=== PATIENT | male | born 1945 | race African-American/Black ===

== ENCOUNTER → 2017-10-07 | Outpatient (CLI) | payer OTHER, MEDICARE | END | disposition home or self-care (01) | LOC: US 09:14 | DX: I63.8 Other cerebral infarction (principal); I10 Essential (primary) hypertension; E78.5 Hyperlipidemia, unspecified; E78.00 Pure hypercholesterolemia, unspecified; R53.1 Weakness | CPT/HCPCS: 93880 ==

== ENCOUNTER 2017-11-15 20:05 | Inpatient (IN) | payer OTHER ==
[~2017-11-15] VITALS: Ht 180.3 cm; Wt 82.1 kg
[~2017-11-15 20:05] MED LIST: ATOR40TA PO; INSU100V8 SQ; INSU100V9 SQ; LISI10TA2 PO; METF500T16 PO
[2017-11-15] MEDS ORDERED: CLOP75TA PO (21:45)
--- NOTE | 2017-11-15 22:33 | RAD ---
PROCEDURE: CHEST PA LATERAL CLINICAL INDICATION: LOWER EXTREMITY EDEMA. HX OF SMOKING COMPARISON: 05/06/2016 FINDINGS: No pneumothorax identified. Cardiac and mediastinal contours unremarkable. No pulmonary consolidation or acute airspace disease. No acute osseous abnormalities identified. IMPRESSION: No pulmonary consolidation or acute airspace disease. Electronically signed by: Jan Solis DO (11/15/2017 10:29 PM) [facility]
--- NOTE | 2017-11-15 22:50 | PHYS DOC ---
Past Medical History Past Medical History: Diabetes-Type II, High Cholesterol, Hypertension, Other Past Surgical History: Cholecystectomy Alcohol Use: None Drug Use: None Adult General Chief Complaint Chief Complaint: LOWER EXTREMITY EDEMA HPI HPI Patient is a 72 year old male who presents with bilateral lower extremity edema with weeping and open wound to the right singh. Patient denies any shortness of breath or chest pain. He reports this is been going on for several months and steadily worsening. He reports the wound has become painful. Review of Systems Review of Systems Constitutional: Denies fever or chills [] Respiratory: Denies cough or shortness of breath [] Cardiovascular: No chest pain or palpitations GI: Denies abdominal pain, nausea, vomiting Musculoskeletal: Denies back pain or joint pain [] Integument: Reports lower extremity edema with weeping and wound to the right singh Neurologic: Denies focal weakness or sensory changes [] All other systems were reviewed and found to be within normal limits, except as documented in this note. Allergies Allergies Allergies Coded Allergies Type Severity Reaction Last Updated Verified No Known Drug Allergies 04/17/13 No Physical Exam Physical Exam Constitutional: Well developed, well nourished, no acute distress, non-toxic appearance. [] HENT: Normocephalic, atraumatic Eyes: PERRLA, EOMI, conjunctiva normal, no discharge. [] Neck: Normal range of motion, no tenderness, supple, no stridor. [] Cardiovascular:Heart rate regular rhythm, no murmur [] Lungs & Thorax: Bilateral breath sounds clear to auscultation [] Skin: Warm, dry, no erythema, no rash. [] Extremities: Bilateral lower extremity 4+ edema with weeping, ulcerative wound to the right singh, tender to palpation Neurologic: Alert and oriented X 3, normal motor function, normal sensory function, no focal deficits noted. [] Psychologic: Affect normal, judgement normal, mood normal. [] Current Patient Data Vital Signs Vital Signs Date Time Temp Pulse Resp B/P (MAP) Pulse Ox O2 Delivery O2 Flow Rate FiO2 11/15/17 20:40 98.1 78 20 149/71 (97) 100 Room Air 98.1 EKG EKG [] Radiology/Procedures Radiology/Procedures [] Course & Med Decision Making Course & Med Decision Making Pertinent Labs and Imaging studies reviewed. (See chart for details) Assumed care at 23:00 from RENT COLLECTOR Hout- patient is in the ED for bilateral lower extremity edema with weeping and open wound to the right singh for several months. Patient waiting for labs. Consulted with Dr. Castelan who accepted patient for admission. Dragon Disclaimer Dragon Disclaimer This electronic medical record was generated, in whole or in part, using a voice recognition dictation system. Departure Departure Impression: Primary Impression: Leg wound, right Disposition: ADMITTED INPATIENT Condition: STABLE Referrals: RAAM CASTELAN MD (PCP) Problem Qualifiers Primary Impression: Leg wound, right Encounter type: initial encounter Qualified Codes: S81.801A - Unspecified open wound, right lower leg, initial encounter AMBER LINDER STENCIL PRINTER Nov 15, 2017 22:50 CHIARA TOVAR STENCIL PRINTER Nov 16, 2017 01:19
--- NOTE | 2017-11-15 23:42 | EKG ---
[facility] [address] [place] [address] Test Date: 2017-11-15 Test Time: 21:53:07 Pat Name: BEATRIS BROCK Department: Room: Gender: M Parent Educator: : 1945 Requested By: AMBER LINDER Order Number: [id number] Reading MD: Bill Orellana MD Measurements Intervals Douglas Rate: 55 P: NE: QRS: -38 QRSD: 92 T: 78 QT: 418 QTc: 402 Interpretive Statements SR PAC'S LOW LIMB LEAD VOLTAGE Electronically Signed On 11-16-2017 12:09:07 CDT by Bill Orellana MD
[2017-11-16] MEDS ORDERED: MORPHINE SULFATE 4 MG/ML VIAL. IV PRN (01:30)
[2017-11-16] MEDS ORDERED: ONDANSETRON PF 4 MG/2 ML VIAL. IV PRN (01:30)
[2017-11-16 01:36] LABS: BASO # 0.1 x10^3/uL (0.0-0.2); BASO % 1 % (0-3); EOS # 0.2 x10^3/uL (0.0-0.7); EOS % 3 % (0-3); HEMATOCRIT 40.1 % (39.0-53.0); HEMOGLOBIN 13.8 g/dL (13.0-17.5); LYMPH # 1.8 x10^3/uL (1.0-4.8); LYMPH % 33 % (24-48); MEAN CORPUSCULAR HEMOGLOBIN 31 pg (25-35); MEAN CORPUSCULAR HGB CONC 34 g/dL (31-37); MEAN CORPUSCULAR VOLUME 91 fL (79-100); MONO # 0.5 x10^3/uL (0.0-1.1); MONO % 10 % (0-9); NEUT # 2.9 x10^3uL (1.8-7.7); NEUT % 53 % (31-73); PLATELET COUNT 183 x10^3/uL (140-400); RED BLOOD COUNT 4.41 x10^6/uL (4.30-5.70); RED CELL DISTRIBUTION WIDTH 14.3 % (11.5-14.5); WHITE BLOOD COUNT 5.4 x10^3/uL (4.0-11.0)
[2017-11-16 01:43] LABS: CALCIUM 8.8 mg/dL (8.5-10.1); GFR 89.1; POTASSIUM 3.6 mmol/L (3.5-5.1)
[2017-11-16 01:49] LABS: ALBUMIN 3.6 g/dL (3.4-5.0); ALBUMIN/GLOBULIN RATIO 1.1 (1.0-1.7); TOTAL BILIRUBIN 1.1 mg/dL (0.2-1.0); TOTAL PROTEIN 6.9 g/dL (6.4-8.2)
--- NOTE | 2017-11-16 02:43 | RAD ---
INDICATION: BILAT LEG SWELLING [id number] COMPARISON: None. TECHNIQUE: Grayscale, color and doppler ultrasound images were obtained of the bilateral lower extremity venous vasculature. RIGHT: No thrombus identified in the common femoral vein, femoral vein, popliteal vein or visualized calf veins. LEFT: No thrombus identified in the common femoral vein, femoral vein, popliteal vein or visualized calf veins. IMPRESSION: 1. No thrombus identified in deep venous system of bilateral lower extremities. 2. Edema of soft tissues. 3. Prominent lymph nodes in bilateral groin. Could be reactive in nature but would consider obtaining a follow-up exam to ensure no growth to exclude neoplastic causes Electronically signed by: Ganesh Barrera MD (11/16/2017 2:40 AM) [facility]
[2017-11-16 05:40] VITALS: BP 145/81
[2017-11-16 07:00] VITALS: BP 160/75
[2017-11-16] MEDS: CLOPIDOGREL BISULFATE 75 MG TABLET PO SCH (08:57)
[2017-11-16] MEDS: metFORMIN 500 MG TABLET PO SCH ×2 (08:57→17:00)
[2017-11-16] MEDS: amLODIPine BESYLATE 5 MG TABLET PO SCH (08:58)
[2017-11-16] MEDS: ENOXAPARIN 40 MG/0.4 ML SYRINGE. SQ SCH (08:59)
[2017-11-16] MEDS: LISINOPRIL 10 MG TABLET PO SCH (08:59)
[2017-11-16] MEDS: INSULIN LISPRO 300 UNITS/3 ML INSULN.PEN. SQ SCH ×3 (09:09→16:30)
--- NOTE | 2017-11-16 10:59 | HP ---
ADMIT DATE: 11/16/2017 LOCATION: He is in room 432. HISTORY OF PRESENT ILLNESS: The patient is a 72-year-old -[place] male who has a history of diabetes mellitus type 2 with microalbuminuria, hypertension, hyperlipidemia, coronary artery disease, previous myocardial infarction who has a prosthetic left eye and is a cigarette smoker, was admitted to [facility] through the Emergency Room on 11/16/2017 with swelling in both legs and right leg wound. He said he got the right leg wound while wrestling with his granddaughter. He says he has had the swelling in the legs for several months, which is worsened as well as the right leg wound for quite some time the hospital for further evaluation and management. It should be noted that the computers are down, so I do not have access to his vital signs or his labs and tests. However, I did wake up in the middle of the night and wrote admitting orders on him before the computer went down. He is therefore admitted for further evaluation and treatment of his bilateral lower extremity edema and right leg wound. ALLERGIES AND INTOLERANCES: None. MEDICATIONS: Atorvastatin 40 mg every day, Humalog insulin 4 units before meals t.i.d., Lantus insulin 12 units at bedtime, lisinopril 20 mg every day, metformin 500 mg b.i.d., amlodipine 5 mg every day and Plavix 75 mg every day. PAST MEDICAL HISTORY: Significant for diabetes mellitus type 2 with microalbuminuria, hypertension, hyperlipidemia, coronary artery disease followed by Dr. Orellana, myocardial infarction in the past, he had a gastric ulcer in 2003. 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 SOCIAL HISTORY: Does not drink alcohol. Smokes about 1 pack per day of cigarettes. FAMILY HISTORY: Noncontributory. REVIEW OF SYSTEMS: GENERAL: There has been no fever, chills or sweats. CARDIOVASCULAR: No chest pain. PULMONARY: No cough or shortness breath. GASTROINTESTINAL: No diarrhea. SKIN: He has got the right leg wound. NEUROLOGIC: No focal weakness. ENDOCRINE: Has diabetes mellitus. Rest of systems reviewed and negative except as stated in history of present illness. PHYSICAL EXAMINATION: VITAL SIGNS: Stable. HEENT: Eyes: Gaze is conjugate. Mouth is symmetrical. NECK: No cervical lymphadenopathy or thyroid enlargement. HEART: Reveals an S1, S2. There is no S3 or murmur. LUNGS: Clear. ABDOMEN: Soft, nontender with no hepatosplenomegaly, masses or tenderness. EXTREMITIES: He has got 2+ edema in both legs. SKIN: He has got a right anterior pretibial wound with a pink base. NEUROLOGIC: Revealed no facial weakness or focal weakness in the arms or legs. ASSESSMENT: 1. Bilateral lower extremity edema. 2. Right leg wound. 3. Diabetes mellitus type 2 with microalbuminuria. 4. Hypertension. 5. Hyperlipidemia. 6. Coronary artery disease. It should be noted I do not have any access to the labs as the computers are down at this time. PLAN: At this time is to elevate the legs. He will get a venous Doppler of both legs to rule out a deep vein thrombosis, obtain an echocardiogram to check his left ventricular ejection fraction to make sure he does not have right-sided heart failure or pulmonary hypertension, and will be seen by the wound care team. for his lab results, consider furosemide and do a 24-hour urine collection for protein. Continue with his home medications. ARAM TERRELL MD DR: YEYO/heladio JOB#: [id number] / [id number]
[2017-11-16 11:00] VITALS: BP 138/78
[2017-11-16] MEDS: FUROSEMIDE 20 MG/2 ML VIAL. IVP SCH (12:00)
[2017-11-16] MEDS: POTASSIUM CHLORIDE 20 MEQ TABLET.ER. PO SCH (12:34)
[2017-11-16 15:00] VITALS: BP 114/64
[2017-11-16] MEDS: NICOTINE 21MG PATCH. TD SCH (15:28)
--- NOTE | 2017-11-16 16:10 | CARD ---
MR#: [id number] Date of Study: 11/16/2017 Ordering Physician: ARAM TERRELL, Referring Physician: ARAM TERRELL Tech: Muna Johnson RDCS APPROVED REPORT EXAM: Two-dimensional and M-mode echocardiogram with Doppler and color Doppler. Other Information Quality : Fair INDICATION Peripheral Edema Hypertension/HCVD 2D DIMENSIONS RVDd1.7 (2.9-3.5cm)Left Atrium(2D)3.0 (1.6-4.0cm) IVSd0.8 (0.7-1.1cm)Aortic Root(2D)2.6 (2.0-3.7cm) LVDd5.0 (3.9-5.9cm)LVOT Diameter1.9 (1.8-2.4cm) PWd1.1 (0.7-1.1cm)LVDs2.8 (2.5-4.0cm) FS (%) 30.0 %SV86.3 ml LVEF(%)60.0 (>50%) Aortic Valve AoV Peak Tadeo.147.3cm/sAoV VTI29.2cm AO Peak GR.8.7mmHgLVOT Peak Tadeo.120.5cm/s LVOT VTI 25.49cmAO Mean GR.4mmHg ZAYDA (VMAX)2.95fd0XZZ (VTI)2.60cm2 Mitral Valve MV E Nvtcjeby14.7cm/sMV DECEL EPAC690we MV A Dlqrehvw49.0cm/sMV IAB69fl E/A Ratio1.8MVA (PHT)3.96cm2 TDI E/Lateral E'9.2E/Medial E'11.5 Pulmonary Vein S1 Buqaukvk69.2cm/sD2 Kjjwffyr69.8cm/s LEFT VENTRICLE The left ventricle is normal size. There is normal left ventricular wall thickness. The left ventricu lar systolic function is normal. The Ejection Fraction is 55-60%. There is normal LV segmental wall m otion. RIGHT VENTRICLE The right ventricle is normal size. The right ventricular systolic function is normal. ATRIA The left atrium size is normal. The right atrium size is normal. The interatrial septum is intact wit h no evidence for an atrial septal defect or patent foramen ovale as noted on 2-D or Doppler imaging. AORTIC VALVE The aortic valve is calcified but opens well. Doppler and Color Flow revealed no significant aortic r egurgitation. There is no significant aortic valvular stenosis. MITRAL VALVE The mitral valve is calcified but opens well. There is no evidence of mitral valve prolapse. There is no mitral valve stenosis. Doppler and Color-flow revealed trace to mild mitral regurgitation. TRICUSPID VALVE The tricuspid valve is normal in structure and function. Doppler and Color Flow revealed trace tricus pid regurgitation. There is no tricuspid valve stenosis. PULMONIC VALVE The pulmonic valve is not well visualized. Doppler and Color Flow revealed no pulmonic valvular regur gitation. There is no pulmonic valvular stenosis. GREAT VESSELS The aortic root is normal in size. The ascending aorta is normal in size. The IVC is normal in size a nd collapses >50% with inspiration. PERICARDIAL EFFUSION There is no evidence of significant pericardial effusion. Critical Notification Critical Value: No <Conclusion> The left ventricular systolic function is normal. The Ejection Fraction is 55-60%. There is normal LV segmental wall motion. Trace to mild mitral regurgitation. Trace tricuspid regurgitation. There is no evidence of significant pericardial effusion. Signed by : Axel Gallegos, Electronically Approved : 11/16/2017 16:10:02
[2017-11-16 19:00] VITALS: BP 126/70
[2017-11-16] MEDS: ATORVASTATIN CALCIUM 40 MG TABLET. PO SCH (20:45)
[2017-11-16] MEDS: INSULIN GLARGINE 300 UNITS/3 ML INSULN.PEN. SQ SCH (20:47)
[2017-11-16 23:00] VITALS: BP 132/70
[2017-11-17 03:00] VITALS: BP 138/75
[2017-11-17 07:00] VITALS: BP 123/58
[2017-11-17 07:25] LABS: BASO % 1 % (0-3); EOS # 0.1 x10^3/uL (0.0-0.7); EOS % 3 % (0-3); HEMATOCRIT 37.8 % (39.0-53.0); HEMOGLOBIN 13.2 g/dL (13.0-17.5); LYMPH # 1.4 x10^3/uL (1.0-4.8); LYMPH % 29 % (24-48); MEAN CORPUSCULAR HEMOGLOBIN 31 pg (25-35); MEAN CORPUSCULAR HGB CONC 35 g/dL (31-37); MEAN CORPUSCULAR VOLUME 90 fL (79-100); MONO # 0.7 x10^3/uL (0.0-1.1); MONO % 14 % (0-9); NEUT # 2.6 x10^3uL (1.8-7.7); NEUT % 54 % (31-73); PLATELET COUNT 183 x10^3/uL (140-400); RED BLOOD COUNT 4.21 x10^6/uL (4.30-5.70); RED CELL DISTRIBUTION WIDTH 13.9 % (11.5-14.5); WHITE BLOOD COUNT 4.9 x10^3/uL (4.0-11.0)
[2017-11-17] MEDS: INSULIN LISPRO 300 UNITS/3 ML INSULN.PEN. SQ SCH ×3 (07:30→17:23)
[2017-11-17 07:39] LABS: CALCIUM 8.7 mg/dL (8.5-10.1); CHOLESTEROL/HDL RATIO 1.7; GFR 89.1
[2017-11-17] MEDS: CLOPIDOGREL BISULFATE 75 MG TABLET PO SCH (09:19)
[2017-11-17] MEDS: POTASSIUM CHLORIDE 20 MEQ TABLET.ER. PO SCH ×3 (09:19→17:20)
[2017-11-17] MEDS: FUROSEMIDE 20 MG/2 ML VIAL. IVP SCH (09:19)
[2017-11-17] MEDS: metFORMIN 500 MG TABLET PO SCH ×2 (09:19→17:20)
[2017-11-17] MEDS: ENOXAPARIN 40 MG/0.4 ML SYRINGE. SQ SCH (09:21)
[2017-11-17] MEDS: amLODIPine BESYLATE 5 MG TABLET PO SCH (09:21)
[2017-11-17] MEDS: LISINOPRIL 10 MG TABLET PO SCH (09:21)
[2017-11-17] MEDS: NICOTINE 21MG PATCH. TD SCH (09:22)
--- NOTE | 2017-11-17 10:19 | PDOC ---
PROGRESS NOTES Subjective Subjective less leg swelling but still present and will increase iv lasix. potassium 3.0 and will replete. echo okay. bilateral LE venous doppler neg for dvt. cultures from right leg wound gram stain negative. Objective Objective Vital Signs Date Time Temp Pulse Resp B/P (MAP) Pulse Ox O2 Delivery O2 Flow Rate FiO2 11/17/17 09:21 70 129/58 11/17/17 08:00 Room Air 11/17/17 07:00 98.1 18 99 98.1 Intake and Output 11/17/17 07:00 Output Total 1700 ml Balance -1700 ml Output Urine Total 1700 ml # Voids 4 Physical Exam Abdomen: Soft Heart: Regular rate, Normal S1, Normal S2 Extremities: Other (1 to 2 plus edema legs) General: Alert HEENT: Atraumatic Lungs: Clear to auscultation Neuro: Normal speech Psych/Mental Status: Mental status NL Skin: Other (right leg wound) Assessment Assessment 1. Bilateral lower extremity edema. 2. Right leg wound. 3. Diabetes mellitus type 2 with microalbuminuria. 4. Hypertension. 5. Hyperlipidemia. 6. Coronary artery disease. hypokalemia Plan Plan of Care increase iv lasix increase kcl labs tomorrow wound care consider dismissal tomorrow Comment Review of Relevant I have reviewed the following items linda (where applicable) has been applied. Labs Laboratory Tests Test 11/16/17 01:25 11/16/17 07:17 11/16/17 11:37 11/16/17 16:44 White Blood Count 5.4 x10^3/uL (4.0-11.0) Red Blood Count 4.41 x10^6/uL (4.30-5.70) Hemoglobin 13.8 g/dL (13.0-17.5) Hematocrit 40.1 % (39.0-53.0) Mean Corpuscular Volume 91 fL (79-100) Mean Corpuscular Hemoglobin 31 pg (25-35) Mean Corpuscular Hemoglobin Concent 34 g/dL (31-37) Red Cell Distribution Width 14.3 % (11.5-14.5) Platelet Count 183 x10^3/uL (140-400) Neutrophils (%) (Auto) 53 % (31-73) Lymphocytes (%) (Auto) 33 % (24-48) Monocytes (%) (Auto) 10 % (0-9) Eosinophils (%) (Auto) 3 % (0-3) Basophils (%) (Auto) 1 % (0-3) Neutrophils # (Auto) 2.9 x10^3uL (1.8-7.7) Lymphocytes # (Auto) 1.8 x10^3/uL (1.0-4.8) Monocytes # (Auto) 0.5 x10^3/uL (0.0-1.1) Eosinophils # (Auto) 0.2 x10^3/uL (0.0-0.7) Basophils # (Auto) 0.1 x10^3/uL (0.0-0.2) Sodium Level 142 mmol/L (136-145) Potassium Level 3.6 mmol/L (3.5-5.1) Chloride Level 105 mmol/L (98-107) Carbon Dioxide Level 29 mmol/L (21-32) Anion Gap 8 (6-14) Blood Urea Nitrogen 10 mg/dL (8-26) Creatinine 1.0 mg/dL (0.7-1.3) Estimated GFR (Cockcroft-Gault) 89.1 BUN/Creatinine Ratio 10 (6-20) Glucose Level 164 mg/dL (70-99) Calcium Level 8.8 mg/dL (8.5-10.1) Total Bilirubin 1.1 mg/dL (0.2-1.0) Aspartate Amino Transf (AST/SGOT) 18 U/L (15-37) Alanine Aminotransferase (ALT/SGPT) 30 U/L (16-63) Alkaline Phosphatase 75 U/L (46-116) RY-Nfl-L-Type Natriuretic Peptide 180 pg/mL (0-124) Total Protein 6.9 g/dL (6.4-8.2) Albumin 3.6 g/dL (3.4-5.0) Albumin/Globulin Ratio 1.1 (1.0-1.7) Glucose (Fingerstick) 150 mg/dL (70-99) 146 mg/dL (70-99) 90 mg/dL (70-99) Test 11/16/17 20:13 11/17/17 06:32 11/17/17 07:43 Glucose (Fingerstick) 199 mg/dL (70-99) 82 mg/dL (70-99) White Blood Count 4.9 x10^3/uL (4.0-11.0) Red Blood Count 4.21 x10^6/uL (4.30-5.70) Hemoglobin 13.2 g/dL (13.0-17.5) Hematocrit 37.8 % (39.0-53.0) Mean Corpuscular Volume 90 fL (79-100) Mean Corpuscular Hemoglobin 31 pg (25-35) Mean Corpuscular Hemoglobin Concent 35 g/dL (31-37) Red Cell Distribution Width 13.9 % (11.5-14.5) Platelet Count 183 x10^3/uL (140-400) Neutrophils (%) (Auto) 54 % (31-73) Lymphocytes (%) (Auto) 29 % (24-48) Monocytes (%) (Auto) 14 % (0-9) Eosinophils (%) (Auto) 3 % (0-3) Basophils (%) (Auto) 1 % (0-3) Neutrophils # (Auto) 2.6 x10^3uL (1.8-7.7) Lymphocytes # (Auto) 1.4 x10^3/uL (1.0-4.8) Monocytes # (Auto) 0.7 x10^3/uL (0.0-1.1) Eosinophils # (Auto) 0.1 x10^3/uL (0.0-0.7) Basophils # (Auto) 0.0 x10^3/uL (0.0-0.2) Sodium Level 143 mmol/L (136-145) Potassium Level 3.0 mmol/L (3.5-5.1) Chloride Level 106 mmol/L (98-107) Carbon Dioxide Level 29 mmol/L (21-32) Anion Gap 8 (6-14) Blood Urea Nitrogen 12 mg/dL (8-26) Creatinine 1.0 mg/dL (0.7-1.3) Estimated GFR (Cockcroft-Gault) 89.1 Glucose Level 76 mg/dL (70-99) Calcium Level 8.7 mg/dL (8.5-10.1) Triglycerides Level 40 mg/dL (0-150) Cholesterol Level 84 mg/dL (0-200) LDL Cholesterol, Calculated 26 mg/dL (0-100) VLDL Cholesterol, Calculated 8 mg/dL (0-40) Non-HDL Cholesterol Calculated 34 mg/dL (0-129) HDL Cholesterol 50 mg/dL (40-60) Cholesterol/HDL Ratio 1.7 Laboratory Tests Test 11/16/17 11:37 11/16/17 16:44 11/16/17 20:13 11/17/17 06:32 Glucose (Fingerstick) 146 mg/dL (70-99) 90 mg/dL (70-99) 199 mg/dL (70-99) White Blood Count 4.9 x10^3/uL (4.0-11.0) Red Blood Count 4.21 x10^6/uL (4.30-5.70) Hemoglobin 13.2 g/dL (13.0-17.5) Hematocrit 37.8 % (39.0-53.0) Mean Corpuscular Volume 90 fL (79-100) Mean Corpuscular Hemoglobin 31 pg (25-35) Mean Corpuscular Hemoglobin Concent 35 g/dL (31-37) Red Cell Distribution Width 13.9 % (11.5-14.5) Platelet Count 183 x10^3/uL (140-400) Neutrophils (%) (Auto) 54 % (31-73) Lymphocytes (%) (Auto) 29 % (24-48) Monocytes (%) (Auto) 14 % (0-9) Eosinophils (%) (Auto) 3 % (0-3) Basophils (%) (Auto) 1 % (0-3) Neutrophils # (Auto) 2.6 x10^3uL (1.8-7.7) Lymphocytes # (Auto) 1.4 x10^3/uL (1.0-4.8) Monocytes # (Auto) 0.7 x10^3/uL (0.0-1.1) Eosinophils # (Auto) 0.1 x10^3/uL (0.0-0.7) Basophils # (Auto) 0.0 x10^3/uL (0.0-0.2) Sodium Level 143 mmol/L (136-145) Potassium Level 3.0 mmol/L (3.5-5.1) Chloride Level 106 mmol/L (98-107) Carbon Dioxide Level 29 mmol/L (21-32) Anion Gap 8 (6-14) Blood Urea Nitrogen 12 mg/dL (8-26) Creatinine 1.0 mg/dL (0.7-1.3) Estimated GFR (Cockcroft-Gault) 89.1 Glucose Level 76 mg/dL (70-99) Calcium Level 8.7 mg/dL (8.5-10.1) Triglycerides Level 40 mg/dL (0-150) Cholesterol Level 84 mg/dL (0-200) LDL Cholesterol, Calculated 26 mg/dL (0-100) VLDL Cholesterol, Calculated 8 mg/dL (0-40) Non-HDL Cholesterol Calculated 34 mg/dL (0-129) HDL Cholesterol 50 mg/dL (40-60) Cholesterol/HDL Ratio 1.7 Test 11/17/17 07:43 Glucose (Fingerstick) 82 mg/dL (70-99) Microbiology 11/16/17 Anaerobic/Aerobic Culture, Resulted Pending 11/16/17 Anaerobic Culture Result 1 (BRITNEY), Resulted Pending 11/16/17 Aerobic Culture, Resulted Pending 11/16/17 Aerobic Culture Result 1 (BRITNEY), Resulted Pending 11/16/17 Gram Stain - Final, Resulted 11/16/17 Gram Stain Result 1 (BRITNEY) - Final, Resulted 11/16/17 Gram Stain Result 2 (BRITNEY) - Final, Resulted Medications Current Medications Ondansetron HCl (Zofran) 4 mg PRN Q8HRS PRN IV NAUSEA/VOMITING 1ST CHOICE; Start 11/16/17 at 01:30; Stop 11/17/17 at 01:29; Status DC Morphine Sulfate (Morphine Sulfate) 4 mg PRN Q2HR PRN IV SEVERE PAIN; Start at 01:30; Stop 11/17/17 at 01:29; Status DC Acetaminophen (Tylenol) 650 mg PRN Q4HRS PRN PO MILD PAIN / TEMP; Start at 01:30 Enoxaparin Sodium (Lovenox 40mg Syringe) 40 mg DAILY SQ Last administered on at 09:21; Start 11/16/17 at 09:00 Atorvastatin Calcium (Lipitor) 40 mg QHS PO Last administered on 11/16/17at 20: 45; Start 11/16/17 at 21:00 Insulin Human Lispro (HumaLOG) 4 units TIDAC SQ Last administered on 11/16/17at 12:45; Start 11/16/17 at 07:30 Insulin Glargine (Lantus) 12 units QHS SQ Last administered on 11/16/17at 20:47 ; Start 11/16/17 at 21:00 Lisinopril (Prinivil) 20 mg DAILY PO Last administered on 11/17/17 09:21; Start 11/16/17 at 09:00 Metformin HCl (Glucophage) 500 mg BIDWMEALS PO Last administered on 11/17/17 09:19; Start 11/16/17 at 08:00 Amlodipine Besylate (Norvasc) 5 mg DAILY PO Last administered on 11/17/17 09: 21; Start 11/16/17 at 09:00 Clopidogrel Bisulfate (Plavix) 75 mg DAILY PO Last administered on 11/17/17 09 :19; Start 11/16/17 at 09:00 Furosemide (Lasix) 20 mg DAILY IVP Last administered on 11/17/17 09:19; Start 11/16/17 at 12:00 Potassium Chloride (Klor-Con) 20 meq DAILYWBKFT PO Last administered on 09:19; Start 11/16/17 at 11:00 Nicotine (Nicoderm Cq 21mg) 1 patch DAILY TD Last administered on 11/17/17 09: 22; Start 11/16/17 at 16:00 Active Scripts Active Reported Clopidogrel (Clopidogrel Bisulfate) 75 Mg Tablet 1 Tab PO DAILY Lantus (Insulin Glargine,Hum.rec.anlog) 100 Unit/1 Ml Vial 32 Unit SQ HS Apidra (Insulin Glulisine) 100 Unit/1 Ml Vial 6 Unit SQ TIDAC Lipitor (Atorvastatin Calcium) 40 Mg Tablet 40 Mg PO HS Lisinopril 10 Mg Tablet 10 Mg PO DAILY08 Metformin Hcl 500 Mg Tablet 500 Mg PO BID76 Vitals/I & O Vital Sign - Last 24 Hours 11/16/17 11/16/17 11/16/17 11/16/17 11:00 15:00 19:00 19:50 Temp 98.9 98.3 98.3 98.9 98.3 98.3 Pulse 70 60 63 Resp 16 16 18 B/P (MAP) 138/78 (98) 114/64 (81) 126/70 (88) Pulse Ox 99 100 97 O2 Delivery Room Air Room Air Room Air Room Air 11/16/17 11/17/17 11/17/17 11/17/17 23:00 03:00 07:00 08:00 Temp 98.6 98.3 98.1 98.6 98.3 98.1 Pulse 56 50 70 Resp 18 18 18 B/P (MAP) 132/70 (90) 138/75 (96) 123/58 (79) Pulse Ox 100 96 99 O2 Delivery Room Air Room Air Room Air Room Air 11/17/17 11/17/17 09:21 09:21 Pulse 70 70 B/P (MAP) 129/58 129/58 Intake and Output 11/16/17 11/16/17 11/17/17 15:00 23:00 07:00 Output Total 450 ml 600 ml 650 ml Balance -450 ml -600 ml -650 ml ARAM TERRELL MD Nov 17, 2017 10:18
[2017-11-17 11:00] VITALS: BP 123/64
[2017-11-17] MEDS: FUROSEMIDE 40 MG/4 ML VIAL. IVP SCH (12:29)
[2017-11-17 13:24] LABS: UR PROTEIN 6.1 mg/dL (Not Estab.)
[2017-11-17 15:00] VITALS: BP 140/83
[2017-11-17 19:00] VITALS: BP 129/78
[2017-11-17] MEDS: ATORVASTATIN CALCIUM 40 MG TABLET. PO SCH (20:49)
[2017-11-17] MEDS: INSULIN GLARGINE 300 UNITS/3 ML INSULN.PEN. SQ SCH (20:51)
[2017-11-17 23:00] VITALS: BP 113/63
[2017-11-18 01:14] LABS: HEMOGLOBIN A1C 6.7 % (4.8-5.6)
[2017-11-18 03:00] VITALS: BP 139/80
[2017-11-18 07:00] VITALS: BP 147/88
[2017-11-18 07:05] LABS: CALCIUM 8.8 mg/dL (8.5-10.1); GFR 89.1; MAGNESIUM 1.7 mg/dL (1.8-2.4)
[2017-11-18] MEDS: NICOTINE 21MG PATCH. TD SCH (09:10)
[2017-11-18] MEDS: POTASSIUM CHLORIDE 20 MEQ TABLET.ER. PO SCH ×2 (09:10→17:38)
[2017-11-18] MEDS: metFORMIN 500 MG TABLET PO SCH ×2 (09:11→17:37)
[2017-11-18] MEDS: amLODIPine BESYLATE 5 MG TABLET PO SCH (09:11)
[2017-11-18] MEDS: CLOPIDOGREL BISULFATE 75 MG TABLET PO SCH (09:11)
[2017-11-18] MEDS: FUROSEMIDE 40 MG/4 ML VIAL. IVP SCH (09:11)
[2017-11-18] MEDS: LISINOPRIL 10 MG TABLET PO SCH (09:11)
[2017-11-18] MEDS: INSULIN LISPRO 300 UNITS/3 ML INSULN.PEN. SQ SCH ×3 (09:20→17:47)
[2017-11-18 11:00] VITALS: BP 132/74
--- NOTE | 2017-11-18 13:02 | PDOC ---
PROGRESS NOTES Subjective Subjective dizzy with some difficulty walking and complains of difficulty voiding and dysuria. lab reviewed. bmp okay. magnesium low. blood sugars and bp okay. will check orthostatic bp and order bladder scan every 6 hours and start tamsulosin at hs and order urinalysis and urine culture and change to oral lasix and d/c amlodipine and decrease lisinopril. leg swelling resolved. Objective Objective Vital Signs Date Time Temp Pulse Resp B/P (MAP) Pulse Ox O2 Delivery O2 Flow Rate FiO2 11/18/17 09:11 69 147/88 11/18/17 08:00 Room Air 11/18/17 07:00 98.4 18 98 98.4 Intake and Output 11/18/17 07:00 Intake Total 480 ml Output Total 200 ml Balance 280 ml Intake Oral 480 ml Output Urine Total 200 ml # Voids 8 # Bowel Movements 2 Physical Exam Abdomen: Soft Heart: Regular rate, Normal S1, Normal S2 Extremities: No edema General: Alert HEENT: Atraumatic Lungs: Clear to auscultation Neuro: Normal speech Psych/Mental Status: Mental status NL Skin: No rashes, Other (right pretibial wound with pink base) Assessment Assessment 1. Bilateral lower extremity edema. resolved 2. Right leg wound. 3. Diabetes mellitus type 2 with microalbuminuria. 4. Hypertension. 5. Hyperlipidemia. 6. Coronary artery disease. dizziness difficulty voiding and dysuria hypomagnesemia Plan Plan of Care d/c iv lasix start oral lasix tomorrow lab tomorrow orthostatic bp start tamsulosin d/c amlodipine decrease lisinopril urinalysis and urine culture bladder scan every 6 hours. sc if more than 250 cc iv magnesium today Comment Review of Relevant I have reviewed the following items linda (where applicable) has been applied. Labs Laboratory Tests Test 11/16/17 16:44 11/16/17 20:13 11/17/17 06:32 11/17/17 06:35 Glucose (Fingerstick) 90 mg/dL (70-99) 199 mg/dL (70-99) White Blood Count 4.9 x10^3/uL (4.0-11.0) Red Blood Count 4.21 x10^6/uL (4.30-5.70) Hemoglobin 13.2 g/dL (13.0-17.5) Hematocrit 37.8 % (39.0-53.0) Mean Corpuscular Volume 90 fL (79-100) Mean Corpuscular Hemoglobin 31 pg (25-35) Mean Corpuscular Hemoglobin Concent 35 g/dL (31-37) Red Cell Distribution Width 13.9 % (11.5-14.5) Platelet Count 183 x10^3/uL (140-400) Neutrophils (%) (Auto) 54 % (31-73) Lymphocytes (%) (Auto) 29 % (24-48) Monocytes (%) (Auto) 14 % (0-9) Eosinophils (%) (Auto) 3 % (0-3) Basophils (%) (Auto) 1 % (0-3) Neutrophils # (Auto) 2.6 x10^3uL (1.8-7.7) Lymphocytes # (Auto) 1.4 x10^3/uL (1.0-4.8) Monocytes # (Auto) 0.7 x10^3/uL (0.0-1.1) Eosinophils # (Auto) 0.1 x10^3/uL (0.0-0.7) Basophils # (Auto) 0.0 x10^3/uL (0.0-0.2) Sodium Level 143 mmol/L (136-145) Potassium Level 3.0 mmol/L (3.5-5.1) Chloride Level 106 mmol/L (98-107) Carbon Dioxide Level 29 mmol/L (21-32) Anion Gap 8 (6-14) Blood Urea Nitrogen 12 mg/dL (8-26) Creatinine 1.0 mg/dL (0.7-1.3) Estimated GFR (Cockcroft-Gault) 89.1 Glucose Level 76 mg/dL (70-99) Hemoglobin A1c 6.7 % (4.8-5.6) Calcium Level 8.7 mg/dL (8.5-10.1) Triglycerides Level 40 mg/dL (0-150) Cholesterol Level 84 mg/dL (0-200) LDL Cholesterol, Calculated 26 mg/dL (0-100) VLDL Cholesterol, Calculated 8 mg/dL (0-40) Non-HDL Cholesterol Calculated 34 mg/dL (0-129) HDL Cholesterol 50 mg/dL (40-60) Cholesterol/HDL Ratio 1.7 Urine Protein 6.1 mg/dL (Not Estab.) Urine Protein 24 Hr Calculated 98 mg/24 hr (30-150) Test 11/17/17 07:43 11/17/17 10:58 11/17/17 15:55 11/17/17 20:45 Glucose (Fingerstick) 82 mg/dL (70-99) 238 mg/dL (70-99) 145 mg/dL (70-99) 161 mg/dL (70-99) Test 11/17/17 22:23 11/17/17 22:30 11/17/17 23:04 11/18/17 05:20 Glucose (Fingerstick) 164 mg/dL (70-99) 155 mg/dL (70-99) 180 mg/dL (70-99) Sodium Level 141 mmol/L (136-145) Potassium Level 4.0 mmol/L (3.5-5.1) Chloride Level 107 mmol/L (98-107) Carbon Dioxide Level 27 mmol/L (21-32) Anion Gap 7 (6-14) Blood Urea Nitrogen 19 mg/dL (8-26) Creatinine 1.0 mg/dL (0.7-1.3) Estimated GFR (Cockcroft-Gault) 89.1 Glucose Level 200 mg/dL (70-99) Calcium Level 8.8 mg/dL (8.5-10.1) Magnesium Level 1.7 mg/dL (1.8-2.4) Test 11/18/17 07:54 11/18/17 12:02 Glucose (Fingerstick) 150 mg/dL (70-99) 109 mg/dL (70-99) Laboratory Tests Test 11/17/17 15:55 11/17/17 20:45 11/17/17 22:23 11/17/17 22:30 Glucose (Fingerstick) 145 mg/dL (70-99) 161 mg/dL (70-99) 164 mg/dL (70-99) 155 mg/dL (70-99) Test 11/17/17 23:04 11/18/17 05:20 11/18/17 07:54 11/18/17 12:02 Glucose (Fingerstick) 180 mg/dL (70-99) 150 mg/dL (70-99) 109 mg/dL (70-99) Sodium Level 141 mmol/L (136-145) Potassium Level 4.0 mmol/L (3.5-5.1) Chloride Level 107 mmol/L (98-107) Carbon Dioxide Level 27 mmol/L (21-32) Anion Gap 7 (6-14) Blood Urea Nitrogen 19 mg/dL (8-26) Creatinine 1.0 mg/dL (0.7-1.3) Estimated GFR (Cockcroft-Gault) 89.1 Glucose Level 200 mg/dL (70-99) Calcium Level 8.8 mg/dL (8.5-10.1) Magnesium Level 1.7 mg/dL (1.8-2.4) Microbiology 11/16/17 Anaerobic/Aerobic Culture, Resulted Pending 11/16/17 Anaerobic Culture Result 1 (BRITNEY), Resulted Pending 11/16/17 Aerobic Culture, Resulted Pending 11/16/17 Aerobic Culture Result 1 (BRITNEY), Resulted Pending 11/16/17 Gram Stain - Final, Resulted 11/16/17 Gram Stain Result 1 (BRITNEY) - Final, Resulted 11/16/17 Gram Stain Result 2 (BRITNEY) - Final, Resulted Medications Current Medications Ondansetron HCl (Zofran) 4 mg PRN Q8HRS PRN IV NAUSEA/VOMITING 1ST CHOICE; Start 11/16/17 at 01:30; Stop 11/17/17 at 01:29; Status DC Morphine Sulfate (Morphine Sulfate) 4 mg PRN Q2HR PRN IV SEVERE PAIN; Start at 01:30; Stop 11/17/17 at 01:29; Status DC Acetaminophen (Tylenol) 650 mg PRN Q4HRS PRN PO MILD PAIN / TEMP; Start at 01:30 Enoxaparin Sodium (Lovenox 40mg Syringe) 40 mg DAILY SQ Last administered on at 09:21; Start 11/16/17 at 09:00; Stop 11/17/17 at 10:16; Status DC Atorvastatin Calcium (Lipitor) 40 mg QHS PO Last administered on 11/17/17at 20: 49; Start 11/16/17 at 21:00 Insulin Human Lispro (HumaLOG) 4 units TIDAC SQ Last administered on 11/18/17at 09:20; Start 11/16/17 at 07:30 Insulin Glargine (Lantus) 12 units QHS SQ Last administered on 11/17/17 20:51 ; Start 11/16/17 at 21:00 Lisinopril (Prinivil) 20 mg DAILY PO Last administered on 11/18/17 09:11; Start 11/16/17 at 09:00 Metformin HCl (Glucophage) 500 mg BIDWMEALS PO Last administered on 11/18/17 09:11; Start 11/16/17 at 08:00 Amlodipine Besylate (Norvasc) 5 mg DAILY PO Last administered on 11/18/17 09: 11; Start 11/16/17 at 09:00 Clopidogrel Bisulfate (Plavix) 75 mg DAILY PO Last administered on 11/18/17 09 :11; Start 11/16/17 at 09:00 Furosemide (Lasix) 20 mg DAILY IVP Last administered on 11/17/17 09:19; Start 11/16/17 at 12:00; Stop 11/17/17 at 10:16; Status DC Potassium Chloride (Klor-Con) 20 meq DAILYWBKFT PO Last administered on at 09:19; Start 11/16/17 at 11:00; Stop 11/17/17 at 10:16; Status DC Nicotine (Nicoderm Cq 21mg) 1 patch DAILY TD Last administered on 11/18/17 09: 10; Start 11/16/17 at 16:00 Furosemide (Lasix) 40 mg DAILY IVP Last administered on 11/18/17 09:11; Start 11/17/17 at 11:00 Potassium Chloride (Klor-Con) 40 meq BIDWMEALS PO Last administered on at 09:10; Start 11/17/17 at 11:00 Active Scripts Active Reported Clopidogrel (Clopidogrel Bisulfate) 75 Mg Tablet 1 Tab PO DAILY Lantus (Insulin Glargine,Hum.rec.anlog) 100 Unit/1 Ml Vial 32 Unit SQ HS Apidra (Insulin Glulisine) 100 Unit/1 Ml Vial 6 Unit SQ TIDAC Lipitor (Atorvastatin Calcium) 40 Mg Tablet 40 Mg PO HS Lisinopril 10 Mg Tablet 10 Mg PO DAILY08 Metformin Hcl 500 Mg Tablet 500 Mg PO [id number] Vitals/I & O Vital Sign - Last 24 Hours 11/17/17 11/17/17 11/17/1722/18 15:00 19:00 20:10 23:00 Temp 98.2 98.2 98.3 98.2 98.2 98.3 Pulse 86 88 88 Resp 18 18 18 B/P (MAP) 140/83 (102) 129/78 (95) 113/63 (80) Pulse Ox 99 100 94 O2 Delivery Room Air Room Air Room Air Room Air 11/18/17 11/18/17 11/18/17 11/18/17 03:00 07:00 08:00 09:11 Temp 98.3 98.4 98.3 98.4 Pulse 80 69 69 Resp 18 B/P (MAP) 139/80 (99) 147/88 (107) 147/88 Pulse Ox 96 98 O2 Delivery Room Air Room Air Room Air 11/18/17 09:11 Pulse 69 B/P (MAP) 147/88 Intake and Output 11/17/17 11/17/17 11/18/17 15:00 23:00 07:00 Intake Total 480 ml Output Total 200 ml Balance 480 ml -200 ml ARAM TERRELL MD Nov 18, 2017 13:02
[2017-11-18] MEDS ORDERED: MAGNESIUM SULFATE 2GM 50 ML IV ONE (14:00)
[2017-11-18 15:00] VITALS: BP 142/85
[2017-11-18 17:19] LABS: BILIRUBIN,URINE NEGATIVE (NEG); CLARITY,URINE CLEAR; COLOR,URINE YELLOW; NITRITE,URINE NEGATIVE (NEG); PROTEIN,URINE NEGATIVE (NEG-TRACE); UROBILINOGEN,URINE 0.2 mg/dL (0.2 mg/dL)
[2017-11-18 17:24] LABS: BACTERIA,URINE 0 /HPF (0-FEW); RBC,URINE 0 /HPF (0-2); SQUAMOUS EPITHELIAL CELL,UR OCC /LPF; WBC,URINE 0 /HPF (0-4)
[2017-11-18] MEDS: ACETAMINOPHEN 325 MG TABLET. PO PRN (17:38)
[2017-11-18 19:00] VITALS: BP 136/77
[2017-11-18] MEDS: ATORVASTATIN CALCIUM 40 MG TABLET. PO SCH (20:26)
[2017-11-18] MEDS: TAMSULOSIN 0.4 MG CAP.ER.24H. PO SCH (20:26)
[2017-11-18] MEDS: INSULIN GLARGINE 300 UNITS/3 ML INSULN.PEN. SQ SCH (21:05)
[2017-11-18 23:00] VITALS: BP 122/72
[2017-11-19 03:00] VITALS: BP 128/74
[2017-11-19 04:21] LABS: BASO # 0.1 x10^3/uL (0.0-0.2); BASO % 1 % (0-3); EOS # 0.1 x10^3/uL (0.0-0.7); EOS % 2 % (0-3); HEMATOCRIT 42.7 % (39.0-53.0); HEMOGLOBIN 14.6 g/dL (13.0-17.5); LYMPH # 1.4 x10^3/uL (1.0-4.8); LYMPH % 21 % (24-48); MEAN CORPUSCULAR HEMOGLOBIN 31 pg (25-35); MEAN CORPUSCULAR HGB CONC 34 g/dL (31-37); MEAN CORPUSCULAR VOLUME 92 fL (79-100); MONO # 0.8 x10^3/uL (0.0-1.1); MONO % 13 % (0-9); NEUT # 4.3 x10^3uL (1.8-7.7); NEUT % 64 % (31-73); PLATELET COUNT 184 x10^3/uL (140-400); RED BLOOD COUNT 4.65 x10^6/uL (4.30-5.70); WHITE BLOOD COUNT 6.7 x10^3/uL (4.0-11.0)
[2017-11-19 04:50] LABS: CALCIUM 8.7 mg/dL (8.5-10.1); CREATININE 1.1 mg/dL (0.7-1.3); GFR 79.8; MAGNESIUM 1.9 mg/dL (1.8-2.4); POTASSIUM 4.2 mmol/L (3.5-5.1)
[2017-11-19 07:00] VITALS: BP 115/72
[2017-11-19] MEDS: INSULIN LISPRO 300 UNITS/3 ML INSULN.PEN. SQ SCH ×3 (07:30→17:12)
[2017-11-19] MEDS: NICOTINE 21MG PATCH. TD SCH (08:24)
[2017-11-19] MEDS: POTASSIUM CHLORIDE 20 MEQ TABLET.ER. PO SCH ×2 (08:25→17:10)
[2017-11-19] MEDS: FUROSEMIDE 20 MG TABLET PO SCH (08:26)
[2017-11-19] MEDS: CLOPIDOGREL BISULFATE 75 MG TABLET PO SCH (08:26)
[2017-11-19] MEDS: metFORMIN 500 MG TABLET PO SCH ×2 (08:27→17:10)
[2017-11-19] MEDS: LISINOPRIL 10 MG TABLET PO SCH (08:31)
--- NOTE | 2017-11-19 08:41 | PDOC ---
PROGRESS NOTES Subjective Subjective he is confused. labs reviewed. will order MRI brain and neurology consult. has urine retention and coude catheter had to be used to placed for robles. will consult dr. Giron. vitals are stable. afebrile . urinalysis without pyuria or hematuria. nurse notes left eye prosthesis with mucus and will have it removed and cleaned and socket cleaned. Objective Objective Vital Signs Date Time Temp Pulse Resp B/P (MAP) Pulse Ox O2 Delivery O2 Flow Rate FiO2 11/19/17 08:31 85 115/72 11/19/17 07:00 98.7 16 97 Room Air 98.7 Intake and Output 11/19/17 07:00 Intake Total 650 ml Output Total 825 ml Balance -175 ml Intake Oral 600 ml IV Total 50 ml Output Urine Total 825 ml # Voids 1 # Bowel Movements 1 Physical Exam Abdomen: Soft Heart: Regular rate, Normal S1, Normal S2 Extremities: No edema General: Alert HEENT: Atraumatic Lungs: Clear to auscultation Neuro: Normal speech, Other (confused. does not know year. ) Psych/Mental Status: Other (confused) Skin: Other (right pretibial leg wound with pink base) Assessment Assessment 1. Bilateral lower extremity edema. resolved 2. Right leg wound. 3. Diabetes mellitus type 2 with microalbuminuria. 4. Hypertension. 5. Hyperlipidemia. 6. Coronary artery disease. encephalopathy urine retention and coude robles catheter placed Plan Plan of Care consult dr. ramirez consult dr. giron MRI brain labs tomorrow remove left eye prosthesis and clean it and clean eye socket Comment Review of Relevant I have reviewed the following items linda (where applicable) has been applied. Labs Laboratory Tests Test 11/17/17 10:58 11/17/17 15:55 11/17/17 20:45 11/17/17 22:23 Glucose (Fingerstick) 238 mg/dL (70-99) 145 mg/dL (70-99) 161 mg/dL (70-99) 164 mg/dL (70-99) Test 11/17/17 22:30 11/17/17 23:04 11/18/17 05:20 11/18/17 07:54 Glucose (Fingerstick) 155 mg/dL (70-99) 180 mg/dL (70-99) 150 mg/dL (70-99) Sodium Level 141 mmol/L (136-145) Potassium Level 4.0 mmol/L (3.5-5.1) Chloride Level 107 mmol/L (98-107) Carbon Dioxide Level 27 mmol/L (21-32) Anion Gap 7 (6-14) Blood Urea Nitrogen 19 mg/dL (8-26) Creatinine 1.0 mg/dL (0.7-1.3) Estimated GFR (Cockcroft-Gault) 89.1 Glucose Level 200 mg/dL (70-99) Calcium Level 8.8 mg/dL (8.5-10.1) Magnesium Level 1.7 mg/dL (1.8-2.4) Test 11/18/17 12:02 11/18/17 15:30 11/18/17 16:03 11/18/17 20:44 Glucose (Fingerstick) 109 mg/dL (70-99) 213 mg/dL (70-99) 193 mg/dL (70-99) Urine Collection Type Unknown Urine Color Yellow Urine Clarity Clear Urine pH 6.0 Urine Specific Adrian 1.010 Urine Protein Negative mg/dL (NEG-TRACE) Urine Glucose (UA) Negative mg/dL (NEG) Urine Ketones (Stick) Negative mg/dL (NEG) Urine Blood Negative (NEG) Urine Nitrite Negative (NEG) Urine Bilirubin Negative (NEG) Urine Urobilinogen Dipstick 0.2 mg/dL (0.2 mg/dL) Urine Leukocyte Esterase Negative (NEG) Urine RBC 0 /HPF (0-2) Urine WBC 0 /HPF (0-4) Urine Squamous Epithelial Cells Occ /LPF Urine Bacteria 0 /HPF (0-FEW) Urine Mucus Slight /LPF Test 11/19/17 03:50 11/19/17 07:26 White Blood Count 6.7 x10^3/uL (4.0-11.0) Red Blood Count 4.65 x10^6/uL (4.30-5.70) Hemoglobin 14.6 g/dL (13.0-17.5) Hematocrit 42.7 % (39.0-53.0) Mean Corpuscular Volume 92 fL (79-100) Mean Corpuscular Hemoglobin 31 pg (25-35) Mean Corpuscular Hemoglobin Concent 34 g/dL (31-37) Red Cell Distribution Width 14.0 % (11.5-14.5) Platelet Count 184 x10^3/uL (140-400) Neutrophils (%) (Auto) 64 % (31-73) Lymphocytes (%) (Auto) 21 % (24-48) Monocytes (%) (Auto) 13 % (0-9) Eosinophils (%) (Auto) 2 % (0-3) Basophils (%) (Auto) 1 % (0-3) Neutrophils # (Auto) 4.3 x10^3uL (1.8-7.7) Lymphocytes # (Auto) 1.4 x10^3/uL (1.0-4.8) Monocytes # (Auto) 0.8 x10^3/uL (0.0-1.1) Eosinophils # (Auto) 0.1 x10^3/uL (0.0-0.7) Basophils # (Auto) 0.1 x10^3/uL (0.0-0.2) Sodium Level 141 mmol/L (136-145) Potassium Level 4.2 mmol/L (3.5-5.1) Chloride Level 106 mmol/L (98-107) Carbon Dioxide Level 29 mmol/L (21-32) Anion Gap 6 (6-14) Blood Urea Nitrogen 17 mg/dL (8-26) Creatinine 1.1 mg/dL (0.7-1.3) Estimated GFR (Cockcroft-Gault) 79.8 Glucose Level 215 mg/dL (70-99) Calcium Level 8.7 mg/dL (8.5-10.1) Magnesium Level 1.9 mg/dL (1.8-2.4) Glucose (Fingerstick) 175 mg/dL (70-99) Laboratory Tests Test 11/18/17 12:02 11/18/17 15:30 11/18/17 16:03 11/18/17 20:44 Glucose (Fingerstick) 109 mg/dL (70-99) 213 mg/dL (70-99) 193 mg/dL (70-99) Urine Collection Type Unknown Urine Color Yellow Urine Clarity Clear Urine pH 6.0 Urine Specific Adrian 1.010 Urine Protein Negative mg/dL (NEG-TRACE) Urine Glucose (UA) Negative mg/dL (NEG) Urine Ketones (Stick) Negative mg/dL (NEG) Urine Blood Negative (NEG) Urine Nitrite Negative (NEG) Urine Bilirubin Negative (NEG) Urine Urobilinogen Dipstick 0.2 mg/dL (0.2 mg/dL) Urine Leukocyte Esterase Negative (NEG) Urine RBC 0 /HPF (0-2) Urine WBC 0 /HPF (0-4) Urine Squamous Epithelial Cells Occ /LPF Urine Bacteria 0 /HPF (0-FEW) Urine Mucus Slight /LPF Test 11/19/17 03:50 11/19/17 07:26 White Blood Count 6.7 x10^3/uL (4.0-11.0) Red Blood Count 4.65 x10^6/uL (4.30-5.70) Hemoglobin 14.6 g/dL (13.0-17.5) Hematocrit 42.7 % (39.0-53.0) Mean Corpuscular Volume 92 fL (79-100) Mean Corpuscular Hemoglobin 31 pg (25-35) Mean Corpuscular Hemoglobin Concent 34 g/dL (31-37) Red Cell Distribution Width 14.0 % (11.5-14.5) Platelet Count 184 x10^3/uL (140-400) Neutrophils (%) (Auto) 64 % (31-73) Lymphocytes (%) (Auto) 21 % (24-48) Monocytes (%) (Auto) 13 % (0-9) Eosinophils (%) (Auto) 2 % (0-3) Basophils (%) (Auto) 1 % (0-3) Neutrophils # (Auto) 4.3 x10^3uL (1.8-7.7) Lymphocytes # (Auto) 1.4 x10^3/uL (1.0-4.8) Monocytes # (Auto) 0.8 x10^3/uL (0.0-1.1) Eosinophils # (Auto) 0.1 x10^3/uL (0.0-0.7) Basophils # (Auto) 0.1 x10^3/uL (0.0-0.2) Sodium Level 141 mmol/L (136-145) Potassium Level 4.2 mmol/L (3.5-5.1) Chloride Level 106 mmol/L (98-107) Carbon Dioxide Level 29 mmol/L (21-32) Anion Gap 6 (6-14) Blood Urea Nitrogen 17 mg/dL (8-26) Creatinine 1.1 mg/dL (0.7-1.3) Estimated GFR (Cockcroft-Gault) 79.8 Glucose Level 215 mg/dL (70-99) Calcium Level 8.7 mg/dL (8.5-10.1) Magnesium Level 1.9 mg/dL (1.8-2.4) Glucose (Fingerstick) 175 mg/dL (70-99) Microbiology 11/16/17 Anaerobic/Aerobic Culture, Resulted Pending 11/16/17 Anaerobic Culture Result 1 (BRITNEY), Resulted Pending 11/16/17 Aerobic Culture - Preliminary, Resulted 11/16/17 Aerobic Culture Result 1 (BRITNEY) - Preliminary, Resulted 11/16/17 Aerobic Culture Result 2 (BRITNEY) - Preliminary, Resulted 11/16/17 Gram Stain - Final, Resulted 11/16/17 Gram Stain Result 1 (BRITNEY) - Final, Resulted 11/16/17 Gram Stain Result 2 (BRITNEY) - Final, Resulted Medications Current Medications Ondansetron HCl (Zofran) 4 mg PRN Q8HRS PRN IV NAUSEA/VOMITING 1ST CHOICE; Start 11/16/17 at 01:30; Stop 11/17/17 at 01:29; Status DC Morphine Sulfate (Morphine Sulfate) 4 mg PRN Q2HR PRN IV SEVERE PAIN; Start at 01:30; Stop 11/17/17 at 01:29; Status DC Acetaminophen (Tylenol) 650 mg PRN Q4HRS PRN PO MILD PAIN / TEMP Last administered on 11/18/17at 17:38; Start 11/16/17 at 01:30 Enoxaparin Sodium (Lovenox 40mg Syringe) 40 mg DAILY SQ Last administered on at 09:21; Start 11/16/17 at 09:00; Stop 11/17/17 at 10:16; Status DC Atorvastatin Calcium (Lipitor) 40 mg QHS PO Last administered on 11/18/17at 20: 26; Start 11/16/17 at 21:00 Insulin Human Lispro (HumaLOG) 4 units TIDAC SQ Last administered on 11/18/17at 17:47; Start 11/16/17 at 07:30 Insulin Glargine (Lantus) 12 units QHS SQ Last administered on 11/18/17at 21:05 ; Start 11/16/17 at 21:00 Lisinopril (Prinivil) 20 mg DAILY PO Last administered on 11/18/17 09:11; Start 11/16/17 at 09:00; Stop 11/18/17 at 12:57; Status DC Metformin HCl (Glucophage) 500 mg BIDWMEALS PO Last administered on 11/19/17 08:27; Start 11/16/17 at 08:00 Amlodipine Besylate (Norvasc) 5 mg DAILY PO Last administered on 11/18/17 09: 11; Start 11/16/17 at 09:00; Stop 11/18/17 at 12:57; Status DC Clopidogrel Bisulfate (Plavix) 75 mg DAILY PO Last administered on 11/19/17 08 :26; Start 11/16/17 at 09:00 Furosemide (Lasix) 20 mg DAILY IVP Last administered on 11/17/17 09:19; Start 11/16/17 at 12:00; Stop 11/17/17 at 10:16; Status DC Potassium Chloride (Klor-Con) 20 meq DAILYWBKFT PO Last administered on 09:19; Start 11/16/17 at 11:00; Stop 11/17/17 at 10:16; Status DC Nicotine (Nicoderm Cq 21mg) 1 patch DAILY TD Last administered on 11/19/17 08: 24; Start 11/16/17 at 16:00 Furosemide (Lasix) 40 mg DAILY IVP Last administered on 11/18/17 09:11; Start 11/17/17 at 11:00; Stop 11/18/17 at 12:57; Status DC Potassium Chloride (Klor-Con) 40 meq BIDWMEALS PO Last administered on 09:10; Start 11/17/17 at 11:00; Stop 11/18/17 at 12:57; Status DC Lisinopril (Prinivil) 10 mg DAILY PO Last administered on 11/19/17 08:31; Start 11/19/17 at 09:00 Potassium Chloride (Klor-Con) 20 meq BIDWMEALS PO Last administered on 08:25; Start 11/18/17 at 17:00 Furosemide (Lasix) 20 mg DAILY PO Last administered on 8/24/18at 08:26; Start 11/19/17 at 09:00 Magnesium Sulfate 50 ml @ 25 mls/hr 1X ONCE IV Last administered on 11/18/17at 14:21; Start 11/18/17 at 14:00; Stop 11/18/17 at 15:59; Status DC Tamsulosin HCl (Flomax) 0.4 mg QHS PO Last administered on 11/18/17at 20:26; Start 11/18/17 at 21:00 Active Scripts Active Reported Clopidogrel (Clopidogrel Bisulfate) 75 Mg Tablet 1 Tab PO DAILY Lantus (Insulin Glargine,Hum.rec.anlog) 100 Unit/1 Ml Vial 32 Unit SQ HS Apidra (Insulin Glulisine) 100 Unit/1 Ml Vial 6 Unit SQ TIDAC Lipitor (Atorvastatin Calcium) 40 Mg Tablet 40 Mg PO HS Lisinopril 10 Mg Tablet 10 Mg PO DAILY08 Metformin Hcl 500 Mg Tablet 500 Mg PO [id number] Vitals/I & O Vital Sign - Last 24 Hours 11/18/17 11/18/17 11/18/17 11/18/17 09:11 09:11 11:00 15:00 Temp 98.4 98.1 98.4 98.1 Pulse 69 69 68 66 Resp 18 18 B/P (MAP) 147/88 147/88 132/74 (93) 142/85 (104) Pulse Ox 97 97 O2 Delivery Room Air Room Air 11/18/17 11/18/17 11/18/17 11/19/17 19:00 20:00 23:00 03:00 Temp 99.0 98.7 98.3 99.0 98.7 98.3 Pulse 93 86 85 Resp 18 18 18 B/P (MAP) 136/77 (96) 122/72 (89) 128/74 (92) Pulse Ox 98 98 100 O2 Delivery Room Air Room Air Room Air Room Air 11/19/17 11/19/17 07:00 08:31 Temp 98.7 98.7 Pulse 85 85 Resp 16 B/P (MAP) 115/72 (86) 115/72 Pulse Ox 97 O2 Delivery Room Air Intake and Output 11/18/17 11/18/17 11/19/17 15:00 23:00 07:00 Intake Total 600 ml 50 ml 0 ml Output Total 300 ml 525 ml Balance 300 ml -475 ml 0 ml ARAM TERRELL MD Nov 19, 2017 08:41
--- NOTE | 2017-11-19 09:26 | RAD ---
MRI Brain without contrast History: Right-sided weakness, unsteady gait Technique: Multiplanar, multisequential noncontrast MR imaging was performed of the brain. Contrast: None Comparison: June 30, 2013 Findings: There is no evidence of recent infarct or cytotoxic edema. 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 There are old lacunar infarct of the right basal ganglia although some new foci of the lentiform nucleus compared with the previous 2013 exam. There is other scattered multifocal [id number] T2 and FLAIR hyperintense abnormality of the supratentorial parenchyma bilaterally, somewhat increased such as of the periatrial white matter and the bilateral fish radiata. There is also [id number] T2 and FLAIR hyperintense signal abnormality of the dru although similar. There is preservation of the major arterial intracranial flow voids at the skull base other than nonvisualization of the left vertebral artery flow-void. There is patchy minimal ethmoid air cell and left maxillary sinus mucosal thickening. There is mild to moderate thickening of the lateral mastoid air cells. Cerebellar tonsils are normal in location. There is preserved marrow signal of the clivus. Ventricular size is within normal limits. There is no new intra-axial axial mass effect or midline shift. Impression: 1. There is no evidence of recent infarct or intracranial mass effect. There are old infarcts as stated including of the right cerebellum, right basal ganglia, left fish radiata, and left dru. There is other scattered T2 and FLAIR hyperintense abnormality which is nonspecific although probably due to chronic microvascular ischemic disease. Electronically signed by: Satinder Jacobs MD (11/19/2017 9:23 AM) [facility] [id number]
[2017-11-19 11:00] VITALS: BP 126/70
--- NOTE | 2017-11-19 11:00 | PDOC2 ---
ALICIA IVY MICHAEL 11/19/17 1059: UROLOGY CONSULT Date of Consult Date of Consult DATE: 11/19/17 TIME: 10:53 Identification/Chief Complaint Chief Complaint Urinary retention Source Source: Caregiver, Chart review, Patient History of Present Illness Reason for Visit: 72 year old male admitted for pain to right lower extremity wound that he has had for several months. During the course of his hospitalization he was found to have urinary retention and so a robles catheter was inserted with an initial return of 400 ml. out. . Patient denies history of prostate problems or cancers , no LUTS, bladder problems, kidney problems or stones to his knowledge. This is the first time he has ever had any problems with urinary retention. He also denies dysuria, hematuria, flank or belly pain. Today he is actually feeling well. Nursing staff reported that he had some confusion yesterday and earlier, but is becoming more and more lucid with time. Flomax has already been started; the patient does not take this at home. Past Medical History Renal/: No pertinent hx Current Problem List Problems: (1) Robles catheter in place Current Medications Current Medications Current Medications Furosemide (Lasix) 20 mg DAILY PO Last administered on 11/19/17at 08:26; Start 11/19/17 at 09:00 Lisinopril (Prinivil) 10 mg DAILY PO Last administered on 11/19/17at 08:31; Start 11/19/17 at 09:00 Magnesium Sulfate 50 ml @ 25 mls/hr 1X ONCE IV Last administered on 11/18/17at 14:21; Start 11/18/17 at 14:00; Stop 11/18/17 at 15:59; Status DC Potassium Chloride (Klor-Con) 20 meq BIDWMEALS PO Last administered on at 08:25; Start 11/18/17 at 17:00 Tamsulosin HCl (Flomax) 0.4 mg QHS PO Last administered on 11/18/17at 20:26; Start 11/18/17 at 21:00 Allergies Allergies: Coded Allergies: No Known Drug Allergies (Unverified , 04/17/13) ROS Review Of Systems: CONSTITUTIONAL: No fever or chills EYES: No recent changes SKIN: No rash or itching CARDIOVASCULAR: No chest pain, syncope, palpitations, or edema RESPIRATORY: No SOB or cough GASTROINTESTINAL: No nausea, vomiting or abdominal pain NEUROLOGICAL: No headaches or weakness ENDOCRINE: No cold or heat intolerance GENITOURINARY: + Urinary Retention MUSCULOSKELETAL: No back pain or joint pain LYMPHATICS: No enlarged lymph nodes PSYCHIATRIC: No anxiety or depression Physical Exam Physical Exam: General: Pleasant, no acute distress, well groomed Eyes: conjunctiva anicteric, eyes full range of motion ENT: moist oral mucosa, normal dentition Neck: Trachea midline, no masses Respiratory: unlabored breathing, not using accessory muscles Pelvic: Phallus circumcised, robles catheter in place draining clear yellow urine Abdomen: nontender, nondistended, no hepatosplenomegaly, no masses CAYLA: Prostate about 40 grams Skin: no rashes or skin lesions on visualized skin Psych: normal mood, affect. Alert and oriented x 3. Vitals VITALS Vital Signs Date Time Temp Pulse Resp B/P (MAP) Pulse Ox O2 Delivery O2 Flow Rate FiO2 11/19/17 08:31 85 115/72 11/19/17 07:00 98.7 16 97 Room Air 98.7 Labs Labs Laboratory Tests Test 11/17/17 10:58 11/17/17 15:55 11/17/17 20:45 11/17/17 22:23 Glucose (Fingerstick) 238 mg/dL (70-99) 145 mg/dL (70-99) 161 mg/dL (70-99) 164 mg/dL (70-99) Test 11/17/17 22:30 11/17/17 23:04 11/18/17 05:20 11/18/17 07:54 Glucose (Fingerstick) 155 mg/dL (70-99) 180 mg/dL (70-99) 150 mg/dL (70-99) Sodium Level 141 mmol/L (136-145) Potassium Level 4.0 mmol/L (3.5-5.1) Chloride Level 107 mmol/L (98-107) Carbon Dioxide Level 27 mmol/L (21-32) Anion Gap 7 (6-14) Blood Urea Nitrogen 19 mg/dL (8-26) Creatinine 1.0 mg/dL (0.7-1.3) Estimated GFR (Cockcroft-Gault) 89.1 Glucose Level 200 mg/dL (70-99) Calcium Level 8.8 mg/dL (8.5-10.1) Magnesium Level 1.7 mg/dL (1.8-2.4) Test 11/18/17 12:02 11/18/17 15:30 11/18/17 16:03 11/18/17 20:44 Glucose (Fingerstick) 109 mg/dL (70-99) 213 mg/dL (70-99) 193 mg/dL (70-99) Urine Collection Type Unknown Urine Color Yellow Urine Clarity Clear Urine pH 6.0 Urine Specific [place] 1.010 Urine Protein Negative mg/dL (NEG-TRACE) Urine Glucose (UA) Negative mg/dL (NEG) Urine Ketones (Stick) Negative mg/dL (NEG) Urine Blood Negative (NEG) Urine Nitrite Negative (NEG) Urine Bilirubin Negative (NEG) Urine Urobilinogen Dipstick 0.2 mg/dL (0.2 mg/dL) Urine Leukocyte Esterase Negative (NEG) Urine RBC 0 /HPF (0-2) Urine WBC 0 /HPF (0-4) Urine Squamous Epithelial Cells Occ /LPF Urine Bacteria 0 /HPF (0-FEW) Urine Mucus Slight /LPF Test 11/19/17 03:50 11/19/17 07:26 White Blood Count 6.7 x10^3/uL (4.0-11.0) Red Blood Count 4.65 x10^6/uL (4.30-5.70) Hemoglobin 14.6 g/dL (13.0-17.5) Hematocrit 42.7 % (39.0-53.0) Mean Corpuscular Volume 92 fL (79-100) Mean Corpuscular Hemoglobin 31 pg (25-35) Mean Corpuscular Hemoglobin Concent 34 g/dL (31-37) Red Cell Distribution Width 14.0 % (11.5-14.5) Platelet Count 184 x10^3/uL (140-400) Neutrophils (%) (Auto) 64 % (31-73) Lymphocytes (%) (Auto) 21 % (24-48) Monocytes (%) (Auto) 13 % (0-9) Eosinophils (%) (Auto) 2 % (0-3) Basophils (%) (Auto) 1 % (0-3) Neutrophils # (Auto) 4.3 x10^3uL (1.8-7.7) Lymphocytes # (Auto) 1.4 x10^3/uL (1.0-4.8) Monocytes # (Auto) 0.8 x10^3/uL (0.0-1.1) Eosinophils # (Auto) 0.1 x10^3/uL (0.0-0.7) Basophils # (Auto) 0.1 x10^3/uL (0.0-0.2) Sodium Level 141 mmol/L (136-145) Potassium Level 4.2 mmol/L (3.5-5.1) Chloride Level 106 mmol/L (98-107) Carbon Dioxide Level 29 mmol/L (21-32) Anion Gap 6 (6-14) Blood Urea Nitrogen 17 mg/dL (8-26) Creatinine 1.1 mg/dL (0.7-1.3) Estimated GFR (Cockcroft-Gault) 79.8 Glucose Level 215 mg/dL (70-99) Calcium Level 8.7 mg/dL (8.5-10.1) Magnesium Level 1.9 mg/dL (1.8-2.4) Glucose (Fingerstick) 175 mg/dL (70-99) Laboratory Tests Test 11/18/17 12:02 11/18/17 15:30 11/18/17 16:03 11/18/17 20:44 Glucose (Fingerstick) 109 mg/dL (70-99) 213 mg/dL (70-99) 193 mg/dL (70-99) Urine Collection Type Unknown Urine Color Yellow Urine Clarity Clear Urine pH 6.0 Urine Specific [place] 1.010 Urine Protein Negative mg/dL (NEG-TRACE) Urine Glucose (UA) Negative mg/dL (NEG) Urine Ketones (Stick) Negative mg/dL (NEG) Urine Blood Negative (NEG) Urine Nitrite Negative (NEG) Urine Bilirubin Negative (NEG) Urine Urobilinogen Dipstick 0.2 mg/dL (0.2 mg/dL) Urine Leukocyte Esterase Negative (NEG) Urine RBC 0 /HPF (0-2) Urine WBC 0 /HPF (0-4) Urine Squamous Epithelial Cells Occ /LPF Urine Bacteria 0 /HPF (0-FEW) Urine Mucus Slight /LPF Test 11/19/17 03:50 11/19/17 07:26 White Blood Count 6.7 x10^3/uL (4.0-11.0) Red Blood Count 4.65 x10^6/uL (4.30-5.70) Hemoglobin 14.6 g/dL (13.0-17.5) Hematocrit 42.7 % (39.0-53.0) Mean Corpuscular Volume 92 fL (79-100) Mean Corpuscular Hemoglobin 31 pg (25-35) Mean Corpuscular Hemoglobin Concent 34 g/dL (31-37) Red Cell Distribution Width 14.0 % (11.5-14.5) Platelet Count 184 x10^3/uL (140-400) Neutrophils (%) (Auto) 64 % (31-73) Lymphocytes (%) (Auto) 21 % (24-48) Monocytes (%) (Auto) 13 % (0-9) Eosinophils (%) (Auto) 2 % (0-3) Basophils (%) (Auto) 1 % (0-3) Neutrophils # (Auto) 4.3 x10^3uL (1.8-7.7) Lymphocytes # (Auto) 1.4 x10^3/uL (1.0-4.8) Monocytes # (Auto) 0.8 x10^3/uL (0.0-1.1) Eosinophils # (Auto) 0.1 x10^3/uL (0.0-0.7) Basophils # (Auto) 0.1 x10^3/uL (0.0-0.2) Sodium Level 141 mmol/L (136-145) Potassium Level 4.2 mmol/L (3.5-5.1) Chloride Level 106 mmol/L (98-107) Carbon Dioxide Level 29 mmol/L (21-32) Anion Gap 6 (6-14) Blood Urea Nitrogen 17 mg/dL (8-26) Creatinine 1.1 mg/dL (0.7-1.3) Estimated GFR (Cockcroft-Gault) 79.8 Glucose Level 215 mg/dL (70-99) Calcium Level 8.7 mg/dL (8.5-10.1) Magnesium Level 1.9 mg/dL (1.8-2.4) Glucose (Fingerstick) 175 mg/dL (70-99) Assessment/Plan Assessment/Plan 72 year old male with acute urinary retention and no previous history of prostate problems or cancers. Urine as of 11/18/17 was clean, did not show signs of UTI. Robles catheter in place-Keep in place over the weekend. Will attempt a voiding trial on Wednesday. Continue flomax Prostate about [address] Godfrey, supervising will check on patient tomorrow. COY GODFREY MD 11/20/17 1244: UROLOGY CONSULT Assessment/Plan Assessment/Plan 72 yo male with a h/o urinary retention 6 yrs ago requirig catheter and baseline voiding SX including nocturia x2, FreqQ1-2H, weak stream, and hesitancy found to have urinary retention while admitted. Doing well with catheter in place. Urine is clear yellow. Cr and UA WNL. Voiding trial Wednesday ALICIA IVY APRN Nov 19, 2017 10:59 COY GODFREY MD Nov 20, 2017 12:44
--- NOTE | 2017-11-19 13:42 | PDOC2 ---
NEUROLOGY CONSULT Date of Admission Date of Admission DATE: 11/19/17 TIME: 13:26 Reason for Consult Reason for Consult: IMPRESSION: Metabolic encephalopathy. Hyperglycemia. DM. HTN. HLD. CAD, SD. Bilateral LE edema. Right singh open wound. 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 Femoral lymphadenopathy. Left prosthetic eye. Smoking. No evidence of acute CVA this time. RECOMMENDATIONS/PLAN: EEG. Lab: see orders. Continue Plavix 75 mg daily. Continue Lipitor HS. Wound care. Treat medical diseases. OT/PT. HISTORY OF THE PRESENT ILLNESS: 72-y-old AA male patent with above medical diseases was admitted into the hospital due to LE wounds. His nurse stated that he has been having mental status changes since yesterday and confusional episodes, so neurology was requested for consultation. PAST MEDICAL HISTORY: Diabetes mellitus type 2 with microalbuminuria. Hypertension. Hyperlipidemia Coronary artery disease. Myocardial infarction in the past Gastric ulcer in 2003. Irritable bowel syndrome. Prosthetic left eye. PAST SURGERY HISTORY: No major surgery recently. FAMILY HISTORY: Noncontributory. SOCIAL HISTORY: Does not drink alcohol. Smokes about 1 pack per day of cigarettes. ALLERGY: NKDA MEDICATIONS: Refer to MAR REVIEW OF SYSTEMS: Constitutional: No malnutrition, weight loss, cachexia. Head: No recent traumatic brain or head injury. Skin: No edema, or rash. Ear: No infection, tinnitus. Eyes: Left prosthetic eye. Nose: No bleeding or purulent discharges. Hearing: Hearing decrease. Neck: No injury. Cardiac: SD, CAD, HTN, HLD. Pulmonary: No COPD. GI: Gastric ulcer in 2003. Irritable bowel syndrome.. Urinary/genital: UTI. Endocrinologic: Diabetes Mellitus. Skeletomuscular: No muscular atrophy, deformity. Neurological: see HP. Psychiatric: Denies drug use/abuse. Otherwise, not [id number] review of systems. PHYSICAL EXAMINATION: General appearance is in subacute distress. HEENT: Normocephalic and nontraumatic. Nose, ears, and throat are unremarkable , left prosthetic eye. Neck is supple. No lymphadenopathy. No crepitus. Cardiovascular: S1, S2, regular rate and rhythm. Pulmonary: Clear to auscultation bilaterally. Abdomen: Bowel sounds are positive. Abdomen is soft, nontender, and nondistended. Extremities: LE wound. No restriction of range of motion NEUROLOGICAL EXAMINATION: Awake. Not oriented to time, but knew place and person. Right pupil reactive to light. EOMI. CN: no focal findings. Muscle tone: within normal. Muscle strength: 4 DTR: 1-2 Plantar reflex: Neutral response bilaterally Gait: not examined in bed. Sensory exam: no abnormal findings. No acute cerebellar signs elicited. F-T-N test fine. Current Medications Current Medications Current Medications Ondansetron HCl (Zofran) 4 mg PRN Q8HRS PRN IV NAUSEA/VOMITING 1ST CHOICE; Start 11/16/17 at 01:30; Stop 11/17/17 at 01:29; Status DC Morphine Sulfate (Morphine Sulfate) 4 mg PRN Q2HR PRN IV SEVERE PAIN; Start at 01:30; Stop 11/17/17 at 01:29; Status DC Acetaminophen (Tylenol) 650 mg PRN Q4HRS PRN PO MILD PAIN / TEMP Last administered on 11/18/17at 17:38; Start 11/16/17 at 01:30 Enoxaparin Sodium (Lovenox 40mg Syringe) 40 mg DAILY SQ Last administered on 09:21; Start 11/16/17 at 09:00; Stop 11/17/17 at 10:16; Status DC Atorvastatin Calcium (Lipitor) 40 mg QHS PO Last administered on 11/18/17 20: 26; Start 11/16/17 at 21:00 Insulin Human Lispro (HumaLOG) 4 units TIDAC SQ Last administered on 11/19/17at 11:59; Start 11/16/17 at 07:30 Insulin Glargine (Lantus) 12 units QHS SQ Last administered on 11/18/17at 21:05 ; Start 11/16/17 at 21:00 Lisinopril (Prinivil) 20 mg DAILY PO Last administered on 11/18/17 09:11; Start 11/16/17 at 09:00; Stop 11/18/17 at 12:57; Status DC Metformin HCl (Glucophage) 500 mg BIDWMEALS PO Last administered on 11/19/17 08:27; Start 11/16/17 at 08:00 Amlodipine Besylate (Norvasc) 5 mg DAILY PO Last administered on 11/18/17 09: 11; Start 11/16/17 at 09:00; Stop 11/18/17 at 12:57; Status DC Clopidogrel Bisulfate (Plavix) 75 mg DAILY PO Last administered on 11/19/17 08 :26; Start 11/16/17 at 09:00 Furosemide (Lasix) 20 mg DAILY IVP Last administered on 11/17/17 09:19; Start 11/16/17 at 12:00; Stop 11/17/17 at 10:16; Status DC Potassium Chloride (Klor-Con) 20 meq DAILYWBKFT PO Last administered on 09:19; Start 11/16/17 at 11:00; Stop 11/17/17 at 10:16; Status DC Nicotine (Nicoderm Cq 21mg) 1 patch DAILY TD Last administered on 11/19/17 08: 24; Start 11/16/17 at 16:00 Furosemide (Lasix) 40 mg DAILY IVP Last administered on 11/18/17 09:11; Start 11/17/17 at 11:00; Stop 11/18/17 at 12:57; Status DC Potassium Chloride (Klor-Con) 40 meq BIDWMEALS PO Last administered on 09:10; Start 11/17/17 at 11:00; Stop 11/18/17 at 12:57; Status DC Lisinopril (Prinivil) 10 mg DAILY PO Last administered on 11/19/17 08:31; Start 11/19/17 at 09:00 Potassium Chloride (Klor-Con) 20 meq BIDWMEALS PO Last administered on 08:25; Start 11/18/17 at 17:00 Furosemide (Lasix) 20 mg DAILY PO Last administered on 11/19/17 08:26; Start 11/19/17 at 09:00 Magnesium Sulfate 50 ml @ 25 mls/hr 1X ONCE IV Last administered on 11/18/17 14:21; Start 11/18/17 at 14:00; Stop 11/18/17 at 15:59; Status DC Tamsulosin HCl (Flomax) 0.4 mg QHS PO Last administered on 11/18/17 20:26; Start 11/18/17 at 21:00 Active Scripts Active Reported Clopidogrel (Clopidogrel Bisulfate) 75 Mg Tablet 1 Tab PO DAILY Lantus (Insulin Glargine,Hum.rec.anlog) 100 Unit/1 Ml Vial 32 Unit SQ HS Apidra (Insulin Glulisine) 100 Unit/1 Ml Vial 6 Unit SQ TIDAC Lipitor (Atorvastatin Calcium) 40 Mg Tablet 40 Mg PO HS Lisinopril 10 Mg Tablet 10 Mg PO [id number] Metformin Hcl 500 Mg Tablet 500 Mg PO [id number] Allergies Allergies: Allergies Coded Allergies Type Severity Reaction Last Updated Verified No Known Drug Allergies 04/17/13 No ROS Review of System The patient denies any associated fevers, chills, headache, ear pain, rhinorrhea , sore throat, stiff neck, productive cough, chest pain, shortness of breath, back or flank pain, abdominal pain, nausea, vomiting, diarrhea, constipation, dysuria, rash, numbness, weakness, tingling, incontinence, difficulty ambulating, or diaphoresis. Physical Exam Physical Exam General: Well developed, well nourished, no acute distress, well appearing HEENT: Pupils equally round and reactive to light, EOMI, no discharge, normal conjunctiva Neck: Supple, no nuchal rigidity, no JVD, trachea midline, no tenderness Cardiac: RRR, no murmurs, no gallops, no rubs Chest/Lungs: CTAB, no wheeze, no rhonchi, no crackles Abdomen: soft, non-distended, no guarding, no peritoneal signs, non-tender Back: No tenderness Extremities: no edema, pulses intact, non-tender,capillary refill <3 sec bilateral upper and lower extremities, Neuro: Alert and oriented x 4, no focal deficits, normal speech Vitals Vitals: Vital Signs Date Time Temp Pulse Resp B/P (MAP) Pulse Ox O2 Delivery O2 Flow Rate FiO2 11/19/17 11:00 98.6 71 16 126/70 (88) 97 Room Air 98.6 Labs Labs Laboratory Tests Test 11/17/17 15:55 11/17/17 20:45 11/17/17 22:23 11/17/17 22:30 Glucose (Fingerstick) 145 mg/dL (70-99) 161 mg/dL (70-99) 164 mg/dL (70-99) 155 mg/dL (70-99) Test 11/17/17 23:04 11/18/17 05:20 11/18/17 07:54 11/18/17 12:02 Glucose (Fingerstick) 180 mg/dL (70-99) 150 mg/dL (70-99) 109 mg/dL (70-99) Sodium Level 141 mmol/L (136-145) Potassium Level 4.0 mmol/L (3.5-5.1) Chloride Level 107 mmol/L (98-107) Carbon Dioxide Level 27 mmol/L (21-32) Anion Gap 7 (6-14) Blood Urea Nitrogen 19 mg/dL (8-26) Creatinine 1.0 mg/dL (0.7-1.3) Estimated GFR (Cockcroft-Gault) 89.1 Glucose Level 200 mg/dL (70-99) Calcium Level 8.8 mg/dL (8.5-10.1) Magnesium Level 1.7 mg/dL (1.8-2.4) Test 11/18/17 15:30 11/18/17 16:03 11/18/17 20:44 11/19/17 03:50 Urine Collection Type Unknown Urine Color Yellow Urine Clarity Clear Urine pH 6.0 Urine Specific [place] 1.010 Urine Protein Negative mg/dL (NEG-TRACE) Urine Glucose (UA) Negative mg/dL (NEG) Urine Ketones (Stick) Negative mg/dL (NEG) Urine Blood Negative (NEG) Urine Nitrite Negative (NEG) Urine Bilirubin Negative (NEG) Urine Urobilinogen Dipstick 0.2 mg/dL (0.2 mg/dL) Urine Leukocyte Esterase Negative (NEG) Urine RBC 0 /HPF (0-2) Urine WBC 0 /HPF (0-4) Urine Squamous Epithelial Cells Occ /LPF Urine Bacteria 0 /HPF (0-FEW) Urine Mucus Slight /LPF Glucose (Fingerstick) 213 mg/dL (70-99) 193 mg/dL (70-99) White Blood Count 6.7 x10^3/uL (4.0-11.0) Red Blood Count 4.65 x10^6/uL (4.30-5.70) Hemoglobin 14.6 g/dL (13.0-17.5) Hematocrit 42.7 % (39.0-53.0) Mean Corpuscular Volume 92 fL (79-100) Mean Corpuscular Hemoglobin 31 pg (25-35) Mean Corpuscular Hemoglobin Concent 34 g/dL (31-37) Red Cell Distribution Width 14.0 % (11.5-14.5) Platelet Count 184 x10^3/uL (140-400) Neutrophils (%) (Auto) 64 % (31-73) Lymphocytes (%) (Auto) 21 % (24-48) Monocytes (%) (Auto) 13 % (0-9) Eosinophils (%) (Auto) 2 % (0-3) Basophils (%) (Auto) 1 % (0-3) Neutrophils # (Auto) 4.3 x10^3uL (1.8-7.7) Lymphocytes # (Auto) 1.4 x10^3/uL (1.0-4.8) Monocytes # (Auto) 0.8 x10^3/uL (0.0-1.1) Eosinophils # (Auto) 0.1 x10^3/uL (0.0-0.7) Basophils # (Auto) 0.1 x10^3/uL (0.0-0.2) Sodium Level 141 mmol/L (136-145) Potassium Level 4.2 mmol/L (3.5-5.1) Chloride Level 106 mmol/L (98-107) Carbon Dioxide Level 29 mmol/L (21-32) Anion Gap 6 (6-14) Blood Urea Nitrogen 17 mg/dL (8-26) Creatinine 1.1 mg/dL (0.7-1.3) Estimated GFR (Cockcroft-Gault) 79.8 Glucose Level 215 mg/dL (70-99) Calcium Level 8.7 mg/dL (8.5-10.1) Magnesium Level 1.9 mg/dL (1.8-2.4) Vitamin B12 Level 340 pg/mL (247-911) Test 11/19/17 07:26 11/19/17 10:49 Glucose (Fingerstick) 175 mg/dL (70-99) 214 mg/dL (70-99) Laboratory Tests Test 11/18/17 15:30 11/18/17 16:03 11/18/17 20:44 11/19/17 03:50 Urine Collection Type Unknown Urine Color Yellow Urine Clarity Clear Urine pH 6.0 Urine Specific [place] 1.010 Urine Protein Negative mg/dL (NEG-TRACE) Urine Glucose (UA) Negative mg/dL (NEG) Urine Ketones (Stick) Negative mg/dL (NEG) Urine Blood Negative (NEG) Urine Nitrite Negative (NEG) Urine Bilirubin Negative (NEG) Urine Urobilinogen Dipstick 0.2 mg/dL (0.2 mg/dL) Urine Leukocyte Esterase Negative (NEG) Urine RBC 0 /HPF (0-2) Urine WBC 0 /HPF (0-4) Urine Squamous Epithelial Cells Occ /LPF Urine Bacteria 0 /HPF (0-FEW) Urine Mucus Slight /LPF Glucose (Fingerstick) 213 mg/dL (70-99) 193 mg/dL (70-99) White Blood Count 6.7 x10^3/uL (4.0-11.0) Red Blood Count 4.65 x10^6/uL (4.30-5.70) Hemoglobin 14.6 g/dL (13.0-17.5) Hematocrit 42.7 % (39.0-53.0) Mean Corpuscular Volume 92 fL (79-100) Mean Corpuscular Hemoglobin 31 pg (25-35) Mean Corpuscular Hemoglobin Concent 34 g/dL (31-37) Red Cell Distribution Width 14.0 % (11.5-14.5) Platelet Count 184 x10^3/uL (140-400) Neutrophils (%) (Auto) 64 % (31-73) Lymphocytes (%) (Auto) 21 % (24-48) Monocytes (%) (Auto) 13 % (0-9) Eosinophils (%) (Auto) 2 % (0-3) Basophils (%) (Auto) 1 % (0-3) Neutrophils # (Auto) 4.3 x10^3uL (1.8-7.7) Lymphocytes # (Auto) 1.4 x10^3/uL (1.0-4.8) Monocytes # (Auto) 0.8 x10^3/uL (0.0-1.1) Eosinophils # (Auto) 0.1 x10^3/uL (0.0-0.7) Basophils # (Auto) 0.1 x10^3/uL (0.0-0.2) Sodium Level 141 mmol/L (136-145) Potassium Level 4.2 mmol/L (3.5-5.1) Chloride Level 106 mmol/L (98-107) Carbon Dioxide Level 29 mmol/L (21-32) Anion Gap 6 (6-14) Blood Urea Nitrogen 17 mg/dL (8-26) Creatinine 1.1 mg/dL (0.7-1.3) Estimated GFR (Cockcroft-Gault) 79.8 Glucose Level 215 mg/dL (70-99) Calcium Level 8.7 mg/dL (8.5-10.1) Magnesium Level 1.9 mg/dL (1.8-2.4) Vitamin B12 Level 340 pg/mL (247-911) Test 11/19/17 07:26 11/19/17 10:49 Glucose (Fingerstick) 175 mg/dL (70-99) 214 mg/dL (70-99) LUKASZ FINCH MD Nov 19, 2017 13:41
[2017-11-19 15:11] VITALS: BP 130/73
[2017-11-19] MEDS: ACETAMINOPHEN 325 MG TABLET. PO PRN ×2 (17:11→21:24)
[2017-11-19 19:00] VITALS: BP 134/72
--- NOTE | 2017-11-19 19:09 | EEG ---
DATE OF SERVICE: 11/19/2017 EEG NUMBER: [id number]. OBJECTIVE: This is a 72-year-old male patient with history of mental status changes. EEG was requested to evaluate cerebral activity. METHODS: Twenty electrodes were applied according to the international 10-20 electrode placement system. EKG monitoring, hyperventilation, intermittent photic stimulation, monopolar and bipolar montages are routinely utilized. The record was obtained on a digital system with video monitoring. FINDINGS: 1. Background: The patient was recorded in the awake and drowsy states. No sleep state was recorded. The overall background amplitude is 5-15 microvolts. A posterior dominant rhythm of 8-10 Hz is observed. 2. Abnormalities: No specific epileptiform discharge or electrographic seizure is seen. No focal or diffuse slowing. 3. Activation: Hyperventilation was performed with poor efforts. Intermittent photic stimulation was performed with photic driving. IMPRESSION: This EEG is within the normal limits of the study for the awake and drowsy states. No sleep state was recorded. No focal, lateralizing, specific epileptiform discharge or electrographic seizure is seen. LUKASZ FINCH MD DR: [email or web address] JOB#: [id number] / [id number] [facility]
[2017-11-19] MEDS: TAMSULOSIN 0.4 MG CAP.ER.24H. PO SCH (21:24)
[2017-11-19] MEDS: ATORVASTATIN CALCIUM 40 MG TABLET. PO SCH (21:24)
[2017-11-19] MEDS: INSULIN GLARGINE 300 UNITS/3 ML INSULN.PEN. SQ SCH (21:29)
[2017-11-19 23:00] VITALS: BP 124/73
[2017-11-20 03:00] VITALS: BP 157/80
[2017-11-20 05:21] LABS: BASO % 1 % (0-3); EOS # 0.1 x10^3/uL (0.0-0.7); EOS % 2 % (0-3); HEMATOCRIT 40.7 % (39.0-53.0); HEMOGLOBIN 13.7 g/dL (13.0-17.5); LYMPH % 34 % (24-48); MEAN CORPUSCULAR HEMOGLOBIN 31 pg (25-35); MEAN CORPUSCULAR HGB CONC 34 g/dL (31-37); MEAN CORPUSCULAR VOLUME 92 fL (79-100); MONO # 0.7 x10^3/uL (0.0-1.1); MONO % 12 % (0-9); NEUT % 51 % (31-73); PLATELET COUNT 172 x10^3/uL (140-400); RED BLOOD COUNT 4.44 x10^6/uL (4.30-5.70); RED CELL DISTRIBUTION WIDTH 14.4 % (11.5-14.5); WHITE BLOOD COUNT 5.9 x10^3/uL (4.0-11.0)
[2017-11-20 05:58] LABS: ALBUMIN 3.1 g/dL (3.4-5.0); ALBUMIN/GLOBULIN RATIO 0.8 (1.0-1.7); CALCIUM 8.6 mg/dL (8.5-10.1); GFR 89.1; MAGNESIUM 1.8 mg/dL (1.8-2.4); TOTAL BILIRUBIN 1.4 mg/dL (0.2-1.0); TOTAL PROTEIN 6.9 g/dL (6.4-8.2)
[2017-11-20 07:00] VITALS: BP 119/80
[2017-11-20] MEDS: metFORMIN 500 MG TABLET PO SCH ×2 (08:30→17:29)
[2017-11-20] MEDS: CLOPIDOGREL BISULFATE 75 MG TABLET PO SCH (08:31)
[2017-11-20] MEDS: LISINOPRIL 10 MG TABLET PO SCH (08:31)
[2017-11-20] MEDS: POTASSIUM CHLORIDE 20 MEQ TABLET.ER. PO SCH ×2 (08:31→17:29)
[2017-11-20] MEDS: FUROSEMIDE 20 MG TABLET PO SCH (08:31)
[2017-11-20] MEDS: NICOTINE 21MG PATCH. TD SCH (08:35)
[2017-11-20] MEDS: INSULIN LISPRO 300 UNITS/3 ML INSULN.PEN. SQ SCH ×4 (08:45→18:36)
[2017-11-20 11:00] VITALS: BP 128/90
--- NOTE | 2017-11-20 11:35 | PDOC ---
PROGRESS NOTES Subjective Subjective feels okay. says he drinks 7 beers daily and smokes 1PPD. 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 blood sugars are high and will increase insulin. bp is okay. has cognitive deficits. does not know correct year but does know correct month. cant recite months of year backwards. has mobility deficits. Objective Objective Vital Signs Date Time Temp Pulse Resp B/P (MAP) Pulse Ox O2 Delivery O2 Flow Rate FiO2 11/20/17 08:31 80 119/80 11/20/17 08:30 Room Air 11/20/17 07:00 98.3 18 92 98.3 Intake and Output 11/20/17 07:00 Intake Total 1100 ml Output Total 1325 ml Balance -225 ml Intake Oral 1100 ml Output Urine Total 1325 ml Physical Exam Abdomen: Soft Heart: Regular rate, Normal S1, Normal S2 Extremities: No edema General: Alert, Cooperative Lungs: Clear to auscultation Neuro: Normal speech, Other (cognitve deficits) Psych/Mental Status: Mood NL Skin: No rashes COMMENT robles catheter with clear urine Assessment Assessment Assessment 1. Bilateral lower extremity edema. resolved 2. Right leg wound. 3. Diabetes mellitus type 2 with microalbuminuria. 4. Hypertension. 5. Hyperlipidemia. 6. Coronary artery disease. 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 Labs Laboratory Tests Test 11/18/17 12:02 11/18/17 15:30 11/18/17 16:03 11/18/17 20:44 Glucose (Fingerstick) 109 mg/dL (70-99) 213 mg/dL (70-99) 193 mg/dL (70-99) Urine Collection Type Unknown Urine Color Yellow Urine Clarity Clear Urine pH 6.0 Urine Specific [place] 1.010 Urine Protein Negative mg/dL (NEG-TRACE) Urine Glucose (UA) Negative mg/dL (NEG) Urine Ketones (Stick) Negative mg/dL (NEG) Urine Blood Negative (NEG) Urine Nitrite Negative (NEG) Urine Bilirubin Negative (NEG) Urine Urobilinogen Dipstick 0.2 mg/dL (0.2 mg/dL) Urine Leukocyte Esterase Negative (NEG) Urine RBC 0 /HPF (0-2) Urine WBC 0 /HPF (0-4) Urine Squamous Epithelial Cells Occ /LPF Urine Bacteria 0 /HPF (0-FEW) Urine Mucus Slight /LPF Test 11/19/17 03:50 11/19/17 07:26 11/19/17 10:49 11/19/17 16:13 White Blood Count 6.7 x10^3/uL (4.0-11.0) Red Blood Count 4.65 x10^6/uL (4.30-5.70) Hemoglobin 14.6 g/dL (13.0-17.5) Hematocrit 42.7 % (39.0-53.0) Mean Corpuscular Volume 92 fL (79-100) Mean Corpuscular Hemoglobin 31 pg (25-35) Mean Corpuscular Hemoglobin Concent 34 g/dL (31-37) Red Cell Distribution Width 14.0 % (11.5-14.5) Platelet Count 184 x10^3/uL (140-400) Neutrophils (%) (Auto) 64 % (31-73) Lymphocytes (%) (Auto) 21 % (24-48) Monocytes (%) (Auto) 13 % (0-9) Eosinophils (%) (Auto) 2 % (0-3) Basophils (%) (Auto) 1 % (0-3) Neutrophils # (Auto) 4.3 x10^3uL (1.8-7.7) Lymphocytes # (Auto) 1.4 x10^3/uL (1.0-4.8) Monocytes # (Auto) 0.8 x10^3/uL (0.0-1.1) Eosinophils # (Auto) 0.1 x10^3/uL (0.0-0.7) Basophils # (Auto) 0.1 x10^3/uL (0.0-0.2) Sodium Level 141 mmol/L (136-145) Potassium Level 4.2 mmol/L (3.5-5.1) Chloride Level 106 mmol/L (98-107) Carbon Dioxide Level 29 mmol/L (21-32) Anion Gap 6 (6-14) Blood Urea Nitrogen 17 mg/dL (8-26) Creatinine 1.1 mg/dL (0.7-1.3) Estimated GFR (Cockcroft-Gault) 79.8 Glucose Level 215 mg/dL (70-99) Calcium Level 8.7 mg/dL (8.5-10.1) Magnesium Level 1.9 mg/dL (1.8-2.4) Vitamin B12 Level 340 pg/mL (247-911) Thyroid Stimulating Hormone (TSH) 1.478 uIU/mL (0.358-3.74) Glucose (Fingerstick) 175 mg/dL (70-99) 214 mg/dL (70-99) 179 mg/dL (70-99) Test 11/19/17 20:33 11/20/17 05:00 11/20/17 08:36 Glucose (Fingerstick) 156 mg/dL (70-99) 184 mg/dL (70-99) White Blood Count 5.9 x10^3/uL (4.0-11.0) Red Blood Count 4.44 x10^6/uL (4.30-5.70) Hemoglobin 13.7 g/dL (13.0-17.5) Hematocrit 40.7 % (39.0-53.0) Mean Corpuscular Volume 92 fL (79-100) Mean Corpuscular Hemoglobin 31 pg (25-35) Mean Corpuscular Hemoglobin Concent 34 g/dL (31-37) Red Cell Distribution Width 14.4 % (11.5-14.5) Platelet Count 172 x10^3/uL (140-400) Neutrophils (%) (Auto) 51 % (31-73) Lymphocytes (%) (Auto) 34 % (24-48) Monocytes (%) (Auto) 12 % (0-9) Eosinophils (%) (Auto) 2 % (0-3) Basophils (%) (Auto) 1 % (0-3) Neutrophils # (Auto) 3.0 x10^3uL (1.8-7.7) Lymphocytes # (Auto) 2.0 x10^3/uL (1.0-4.8) Monocytes # (Auto) 0.7 x10^3/uL (0.0-1.1) Eosinophils # (Auto) 0.1 x10^3/uL (0.0-0.7) Basophils # (Auto) 0.0 x10^3/uL (0.0-0.2) Sodium Level 139 mmol/L (136-145) Potassium Level 4.0 mmol/L (3.5-5.1) Chloride Level 105 mmol/L (98-107) Carbon Dioxide Level 25 mmol/L (21-32) Anion Gap 9 (6-14) Blood Urea Nitrogen 14 mg/dL (8-26) Creatinine 1.0 mg/dL (0.7-1.3) Estimated GFR (Cockcroft-Gault) 89.1 BUN/Creatinine Ratio 14 (6-20) Glucose Level 153 mg/dL (70-99) Calcium Level 8.6 mg/dL (8.5-10.1) Magnesium Level 1.8 mg/dL (1.8-2.4) Total Bilirubin 1.4 mg/dL (0.2-1.0) Aspartate Amino Transf (AST/SGOT) 27 U/L (15-37) Alanine Aminotransferase (ALT/SGPT) 29 U/L (16-63) Alkaline Phosphatase 74 U/L (46-116) Total Protein 6.9 g/dL (6.4-8.2) Albumin 3.1 g/dL (3.4-5.0) Albumin/Globulin Ratio 0.8 (1.0-1.7) Thyroid Stimulating Hormone (TSH) 1.828 uIU/mL (0.358-3.74) Laboratory Tests Test 11/19/17 16:13 11/19/17 20:33 11/20/17 05:00 11/20/17 08:36 Glucose (Fingerstick) 179 mg/dL (70-99) 156 mg/dL (70-99) 184 mg/dL (70-99) White Blood Count 5.9 x10^3/uL (4.0-11.0) Red Blood Count 4.44 x10^6/uL (4.30-5.70) Hemoglobin 13.7 g/dL (13.0-17.5) Hematocrit 40.7 % (39.0-53.0) Mean Corpuscular Volume 92 fL (79-100) Mean Corpuscular Hemoglobin 31 pg (25-35) Mean Corpuscular Hemoglobin Concent 34 g/dL (31-37) Red Cell Distribution Width 14.4 % (11.5-14.5) Platelet Count 172 x10^3/uL (140-400) Neutrophils (%) (Auto) 51 % (31-73) Lymphocytes (%) (Auto) 34 % (24-48) Monocytes (%) (Auto) 12 % (0-9) Eosinophils (%) (Auto) 2 % (0-3) Basophils (%) (Auto) 1 % (0-3) Neutrophils # (Auto) 3.0 x10^3uL (1.8-7.7) Lymphocytes # (Auto) 2.0 x10^3/uL (1.0-4.8) Monocytes # (Auto) 0.7 x10^3/uL (0.0-1.1) Eosinophils # (Auto) 0.1 x10^3/uL (0.0-0.7) Basophils # (Auto) 0.0 x10^3/uL (0.0-0.2) Sodium Level 139 mmol/L (136-145) Potassium Level 4.0 mmol/L (3.5-5.1) Chloride Level 105 mmol/L (98-107) Carbon Dioxide Level 25 mmol/L (21-32) Anion Gap 9 (6-14) Blood Urea Nitrogen 14 mg/dL (8-26) Creatinine 1.0 mg/dL (0.7-1.3) Estimated GFR (Cockcroft-Gault) 89.1 BUN/Creatinine Ratio 14 (6-20) Glucose Level 153 mg/dL (70-99) Calcium Level 8.6 mg/dL (8.5-10.1) Magnesium Level 1.8 mg/dL (1.8-2.4) Total Bilirubin 1.4 mg/dL (0.2-1.0) Aspartate Amino Transf (AST/SGOT) 27 U/L (15-37) Alanine Aminotransferase (ALT/SGPT) 29 U/L (16-63) Alkaline Phosphatase 74 U/L (46-116) Total Protein 6.9 g/dL (6.4-8.2) Albumin 3.1 g/dL (3.4-5.0) Albumin/Globulin Ratio 0.8 (1.0-1.7) Thyroid Stimulating Hormone (TSH) 1.828 uIU/mL (0.358-3.74) Microbiology 11/18/17 Urine Culture - Final, Complete 11/18/17 Urine Culture Result 1 (BRITNEY) - Final, Complete 11/16/17 Anaerobic/Aerobic Culture - Final, Resulted 11/16/17 Anaerobic Culture Result 1 (BRITNEY) - Final, Resulted 11/16/17 Aerobic Culture - Preliminary, Resulted 11/16/17 Aerobic Culture Result 1 (BRITNEY) - Preliminary, Resulted 11/16/17 Aerobic Culture Result 2 (BRITNEY) - Preliminary, Resulted 11/16/17 Gram Stain - Final, Resulted 11/16/17 Gram Stain Result 1 (BRITNEY) - Final, Resulted 11/16/17 Gram Stain Result 2 (BRITNEY) - Final, Resulted Medications Current Medications Ondansetron HCl (Zofran) 4 mg PRN Q8HRS PRN IV NAUSEA/VOMITING 1ST CHOICE; Start 11/16/17 at 01:30; Stop 11/17/17 at 01:29; Status DC Morphine Sulfate (Morphine Sulfate) 4 mg PRN Q2HR PRN IV SEVERE PAIN; Start at 01:30; Stop 11/17/17 at 01:29; Status DC Acetaminophen (Tylenol) 650 mg PRN Q4HRS PRN PO MILD PAIN / TEMP Last administered on 11/19/17at 21:24; Start 11/16/17 at 01:30 Enoxaparin Sodium (Lovenox 40mg Syringe) 40 mg DAILY SQ Last administered on at 09:21; Start 11/16/17 at 09:00; Stop 11/17/17 at 10:16; Status DC Atorvastatin Calcium (Lipitor) 40 mg QHS PO Last administered on 11/19/17at 21: 24; Start 11/16/17 at 21:00 Insulin Human Lispro (HumaLOG) 4 units TIDAC SQ Last administered on 11/20/17at 08:45; Start 11/16/17 at 07:30 Insulin Glargine (Lantus) 12 units QHS SQ Last administered on 11/19/17at 21:29 ; Start 11/16/17 at 21:00 Lisinopril (Prinivil) 20 mg DAILY PO Last administered on 11/18/17at 09:11; Start 11/16/17 at 09:00; Stop 11/18/17 at 12:57; Status DC Metformin HCl (Glucophage) 500 mg BIDWMEALS PO Last administered on 11/20/17 08:30; Start 11/16/17 at 08:00 Amlodipine Besylate (Norvasc) 5 mg DAILY PO Last administered on 11/18/17 09: 11; Start 11/16/17 at 09:00; Stop 11/18/17 at 12:57; Status DC Clopidogrel Bisulfate (Plavix) 75 mg DAILY PO Last administered on 11/20/17 08 :31; Start 11/16/17 at 09:00 Furosemide (Lasix) 20 mg DAILY IVP Last administered on 11/17/17 09:19; Start 11/16/17 at 12:00; Stop 11/17/17 at 10:16; Status DC Potassium Chloride (Klor-Con) 20 meq DAILYWBKFT PO Last administered on 09:19; Start 11/16/17 at 11:00; Stop 11/17/17 at 10:16; Status DC Nicotine (Nicoderm Cq 21mg) 1 patch DAILY TD Last administered on 11/20/17 08: 35; Start 11/16/17 at 16:00 Furosemide (Lasix) 40 mg DAILY IVP Last administered on 11/18/17 09:11; Start 11/17/17 at 11:00; Stop 11/18/17 at 12:57; Status DC Potassium Chloride (Klor-Con) 40 meq BIDWMEALS PO Last administered on 09:10; Start 11/17/17 at 11:00; Stop 11/18/17 at 12:57; Status DC Lisinopril (Prinivil) 10 mg DAILY PO Last administered on 11/20/17 08:31; Start 11/19/17 at 09:00 Potassium Chloride (Klor-Con) 20 meq BIDWMEALS PO Last administered on 08:31; Start 11/18/17 at 17:00 Furosemide (Lasix) 20 mg DAILY PO Last administered on 11/20/17 08:31; Start 11/19/17 at 09:00 Magnesium Sulfate 50 ml @ 25 mls/hr 1X ONCE IV Last administered on 8/23/18at 14:21; Start 11/18/17 at 14:00; Stop 11/18/17 at 15:59; Status DC Tamsulosin HCl (Flomax) 0.4 mg QHS PO Last administered on 11/19/17at 21:24; Start 11/18/17 at 21:00 Active Scripts Active Reported Clopidogrel (Clopidogrel Bisulfate) 75 Mg Tablet 1 Tab PO DAILY Lantus (Insulin Glargine,Hum.rec.anlog) 100 Unit/1 Ml Vial 32 Unit SQ HS Apidra (Insulin Glulisine) 100 Unit/1 Ml Vial 6 Unit SQ TIDAC Lipitor (Atorvastatin Calcium) 40 Mg Tablet 40 Mg PO HS Lisinopril 10 Mg Tablet 10 Mg PO DAILY08 Metformin Hcl 500 Mg Tablet 500 Mg PO [id number] Vitals/I & O Vital Sign - Last 24 Hours 11/19/17 11/19/17 11/19/17 11/19/17 15:11 19:00 20:00 23:00 Temp 98.2 98.5 98.4 98.2 98.5 98.4 Pulse 88 78 61 Resp 18 18 18 B/P (MAP) 130/73 (92) 134/72 (92) 124/73 (90) Pulse Ox 97 99 98 O2 Delivery Room Air Room Air Room Air Room Air 11/20/17 11/20/17 11/20/17 11/20/17 03:00 07:00 08:30 08:31 Temp 97.9 98.3 97.9 98.3 Pulse 70 80 80 Resp 18 18 B/P (MAP) 157/80 (105) 119/80 (93) 119/80 Pulse Ox 100 92 O2 Delivery Room Air Room Air Room Air Intake and Output 11/19/17 11/19/17 11/20/17 15:00 23:00 07:00 Intake Total 600 ml 500 ml Output Total 900 ml 425 ml Balance -300 ml 75 ml ARAM TERRELL MD Nov 20, 2017 11:34
[2017-11-20] MEDS: MULTIVITAMIN with MINERAL TABLET. PO SCH (11:38)
[2017-11-20] MEDS: THIAMINE 100 MG TABLET. PO SCH (11:38)
[2017-11-20 15:00] VITALS: BP 130/69
[2017-11-20] MEDS ORDERED: DEXTROSE 50% 25 GM / 50ML DISP.SYRIN. IV PRN (18:00)
[2017-11-20 19:00] VITALS: BP 146/59
[2017-11-20] MEDS ORDERED: INSULIN GLARGINE 300 UNITS/3 ML INSULN.PEN. SQ SCH (21:00)
[2017-11-20] MEDS: TAMSULOSIN 0.4 MG CAP.ER.24H. PO SCH (21:23)
[2017-11-20] MEDS: ATORVASTATIN CALCIUM 40 MG TABLET. PO SCH (21:23)
[2017-11-20 22:42] VITALS: BP 138/90
[2017-11-21 02:54] VITALS: BP 142/86
[2017-11-21 07:00] VITALS: BP 143/82
[2017-11-21] MEDS: metFORMIN 500 MG TABLET PO SCH ×2 (08:38→17:07)
[2017-11-21] MEDS: MULTIVITAMIN with MINERAL TABLET. PO SCH (08:38)
[2017-11-21] MEDS: THIAMINE 100 MG TABLET. PO SCH (08:38)
[2017-11-21] MEDS: NICOTINE 21MG PATCH. TD SCH (08:38)
[2017-11-21] MEDS: FUROSEMIDE 20 MG TABLET PO SCH (08:38)
[2017-11-21] MEDS: LISINOPRIL 10 MG TABLET PO SCH (08:39)
[2017-11-21] MEDS: CLOPIDOGREL BISULFATE 75 MG TABLET PO SCH (08:39)
[2017-11-21] MEDS: POTASSIUM CHLORIDE 20 MEQ TABLET.ER. PO SCH ×2 (08:39→17:07)
[2017-11-21] MEDS: INSULIN LISPRO 300 UNITS/3 ML INSULN.PEN. SQ SCH ×6 (08:46→17:12)
[2017-11-21 08:52] LABS: CALCIUM 8.6 mg/dL (8.5-10.1); CREATININE 0.9 mg/dL (0.7-1.3); GFR 100.7; POTASSIUM 3.8 mmol/L (3.5-5.1)
--- NOTE | 2017-11-21 10:57 | PDOC ---
PROGRESS NOTES Subjective Subjective has cognitive and mobility and self care deficits and will screen for MARH. robles catheter in place . blood pressure high and will increase lisinopril. blood sugars are high and will increase insulin. Objective Objective Vital Signs Date Time Temp Pulse Resp B/P (MAP) Pulse Ox O2 Delivery O2 Flow Rate FiO2 11/21/17 08:39 91 143/82 11/21/17 07:00 98.8 16 96 Room Air 98.8 Intake and Output 11/21/17 07:00 Output Total 1975 ml Balance -1975 ml Output Urine Total 1975 ml Physical Exam Abdomen: Soft Heart: Regular rate, Normal S1, Normal S2 Extremities: No edema General: Alert HEENT: Atraumatic Lungs: Clear to auscultation Neuro: Normal speech, Other (cognitive deficits) Psych/Mental Status: Mood NL Skin: No rashes COMMENT robles catheter in place with yellow urine Assessment Assessment 1. Bilateral lower extremity edema. resolved 2. Right leg wound. 3. Diabetes mellitus type 2 with microalbuminuria. 4. Hypertension. 5. Hyperlipidemia. 6. Coronary artery disease. 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 Labs Laboratory Tests Test 11/19/17 16:13 11/19/17 20:33 11/20/17 05:00 11/20/17 08:36 Glucose (Fingerstick) 179 mg/dL (70-99) 156 mg/dL (70-99) 184 mg/dL (70-99) White Blood Count 5.9 x10^3/uL (4.0-11.0) Red Blood Count 4.44 x10^6/uL (4.30-5.70) Hemoglobin 13.7 g/dL (13.0-17.5) Hematocrit 40.7 % (39.0-53.0) Mean Corpuscular Volume 92 fL (79-100) Mean Corpuscular Hemoglobin 31 pg (25-35) Mean Corpuscular Hemoglobin Concent 34 g/dL (31-37) Red Cell Distribution Width 14.4 % (11.5-14.5) Platelet Count 172 x10^3/uL (140-400) Neutrophils (%) (Auto) 51 % (31-73) Lymphocytes (%) (Auto) 34 % (24-48) Monocytes (%) (Auto) 12 % (0-9) Eosinophils (%) (Auto) 2 % (0-3) Basophils (%) (Auto) 1 % (0-3) Neutrophils # (Auto) 3.0 x10^3uL (1.8-7.7) Lymphocytes # (Auto) 2.0 x10^3/uL (1.0-4.8) Monocytes # (Auto) 0.7 x10^3/uL (0.0-1.1) Eosinophils # (Auto) 0.1 x10^3/uL (0.0-0.7) Basophils # (Auto) 0.0 x10^3/uL (0.0-0.2) Sodium Level 139 mmol/L (136-145) Potassium Level 4.0 mmol/L (3.5-5.1) Chloride Level 105 mmol/L (98-107) Carbon Dioxide Level 25 mmol/L (21-32) Anion Gap 9 (6-14) Blood Urea Nitrogen 14 mg/dL (8-26) Creatinine 1.0 mg/dL (0.7-1.3) Estimated GFR (Cockcroft-Gault) 89.1 BUN/Creatinine Ratio 14 (6-20) Glucose Level 153 mg/dL (70-99) Calcium Level 8.6 mg/dL (8.5-10.1) Magnesium Level 1.8 mg/dL (1.8-2.4) Total Bilirubin 1.4 mg/dL (0.2-1.0) Aspartate Amino Transf (AST/SGOT) 27 U/L (15-37) Alanine Aminotransferase (ALT/SGPT) 29 U/L (16-63) Alkaline Phosphatase 74 U/L (46-116) Total Protein 6.9 g/dL (6.4-8.2) Albumin 3.1 g/dL (3.4-5.0) Albumin/Globulin Ratio 0.8 (1.0-1.7) Thyroid Stimulating Hormone (TSH) 1.828 uIU/mL (0.358-3.74) Test 11/20/17 11:24 11/20/17 17:34 11/20/17 20:19 11/21/17 07:28 Glucose (Fingerstick) 152 mg/dL (70-99) 248 mg/dL (70-99) 198 mg/dL (70-99) 219 mg/dL (70-99) Test 11/21/17 08:15 Sodium Level 136 mmol/L (136-145) Potassium Level 3.8 mmol/L (3.5-5.1) Chloride Level 103 mmol/L (98-107) Carbon Dioxide Level 29 mmol/L (21-32) Anion Gap 4 (6-14) Blood Urea Nitrogen 13 mg/dL (8-26) Creatinine 0.9 mg/dL (0.7-1.3) Estimated GFR (Cockcroft-Gault) 100.7 Glucose Level 215 mg/dL (70-99) Calcium Level 8.6 mg/dL (8.5-10.1) Laboratory Tests Test 11/20/17 11:24 11/20/17 17:34 11/20/17 20:19 11/21/17 07:28 Glucose (Fingerstick) 152 mg/dL (70-99) 248 mg/dL (70-99) 198 mg/dL (70-99) 219 mg/dL (70-99) Test 11/21/17 08:15 Sodium Level 136 mmol/L (136-145) Potassium Level 3.8 mmol/L (3.5-5.1) Chloride Level 103 mmol/L (98-107) Carbon Dioxide Level 29 mmol/L (21-32) Anion Gap 4 (6-14) Blood Urea Nitrogen 13 mg/dL (8-26) Creatinine 0.9 mg/dL (0.7-1.3) Estimated GFR (Cockcroft-Gault) 100.7 Glucose Level 215 mg/dL (70-99) Calcium Level 8.6 mg/dL (8.5-10.1) Microbiology 11/18/17 Urine Culture - Final, Complete 11/18/17 Urine Culture Result 1 (BRITNEY) - Final, Complete 11/16/17 Anaerobic/Aerobic Culture - Final, Resulted 11/16/17 Anaerobic Culture Result 1 (BRITNEY) - Final, Resulted 11/16/17 Aerobic Culture - Preliminary, Resulted 11/16/17 Aerobic Culture Result 1 (BRITNEY) - Preliminary, Resulted 11/16/17 Aerobic Culture Result 2 (BRITNEY) - Preliminary, Resulted 11/16/17 Gram Stain - Final, Resulted 11/16/17 Gram Stain Result 1 (BRITNEY) - Final, Resulted 11/16/17 Gram Stain Result 2 (BRITNEY) - Final, Resulted Medications Current Medications Ondansetron HCl (Zofran) 4 mg PRN Q8HRS PRN IV NAUSEA/VOMITING 1ST CHOICE; Start 11/16/17 at 01:30; Stop 11/17/17 at 01:29; Status DC Morphine Sulfate (Morphine Sulfate) 4 mg PRN Q2HR PRN IV SEVERE PAIN; Start at 01:30; Stop 11/17/17 at 01:29; Status DC Acetaminophen (Tylenol) 650 mg PRN Q4HRS PRN PO MILD PAIN / TEMP Last administered on 11/19/17at 21:24; Start 11/16/17 at 01:30 Enoxaparin Sodium (Lovenox 40mg Syringe) 40 mg DAILY SQ Last administered on at 09:21; Start 11/16/17 at 09:00; Stop 11/17/17 at 10:16; Status DC Atorvastatin Calcium (Lipitor) 40 mg QHS PO Last administered on 11/20/17at 21: 23; Start 11/16/17 at 21:00 Insulin Human Lispro (HumaLOG) 4 units TIDAC SQ Last administered on 11/20/17at 08:45; Start 11/16/17 at 07:30; Stop 11/20/17 at 11:27; Status DC Insulin Glargine (Lantus) 12 units QHS SQ Last administered on 11/19/17at 21:29 ; Start 11/16/17 at 21:00; Stop 11/20/17 at 11:27; Status DC Lisinopril (Prinivil) 20 mg DAILY PO Last administered on 11/18/17at 09:11; Start 11/16/17 at 09:00; Stop 11/18/17 at 12:57; Status DC Metformin HCl (Glucophage) 500 mg BIDWMEALS PO Last administered on 11/21/17at 08:38; Start 11/16/17 at 08:00 Amlodipine Besylate (Norvasc) 5 mg DAILY PO Last administered on 11/18/17 09: 11; Start 11/16/17 at 09:00; Stop 11/18/17 at 12:57; Status DC Clopidogrel Bisulfate (Plavix) 75 mg DAILY PO Last administered on 11/21/17at 08 :39; Start 11/16/17 at 09:00 Furosemide (Lasix) 20 mg DAILY IVP Last administered on 11/17/17at 09:19; Start 11/16/17 at 12:00; Stop 11/17/17 at 10:16; Status DC Potassium Chloride (Klor-Con) 20 meq DAILYWBKFT PO Last administered on 09:19; Start 11/16/17 at 11:00; Stop 11/17/17 at 10:16; Status DC Nicotine (Nicoderm Cq 21mg) 1 patch DAILY TD Last administered on 11/21/17at 08: 38; Start 11/16/17 at 16:00 Furosemide (Lasix) 40 mg DAILY IVP Last administered on 11/18/17at 09:11; Start 11/17/17 at 11:00; Stop 11/18/17 at 12:57; Status DC Potassium Chloride (Klor-Con) 40 meq BIDWMEALS PO Last administered on at 09:10; Start 11/17/17 at 11:00; Stop 11/18/17 at 12:57; Status DC Lisinopril (Prinivil) 10 mg DAILY PO Last administered on 11/21/17at 08:39; Start 11/19/17 at 09:00 Potassium Chloride (Klor-Con) 20 meq BIDWMEALS PO Last administered on at 08:39; Start 11/18/17 at 17:00 Furosemide (Lasix) 20 mg DAILY PO Last administered on 11/21/17at 08:38; Start 11/19/17 at 09:00 Magnesium Sulfate 50 ml @ 25 mls/hr 1X ONCE IV Last administered on 11/18/17at 14:21; Start 11/18/17 at 14:00; Stop 11/18/17 at 15:59; Status DC Tamsulosin HCl (Flomax) 0.4 mg QHS PO Last administered on 11/20/17at 21:23; Start 11/18/17 at 21:00 Insulin Glargine (Lantus) 16 units QHS SQ Last administered on 11/20/17at 21:25 ; Start 11/20/17 at 21:00 Insulin Human Lispro (HumaLOG) 6 units TIDAC SQ Last administered on 11/21/17at 08:47; Start 11/20/17 at 11:30 Thiamine Mononitrate (Vitamin B-1) 100 mg DAILY PO Last administered on 08:38; Start 11/20/17 at 12:00 Multivitamins (Thera M Plus) 1 tab DAILY PO Last administered on 11/21/17 08: 38; Start 11/20/17 at 12:00 Insulin Human Lispro (HumaLOG) 0-5 UNITS TIDWMEALS SQ Last administered on 11/21at 08:46; Start 11/20/17 at 18:00 Dextrose (Dextrose 50%-Water Syringe) 12.5 gm PRN Q15MIN PRN IV SEE COMMENTS; Start 11/20/17 at 18:00 Active Scripts Active Reported Clopidogrel (Clopidogrel Bisulfate) 75 Mg Tablet 1 Tab PO DAILY Lantus (Insulin Glargine,Hum.rec.anlog) 100 Unit/1 Ml Vial 32 Unit SQ HS Apidra (Insulin Glulisine) 100 Unit/1 Ml Vial 6 Unit SQ TIDAC Lipitor (Atorvastatin Calcium) 40 Mg Tablet 40 Mg PO HS Lisinopril 10 Mg Tablet 10 Mg PO DAILY08 Metformin Hcl 500 Mg Tablet 500 Mg PO [id number] Vitals/I & O Vital Sign - Last 24 Hours 11/20/17 11/20/17 11/20/17 11/20/17 11:00 15:00 19:00 20:00 Temp 98.2 97.7 98.6 98.2 97.7 98.6 Pulse 91 79 61 Resp 18 B/P (MAP) 128/90 (103) 130/69 (89) 146/59 (88) Pulse Ox 96 97 98 O2 Delivery Room Air Room Air Room Air Room Air 11/20/17 11/21/17 11/21/17 11/21/17 22:42 02:54 07:00 08:39 Temp 98.6 98.0 98.8 98.6 98.0 98.8 Pulse 88 76 91 91 Resp 18 18 16 B/P (MAP) 138/90 (106) 142/86 (104) 143/82 (102) 143/82 Pulse Ox 99 95 96 O2 Delivery Room Air Room Air Room Air Intake and Output 11/20/17 11/20/17 11/21/17 15:00 23:00 07:00 Output Total 850 ml 1125 ml Balance -850 ml -1125 ml ARAM TERRELL MD Nov 21, 2017 10:57
[2017-11-21 11:00] VITALS: BP 113/63
[2017-11-21 15:00] VITALS: BP 129/81
[2017-11-21 19:00] VITALS: BP 119/64
[2017-11-21] MEDS: ATORVASTATIN CALCIUM 40 MG TABLET. PO SCH (20:57)
[2017-11-21] MEDS: TAMSULOSIN 0.4 MG CAP.ER.24H. PO SCH (20:57)
[2017-11-21] MEDS: ACETAMINOPHEN 325 MG TABLET. PO PRN (20:57)
[2017-11-21] MEDS ORDERED: INSULIN GLARGINE 300 UNITS/3 ML INSULN.PEN. SQ SCH (21:00)
[2017-11-21 22:55] VITALS: BP 107/74
[2017-11-22 03:00] VITALS: BP 138/86
[2017-11-22 06:31] LABS: BASO % 1 % (0-3); EOS # 0.1 x10^3/uL (0.0-0.7); EOS % 2 % (0-3); HEMATOCRIT 43.6 % (39.0-53.0); HEMOGLOBIN 14.5 g/dL (13.0-17.5); LYMPH # 1.9 x10^3/uL (1.0-4.8); LYMPH % 30 % (24-48); MEAN CORPUSCULAR HEMOGLOBIN 31 pg (25-35); MEAN CORPUSCULAR HGB CONC 33 g/dL (31-37); MEAN CORPUSCULAR VOLUME 92 fL (79-100); MONO # 0.8 x10^3/uL (0.0-1.1); MONO % 13 % (0-9); NEUT # 3.5 x10^3uL (1.8-7.7); NEUT % 54 % (31-73); PLATELET COUNT 200 x10^3/uL (140-400); RED BLOOD COUNT 4.73 x10^6/uL (4.30-5.70); WHITE BLOOD COUNT 6.4 x10^3/uL (4.0-11.0)
[2017-11-22 06:43] LABS: CALCIUM 9.1 mg/dL (8.5-10.1); CREATININE 0.9 mg/dL (0.7-1.3); GFR 100.7; POTASSIUM 3.7 mmol/L (3.5-5.1)
[2017-11-22 07:00] VITALS: BP 112/63
[2017-11-22] MEDS: INSULIN LISPRO 300 UNITS/3 ML INSULN.PEN. SQ SCH ×5 (08:00→17:00)
--- NOTE | 2017-11-22 08:34 | PDOC ---
SUBJECTIVE Subjective Pt had robles catheter removed around 0600 this morning. He hasn't voided yet, but he hasn't tried yet either. He is eating breakfast. OBJECTIVE Objective Physical Exam: General appearance: Alert and Oriented Head: Normocephalic, without obvious abnormality Eyes: conjunctivae/corneas clear. PERRL, EOM's intact. Fundi benign. False left eye Lungs: regular respirations, non labored breathing Vital Signs Vital Signs Date Time Temp Pulse Resp B/P (MAP) Pulse Ox O2 Delivery O2 Flow Rate FiO2 11/22/17 03:00 99.0 62 17 138/86 (103) 100 Room Air 99.0 11/21/17 22:55 98.9 79 19 107/74 (85) 98 Room Air 98.9 11/21/17 20:00 Room Air 11/21/17 19:00 99.6 98 17 119/64 (82) 98 Room Air 99.6 11/21/17 15:00 98.2 84 16 129/81 (97) 99 Room Air 98.2 11/21/17 11:00 99.3 107 16 113/63 (80) 96 Room Air 99.3 11/21/17 08:39 91 143/82 I & O Intake and Output 11/22/17 07:00 Output Total 1350 ml Balance -1350 ml Output Urine Total 1350 ml # Voids 1 # Bowel Movements 1 PHYSICAL EXAM Physical Exam Physical Exam: General appearance: Alert and Oriented Head: Normocephalic, without obvious abnormality Eyes: conjunctivae/corneas clear. PERRL, EOM's intact. Fundi benign. False left eye Lungs: regular respirations, non labored breathing ASSESSMENT/PLAN Assessment/Plan Voiding trial today: Nursing staff to bladder scan patient between noon and 1300 today. If PVR greater than 350, please replace robles catheter. If less than 350, please leave robles catheter out. Orders entered for nursing staff. Continue flomax Will check on voiding trial results later today UPDATE: Per attending RN patient has voided since catheter was removed. They intend to bladder scan him in a little bit. COMMENT Lab Laboratory Tests Test 11/21/17 11:25 11/21/17 16:17 11/21/17 20:40 11/22/17 05:20 Glucose (Fingerstick) 205 mg/dL (70-99) 122 mg/dL (70-99) 112 mg/dL (70-99) White Blood Count 6.4 x10^3/uL (4.0-11.0) Red Blood Count 4.73 x10^6/uL (4.30-5.70) Hemoglobin 14.5 g/dL (13.0-17.5) Hematocrit 43.6 % (39.0-53.0) Mean Corpuscular Volume 92 fL (79-100) Mean Corpuscular Hemoglobin 31 pg (25-35) Mean Corpuscular Hemoglobin Concent 33 g/dL (31-37) Red Cell Distribution Width 14.0 % (11.5-14.5) Platelet Count 200 x10^3/uL (140-400) Neutrophils (%) (Auto) 54 % (31-73) Lymphocytes (%) (Auto) 30 % (24-48) Monocytes (%) (Auto) 13 % (0-9) Eosinophils (%) (Auto) 2 % (0-3) Basophils (%) (Auto) 1 % (0-3) Neutrophils # (Auto) 3.5 x10^3uL (1.8-7.7) Lymphocytes # (Auto) 1.9 x10^3/uL (1.0-4.8) Monocytes # (Auto) 0.8 x10^3/uL (0.0-1.1) Eosinophils # (Auto) 0.1 x10^3/uL (0.0-0.7) Basophils # (Auto) 0.0 x10^3/uL (0.0-0.2) Sodium Level 135 mmol/L (136-145) Potassium Level 3.7 mmol/L (3.5-5.1) Chloride Level 103 mmol/L (98-107) Carbon Dioxide Level 26 mmol/L (21-32) Anion Gap 6 (6-14) Blood Urea Nitrogen 13 mg/dL (8-26) Creatinine 0.9 mg/dL (0.7-1.3) Estimated GFR (Cockcroft-Gault) 100.7 Glucose Level 83 mg/dL (70-99) Calcium Level 9.1 mg/dL (8.5-10.1) Test 11/22/17 07:23 11/22/17 07:58 Glucose (Fingerstick) 76 mg/dL (70-99) 75 mg/dL (70-99) ALICIA IVY APRN Nov 22, 2017 08:34
[2017-11-22] MEDS ORDERED: LISINOPRIL 20 MG TABLET PO SCH (09:00)
--- NOTE | 2017-11-22 09:08 | PDOC ---
PROGRESS NOTES Subjective Subjective feels better. eating breakfast. fbs 75 and will decrease insulin. blood pressure is 112 systolic and will decrease lisinopril. no leg edema and will change furosemide and kcl to every other day. lab reviewed. Objective Objective Vital Signs Date Time Temp Pulse Resp B/P (MAP) Pulse Ox O2 Delivery O2 Flow Rate FiO2 11/22/17 07:00 97.9 82 18 112/63 (79) 91 Room Air 97.9 Intake and Output 11/22/17 07:00 Output Total 1350 ml Balance -1350 ml Output Urine Total 1350 ml # Voids 1 # Bowel Movements 1 Physical Exam Abdomen: Soft Heart: Regular rate, Normal S1, Normal S2 Extremities: No edema General: Alert HEENT: Atraumatic Lungs: Clear to auscultation Neuro: Normal speech Psych/Mental Status: Mood NL Skin: No rashes, Other (right pretibial wound with pink base) Assessment Assessment 1. Bilateral lower extremity edema. resolved 2. Right leg wound. 3. Diabetes mellitus type 2 with microalbuminuria. 4. Hypertension. 5. Hyperlipidemia. 6. Coronary artery disease. 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 will replace robles if PVR more than 350 cc excessive alcohol intake cigarette smoker cognitive and mobility and self care deficits Plan Plan of Care decrease insulin decrease lisinopril change furosemide and kcl to every other day PT and OT CARLOS screen bladder trial today. replace robles if PVR 350cc or more Comment Review of Relevant I have reviewed the following items linda (where applicable) has been applied. Labs Laboratory Tests Test 11/20/17 11:24 11/20/17 17:34 11/20/17 20:19 11/21/17 07:28 Glucose (Fingerstick) 152 mg/dL (70-99) 248 mg/dL (70-99) 198 mg/dL (70-99) 219 mg/dL (70-99) Test 11/21/17 08:15 11/21/17 11:25 11/21/17 16:17 11/21/17 20:40 Sodium Level 136 mmol/L (136-145) Potassium Level 3.8 mmol/L (3.5-5.1) Chloride Level 103 mmol/L (98-107) Carbon Dioxide Level 29 mmol/L (21-32) Anion Gap 4 (6-14) Blood Urea Nitrogen 13 mg/dL (8-26) Creatinine 0.9 mg/dL (0.7-1.3) Estimated GFR (Cockcroft-Gault) 100.7 Glucose Level 215 mg/dL (70-99) Calcium Level 8.6 mg/dL (8.5-10.1) Glucose (Fingerstick) 205 mg/dL (70-99) 122 mg/dL (70-99) 112 mg/dL (70-99) Test 11/22/17 05:20 11/22/17 07:23 11/22/17 07:58 11/22/17 08:33 White Blood Count 6.4 x10^3/uL (4.0-11.0) Red Blood Count 4.73 x10^6/uL (4.30-5.70) Hemoglobin 14.5 g/dL (13.0-17.5) Hematocrit 43.6 % (39.0-53.0) Mean Corpuscular Volume 92 fL (79-100) Mean Corpuscular Hemoglobin 31 pg (25-35) Mean Corpuscular Hemoglobin Concent 33 g/dL (31-37) Red Cell Distribution Width 14.0 % (11.5-14.5) Platelet Count 200 x10^3/uL (140-400) Neutrophils (%) (Auto) 54 % (31-73) Lymphocytes (%) (Auto) 30 % (24-48) Monocytes (%) (Auto) 13 % (0-9) Eosinophils (%) (Auto) 2 % (0-3) Basophils (%) (Auto) 1 % (0-3) Neutrophils # (Auto) 3.5 x10^3uL (1.8-7.7) Lymphocytes # (Auto) 1.9 x10^3/uL (1.0-4.8) Monocytes # (Auto) 0.8 x10^3/uL (0.0-1.1) Eosinophils # (Auto) 0.1 x10^3/uL (0.0-0.7) Basophils # (Auto) 0.0 x10^3/uL (0.0-0.2) Sodium Level 135 mmol/L (136-145) Potassium Level 3.7 mmol/L (3.5-5.1) Chloride Level 103 mmol/L (98-107) Carbon Dioxide Level 26 mmol/L (21-32) Anion Gap 6 (6-14) Blood Urea Nitrogen 13 mg/dL (8-26) Creatinine 0.9 mg/dL (0.7-1.3) Estimated GFR (Cockcroft-Gault) 100.7 Glucose Level 83 mg/dL (70-99) Calcium Level 9.1 mg/dL (8.5-10.1) Glucose (Fingerstick) 76 mg/dL (70-99) 75 mg/dL (70-99) 138 mg/dL (70-99) Laboratory Tests Test 11/21/17 11:25 11/21/17 16:17 11/21/17 20:40 11/22/17 05:20 Glucose (Fingerstick) 205 mg/dL (70-99) 122 mg/dL (70-99) 112 mg/dL (70-99) White Blood Count 6.4 x10^3/uL (4.0-11.0) Red Blood Count 4.73 x10^6/uL (4.30-5.70) Hemoglobin 14.5 g/dL (13.0-17.5) Hematocrit 43.6 % (39.0-53.0) Mean Corpuscular Volume 92 fL (79-100) Mean Corpuscular Hemoglobin 31 pg (25-35) Mean Corpuscular Hemoglobin Concent 33 g/dL (31-37) Red Cell Distribution Width 14.0 % (11.5-14.5) Platelet Count 200 x10^3/uL (140-400) Neutrophils (%) (Auto) 54 % (31-73) Lymphocytes (%) (Auto) 30 % (24-48) Monocytes (%) (Auto) 13 % (0-9) Eosinophils (%) (Auto) 2 % (0-3) Basophils (%) (Auto) 1 % (0-3) Neutrophils # (Auto) 3.5 x10^3uL (1.8-7.7) Lymphocytes # (Auto) 1.9 x10^3/uL (1.0-4.8) Monocytes # (Auto) 0.8 x10^3/uL (0.0-1.1) Eosinophils # (Auto) 0.1 x10^3/uL (0.0-0.7) Basophils # (Auto) 0.0 x10^3/uL (0.0-0.2) Sodium Level 135 mmol/L (136-145) Potassium Level 3.7 mmol/L (3.5-5.1) Chloride Level 103 mmol/L (98-107) Carbon Dioxide Level 26 mmol/L (21-32) Anion Gap 6 (6-14) Blood Urea Nitrogen 13 mg/dL (8-26) Creatinine 0.9 mg/dL (0.7-1.3) Estimated GFR (Cockcroft-Gault) 100.7 Glucose Level 83 mg/dL (70-99) Calcium Level 9.1 mg/dL (8.5-10.1) Test 11/22/17 07:23 11/22/17 07:58 11/22/17 08:33 Glucose (Fingerstick) 76 mg/dL (70-99) 75 mg/dL (70-99) 138 mg/dL (70-99) Microbiology 11/18/17 Urine Culture - Final, Complete 11/18/17 Urine Culture Result 1 (BRITNEY) - Final, Complete 11/16/17 Anaerobic/Aerobic Culture - Final, Complete 11/16/17 Anaerobic Culture Result 1 (BRITNEY) - Final, Complete 11/16/17 Aerobic Culture - Final, Complete 11/16/17 Aerobic Culture Result 1 (BRITNEY) - Final, Complete 11/16/17 Aerobic Culture Result 2 (BRITNEY) - Final, Complete 11/16/17 Antimicrobic Susceptibility - Final, Complete 11/16/17 Gram Stain - Final, Complete 11/16/17 Gram Stain Result 1 (BRITNEY) - Final, Complete 11/16/17 Gram Stain Result 2 (BRITNEY) - Final, Complete Medications Current Medications Ondansetron HCl (Zofran) 4 mg PRN Q8HRS PRN IV NAUSEA/VOMITING 1ST CHOICE; Start 11/16/17 at 01:30; Stop 11/17/17 at 01:29; Status DC Morphine Sulfate (Morphine Sulfate) 4 mg PRN Q2HR PRN IV SEVERE PAIN; Start at 01:30; Stop 11/17/17 at 01:29; Status DC Acetaminophen (Tylenol) 650 mg PRN Q4HRS PRN PO MILD PAIN / TEMP Last administered on 11/21/17at 20:57; Start 11/16/17 at 01:30 Enoxaparin Sodium (Lovenox 40mg Syringe) 40 mg DAILY SQ Last administered on at 09:21; Start 11/16/17 at 09:00; Stop 11/17/17 at 10:16; Status DC Atorvastatin Calcium (Lipitor) 40 mg QHS PO Last administered on 11/21/17at 20: 57; Start 11/16/17 at 21:00 Insulin Human Lispro (HumaLOG) 4 units TIDAC SQ Last administered on 11/20/17at 08:45; Start 11/16/17 at 07:30; Stop 11/20/17 at 11:27; Status DC Insulin Glargine (Lantus) 12 units QHS SQ Last administered on 11/19/17at 21:29 ; Start 11/16/17 at 21:00; Stop 11/20/17 at 11:27; Status DC Lisinopril (Prinivil) 20 mg DAILY PO Last administered on 11/18/17at 09:11; Start 11/16/17 at 09:00; Stop 11/18/17 at 12:57; Status DC Metformin HCl (Glucophage) 500 mg BIDWMEALS PO Last administered on 11/21/17at 17:07; Start 11/16/17 at 08:00 Amlodipine Besylate (Norvasc) 5 mg DAILY PO Last administered on 11/18/17at 09: 11; Start 11/16/17 at 09:00; Stop 11/18/17 at 12:57; Status DC Clopidogrel Bisulfate (Plavix) 75 mg DAILY PO Last administered on 11/21/17at 08 :39; Start 11/16/17 at 09:00 Furosemide (Lasix) 20 mg DAILY IVP Last administered on 11/17/17at 09:19; Start 11/16/17 at 12:00; Stop 11/17/17 at 10:16; Status DC Potassium Chloride (Klor-Con) 20 meq DAILYWBKFT PO Last administered on at 09:19; Start 11/16/17 at 11:00; Stop 11/17/17 at 10:16; Status DC Nicotine (Nicoderm Cq 21mg) 1 patch DAILY TD Last administered on 11/21/17 08: 38; Start 11/16/17 at 16:00 Furosemide (Lasix) 40 mg DAILY IVP Last administered on 11/18/17at 09:11; Start 11/17/17 at 11:00; Stop 11/18/17 at 12:57; Status DC Potassium Chloride (Klor-Con) 40 meq BIDWMEALS PO Last administered on at 09:10; Start 11/17/17 at 11:00; Stop 11/18/17 at 12:57; Status DC Lisinopril (Prinivil) 10 mg DAILY PO Last administered on 11/21/17at 08:39; Start 11/19/17 at 09:00; Stop 11/21/17 at 10:54; Status DC Potassium Chloride (Klor-Con) 20 meq BIDWMEALS PO Last administered on at 17:07; Start 11/18/17 at 17:00 Furosemide (Lasix) 20 mg DAILY PO Last administered on 11/21/17at 08:38; Start 11/19/17 at 09:00 Magnesium Sulfate 50 ml @ 25 mls/hr 1X ONCE IV Last administered on 11/18/17at 14:21; Start 11/18/17 at 14:00; Stop 11/18/17 at 15:59; Status DC Tamsulosin HCl (Flomax) 0.4 mg QHS PO Last administered on 11/21/17at 20:57; Start 11/18/17 at 21:00 Insulin Glargine (Lantus) 16 units QHS SQ Last administered on 11/20/17at 21:25 ; Start 11/20/17 at 21:00; Stop 11/21/17 at 10:54; Status DC Insulin Human Lispro (HumaLOG) 6 units TIDAC SQ Last administered on 11/21/17at 08:47; Start 11/20/17 at 11:30; Stop 11/21/17 at 10:54; Status DC Thiamine Mononitrate (Vitamin B-1) 100 mg DAILY PO Last administered on at 08:38; Start 11/20/17 at 12:00 Multivitamins (Thera M Plus) 1 tab DAILY PO Last administered on 11/21/17at 08: 38; Start 11/20/17 at 12:00 Insulin Human Lispro (HumaLOG) 0-5 UNITS TIDWMEALS SQ Last administered on 11/21at 08:46; Start 11/20/17 at 18:00; Stop 11/21/17 at 10:54; Status DC Dextrose (Dextrose 50%-Water Syringe) 12.5 gm PRN Q15MIN PRN IV SEE COMMENTS; Start 11/20/17 at 18:00 Insulin Glargine (Lantus) 20 units QHS SQ Last administered on 11/21/17at 20:59 ; Start 11/21/17 at 21:00 Insulin Human Lispro (HumaLOG) 8 units TIDAC SQ Last administered on 11/21/17at 17:12; Start 11/21/17 at 11:30 Lisinopril (Prinivil) 20 mg DAILY PO ; Start 11/22/17 at 09:00 Insulin Human Lispro (HumaLOG) BG 400-49,9=6 units TIDWMEALS SQ Last administered on 11/21/17at 11:47; Start 11/21/17 at 12:00 Active Scripts Active Reported Clopidogrel (Clopidogrel Bisulfate) 75 Mg Tablet 1 Tab PO DAILY Lantus (Insulin Glargine,Hum.rec.anlog) 100 Unit/1 Ml Vial 32 Unit SQ HS Apidra (Insulin Glulisine) 100 Unit/1 Ml Vial 6 Unit SQ TIDAC Lipitor (Atorvastatin Calcium) 40 Mg Tablet 40 Mg PO HS Lisinopril 10 Mg Tablet 10 Mg PO DAILY08 Metformin Hcl 500 Mg Tablet 500 Mg PO [id number] Vitals/I & O Vital Sign - Last 24 Hours 11/21/17 11/21/17 11/21/17 11/21/17 11:00 15:00 19:00 20:00 Temp 99.3 98.2 99.6 99.3 98.2 99.6 Pulse 107 84 98 Resp 16 16 17 B/P (MAP) 113/63 (80) 129/81 (97) 119/64 (82) Pulse Ox 96 99 98 O2 Delivery Room Air Room Air Room Air Room Air 11/21/17 11/22/17 11/22/17 22:55 03:00 07:00 Temp 98.9 99.0 97.9 98.9 99.0 97.9 Pulse 79 62 82 Resp 19 17 18 B/P (MAP) 107/74 (85) 138/86 (103) 112/63 (79) Pulse Ox 98 100 91 O2 Delivery Room Air Room Air Room Air Intake and Output 11/21/17 11/21/17 11/22/17 15:00 23:00 07:00 Output Total 1000 ml 350 ml Balance -1000 ml -350 ml ARAM TERRELL MD Nov 22, 2017 09:08
[2017-11-22] MEDS: MULTIVITAMIN with MINERAL TABLET. PO SCH (09:31)
[2017-11-22] MEDS: metFORMIN 500 MG TABLET PO SCH ×2 (09:31→18:14)
[2017-11-22] MEDS: THIAMINE 100 MG TABLET. PO SCH (09:31)
[2017-11-22] MEDS: CLOPIDOGREL BISULFATE 75 MG TABLET PO SCH (09:32)
[2017-11-22] MEDS: NICOTINE 21MG PATCH. TD SCH (09:33)
[2017-11-22 11:00] VITALS: BP 129/74
--- NOTE | 2017-11-22 14:19 | PDOC ---
PROGRESS NOTES Assessment Assessment Metabolic encephalopathy. Hyperglycemia. DM. HTN. HLD. CAD, PR. Bilateral LE edema. Right singh open wound. 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 Femoral lymphadenopathy. Left prosthetic eye. Smoking. No evidence of acute CVA this time. RECOMMENDATIONS/PLAN: Continue Plavix 75 mg daily. Continue Lipitor HS. Wound care. Treat medical diseases. OT/PT. HISTORY OF THE PRESENT ILLNESS: 72-y-old AA male patent with above medical diseases was admitted into the hospital due to LE wounds. His nurse stated that he has been having mental status changes since yesterday and confusional episodes, so neurology was requested for consultation. PAST MEDICAL HISTORY: Diabetes mellitus type 2 with microalbuminuria. Hypertension. Hyperlipidemia Coronary artery disease. Myocardial infarction in the past Gastric ulcer in 2003. Irritable bowel syndrome. Prosthetic left eye. PAST SURGERY HISTORY: No major surgery recently. FAMILY HISTORY: Noncontributory. SOCIAL HISTORY: Does not drink alcohol. Smokes about 1 pack per day of cigarettes. ALLERGY: NKDA MEDICATIONS: Refer to MAR REVIEW OF SYSTEMS: Constitutional: No malnutrition, weight loss, cachexia. Head: No recent traumatic brain or head injury. Skin: No edema, or rash. Ear: No infection, tinnitus. Eyes: Left prosthetic eye. Nose: No bleeding or purulent discharges. Hearing: Hearing decrease. Neck: No injury. Cardiac: PR, CAD, HTN, HLD. Pulmonary: No COPD. GI: Gastric ulcer in 2003. Irritable bowel syndrome.. Urinary/genital: UTI. Endocrinologic: Diabetes Mellitus. Skeletomuscular: No muscular atrophy, deformity. Neurological: see HP. Psychiatric: Denies drug use/abuse. Otherwise, not [id number] review of systems. PHYSICAL EXAMINATION: General appearance is in subacute distress. HEENT: Normocephalic and nontraumatic. Nose, ears, and throat are unremarkable , left prosthetic eye. Neck is supple. No lymphadenopathy. No crepitus. Cardiovascular: S1, S2, regular rate and rhythm. Pulmonary: Clear to auscultation bilaterally. Abdomen: Bowel sounds are positive. Abdomen is soft, nontender, and nondistended. Extremities: LE wound. No restriction of range of motion NEUROLOGICAL EXAMINATION: Awake. Not fully oriented to time, but knew place and person. Right pupil reactive to light. EOMI. CN: no focal findings. Muscle tone: within normal. Muscle strength: 4 right side, 5- left side. DTR: 1-2 Plantar reflex: Neutral response bilaterally Gait: Able to walk with a walker. Sensory exam: no abnormal findings. No acute cerebellar signs elicited. F-T-N test fine. Objective Objective Vital Signs Date Time Temp Pulse Resp B/P (MAP) Pulse Ox O2 Delivery O2 Flow Rate FiO2 11/22/17 11:00 98.3 73 16 129/74 (92) 99 Room Air 98.3 Intake and Output 11/22/17 07:00 Output Total 1350 ml Balance -1350 ml Output Urine Total 1350 ml # Voids 1 # Bowel Movements 1 Vitals Signs Vitals VS - Last 72 Hours, by Label Date Time Temp Pulse Resp B/P (MAP) Pulse Ox O2 Delivery O2 Flow Rate FiO2 11/22/17 11:00 98.3 73 16 129/74 (92) 99 Room Air 98.3 11/22/17 08:00 Room Air 11/22/17 07:00 97.9 82 18 112/63 (79) 91 Room Air 97.9 11/22/17 03:00 99.0 62 17 138/86 (103) 100 Room Air 99.0 11/21/17 22:55 98.9 79 19 107/74 (85) 98 Room Air 98.9 11/21/17 20:00 Room Air 11/21/17 19:00 99.6 98 17 119/64 (82) 98 Room Air 99.6 11/21/17 15:00 98.2 84 16 129/81 (97) 99 Room Air 98.2 11/21/17 11:00 99.3 107 16 113/63 (80) 96 Room Air 99.3 11/21/17 08:39 91 143/82 11/21/17 08:00 Room Air 11/21/17 07:00 98.8 91 16 143/82 (102) 96 Room Air 98.8 Laboratory Laboratory Laboratory Tests Test 11/21/17 16:17 11/21/17 20:40 11/22/17 05:20 11/22/17 07:23 Glucose (Fingerstick) 122 mg/dL (70-99) 112 mg/dL (70-99) 76 mg/dL (70-99) White Blood Count 6.4 x10^3/uL (4.0-11.0) Red Blood Count 4.73 x10^6/uL (4.30-5.70) Hemoglobin 14.5 g/dL (13.0-17.5) Hematocrit 43.6 % (39.0-53.0) Mean Corpuscular Volume 92 fL (79-100) Mean Corpuscular Hemoglobin 31 pg (25-35) Mean Corpuscular Hemoglobin Concent 33 g/dL (31-37) Red Cell Distribution Width 14.0 % (11.5-14.5) Platelet Count 200 x10^3/uL (140-400) Neutrophils (%) (Auto) 54 % (31-73) Lymphocytes (%) (Auto) 30 % (24-48) Monocytes (%) (Auto) 13 % (0-9) Eosinophils (%) (Auto) 2 % (0-3) Basophils (%) (Auto) 1 % (0-3) Neutrophils # (Auto) 3.5 x10^3uL (1.8-7.7) Lymphocytes # (Auto) 1.9 x10^3/uL (1.0-4.8) Monocytes # (Auto) 0.8 x10^3/uL (0.0-1.1) Eosinophils # (Auto) 0.1 x10^3/uL (0.0-0.7) Basophils # (Auto) 0.0 x10^3/uL (0.0-0.2) Sodium Level 135 mmol/L (136-145) Potassium Level 3.7 mmol/L (3.5-5.1) Chloride Level 103 mmol/L (98-107) Carbon Dioxide Level 26 mmol/L (21-32) Anion Gap 6 (6-14) Blood Urea Nitrogen 13 mg/dL (8-26) Creatinine 0.9 mg/dL (0.7-1.3) Estimated GFR (Cockcroft-Gault) 100.7 Glucose Level 83 mg/dL (70-99) Calcium Level 9.1 mg/dL (8.5-10.1) Test 11/22/17 07:58 11/22/17 08:33 11/22/17 11:01 Glucose (Fingerstick) 75 mg/dL (70-99) 138 mg/dL (70-99) 187 mg/dL (70-99) Microbiology 11/18/17 Urine Culture - Final, Complete 11/18/17 Urine Culture Result 1 (BRITNEY) - Final, Complete 11/16/17 Anaerobic/Aerobic Culture - Final, Complete 11/16/17 Anaerobic Culture Result 1 (BRITNEY) - Final, Complete 11/16/17 Aerobic Culture - Final, Complete 11/16/17 Aerobic Culture Result 1 (BRITNEY) - Final, Complete 11/16/17 Aerobic Culture Result 2 (BRITNEY) - Final, Complete 11/16/17 Antimicrobic Susceptibility - Final, Complete 11/16/17 Gram Stain - Final, Complete 11/16/17 Gram Stain Result 1 (BRITNEY) - Final, Complete 11/16/17 Gram Stain Result 2 (BRITNEY) - Final, Complete Medication Medications Current Medications Furosemide (Lasix) 20 mg QODAY PO ; Start 11/23/17 at 09:00 Insulin Glargine (Lantus) 12 units QHS SQ ; Start 11/22/17 at 21:00 Insulin Glargine (Lantus) 20 units QHS SQ Last administered on 11/21/17at 20:59 ; Start 11/21/17 at 21:00; Stop 11/22/17 at 09:03; Status DC Insulin Human Lispro (HumaLOG) 4 units TIDAC SQ Last administered on 11/22/17at 12:42; Start 11/22/17 at 11:30 Lisinopril (Prinivil) 10 mg DAILY PO ; Start 11/23/17 at 09:00 Lisinopril (Prinivil) 20 mg DAILY PO ; Start 11/22/17 at 09:00; Stop 11/22/17 at 09:03; Status DC Potassium Chloride (Klor-Con) 40 meq QODAY PO ; Start 11/23/17 at 09:00 Comment Review of Relevant I have reviewed the following items linda (where applicable) has been applied. LUKASZ FINCH MD Nov 22, 2017 14:19
[2017-11-22 15:00] VITALS: BP 154/92
[2017-11-22 19:30] VITALS: BP 138/84
[2017-11-22] MEDS: TAMSULOSIN 0.4 MG CAP.ER.24H. PO SCH (20:27)
[2017-11-22] MEDS: ATORVASTATIN CALCIUM 40 MG TABLET. PO SCH (20:28)
[2017-11-22] MEDS: INSULIN GLARGINE 300 UNITS/3 ML INSULN.PEN. SQ SCH (20:35)
[2017-11-22 23:00] VITALS: BP 174/92
[2017-11-23 03:00] VITALS: BP 134/74
[2017-11-23 06:59] LABS: CALCIUM 8.7 mg/dL (8.5-10.1); CREATININE 0.9 mg/dL (0.7-1.3); GFR 100.7; POTASSIUM 3.6 mmol/L (3.5-5.1)
[2017-11-23 07:00] VITALS: BP 134/84
[2017-11-23] MEDS: INSULIN LISPRO 300 UNITS/3 ML INSULN.PEN. SQ SCH ×6 (07:30→17:00)
[2017-11-23] MEDS: THIAMINE 100 MG TABLET. PO SCH (08:33)
[2017-11-23] MEDS: metFORMIN 500 MG TABLET PO SCH ×2 (08:33→17:38)
[2017-11-23] MEDS: MULTIVITAMIN with MINERAL TABLET. PO SCH (08:33)
[2017-11-23] MEDS: CLOPIDOGREL BISULFATE 75 MG TABLET PO SCH (08:33)
[2017-11-23] MEDS: NICOTINE 21MG PATCH. TD SCH (08:33)
[2017-11-23] MEDS: ACETAMINOPHEN 325 MG TABLET. PO PRN ×3 (08:33→21:22)
[2017-11-23] MEDS: LISINOPRIL 10 MG TABLET PO SCH (08:34)
[2017-11-23] MEDS: FUROSEMIDE 20 MG TABLET PO SCH (08:34)
--- NOTE | 2017-11-23 08:52 | PDOC ---
PROGRESS NOTES Subjective Subjective voiding better with some residual but not enough for straight cath. fever [id number] last night. he says he has a cough with green sputum but nurse not aware of this. will panculture and order a cxr and ID consult and order iv vancomycin and cefepime. Objective Objective Vital Signs Date Time Temp Pulse Resp B/P (MAP) Pulse Ox O2 Delivery O2 Flow Rate FiO2 11/23/17 08:34 68 134/84 11/23/17 07:00 99.1 20 98 Room Air 99.1 Intake and Output 11/23/17 07:00 Intake Total 200 ml Output Total 550 ml Balance -350 ml Intake Oral 200 ml Output Urine Total 550 ml # Voids 5 Physical Exam Abdomen: Soft Heart: Regular rate, Normal S1, Normal S2 Extremities: No edema General: Alert HEENT: Atraumatic Lungs: Clear to auscultation Neuro: Normal speech Psych/Mental Status: Mood NL Skin: No rashes, Other (wound right pretibial area with pink base) Assessment Assessment 1. Bilateral lower extremity edema. resolved 2. Right leg wound. 3. Diabetes mellitus type 2 with microalbuminuria. 4. Hypertension. 5. Hyperlipidemia. 6. Coronary artery disease. 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 will replace robles if PVR more than 350 cc excessive alcohol intake cigarette smoker cognitive and mobility and self care deficits fever Plan Plan of Care blood and urine and sputum culture cxr ID consult lab tomorrow start iv vancomycin and cefepime bladder scan every 6 hours. sc if over 300 cc Comment Review of Relevant I have reviewed the following items linda (where applicable) has been applied. Labs Laboratory Tests Test 11/21/17 11:25 11/21/17 16:17 11/21/17 20:40 11/22/17 05:20 Glucose (Fingerstick) 205 mg/dL (70-99) 122 mg/dL (70-99) 112 mg/dL (70-99) White Blood Count 6.4 x10^3/uL (4.0-11.0) Red Blood Count 4.73 x10^6/uL (4.30-5.70) Hemoglobin 14.5 g/dL (13.0-17.5) Hematocrit 43.6 % (39.0-53.0) Mean Corpuscular Volume 92 fL (79-100) Mean Corpuscular Hemoglobin 31 pg (25-35) Mean Corpuscular Hemoglobin Concent 33 g/dL (31-37) Red Cell Distribution Width 14.0 % (11.5-14.5) Platelet Count 200 x10^3/uL (140-400) Neutrophils (%) (Auto) 54 % (31-73) Lymphocytes (%) (Auto) 30 % (24-48) Monocytes (%) (Auto) 13 % (0-9) Eosinophils (%) (Auto) 2 % (0-3) Basophils (%) (Auto) 1 % (0-3) Neutrophils # (Auto) 3.5 x10^3uL (1.8-7.7) Lymphocytes # (Auto) 1.9 x10^3/uL (1.0-4.8) Monocytes # (Auto) 0.8 x10^3/uL (0.0-1.1) Eosinophils # (Auto) 0.1 x10^3/uL (0.0-0.7) Basophils # (Auto) 0.0 x10^3/uL (0.0-0.2) Sodium Level 135 mmol/L (136-145) Potassium Level 3.7 mmol/L (3.5-5.1) Chloride Level 103 mmol/L (98-107) Carbon Dioxide Level 26 mmol/L (21-32) Anion Gap 6 (6-14) Blood Urea Nitrogen 13 mg/dL (8-26) Creatinine 0.9 mg/dL (0.7-1.3) Estimated GFR (Cockcroft-Gault) 100.7 Glucose Level 83 mg/dL (70-99) Calcium Level 9.1 mg/dL (8.5-10.1) Test 11/22/17 07:23 11/22/17 07:58 11/22/17 08:33 11/22/17 11:01 Glucose (Fingerstick) 76 mg/dL (70-99) 75 mg/dL (70-99) 138 mg/dL (70-99) 187 mg/dL (70-99) Test 11/22/17 16:35 11/22/17 20:31 11/23/17 05:33 11/23/17 08:32 Glucose (Fingerstick) 156 mg/dL (70-99) 184 mg/dL (70-99) 120 mg/dL (70-99) Sodium Level 138 mmol/L (136-145) Potassium Level 3.6 mmol/L (3.5-5.1) Chloride Level 104 mmol/L (98-107) Carbon Dioxide Level 29 mmol/L (21-32) Anion Gap 5 (6-14) Blood Urea Nitrogen 10 mg/dL (8-26) Creatinine 0.9 mg/dL (0.7-1.3) Estimated GFR (Cockcroft-Gault) 100.7 Glucose Level 104 mg/dL (70-99) Calcium Level 8.7 mg/dL (8.5-10.1) Laboratory Tests Test 11/22/17 11:01 11/22/17 16:35 11/22/17 20:31 11/23/17 05:33 Glucose (Fingerstick) 187 mg/dL (70-99) 156 mg/dL (70-99) 184 mg/dL (70-99) Sodium Level 138 mmol/L (136-145) Potassium Level 3.6 mmol/L (3.5-5.1) Chloride Level 104 mmol/L (98-107) Carbon Dioxide Level 29 mmol/L (21-32) Anion Gap 5 (6-14) Blood Urea Nitrogen 10 mg/dL (8-26) Creatinine 0.9 mg/dL (0.7-1.3) Estimated GFR (Cockcroft-Gault) 100.7 Glucose Level 104 mg/dL (70-99) Calcium Level 8.7 mg/dL (8.5-10.1) Test 11/23/17 08:32 Glucose (Fingerstick) 120 mg/dL (70-99) Microbiology 11/18/17 Urine Culture - Final, Complete 11/18/17 Urine Culture Result 1 (BRITNEY) - Final, Complete 11/16/17 Anaerobic/Aerobic Culture - Final, Complete 11/16/17 Anaerobic Culture Result 1 (BRITNEY) - Final, Complete 11/16/17 Aerobic Culture - Final, Complete 11/16/17 Aerobic Culture Result 1 (BRITNEY) - Final, Complete 11/16/17 Aerobic Culture Result 2 (BRITNEY) - Final, Complete 11/16/17 Antimicrobic Susceptibility - Final, Complete 11/16/17 Gram Stain - Final, Complete 11/16/17 Gram Stain Result 1 (BRITNEY) - Final, Complete 11/16/17 Gram Stain Result 2 (BRITNEY) - Final, Complete Medications Current Medications Ondansetron HCl (Zofran) 4 mg PRN Q8HRS PRN IV NAUSEA/VOMITING 1ST CHOICE; Start 11/16/17 at 01:30; Stop 11/17/17 at 01:29; Status DC Morphine Sulfate (Morphine Sulfate) 4 mg PRN Q2HR PRN IV SEVERE PAIN; Start at 01:30; Stop 11/17/17 at 01:29; Status DC Acetaminophen (Tylenol) 650 mg PRN Q4HRS PRN PO MILD PAIN / TEMP Last administered on 11/23/17at 08:33; Start 11/16/17 at 01:30 Enoxaparin Sodium (Lovenox 40mg Syringe) 40 mg DAILY SQ Last administered on at 09:21; Start 11/16/17 at 09:00; Stop 11/17/17 at 10:16; Status DC Atorvastatin Calcium (Lipitor) 40 mg QHS PO Last administered on 11/22/17 20: 28; Start 11/16/17 at 21:00 Insulin Human Lispro (HumaLOG) 4 units TIDAC SQ Last administered on 11/20/17at 08:45; Start 11/16/17 at 07:30; Stop 11/20/17 at 11:27; Status DC Insulin Glargine (Lantus) 12 units QHS SQ Last administered on 11/19/17at 21:29 ; Start 11/16/17 at 21:00; Stop 11/20/17 at 11:27; Status DC Lisinopril (Prinivil) 20 mg DAILY PO Last administered on 11/18/17at 09:11; Start 11/16/17 at 09:00; Stop 11/18/17 at 12:57; Status DC Metformin HCl (Glucophage) 500 mg BIDWMEALS PO Last administered on 11/23/17at 08:33; Start 11/16/17 at 08:00 Amlodipine Besylate (Norvasc) 5 mg DAILY PO Last administered on 11/18/17at 09: 11; Start 11/16/17 at 09:00; Stop 11/18/17 at 12:57; Status DC Clopidogrel Bisulfate (Plavix) 75 mg DAILY PO Last administered on 11/23/17 08 :33; Start 11/16/17 at 09:00 Furosemide (Lasix) 20 mg DAILY IVP Last administered on 11/17/17at 09:19; Start 11/16/17 at 12:00; Stop 11/17/17 at 10:16; Status DC Potassium Chloride (Klor-Con) 20 meq [id number] PO Last administered on 09:19; Start 11/16/17 at 11:00; Stop 11/17/17 at 10:16; Status DC Nicotine (Nicoderm Cq 21mg) 1 patch DAILY TD Last administered on 11/23/17 08: 33; Start 11/16/17 at 16:00 Furosemide (Lasix) 40 mg DAILY IVP Last administered on 11/18/17at 09:11; Start 11/17/17 at 11:00; Stop 11/18/17 at 12:57; Status DC Potassium Chloride (Klor-Con) 40 meq BIDWMEALS PO Last administered on at 09:10; Start 11/17/17 at 11:00; Stop 11/18/17 at 12:57; Status DC Lisinopril (Prinivil) 10 mg DAILY PO Last administered on 11/21/17at 08:39; Start 11/19/17 at 09:00; Stop 11/21/17 at 10:54; Status DC Potassium Chloride (Klor-Con) 20 meq BIDWMEALS PO Last administered on at 17:07; Start 11/18/17 at 17:00; Stop 11/22/17 at 09:03; Status DC Furosemide (Lasix) 20 mg DAILY PO Last administered on 11/21/17at 08:38; Start 11/19/17 at 09:00; Stop 11/22/17 at 09:03; Status DC Magnesium Sulfate 50 ml @ 25 mls/hr 1X ONCE IV Last administered on 11/18/17at 14:21; Start 11/18/17 at 14:00; Stop 11/18/17 at 15:59; Status DC Tamsulosin HCl (Flomax) 0.4 mg QHS PO Last administered on 11/22/17at 20:27; Start 11/18/17 at 21:00 Insulin Glargine (Lantus) 16 units QHS SQ Last administered on 11/20/17at 21:25 ; Start 11/20/17 at 21:00; Stop 11/21/17 at 10:54; Status DC Insulin Human Lispro (HumaLOG) 6 units TIDAC SQ Last administered on 11/21/17at 08:47; Start 11/20/17 at 11:30; Stop 11/21/17 at 10:54; Status DC Thiamine Mononitrate (Vitamin B-1) 100 mg DAILY PO Last administered on 08:33; Start 11/20/17 at 12:00 Multivitamins (Thera M Plus) 1 tab DAILY PO Last administered on 11/23/17 08: 33; Start 11/20/17 at 12:00 Insulin Human Lispro (HumaLOG) 0-5 UNITS TIDWMEALS SQ Last administered on 11/21at 08:46; Start 11/20/17 at 18:00; Stop 11/21/17 at 10:54; Status DC Dextrose (Dextrose 50%-Water Syringe) 12.5 gm PRN Q15MIN PRN IV SEE COMMENTS; Start 11/20/17 at 18:00 Insulin Glargine (Lantus) 20 units QHS SQ Last administered on 11/21/17at 20:59 ; Start 11/21/17 at 21:00; Stop 11/22/17 at 09:03; Status DC Insulin Human Lispro (HumaLOG) 8 units TIDAC SQ Last administered on 11/21/17at 17:12; Start 11/21/17 at 11:30; Stop 11/22/17 at 09:03; Status DC Lisinopril (Prinivil) 20 mg DAILY PO ; Start 11/22/17 at 09:00; Stop 11/22/17 at 09:03; Status DC Insulin Human Lispro (HumaLOG) BG 400-49,9=6 units TIDWMEALS SQ Last administered on 11/21/17at 11:47; Start 11/21/17 at 12:00 Furosemide (Lasix) 20 mg QODAY PO Last administered on 11/23/17at 08:34; Start 11/23/17 at 09:00 Insulin Glargine (Lantus) 12 units QHS SQ Last administered on 11/22/17at 20:35 ; Start 11/22/17 at 21:00 Insulin Human Lispro (HumaLOG) 4 units TIDAC SQ Last administered on 11/22/17at 12:42; Start 11/22/17 at 11:30 Lisinopril (Prinivil) 10 mg DAILY PO Last administered on 11/23/17at 08:34; Start 11/23/17 at 09:00 Potassium Chloride (Klor-Con) 40 meq QODAY PO Last administered on 11/23/17at 08 :33; Start 11/23/17 at 09:00 Active Scripts Active Reported Clopidogrel (Clopidogrel Bisulfate) 75 Mg Tablet 1 Tab PO DAILY Lantus (Insulin Glargine,Hum.rec.anlog) 100 Unit/1 Ml Vial 32 Unit SQ HS Apidra (Insulin Glulisine) 100 Unit/1 Ml Vial 6 Unit SQ TIDAC Lipitor (Atorvastatin Calcium) 40 Mg Tablet 40 Mg PO HS Lisinopril 10 Mg Tablet 10 Mg PO DAILY08 Metformin Hcl 500 Mg Tablet 500 Mg PO [id number] Vitals/I & O Vital Sign - Last 24 Hours 11/22/17 11/22/17 11/22/17 11/22/17 11:00 15:00 19:30 19:30 Temp 98.3 98.4 98.1 98.3 98.4 98.1 Pulse 73 93 83 Resp 16 16 18 B/P (MAP) 129/74 (92) 154/92 (112) 138/84 (102) Pulse Ox 99 98 98 O2 Delivery Room Air Room Air Room Air Room Air 11/22/17 11/23/17 11/23/17 11/23/17 23:00 03:00 07:00 08:34 Temp 98.6 100.6 99.1 98.6 100.6 99.1 Pulse 75 68 68 68 Resp 20 20 20 B/P (MAP) 174/92 (119) 134/74 (94) 134/84 (101) 134/84 Pulse Ox 100 97 98 O2 Delivery Room Air Room Air Room Air Intake and Output 11/22/17 11/22/17 11/23/17 15:00 23:00 07:00 Intake Total 200 ml Output Total 550 ml Balance -550 ml 200 ml ARAM TERRELL MD Nov 23, 2017 08:52
[2017-11-23] MEDS ORDERED: VANCOMYCIN 2 GM in IV NORMAL SALINE 500ML BAG 500 ML IV ONE (09:00)
[2017-11-23] MEDS ORDERED: VANCOMYCIN 1 GM in IV NORMAL SALINE 250ML 250 ML IV SCH (09:00)
[2017-11-23] MEDS ORDERED: POTASSIUM CHLORIDE 20 MEQ TABLET.ER. PO SCH (09:00)
[2017-11-23] MEDS: CEFEPIME HCL IV Push 1 GM VIAL. IVP SCH ×4 (09:00→21:21)
--- NOTE | 2017-11-23 09:20 | PDOC ---
SUBJECTIVE Subjective Patient comfortable. Yesterday, bladder scan was 200, but then patient voided about 100 ml right after that. He has been having some dribbling and some frequency. The patient says he is having some dysuria. He did spike a fever last night. OBJECTIVE Objective Physical Exam: General appearance: Alert and Oriented Head: Normocephalic, without obvious abnormality Eyes: conjunctivae/corneas clear. PERRL, EOM's intact. Fundi benign. False left eye Lungs: regular respirations, non labored breathing Vital Signs Vital Signs Date Time Temp Pulse Resp B/P (MAP) Pulse Ox O2 Delivery O2 Flow Rate FiO2 11/23/17 08:34 68 134/84 11/23/17 07:00 99.1 68 20 134/84 (101) 98 Room Air 99.1 11/23/17 03:00 100.6 68 20 134/74 (94) 97 Room Air 100.6 11/22/17 23:00 98.6 75 20 174/92 (119) 100 Room Air 98.6 11/22/17 19:30 Room Air 11/22/17 19:30 98.1 83 18 138/84 (102) 98 Room Air 98.1 11/22/17 15:00 98.4 93 16 154/92 (112) 98 Room Air 98.4 11/22/17 11:00 98.3 73 16 129/74 (92) 99 Room Air 98.3 I & O Intake and Output 11/23/17 07:00 Intake Total 200 ml Output Total 550 ml Balance -350 ml Intake Oral 200 ml Output Urine Total 550 ml # Voids 5 PHYSICAL EXAM Physical Exam Physical Exam: General appearance: Alert and Oriented Head: Normocephalic, without obvious abnormality Eyes: conjunctivae/corneas clear. PERRL, EOM's intact. Fundi benign. False left eye Lungs: regular respirations, non labored breathing ASSESSMENT/PLAN Assessment/Plan UA has been ordered by Dr. Castelan, jennifer. After UA collected, start Pyridium for dysuria/burning Discussed timed (q 2 hour) and double voiding while awake with patient. He verbalizes understanding and states he will try this. Leave robles out since PVR between 100 and 200 only. Continue flomax. Nursing staff may bladder scan prn concerns for retention. Will follow while in house. COMMENT Lab Laboratory Tests Test 11/22/17 11:01 11/22/17 16:35 11/22/17 20:31 11/23/17 05:33 Glucose (Fingerstick) 187 mg/dL (70-99) 156 mg/dL (70-99) 184 mg/dL (70-99) Sodium Level 138 mmol/L (136-145) Potassium Level 3.6 mmol/L (3.5-5.1) Chloride Level 104 mmol/L (98-107) Carbon Dioxide Level 29 mmol/L (21-32) Anion Gap 5 (6-14) Blood Urea Nitrogen 10 mg/dL (8-26) Creatinine 0.9 mg/dL (0.7-1.3) Estimated GFR (Cockcroft-Gault) 100.7 Glucose Level 104 mg/dL (70-99) Calcium Level 8.7 mg/dL (8.5-10.1) Test 11/23/17 08:32 Glucose (Fingerstick) 120 mg/dL (70-99) ALICIA IVY APRN Nov 23, 2017 09:20
[2017-11-23 10:28] LABS: BILIRUBIN,URINE NEGATIVE (NEG); CLARITY,URINE CLEAR; COLOR,URINE YELLOW; NITRITE,URINE NEGATIVE (NEG); PH,URINE 6.5; PROTEIN,URINE NEGATIVE (NEG-TRACE)
[2017-11-23 10:37] LABS: BACTERIA,URINE FEW /HPF (0-FEW); SQUAMOUS EPITHELIAL CELL,UR FEW /LPF
[2017-11-23 10:38] LABS: RBC,URINE OCC /HPF (0-2)
[2017-11-23 11:00] VITALS: BP 114/66
--- NOTE | 2017-11-23 11:31 | PDOC ---
Provider Note Provider Note Pt seen dictated [id number] JANE JIMENEZ MD Nov 23, 2017 11:31
--- NOTE | 2017-11-23 12:36 | RAD ---
EXAM: Chest, single view. HISTORY: Cough and fever. COMPARISON: 11/15/2017 FINDINGS: A frontal view of the chest is obtained. There is no infiltrate, pleural effusion or pneumothorax. The heart is normal in size. IMPRESSION: No acute pulmonary finding. Electronically signed by: Nell Beltre MD (11/23/2017 12:33 PM) [place] [id number]
--- NOTE | 2017-11-23 13:11 | PDOC ---
PROGRESS NOTES Assessment Assessment Metabolic encephalopathy. Hyperglycemia. DM. HTN. HLD. CAD, HI. Bilateral LE edema. Right singh open wound. 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 Femoral lymphadenopathy. Left prosthetic eye. Smoking. No evidence of acute CVA this time. RECOMMENDATIONS/PLAN: Continue Plavix 75 mg daily. Continue Lipitor HS. Wound care, left LE. Treat medical diseases. OT/PT. HISTORY OF THE PRESENT ILLNESS: 72-y-old AA male patent with above medical diseases was admitted into the hospital due to LE wounds. His nurse stated that he has been having mental status changes since yesterday and confusional episodes, so neurology was requested for consultation. PAST MEDICAL HISTORY: Diabetes mellitus type 2 with microalbuminuria. Hypertension. Hyperlipidemia Coronary artery disease. Myocardial infarction in the past Gastric ulcer in 2003. Irritable bowel syndrome. Prosthetic left eye. PAST SURGERY HISTORY: No major surgery recently. FAMILY HISTORY: Noncontributory. SOCIAL HISTORY: Does not drink alcohol. Smokes about 1 pack per day of cigarettes. ALLERGY: NKDA MEDICATIONS: Refer to MAR REVIEW OF SYSTEMS: Constitutional: No malnutrition, weight loss, cachexia. Head: No recent traumatic brain or head injury. Skin: No edema, or rash. Ear: No infection, tinnitus. Eyes: Left prosthetic eye. Nose: No bleeding or purulent discharges. Hearing: Hearing decrease. Neck: No injury. Cardiac: HI, CAD, HTN, HLD. Pulmonary: No COPD. GI: Gastric ulcer in 2003. Irritable bowel syndrome.. Urinary/genital: UTI. Endocrinologic: Diabetes Mellitus. Skeletomuscular: No muscular atrophy, deformity. Neurological: see HP. Psychiatric: Denies drug use/abuse. Otherwise, not [id number] review of systems. PHYSICAL EXAMINATION: General appearance is in subacute distress. HEENT: Normocephalic and nontraumatic. Nose, ears, and throat are unremarkable , left prosthetic eye. Neck is supple. No lymphadenopathy. No crepitus. Cardiovascular: S1, S2, regular rate and rhythm. Pulmonary: Clear to auscultation bilaterally. Abdomen: Bowel sounds are positive. Abdomen is soft, nontender, and nondistended. Extremities: LE wound. No restriction of range of motion NEUROLOGICAL EXAMINATION: Awake. Not fully oriented to time, but knew place and person. Right pupil reactive to light. Left eye prosthetic. EOMI. CN: no focal findings. Muscle tone: within normal. Muscle strength: 4 right side, 5- left side. DTR: 1-2 Plantar reflex: Neutral response bilaterally Gait: Able to walk with a walker. Sensory exam: no abnormal findings. No acute cerebellar signs elicited. F-T-N test fine. Objective Objective Vital Signs Date Time Temp Pulse Resp B/P (MAP) Pulse Ox O2 Delivery O2 Flow Rate FiO2 11/23/17 11:00 99.3 105 18 114/66 (82) 98 Room Air 99.3 Intake and Output 11/23/17 07:00 Intake Total 200 ml Output Total 550 ml Balance -350 ml Intake Oral 200 ml Output Urine Total 550 ml # Voids 5 Vitals Signs Vitals VS - Last 72 Hours, by Label Date Time Temp Pulse Resp B/P (MAP) Pulse Ox O2 Delivery O2 Flow Rate FiO2 11/23/17 11:00 99.3 105 18 114/66 (82) 98 Room Air 99.3 11/23/17 08:34 68 134/84 11/23/17 07:00 99.1 68 20 134/84 (101) 98 Room Air 99.1 11/23/17 03:00 100.6 68 20 134/74 (94) 97 Room Air 100.6 11/22/17 23:00 98.6 75 20 174/92 (119) 100 Room Air 98.6 11/22/17 19:30 Room Air 11/22/17 19:30 98.1 83 18 138/84 (102) 98 Room Air 98.1 11/22/17 15:00 98.4 93 16 154/92 (112) 98 Room Air 98.4 11/22/17 11:00 98.3 73 16 129/74 (92) 99 Room Air 98.3 11/22/17 08:00 Room Air 11/22/17 07:00 97.9 82 18 112/63 (79) 91 Room Air 97.9 Laboratory Laboratory Laboratory Tests Test 11/22/17 16:35 11/22/17 20:31 11/23/17 05:33 11/23/17 08:32 Glucose (Fingerstick) 156 mg/dL (70-99) 184 mg/dL (70-99) 120 mg/dL (70-99) Sodium Level 138 mmol/L (136-145) Potassium Level 3.6 mmol/L (3.5-5.1) Chloride Level 104 mmol/L (98-107) Carbon Dioxide Level 29 mmol/L (21-32) Anion Gap 5 (6-14) Blood Urea Nitrogen 10 mg/dL (8-26) Creatinine 0.9 mg/dL (0.7-1.3) Estimated GFR (Cockcroft-Gault) 100.7 Glucose Level 104 mg/dL (70-99) Calcium Level 8.7 mg/dL (8.5-10.1) Test 11/23/17 10:00 11/23/17 11:24 Urine Collection Type Unknown Urine Color Yellow Urine Clarity Clear Urine pH 6.5 Urine Specific [place] 1.015 Urine Protein Negative mg/dL (NEG-TRACE) Urine Glucose (UA) Negative mg/dL (NEG) Urine Ketones (Stick) Negative mg/dL (NEG) Urine Blood Negative (NEG) Urine Nitrite Negative (NEG) Urine Bilirubin Negative (NEG) Urine Urobilinogen Dipstick 1.0 mg/dL (0.2 mg/dL) Urine Leukocyte Esterase Trace (NEG) Urine RBC Occ /HPF (0-2) Urine WBC 5-10 /HPF (0-4) Urine Squamous Epithelial Cells Few /LPF Urine Bacteria Few /HPF (0-FEW) Glucose (Fingerstick) 262 mg/dL (70-99) Microbiology 11/18/17 Urine Culture - Final, Complete 11/18/17 Urine Culture Result 1 (BRITNEY) - Final, Complete 11/16/17 Anaerobic/Aerobic Culture - Final, Complete 11/16/17 Anaerobic Culture Result 1 (BRITNEY) - Final, Complete 11/16/17 Aerobic Culture - Final, Complete 11/16/17 Aerobic Culture Result 1 (BRITNEY) - Final, Complete 11/16/17 Aerobic Culture Result 2 (BRITNEY) - Final, Complete 11/16/17 Antimicrobic Susceptibility - Final, Complete 11/16/17 Gram Stain - Final, Complete 11/16/17 Gram Stain Result 1 (BRITNEY) - Final, Complete 11/16/17 Gram Stain Result 2 (BRITNEY) - Final, Complete Medication Medications Current Medications Cefepime HCl (Maxipime) 1 gm Q8HRS IVP ; Start 11/23/17 at 09:00 Cefepime HCl 1 gm/ Dextrose 50 ml @ 100 mls/hr Q8HRS IV ; Start 11/23/17 at 14: 00; Status UNV Furosemide (Lasix) 20 mg QODAY PO Last administered on 11/23/17at 08:34; Start 11/23/17 at 09:00 Insulin Glargine (Lantus) 12 units QHS SQ Last administered on 11/22/17at 20:35 ; Start 11/22/17 at 21:00 Lisinopril (Prinivil) 10 mg DAILY PO Last administered on 11/23/17at 08:34; Start 11/23/17 at 09:00 Potassium Chloride (Klor-Con) 40 meq QODAY PO Last administered on 11/23/17at 08 :33; Start 11/23/17 at 09:00 Vancomycin HCl (Vanco Per Pharmacy) 1 each PRN DAILY PRN MC SEE COMMENTS; Start 11/23/17 at 08:45 Vancomycin HCl 1 gm/Sodium Chloride 250 ml @ 250 mls/hr Q12HR IV ; Start at 09:00; Status UNV Vancomycin HCl 2 gm/Sodium Chloride 500 ml @ 250 mls/hr ONCE ONCE IV ; Start 11/23/17 at 09:00; Stop 11/23/17 at 10:59; Status DC Comment Review of Relevant I have reviewed the following items linda (where applicable) has been applied. LUKASZ FINCH MD Nov 23, 2017 13:11
--- NOTE | 2017-11-23 13:55 | CONS ---
DATE OF CONSULTATION: 11/23/2017 REFERRING PHYSICIAN: Dr. Castelan. REASON FOR CONSULTATION: Fever. HISTORY OF PRESENT ILLNESS: A 72-year-old -[place] male with history of diabetes mellitus 2, hypertension, hyperlipidemia, coronary artery disease, left prosthetic eye, cigarette smoker, was brought to the ER on 11/16/2017 with right leg wound, which is sustained with superficial abrasion while wrestling with his granddaughter. He also had bilateral lower extremity swelling. He was found to have urinary retention. Family noticed that he was also having altered mental status. He had a Doppler ultrasound done, which was negative. Urology was consulted for urinary retention. Carson catheter was placed, which was removed yesterday. Today, he has PVR of 200 mL. He had a temperature of 100.6 today. He was started on empiric IV vancomycin and cefepime. UA has been done. A chest x-ray has been done, which is pending at this time. The patient also has some cough, but does not require any oxygenation. The patient has been started on Flomax by Urology. The patient had wound cultures on 11/16/2017 from right lower extremity, which shows Citrobacter koseri 4+ with mixed skin torrie, which is sensitive to Augmentin, cefepime, ceftriaxone, ciprofloxacin, ertapenem, gentamicin, imipenem, levofloxacin, meropenem, tazo, tetracycline, tobramycin and trimethoprim/sulfamethoxazole. No wbcs were seen. The patient has a buttock wound, which showed no wbcs, no organism and no growth. He had a chest x-ray done on admission on 11/15 through ER, which showed no pulmonary consolidation or acute airspace disease. He had lower extremity ultrasound, which showed no thrombus in the deep venous system, bilateral lower extremity edema of soft tissue, prominent lymph nodes in the bilateral groin could be reactive in nature. Needs followup exam. He had a brain MRI done on 11/19/2017 which showed no evidence of recent infarct or intracranial mass effect. There are old infarcts as stated including the right cerebellum, right basal ganglia, left fish radiata and left dru. Other scattered T2 hyperintense abnormality, which is nonspecific, although probably due to chronic microvascular ischemic disease. Today, the patient has trouble with urination. Had bladder scan, he voided 100 mL right after that. He also has some complaints of dribbling, frequency, some dysuria. Had cough. No chest pain. Denies any sore throat, headache, diarrhea, skin rash, skin lesion on the right lower extremity is improving, though slowly, swelling over both lower extremities improving though slowly, back wound is under control. PAST MEDICAL HISTORY: Metabolic encephalopathy, diabetes, hypertension, hyperlipidemia, urinary retention, right singh open wound, old right cerebellum basal ganglia and left fish radiata dru infarcts per MRI, femoral lymphadenopathy, left prosthetic eye, smoking, coronary artery disease, and [place]. ALLERGIES: No known drug allergies. SOCIAL HISTORY: Smokes 1 pack per day. ETOH: None. FAMILY HISTORY: As per HPI. REVIEW OF SYSTEMS: Limited, but as above in HPI. PHYSICAL EXAMINATION: VITAL SIGNS: Temperature 100.6, current is 99.1; pulse 68; respiration rate 20; blood pressure 134/84; oxygen saturation 98% on room air. GENERAL: Alert, oriented x 2, male, sitting in the chair, in no acute distress. HEENT: Pupils equal, reactive. Anicteric. No thrush. NECK: Supple. No JVD. LUNGS: Clear. HEART: S1, S2. ABDOMEN: Soft, nontender, bowel sounds present. EXTREMITIES: Trace pedal edema, right pretibial wound clean. DERM: No generalized rash. BACK WOUND: Superficial wound noted. PSYCHIATRIC: Appropriate mood. NEUROLOGIC: Normal speech. Moves all 4 extremities. LABORATORY DATA: WBC 6.4, hemoglobin 14.5, hematocrit 43.6, platelets 200, mono 13, lymphocyte 30, neutrophils 54. Sodium 138, potassium 3.6, chloride 104, bicarbonate 29, BUN 10, creatinine 0.9, glucose 104, calcium 8.6. PSA 0.67, B12 369, TSH 1.8. LFTs: Total bilirubin 1.4, otherwise within normal limits. UA: Wbc 5-10, leukocyte esterase trace. Urine culture pending at this time. Wound culture right lower extremity 11/16/2017, Citrobacter koseri, buttock wound negative. Urine culture 11/18/2017 negative. IMAGING: Chest x-ray from today is pending. Brain MRI as above. Lower extremity ultrasound as above. Chest x-ray as above. IMPRESSION: 1. Fever, etiology unclear, has some cough. Urine culture is pending at this time. 2. Bilateral lower extremity edema, resolving. 3. Right leg wound with Citrobacter koseri on cultures, improving. 4. Diabetes mellitus type 2 with microalbuminuria. 5. Urinary retention, seen by Urology. Carson discontinued yesterday. 6. Hypertension/hyperlipidemia. 7. Coronary artery disease. 8. Cognitive impairment. 9. Excessive alcohol intake. 10. Cigarette smoker. 11. 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 12. Metabolic encephalopathy, improving slowly. RECOMMENDATIONS: 1. Continue empiric IV vancomycin and cefepime. 2. Monitor renal functions closely. 3. Follow up cultures and labs in a.m. 4. Continue supportive care. 5. Maintain aspiration precautions. 6. Continue local wound care. Thank you, Dr. Castelan, for consulting Infectious Disease to participate in this patient's care. If you have any questions, do not hesitate to contact me. JANE JIMENEZ MD DR: REFUGIO/heladio JOB#: [id number] / [id number]
[2017-11-23] MEDS ORDERED: CEFEPIME HCL 1 GM in IV DEXTROSE 5% 50 ML IV SCH (14:00)
[2017-11-23] MEDS: VANCOMYCIN PER PHARMACY MC PRN (14:27)
[2017-11-23 14:56] VITALS: BP 148/78
[2017-11-23 19:00] VITALS: BP 146/75
[2017-11-23] MEDS: ATORVASTATIN CALCIUM 40 MG TABLET. PO SCH (21:21)
[2017-11-23] MEDS: TAMSULOSIN 0.4 MG CAP.ER.24H. PO SCH (21:22)
[2017-11-23] MEDS: INSULIN GLARGINE 300 UNITS/3 ML INSULN.PEN. SQ SCH (21:26)
[2017-11-23 23:00] VITALS: BP 149/92
[2017-11-24] MEDS: VANCOMYCIN 1.25 GM in IV NORMAL SALINE 250ML 250 ML IV SCH ×2 (01:10→14:06)
[2017-11-24 03:00] VITALS: BP 134/73
[2017-11-24 05:51] LABS: BASO % 1 % (0-3); EOS # 0.1 x10^3/uL (0.0-0.7); EOS % 3 % (0-3); HEMATOCRIT 41.5 % (39.0-53.0); HEMOGLOBIN 14.1 g/dL (13.0-17.5); LYMPH # 1.7 x10^3/uL (1.0-4.8); LYMPH % 31 % (24-48); MEAN CORPUSCULAR HEMOGLOBIN 31 pg (25-35); MEAN CORPUSCULAR HGB CONC 34 g/dL (31-37); MEAN CORPUSCULAR VOLUME 90 fL (79-100); MONO # 0.6 x10^3/uL (0.0-1.1); MONO % 12 % (0-9); NEUT % 54 % (31-73); PLATELET COUNT 200 x10^3/uL (140-400); RED BLOOD COUNT 4.59 x10^6/uL (4.30-5.70); RED CELL DISTRIBUTION WIDTH 13.5 % (11.5-14.5); WHITE BLOOD COUNT 5.5 x10^3/uL (4.0-11.0)
[2017-11-24 06:05] LABS: CALCIUM 8.8 mg/dL (8.5-10.1); GFR 89.1; POTASSIUM 3.4 mmol/L (3.5-5.1)
[2017-11-24] MEDS: CEFEPIME HCL IV Push 1 GM VIAL. IVP SCH ×3 (06:09→21:14)
[2017-11-24 07:00] VITALS: BP 172/87
[2017-11-24] MEDS: INSULIN LISPRO 300 UNITS/3 ML INSULN.PEN. SQ SCH ×6 (07:30→17:24)
[2017-11-24] MEDS: THIAMINE 100 MG TABLET. PO SCH (08:14)
[2017-11-24] MEDS: metFORMIN 500 MG TABLET PO SCH ×2 (08:14→17:19)
[2017-11-24] MEDS: CLOPIDOGREL BISULFATE 75 MG TABLET PO SCH (08:14)
[2017-11-24] MEDS: LISINOPRIL 10 MG TABLET PO SCH (08:15)
[2017-11-24] MEDS: MULTIVITAMIN with MINERAL TABLET. PO SCH (08:15)
[2017-11-24] MEDS: NICOTINE 21MG PATCH. TD SCH (08:15)
--- NOTE | 2017-11-24 09:32 | PDOC ---
SUBJECTIVE Subjective Pt resting comfortably. He has an external/condom catheter in place. Still having some burning with urination, his bladder does not feel full. OBJECTIVE Objective Physical Exam: General appearance: Alert and Oriented Head: Normocephalic, without obvious abnormality Eyes: conjunctivae/corneas clear. PERRL, EOM's intact. Fundi benign False left eye Lungs: regular respirations, non labored breathing Abdomen: soft, non-tender. No masses, no organomegaly Pelvic: condom catheter in place, draining clear yellow urine. Normal Phallus Vital Signs Vital Signs Date Time Temp Pulse Resp B/P (MAP) Pulse Ox O2 Delivery O2 Flow Rate FiO2 11/24/17 08:15 75 172/87 11/24/17 07:00 97.8 75 18 172/87 (115) 100 Room Air 97.8 11/24/17 03:00 98.3 79 18 134/73 (93) 99 Room Air 98.3 11/23/17 23:00 98.6 78 18 149/92 (111) 100 Room Air 98.6 11/23/17 20:00 Room Air 11/23/17 19:00 98.1 73 18 146/75 (98) 99 Room Air 98.1 11/23/17 14:56 98.9 91 20 148/78 (101) 96 Room Air 98.9 11/23/17 11:00 99.3 105 18 114/66 (82) 98 Room Air 99.3 I & O Intake and Output 11/24/17 07:00 Intake Total 240 ml Output Total 1025 ml Balance -785 ml Intake Oral 240 ml Output Urine Total 1025 ml PHYSICAL EXAM Physical Exam Physical Exam: General appearance: Alert and Oriented Head: Normocephalic, without obvious abnormality Eyes: conjunctivae/corneas clear. PERRL, EOM's intact. Fundi benign False left eye Lungs: regular respirations, non labored breathing Abdomen: soft, non-tender. No masses, no organomegaly Pelvic: condom catheter in place, draining clear yellow urine. Normal Phallus ASSESSMENT/PLAN Assessment/Plan PVR 234, leave indwelling robles out. Condom catheter ok. Will increase flomax from once daily to BID. Urine collected yesterday, culture in process, not resulted yet Pt does C/O burning, Pyridium TID prn burning ordered. Will follow Problems: (1) Dysuria COMMENT Lab Laboratory Tests Test 11/23/17 10:00 11/23/17 11:24 11/23/17 16:35 11/23/17 20:38 Urine Collection Type Unknown Urine Color Yellow Urine Clarity Clear Urine pH 6.5 Urine Specific [place] 1.015 Urine Protein Negative mg/dL (NEG-TRACE) Urine Glucose (UA) Negative mg/dL (NEG) Urine Ketones (Stick) Negative mg/dL (NEG) Urine Blood Negative (NEG) Urine Nitrite Negative (NEG) Urine Bilirubin Negative (NEG) Urine Urobilinogen Dipstick 1.0 mg/dL (0.2 mg/dL) Urine Leukocyte Esterase Trace (NEG) Urine RBC Occ /HPF (0-2) Urine WBC 5-10 /HPF (0-4) Urine Squamous Epithelial Cells Few /LPF Urine Bacteria Few /HPF (0-FEW) Glucose (Fingerstick) 262 mg/dL (70-99) 107 mg/dL (70-99) 184 mg/dL (70-99) Test 11/24/17 05:00 11/24/17 07:56 White Blood Count 5.5 x10^3/uL (4.0-11.0) Red Blood Count 4.59 x10^6/uL (4.30-5.70) Hemoglobin 14.1 g/dL (13.0-17.5) Hematocrit 41.5 % (39.0-53.0) Mean Corpuscular Volume 90 fL (79-100) Mean Corpuscular Hemoglobin 31 pg (25-35) Mean Corpuscular Hemoglobin Concent 34 g/dL (31-37) Red Cell Distribution Width 13.5 % (11.5-14.5) Platelet Count 200 x10^3/uL (140-400) Neutrophils (%) (Auto) 54 % (31-73) Lymphocytes (%) (Auto) 31 % (24-48) Monocytes (%) (Auto) 12 % (0-9) Eosinophils (%) (Auto) 3 % (0-3) Basophils (%) (Auto) 1 % (0-3) Neutrophils # (Auto) 3.0 x10^3uL (1.8-7.7) Lymphocytes # (Auto) 1.7 x10^3/uL (1.0-4.8) Monocytes # (Auto) 0.6 x10^3/uL (0.0-1.1) Eosinophils # (Auto) 0.1 x10^3/uL (0.0-0.7) Basophils # (Auto) 0.0 x10^3/uL (0.0-0.2) Sodium Level 140 mmol/L (136-145) Potassium Level 3.4 mmol/L (3.5-5.1) Chloride Level 107 mmol/L (98-107) Carbon Dioxide Level 26 mmol/L (21-32) Anion Gap 7 (6-14) Blood Urea Nitrogen 16 mg/dL (8-26) Creatinine 1.0 mg/dL (0.7-1.3) Estimated GFR (Cockcroft-Gault) 89.1 Glucose Level 81 mg/dL (70-99) Calcium Level 8.8 mg/dL (8.5-10.1) Glucose (Fingerstick) 84 mg/dL (70-99) ALICIA IVY APRN Nov 24, 2017 09:32
[2017-11-24] MEDS ORDERED: PHENAZOPYRIDINE 200 MG TABLET. PO PRN (09:45)
[2017-11-24] MEDS: TAMSULOSIN 0.4 MG CAP.ER.24H. PO SCH ×2 (10:39→21:13)
[2017-11-24 10:51] VITALS: BP 130/110
--- NOTE | 2017-11-24 11:04 | PDOC ---
Infectious Disease Note Subjective: Subjective Pt without compliants has some cough no f/cn/v/d rt leg wound improving ROS: ROS Negative except for above. Vital Signs: Vital Signs Vital Signs Date Time Temp Pulse Resp B/P (MAP) Pulse Ox O2 Delivery O2 Flow Rate FiO2 11/24/17 10:51 98.4 75 18 130/110 (117) 95 Room Air 98.4 Physical Exam: PHYSICAL EXAM GENERAL: Alert, oriented x 2, male, sitting in the chair, in no acute distress. HEENT: Pupils equal, reactive. Anicteric. No thrush. NECK: Supple. No JVD. LUNGS: Clear. HEART: S1, S2. ABDOMEN: Soft, nontender, bowel sounds present. EXTREMITIES: Trace pedal edema, right pretibial wound clean. DERM: No generalized rash. BACK WOUND: Superficial wound noted.not infected PSYCHIATRIC: Appropriate mood. NEUROLOGIC: Normal speech. Moves all 4 extremities. Medications: Inpatient Meds: Current Medications Medications (Trade) Dose Ordered Sig/Sheri Start Time Stop Time Status Last Admin Dose Admin Acetaminophen (Tylenol) 650 mg PRN Q4HRS PRN 11/16/17 01:30 11/23/17 21:22 650 MG Amlodipine Besylate (Norvasc) 5 mg DAILY 11/16/17 09:00 11/18/17 12:57 DC 11/18/17 09:11 5 MG Atorvastatin Calcium (Lipitor) 40 mg QHS 11/16/17 21:00 11/23/17 21:21 40 MG Cefepime HCl (Maxipime) 1 gm Q8HRS 11/23/17 09:00 11/24/17 06:09 1 GM Cefepime HCl 1 gm/ Dextrose 50 ml @ 100 mls/hr Q8HRS 11/23/17 14:00 UNV Clopidogrel Bisulfate (Plavix) 75 mg DAILY 11/16/17 09:00 11/24/17 08:14 75 MG Dextrose (Dextrose 50%-Water Syringe) 12.5 gm PRN Q15MIN PRN 11/20/17 18:00 Enoxaparin Sodium (Lovenox 40mg Syringe) 40 mg DAILY 11/16/17 09:00 11/17/17 10:16 DC 11/17/17 09:21 40 MG Furosemide (Lasix) 20 mg QODAY 11/23/17 09:00 11/23/17 08:34 20 MG Insulin Glargine (Lantus) 12 units QHS 11/22/17 21:00 11/23/17 21:26 12 UNITS Insulin Human Lispro (HumaLOG) 4 units TIDAC 11/22/17 11:30 11/23/17 13:35 4 UNITS Lisinopril (Prinivil) 10 mg DAILY 11/23/17 09:00 11/24/17 08:15 10 MG Magnesium Sulfate 50 ml @ 25 mls/hr 1X ONCE 11/18/17 14:00 11/18/17 15:59 DC 11/18/17 14:21 25 MLS/HR Metformin HCl (Glucophage) 500 mg BIDWMEALS 11/16/17 08:00 11/24/17 08:14 500 MG Morphine Sulfate (Morphine Sulfate) 4 mg PRN Q2HR PRN 11/16/17 01:30 11/17/17 01:29 DC Multivitamins (Thera M Plus) 1 tab DAILY 11/20/17 12:00 11/24/17 08:15 1 TAB Nicotine (Nicoderm Cq 21mg) 1 patch DAILY 11/16/17 16:00 11/24/17 08:15 1 PATCH Ondansetron HCl (Zofran) 4 mg PRN Q8HRS PRN 11/16/17 01:30 11/17/17 01:29 DC Phenazopyridine HCl (Pyridium) 200 mg PRN TID PRN 11/24/17 09:45 11/24/17 10:39 200 MG Potassium Chloride (Klor-Con) 40 meq QODAY 11/23/17 09:00 11/23/17 08:33 40 MEQ Tamsulosin HCl (Flomax) 0.4 mg BID 11/24/17 10:00 11/24/17 10:39 0.4 MG Thiamine Mononitrate (Vitamin B-1) 100 mg DAILY 11/20/17 12:00 11/24/17 08:14 100 MG Vancomycin HCl (Vanco Per Pharmacy) 1 each PRN DAILY PRN 11/23/17 08:45 11/23/17 14:27 1 EACH Vancomycin HCl (Vancomycin Trough Level) 1 each 1X ONCE 11/25/17 00:30 11/25/17 00:31 Vancomycin HCl 1.25 gm/Sodium Chloride 250 ml @ 167 mls/hr Q12H 11/24/17 01:00 11/24/17 01:10 167 MLS/HR Vancomycin HCl 1 gm/Sodium Chloride 250 ml @ 250 mls/hr Q12HR 11/23/17 09:00 UNV Vancomycin HCl 2 gm/Sodium Chloride 500 ml @ 250 mls/hr ONCE ONCE 11/23/17 09:00 11/23/17 10:59 DC 11/23/17 13:32 250 MLS/HR Labs: Lab Laboratory Tests Test 11/23/17 11:24 11/23/17 16:35 11/23/17 20:38 11/24/17 05:00 Glucose (Fingerstick) 262 mg/dL (70-99) 107 mg/dL (70-99) 184 mg/dL (70-99) White Blood Count 5.5 x10^3/uL (4.0-11.0) Red Blood Count 4.59 x10^6/uL (4.30-5.70) Hemoglobin 14.1 g/dL (13.0-17.5) Hematocrit 41.5 % (39.0-53.0) Mean Corpuscular Volume 90 fL (79-100) Mean Corpuscular Hemoglobin 31 pg (25-35) Mean Corpuscular Hemoglobin Concent 34 g/dL (31-37) Red Cell Distribution Width 13.5 % (11.5-14.5) Platelet Count 200 x10^3/uL (140-400) Neutrophils (%) (Auto) 54 % (31-73) Lymphocytes (%) (Auto) 31 % (24-48) Monocytes (%) (Auto) 12 % (0-9) Eosinophils (%) (Auto) 3 % (0-3) Basophils (%) (Auto) 1 % (0-3) Neutrophils # (Auto) 3.0 x10^3uL (1.8-7.7) Lymphocytes # (Auto) 1.7 x10^3/uL (1.0-4.8) Monocytes # (Auto) 0.6 x10^3/uL (0.0-1.1) Eosinophils # (Auto) 0.1 x10^3/uL (0.0-0.7) Basophils # (Auto) 0.0 x10^3/uL (0.0-0.2) Sodium Level 140 mmol/L (136-145) Potassium Level 3.4 mmol/L (3.5-5.1) Chloride Level 107 mmol/L (98-107) Carbon Dioxide Level 26 mmol/L (21-32) Anion Gap 7 (6-14) Blood Urea Nitrogen 16 mg/dL (8-26) Creatinine 1.0 mg/dL (0.7-1.3) Estimated GFR (Cockcroft-Gault) 89.1 Glucose Level 81 mg/dL (70-99) Calcium Level 8.8 mg/dL (8.5-10.1) Test 11/24/17 07:56 Glucose (Fingerstick) 84 mg/dL (70-99) Objective: Assessment: 1. Fever, etiology unclear, has some cough. Urine culture is pending at this time. 2. Bilateral lower extremity edema, resolving. 3. Right leg wound with Citrobacter koseri on cultures, improving. 4. Diabetes mellitus type 2 with microalbuminuria. 5. Urinary retention, seen by Urology. Carson discontinued yesterday. 6. Hypertension/hyperlipidemia. 7. Coronary artery disease. 8. Cognitive impairment. 9. Excessive alcohol intake. 10. Cigarette smoker. 11. 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 12. Metabolic encephalopathy, improving slowly. Plan: Plan of Care 1. Continue empiric IV vancomycin and cefepime. will taper down soon 2. Monitor renal functions closely. 3. Follow up cultures and labs in a.m. 4. Continue supportive care. 5. Maintain aspiration precautions. 6. Continue local wound care. JANE JIMENEZ MD Nov 24, 2017 11:04
[2017-11-24 14:55] VITALS: BP 170/98
--- NOTE | 2017-11-24 15:10 | PDOC ---
PROGRESS NOTES Subjective Subjective feels better. seen earlier today. afebrile. bp is high.will start amlodipine. potassium low 3.4. will increase kcl blood culture neg so far. cxr neg. Objective Objective Vital Signs Date Time Temp Pulse Resp B/P (MAP) Pulse Ox O2 Delivery O2 Flow Rate FiO2 11/24/17 14:55 98.5 93 18 170/98 (122) 99 Room Air 98.5 Intake and Output 11/24/17 07:00 Intake Total 240 ml Output Total 1025 ml Balance -785 ml Intake Oral 240 ml Output Urine Total 1025 ml Physical Exam Abdomen: Soft Heart: Regular rate, Normal S1, Normal S2 Extremities: No edema General: Alert HEENT: Atraumatic Lungs: Clear to auscultation Neuro: Normal speech Psych/Mental Status: Mental status NL Skin: No rashes Assessment Assessment 1. Bilateral lower extremity edema. resolved 2. Right leg wound. 3. Diabetes mellitus type 2 with microalbuminuria. 4. Hypertension. 5. Hyperlipidemia. 6. Coronary artery disease. 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 will replace robles if PVR more than 350 cc excessive alcohol intake cigarette smoker cognitive and mobility and self care deficits fever resolved Plan Plan of Care start amlodipine increase kcl continue iv vancomycin and cefepime continue insulin continue lisinopril lab tomorrow continue furosemide Comment Review of Relevant I have reviewed the following items linda (where applicable) has been applied. Labs Laboratory Tests Test 11/22/17 16:35 11/22/17 20:31 11/23/17 05:33 11/23/17 08:32 Glucose (Fingerstick) 156 mg/dL (70-99) 184 mg/dL (70-99) 120 mg/dL (70-99) Sodium Level 138 mmol/L (136-145) Potassium Level 3.6 mmol/L (3.5-5.1) Chloride Level 104 mmol/L (98-107) Carbon Dioxide Level 29 mmol/L (21-32) Anion Gap 5 (6-14) Blood Urea Nitrogen 10 mg/dL (8-26) Creatinine 0.9 mg/dL (0.7-1.3) Estimated GFR (Cockcroft-Gault) 100.7 Glucose Level 104 mg/dL (70-99) Calcium Level 8.7 mg/dL (8.5-10.1) Test 11/23/17 10:00 11/23/17 11:24 11/23/17 16:35 11/23/17 20:38 Urine Collection Type Unknown Urine Color Yellow Urine Clarity Clear Urine pH 6.5 Urine Specific [place] 1.015 Urine Protein Negative mg/dL (NEG-TRACE) Urine Glucose (UA) Negative mg/dL (NEG) Urine Ketones (Stick) Negative mg/dL (NEG) Urine Blood Negative (NEG) Urine Nitrite Negative (NEG) Urine Bilirubin Negative (NEG) Urine Urobilinogen Dipstick 1.0 mg/dL (0.2 mg/dL) Urine Leukocyte Esterase Trace (NEG) Urine RBC Occ /HPF (0-2) Urine WBC 5-10 /HPF (0-4) Urine Squamous Epithelial Cells Few /LPF Urine Bacteria Few /HPF (0-FEW) Glucose (Fingerstick) 262 mg/dL (70-99) 107 mg/dL (70-99) 184 mg/dL (70-99) Test 11/24/17 05:00 11/24/17 07:56 White Blood Count 5.5 x10^3/uL (4.0-11.0) Red Blood Count 4.59 x10^6/uL (4.30-5.70) Hemoglobin 14.1 g/dL (13.0-17.5) Hematocrit 41.5 % (39.0-53.0) Mean Corpuscular Volume 90 fL (79-100) Mean Corpuscular Hemoglobin 31 pg (25-35) Mean Corpuscular Hemoglobin Concent 34 g/dL (31-37) Red Cell Distribution Width 13.5 % (11.5-14.5) Platelet Count 200 x10^3/uL (140-400) Neutrophils (%) (Auto) 54 % (31-73) Lymphocytes (%) (Auto) 31 % (24-48) Monocytes (%) (Auto) 12 % (0-9) Eosinophils (%) (Auto) 3 % (0-3) Basophils (%) (Auto) 1 % (0-3) Neutrophils # (Auto) 3.0 x10^3uL (1.8-7.7) Lymphocytes # (Auto) 1.7 x10^3/uL (1.0-4.8) Monocytes # (Auto) 0.6 x10^3/uL (0.0-1.1) Eosinophils # (Auto) 0.1 x10^3/uL (0.0-0.7) Basophils # (Auto) 0.0 x10^3/uL (0.0-0.2) Sodium Level 140 mmol/L (136-145) Potassium Level 3.4 mmol/L (3.5-5.1) Chloride Level 107 mmol/L (98-107) Carbon Dioxide Level 26 mmol/L (21-32) Anion Gap 7 (6-14) Blood Urea Nitrogen 16 mg/dL (8-26) Creatinine 1.0 mg/dL (0.7-1.3) Estimated GFR (Cockcroft-Gault) 89.1 Glucose Level 81 mg/dL (70-99) Calcium Level 8.8 mg/dL (8.5-10.1) Glucose (Fingerstick) 84 mg/dL (70-99) Laboratory Tests Test 11/23/17 16:35 11/23/17 20:38 11/24/17 05:00 11/24/17 07:56 Glucose (Fingerstick) 107 mg/dL (70-99) 184 mg/dL (70-99) 84 mg/dL (70-99) White Blood Count 5.5 x10^3/uL (4.0-11.0) Red Blood Count 4.59 x10^6/uL (4.30-5.70) Hemoglobin 14.1 g/dL (13.0-17.5) Hematocrit 41.5 % (39.0-53.0) Mean Corpuscular Volume 90 fL (79-100) Mean Corpuscular Hemoglobin 31 pg (25-35) Mean Corpuscular Hemoglobin Concent 34 g/dL (31-37) Red Cell Distribution Width 13.5 % (11.5-14.5) Platelet Count 200 x10^3/uL (140-400) Neutrophils (%) (Auto) 54 % (31-73) Lymphocytes (%) (Auto) 31 % (24-48) Monocytes (%) (Auto) 12 % (0-9) Eosinophils (%) (Auto) 3 % (0-3) Basophils (%) (Auto) 1 % (0-3) Neutrophils # (Auto) 3.0 x10^3uL (1.8-7.7) Lymphocytes # (Auto) 1.7 x10^3/uL (1.0-4.8) Monocytes # (Auto) 0.6 x10^3/uL (0.0-1.1) Eosinophils # (Auto) 0.1 x10^3/uL (0.0-0.7) Basophils # (Auto) 0.0 x10^3/uL (0.0-0.2) Sodium Level 140 mmol/L (136-145) Potassium Level 3.4 mmol/L (3.5-5.1) Chloride Level 107 mmol/L (98-107) Carbon Dioxide Level 26 mmol/L (21-32) Anion Gap 7 (6-14) Blood Urea Nitrogen 16 mg/dL (8-26) Creatinine 1.0 mg/dL (0.7-1.3) Estimated GFR (Cockcroft-Gault) 89.1 Glucose Level 81 mg/dL (70-99) Calcium Level 8.8 mg/dL (8.5-10.1) Microbiology 11/23/17 Blood Culture - Preliminary, Resulted NO GROWTH AFTER 1 DAY 11/18/17 Urine Culture - Final, Complete 11/18/17 Urine Culture Result 1 (BRITNEY) - Final, Complete 11/16/17 Anaerobic/Aerobic Culture - Final, Complete 11/16/17 Anaerobic Culture Result 1 (BRITNEY) - Final, Complete 11/16/17 Aerobic Culture - Final, Complete 11/16/17 Aerobic Culture Result 1 (BRITNEY) - Final, Complete 11/16/17 Aerobic Culture Result 2 (BRITNEY) - Final, Complete 11/16/17 Antimicrobic Susceptibility - Final, Complete 11/16/17 Gram Stain - Final, Complete 11/16/17 Gram Stain Result 1 (BRITNEY) - Final, Complete 11/16/17 Gram Stain Result 2 (BRITNEY) - Final, Complete Medications Current Medications Ondansetron HCl (Zofran) 4 mg PRN Q8HRS PRN IV NAUSEA/VOMITING 1ST CHOICE; Start 11/16/17 at 01:30; Stop 11/17/17 at 01:29; Status DC Morphine Sulfate (Morphine Sulfate) 4 mg PRN Q2HR PRN IV SEVERE PAIN; Start at 01:30; Stop 11/17/17 at 01:29; Status DC Acetaminophen (Tylenol) 650 mg PRN Q4HRS PRN PO MILD PAIN / TEMP Last administered on 11/23/17 21:22; Start 11/16/17 at 01:30 Enoxaparin Sodium (Lovenox 40mg Syringe) 40 mg DAILY SQ Last administered on 09:21; Start 11/16/17 at 09:00; Stop 11/17/17 at 10:16; Status DC Atorvastatin Calcium (Lipitor) 40 mg QHS PO Last administered on 11/23/17 21: 21; Start 11/16/17 at 21:00 Insulin Human Lispro (HumaLOG) 4 units TIDAC SQ Last administered on 11/20/17at 08:45; Start 11/16/17 at 07:30; Stop 11/20/17 at 11:27; Status DC Insulin Glargine (Lantus) 12 units QHS SQ Last administered on 11/19/17 21:29 ; Start 11/16/17 at 21:00; Stop 11/20/17 at 11:27; Status DC Lisinopril (Prinivil) 20 mg DAILY PO Last administered on 11/18/17 09:11; Start 11/16/17 at 09:00; Stop 11/18/17 at 12:57; Status DC Metformin HCl (Glucophage) 500 mg BIDWMEALS PO Last administered on 11/24/17 08:14; Start 11/16/17 at 08:00 Amlodipine Besylate (Norvasc) 5 mg DAILY PO Last administered on 11/18/17at 09: 11; Start 11/16/17 at 09:00; Stop 11/18/17 at 12:57; Status DC Clopidogrel Bisulfate (Plavix) 75 mg DAILY PO Last administered on 11/24/17 08 :14; Start 11/16/17 at 09:00 Furosemide (Lasix) 20 mg DAILY IVP Last administered on 11/17/17 09:19; Start 11/16/17 at 12:00; Stop 11/17/17 at 10:16; Status DC Potassium Chloride (Klor-Con) 20 meq DAILYWBKFT PO Last administered on at 09:19; Start 11/16/17 at 11:00; Stop 11/17/17 at 10:16; Status DC Nicotine (Nicoderm Cq 21mg) 1 patch DAILY TD Last administered on 11/24/17at 08: 15; Start 11/16/17 at 16:00 Furosemide (Lasix) 40 mg DAILY IVP Last administered on 11/18/17at 09:11; Start 11/17/17 at 11:00; Stop 11/18/17 at 12:57; Status DC Potassium Chloride (Klor-Con) 40 meq BIDWMEALS PO Last administered on at 09:10; Start 11/17/17 at 11:00; Stop 11/18/17 at 12:57; Status DC Lisinopril (Prinivil) 10 mg DAILY PO Last administered on 11/21/17at 08:39; Start 11/19/17 at 09:00; Stop 11/21/17 at 10:54; Status DC Potassium Chloride (Klor-Con) 20 meq BIDWMEALS PO Last administered on at 17:07; Start 11/18/17 at 17:00; Stop 11/22/17 at 09:03; Status DC Furosemide (Lasix) 20 mg DAILY PO Last administered on 11/21/17at 08:38; Start 11/19/17 at 09:00; Stop 11/22/17 at 09:03; Status DC Magnesium Sulfate 50 ml @ 25 mls/hr 1X ONCE IV Last administered on 11/18/17at 14:21; Start 11/18/17 at 14:00; Stop 11/18/17 at 15:59; Status DC Tamsulosin HCl (Flomax) 0.4 mg QHS PO Last administered on 11/23/17at 21:22; Start 11/18/17 at 21:00; Stop 11/24/17 at 09:37; Status DC Insulin Glargine (Lantus) 16 units QHS SQ Last administered on 11/20/17at 21:25 ; Start 11/20/17 at 21:00; Stop 11/21/17 at 10:54; Status DC Insulin Human Lispro (HumaLOG) 6 units TIDAC SQ Last administered on 11/21/17at 08:47; Start 11/20/17 at 11:30; Stop 11/21/17 at 10:54; Status DC Thiamine Mononitrate (Vitamin B-1) 100 mg DAILY PO Last administered on 08:14; Start 11/20/17 at 12:00 Multivitamins (Thera M Plus) 1 tab DAILY PO Last administered on 11/24/17 08: 15; Start 11/20/17 at 12:00 Insulin Human Lispro (HumaLOG) 0-5 UNITS TIDWMEALS SQ Last administered on 11/21at 08:46; Start 11/20/17 at 18:00; Stop 11/21/17 at 10:54; Status DC Dextrose (Dextrose 50%-Water Syringe) 12.5 gm PRN Q15MIN PRN IV SEE COMMENTS; Start 11/20/17 at 18:00 Insulin Glargine (Lantus) 20 units QHS SQ Last administered on 11/21/17at 20:59 ; Start 11/21/17 at 21:00; Stop 11/22/17 at 09:03; Status DC Insulin Human Lispro (HumaLOG) 8 units TIDAC SQ Last administered on 11/21/17at 17:12; Start 11/21/17 at 11:30; Stop 11/22/17 at 09:03; Status DC Lisinopril (Prinivil) 20 mg DAILY PO ; Start 11/22/17 at 09:00; Stop 11/22/17 at 09:03; Status DC Insulin Human Lispro (HumaLOG) BG 400-49,9=6 units TIDWMEALS SQ Last administered on 11/23/17at 13:35; Start 11/21/17 at 12:00 Furosemide (Lasix) 20 mg QODAY PO Last administered on 11/23/17at 08:34; Start 11/23/17 at 09:00 Insulin Glargine (Lantus) 12 units QHS SQ Last administered on 11/23/17at 21:26 ; Start 11/22/17 at 21:00 Insulin Human Lispro (HumaLOG) 4 units TIDAC SQ Last administered on 11/24/17at 12:08; Start 11/22/17 at 11:30 Lisinopril (Prinivil) 10 mg DAILY PO Last administered on 11/24/17at 08:15; Start 11/23/17 at 09:00 Potassium Chloride (Klor-Con) 40 meq QODAY PO Last administered on 11/23/17at 08 :33; Start 11/23/17 at 09:00 Vancomycin HCl 1 gm/Sodium Chloride 250 ml @ 250 mls/hr Q12HR IV ; Start at 09:00; Status UNV Vancomycin HCl (Vanco Per Pharmacy) 1 each PRN DAILY PRN MC SEE COMMENTS Last administered on 11/23/17at 14:27; Start 11/23/17 at 08:45 Cefepime HCl 1 gm/ Dextrose 50 ml @ 100 mls/hr Q8HRS IV ; Start 11/23/17 at 14: 00; Status UNV Cefepime HCl (Maxipime) 1 gm Q8HRS IVP Last administered on 11/24/17at 06:09; Start 11/23/17 at 09:00 Vancomycin HCl 2 gm/Sodium Chloride 500 ml @ 250 mls/hr ONCE ONCE IV Last administered on 11/23/17at 13:32; Start 11/23/17 at 09:00; Stop 11/23/17 at 10:59 ; Status DC Vancomycin HCl 1.25 gm/Sodium Chloride 250 ml @ 167 mls/hr Q12H IV Last administered on 11/24/17at 14:06; Start 11/24/17 at 01:00 Vancomycin HCl (Vancomycin Trough Level) 1 each 1X ONCE MC ; Start 11/25/17 at 00:30; Stop 11/25/17 at 00:31 Phenazopyridine HCl (Pyridium) 200 mg PRN TID PRN PO URINARY PAIN Last administered on 11/24/17at 10:39; Start 11/24/17 at 09:45 Tamsulosin HCl (Flomax) 0.4 mg BID PO Last administered on 11/24/17at 10:39; Start 11/24/17 at 10:00 Lactobacillus Rhamnosus (Culturelle) 1 cap BID PO ; Start 11/24/17 at 21:00 Active Scripts Active Reported Clopidogrel (Clopidogrel Bisulfate) 75 Mg Tablet 1 Tab PO DAILY Lantus (Insulin Glargine,Hum.rec.anlog) 100 Unit/1 Ml Vial 32 Unit SQ HS Apidra (Insulin Glulisine) 100 Unit/1 Ml Vial 6 Unit SQ TIDAC Lipitor (Atorvastatin Calcium) 40 Mg Tablet 40 Mg PO HS Lisinopril 10 Mg Tablet 10 Mg PO DAILY08 Metformin Hcl 500 Mg Tablet 500 Mg PO [id number] Vitals/I & O Vital Sign - Last 24 Hours 11/23/17 11/23/17 11/23/17 11/24/17 19:00 20:00 23:00 03:00 Temp 98.1 98.6 98.3 98.1 98.6 98.3 Pulse 73 78 79 Resp 18 18 18 B/P (MAP) 146/75 (98) 149/92 (111) 134/73 (93) Pulse Ox 99 100 99 O2 Delivery Room Air Room Air Room Air Room Air 11/24/17 11/24/17 11/24/17 11/24/17 07:00 07:30 08:15 10:51 Temp 97.8 98.4 97.8 98.4 Pulse 75 75 75 Resp 18 18 B/P (MAP) 172/87 (115) 172/87 130/110 (117) Pulse Ox 100 95 O2 Delivery Room Air Room Air Room Air 11/24/17 14:55 Temp 98.5 98.5 Pulse 93 Resp 18 B/P (MAP) 170/98 (122) Pulse Ox 99 O2 Delivery Room Air Intake and Output 11/23/17 11/23/17 11/24/17 15:00 23:00 07:00 Intake Total 240 ml Output Total 1025 ml 0 ml Balance -785 ml 0 ml ARAM TERRELL MD Nov 24, 2017 15:10
[2017-11-24] MEDS ORDERED: POTASSIUM CHLORIDE 20 MEQ TABLET.ER. PO ONE (15:15)
[2017-11-24] MEDS ORDERED: amLODIPine BESYLATE 5 MG TABLET PO ONE (15:15)
--- NOTE | 2017-11-24 17:40 | PDOC ---
PROGRESS NOTES Assessment Assessment Metabolic encephalopathy. Hyperglycemia. DM. HTN. HLD. CAD, [place]. Bilateral LE edema. Right singh open wound. 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 Femoral lymphadenopathy. Left prosthetic eye. Smoking. No evidence of acute CVA this time. RECOMMENDATIONS/PLAN: Continue Plavix 75 mg daily. Continue Lipitor HS. Wound care, left LE. Treat medical diseases. OT/PT. FU with PCP. HISTORY OF THE PRESENT ILLNESS: 72-y-old AA male patent with above medical diseases was admitted into the hospital due to LE wounds. His nurse stated that he has been having mental status changes since yesterday and confusional episodes, so neurology was requested for consultation. PAST MEDICAL HISTORY: Diabetes mellitus type 2 with microalbuminuria. Hypertension. Hyperlipidemia Coronary artery disease. Myocardial infarction in the past Gastric ulcer in 2003. Irritable bowel syndrome. Prosthetic left eye. PAST SURGERY HISTORY: No major surgery recently. FAMILY HISTORY: Noncontributory. SOCIAL HISTORY: Does not drink alcohol. Smokes about 1 pack per day of cigarettes. ALLERGY: NKDA MEDICATIONS: Refer to MAR REVIEW OF SYSTEMS: Constitutional: No malnutrition, weight loss, cachexia. Head: No recent traumatic brain or head injury. Skin: No edema, or rash. Ear: No infection, tinnitus. Eyes: Left prosthetic eye. Nose: No bleeding or purulent discharges. Hearing: Hearing decrease. Neck: No injury. Cardiac: [place], CAD, HTN, HLD. Pulmonary: No COPD. GI: Gastric ulcer in 2003. Irritable bowel syndrome.. Urinary/genital: UTI. Endocrinologic: Diabetes Mellitus. Skeletomuscular: No muscular atrophy, deformity. Neurological: see HP. Psychiatric: Denies drug use/abuse. Otherwise, not [id number] review of systems. PHYSICAL EXAMINATION: General appearance is in no acute distress. HEENT: Normocephalic and nontraumatic. Nose, ears, and throat are unremarkable , left prosthetic eye. Neck is supple. No lymphadenopathy. No crepitus. Cardiovascular: S1, S2, regular rate and rhythm. Pulmonary: Clear to auscultation bilaterally. Abdomen: Bowel sounds are positive. Abdomen is soft, nontender, and nondistended. Extremities: LE wound. No restriction of range of motion NEUROLOGICAL EXAMINATION: Awake. Not fully oriented to time, but knew place and person. Right pupil reactive to light. Left eye prosthetic. EOMI. CN: no focal findings. Muscle tone: within normal. Muscle strength: 4 right side, 5- left side. DTR: 1-2 Plantar reflex: Neutral response bilaterally Gait: Able to walk with a walker. Sensory exam: no abnormal findings. No acute cerebellar signs elicited. F-T-N test fine. Objective Objective Vital Signs Date Time Temp Pulse Resp B/P (MAP) Pulse Ox O2 Delivery O2 Flow Rate FiO2 11/24/17 17:19 93 170/98 11/24/17 14:55 98.5 18 99 Room Air 98.5 Intake and Output 11/24/17 07:00 Intake Total 240 ml Output Total 1025 ml Balance -785 ml Intake Oral 240 ml Output Urine Total 1025 ml Vitals Signs Vitals VS - Last 72 Hours, by Label Date Time Temp Pulse Resp B/P (MAP) Pulse Ox O2 Delivery O2 Flow Rate FiO2 11/24/17 17:19 93 170/98 11/24/17 14:55 98.5 93 18 170/98 (122) 99 Room Air 98.5 11/24/17 10:51 98.4 75 18 130/110 (117) 95 Room Air 98.4 11/24/17 08:15 75 172/87 11/24/17 07:30 Room Air 11/24/17 07:00 97.8 75 18 172/87 (115) 100 Room Air 97.8 11/24/17 03:00 98.3 79 18 134/73 (93) 99 Room Air 98.3 11/23/17 23:00 98.6 78 18 149/92 (111) 100 Room Air 98.6 11/23/17 20:00 Room Air 11/23/17 19:00 98.1 73 18 146/75 (98) 99 Room Air 98.1 11/23/17 14:56 98.9 91 20 148/78 (101) 96 Room Air 98.9 11/23/17 11:00 99.3 105 18 114/66 (82) 98 Room Air 99.3 11/23/17 08:34 68 134/84 11/23/17 08:00 Room Air 11/23/17 07:00 99.1 68 20 134/84 (101) 98 Room Air 99.1 Laboratory Laboratory Laboratory Tests Test 11/23/17 20:38 11/24/17 05:00 11/24/17 07:56 Glucose (Fingerstick) 184 mg/dL (70-99) 84 mg/dL (70-99) White Blood Count 5.5 x10^3/uL (4.0-11.0) Red Blood Count 4.59 x10^6/uL (4.30-5.70) Hemoglobin 14.1 g/dL (13.0-17.5) Hematocrit 41.5 % (39.0-53.0) Mean Corpuscular Volume 90 fL (79-100) Mean Corpuscular Hemoglobin 31 pg (25-35) Mean Corpuscular Hemoglobin Concent 34 g/dL (31-37) Red Cell Distribution Width 13.5 % (11.5-14.5) Platelet Count 200 x10^3/uL (140-400) Neutrophils (%) (Auto) 54 % (31-73) Lymphocytes (%) (Auto) 31 % (24-48) Monocytes (%) (Auto) 12 % (0-9) Eosinophils (%) (Auto) 3 % (0-3) Basophils (%) (Auto) 1 % (0-3) Neutrophils # (Auto) 3.0 x10^3uL (1.8-7.7) Lymphocytes # (Auto) 1.7 x10^3/uL (1.0-4.8) Monocytes # (Auto) 0.6 x10^3/uL (0.0-1.1) Eosinophils # (Auto) 0.1 x10^3/uL (0.0-0.7) Basophils # (Auto) 0.0 x10^3/uL (0.0-0.2) Sodium Level 140 mmol/L (136-145) Potassium Level 3.4 mmol/L (3.5-5.1) Chloride Level 107 mmol/L (98-107) Carbon Dioxide Level 26 mmol/L (21-32) Anion Gap 7 (6-14) Blood Urea Nitrogen 16 mg/dL (8-26) Creatinine 1.0 mg/dL (0.7-1.3) Estimated GFR (Cockcroft-Gault) 89.1 Glucose Level 81 mg/dL (70-99) Calcium Level 8.8 mg/dL (8.5-10.1) Microbiology 11/23/17 Blood Culture - Preliminary, Resulted NO GROWTH AFTER 1 DAY 11/18/17 Urine Culture - Final, Complete 11/18/17 Urine Culture Result 1 (BRITNEY) - Final, Complete 11/16/17 Anaerobic/Aerobic Culture - Final, Complete 11/16/17 Anaerobic Culture Result 1 (BRITNEY) - Final, Complete 11/16/17 Aerobic Culture - Final, Complete 11/16/17 Aerobic Culture Result 1 (BRITNEY) - Final, Complete 11/16/17 Aerobic Culture Result 2 (BRITNEY) - Final, Complete 11/16/17 Antimicrobic Susceptibility - Final, Complete 11/16/17 Gram Stain - Final, Complete 11/16/17 Gram Stain Result 1 (BRITNEY) - Final, Complete 11/16/17 Gram Stain Result 2 (BRITNEY) - Final, Complete Medication Medications Current Medications Amlodipine Besylate (Norvasc) 5 mg 1X ONCE PO Last administered on 11/24/17at 17:19; Start 11/24/17 at 15:15; Stop 11/24/17 at 15:16; Status DC Amlodipine Besylate (Norvasc) 5 mg DAILY PO ; Start 11/25/17 at 09:00 Lactobacillus Rhamnosus (Culturelle) 1 cap BID PO ; Start 11/24/17 at 21:00 Phenazopyridine HCl (Pyridium) 200 mg PRN TID PRN PO URINARY PAIN Last administered on 11/24/17at 10:39; Start 11/24/17 at 09:45 Potassium Chloride (Klor-Con) 20 meq 1X ONCE PO Last administered on at 17:18; Start 11/24/17 at 15:15; Stop 11/24/17 at 15:16; Status DC Potassium Chloride (Klor-Con) 40 meq DAILY08 PO ; Start 11/25/17 at 08:00 Tamsulosin HCl (Flomax) 0.4 mg BID PO Last administered on 11/24/17at 10:39; Start 11/24/17 at 10:00 Vancomycin HCl (Vancomycin Trough Level) 1 each 1X ONCE MC ; Start 11/25/17 at 00:30; Stop 11/25/17 at 00:31 Vancomycin HCl 1.25 gm/Sodium Chloride 250 ml @ 167 mls/hr Q12H IV Last administered on 11/24/17at 14:06; Start 11/24/17 at 01:00 Comment Review of Relevant I have reviewed the following items linda (where applicable) has been applied. LUKASZ FINCH MD Nov 24, 2017 17:40
[2017-11-24 19:00] VITALS: BP 144/79
[2017-11-24] MEDS: LACTOBACILLUS RHAMNOSUS GG 1 CAPSULE. PO SCH (21:13)
[2017-11-24] MEDS: ATORVASTATIN CALCIUM 40 MG TABLET. PO SCH (21:13)
[2017-11-24] MEDS: ACETAMINOPHEN 325 MG TABLET. PO PRN (21:13)
[2017-11-24] MEDS: INSULIN GLARGINE 300 UNITS/3 ML INSULN.PEN. SQ SCH (21:19)
[2017-11-24 23:00] VITALS: BP 120/59
[2017-11-25] VITALS (13 sets, daily range): BP systolic 62–169; BP diastolic 41–93
[2017-11-25 01:05] LABS: BASO # 0.1 x10^3/uL (0.0-0.2); BASO % 1 % (0-3); EOS # 0.1 x10^3/uL (0.0-0.7); EOS % 3 % (0-3); HEMATOCRIT 40.6 % (39.0-53.0); HEMOGLOBIN 13.8 g/dL (13.0-17.5); LYMPH # 1.7 x10^3/uL (1.0-4.8); LYMPH % 30 % (24-48); MEAN CORPUSCULAR HEMOGLOBIN 31 pg (25-35); MEAN CORPUSCULAR HGB CONC 34 g/dL (31-37); MEAN CORPUSCULAR VOLUME 90 fL (79-100); MONO # 0.7 x10^3/uL (0.0-1.1); MONO % 12 % (0-9); NEUT # 3.2 x10^3uL (1.8-7.7); NEUT % 55 % (31-73); PLATELET COUNT 228 x10^3/uL (140-400); RED BLOOD COUNT 4.52 x10^6/uL (4.30-5.70); RED CELL DISTRIBUTION WIDTH 13.6 % (11.5-14.5); WHITE BLOOD COUNT 5.8 x10^3/uL (4.0-11.0)
[2017-11-25 01:22] LABS: CALCIUM 8.6 mg/dL (8.5-10.1); GFR 89.1; MAGNESIUM 1.5 mg/dL (1.8-2.4); POTASSIUM 3.6 mmol/L (3.5-5.1)
[2017-11-25 01:26] LABS: VANC TR 15.3 mcg/mL (10.0-20.0)
[2017-11-25] MEDS: VANCOMYCIN PER PHARMACY MC PRN (01:44)
[2017-11-25] MEDS: VANCOMYCIN 1.25 GM in IV NORMAL SALINE 250ML 250 ML IV SCH (01:46)
[2017-11-25] MEDS: CEFEPIME HCL IV Push 1 GM VIAL. IVP SCH ×3 (05:33→22:10)
[2017-11-25] MEDS ORDERED: POTASSIUM CHLORIDE 20 MEQ TABLET.ER. PO SCH (08:00)
[2017-11-25] MEDS: INSULIN LISPRO 300 UNITS/3 ML INSULN.PEN. SQ SCH ×6 (08:00→17:49)
[2017-11-25] MEDS: metFORMIN 500 MG TABLET PO SCH ×2 (08:35→17:29)
[2017-11-25] MEDS: NICOTINE 21MG PATCH. TD SCH (08:35)
[2017-11-25] MEDS: LACTOBACILLUS RHAMNOSUS GG 1 CAPSULE. PO SCH ×2 (08:35→20:48)
[2017-11-25] MEDS: MULTIVITAMIN with MINERAL TABLET. PO SCH (08:36)
[2017-11-25] MEDS: CLOPIDOGREL BISULFATE 75 MG TABLET PO SCH (08:36)
[2017-11-25] MEDS: FUROSEMIDE 20 MG TABLET PO SCH (08:36)
[2017-11-25] MEDS: THIAMINE 100 MG TABLET. PO SCH (08:36)
[2017-11-25] MEDS: TAMSULOSIN 0.4 MG CAP.ER.24H. PO SCH (08:36)
[2017-11-25] MEDS: LISINOPRIL 10 MG TABLET PO SCH (08:36)
[2017-11-25] MEDS ORDERED: amLODIPine BESYLATE 5 MG TABLET PO SCH (09:00)
--- NOTE | 2017-11-25 09:37 | PDOC ---
Infectious Disease Note Subjective: Subjective Pt without compliants no f/cn/v/d/worsening cough rt leg wound improving ROS: ROS Negative except for above. Vital Signs: Vital Signs Vital Signs Date Time Temp Pulse Resp B/P (MAP) Pulse Ox O2 Delivery O2 Flow Rate FiO2 11/25/17 08:37 71 165/92 11/25/17 07:00 98.2 18 99 Room Air 98.2 Physical Exam: PHYSICAL EXAM GENERAL: Alert, oriented x 2, male, sitting in the chair, in no acute distress. HEENT: Pupils equal, reactive. Anicteric. No thrush. NECK: Supple. No JVD. LUNGS: Clear. HEART: S1, S2. ABDOMEN: Soft, nontender, bowel sounds present. EXTREMITIES: Trace pedal edema, right pretibial wound clean. DERM: No generalized rash. BACK WOUND: Superficial wound noted.not infected PSYCHIATRIC: Appropriate mood. NEUROLOGIC: Normal speech. Moves all 4 extremities. Medications: Inpatient Meds: Current Medications Medications (Trade) Dose Ordered Sig/Sheri Start Time Stop Time Status Last Admin Dose Admin Acetaminophen (Tylenol) 650 mg PRN Q4HRS PRN 11/16/17 01:30 11/24/17 21:13 650 MG Amlodipine Besylate (Norvasc) 5 mg 1X ONCE 11/24/17 15:15 11/24/17 15:16 DC 11/24/17 17:19 5 MG Atorvastatin Calcium (Lipitor) 40 mg QHS 11/16/17 21:00 11/24/17 21:13 40 MG Cefepime HCl (Maxipime) 1 gm Q8HRS 11/23/17 09:00 11/25/17 05:33 1 GM Cefepime HCl 1 gm/ Dextrose 50 ml @ 100 mls/hr Q8HRS 11/23/17 14:00 UNV Clopidogrel Bisulfate (Plavix) 75 mg DAILY 11/16/17 09:00 11/25/17 08:36 75 MG Dextrose (Dextrose 50%-Water Syringe) 12.5 gm PRN Q15MIN PRN 11/20/17 18:00 Enoxaparin Sodium (Lovenox 40mg Syringe) 40 mg DAILY 11/16/17 09:00 11/17/17 10:16 DC 11/17/17 09:21 40 MG Furosemide (Lasix) 20 mg QODAY 11/23/17 09:00 11/25/17 08:36 20 MG Insulin Glargine (Lantus) 12 units QHS 11/22/17 21:00 11/24/17 21:19 12 UNITS Insulin Human Lispro (HumaLOG) 4 units TIDAC 11/22/17 11:30 11/25/17 08:47 4 UNITS Lactobacillus Rhamnosus (Culturelle) 1 cap BID 11/24/17 21:00 11/25/17 08:35 1 CAP Lisinopril (Prinivil) 10 mg DAILY 11/23/17 09:00 11/25/17 08:36 10 MG Magnesium Sulfate 50 ml @ 25 mls/hr 1X ONCE 11/18/17 14:00 11/18/17 15:59 DC 11/18/17 14:21 25 MLS/HR Metformin HCl (Glucophage) 500 mg BIDWMEALS 11/16/17 08:00 11/25/17 08:35 500 MG Morphine Sulfate (Morphine Sulfate) 4 mg PRN Q2HR PRN 11/16/17 01:30 11/17/17 01:29 DC Multivitamins (Thera M Plus) 1 tab DAILY 11/20/17 12:00 11/25/17 08:36 1 TAB Nicotine (Nicoderm Cq 21mg) 1 patch DAILY 11/16/17 16:00 11/25/17 08:35 1 PATCH Ondansetron HCl (Zofran) 4 mg PRN Q8HRS PRN 11/16/17 01:30 11/17/17 01:29 DC Phenazopyridine HCl (Pyridium) 200 mg PRN TID PRN 11/24/17 09:45 11/24/17 10:39 200 MG Potassium Chloride (Klor-Con) 20 meq 1X ONCE 11/24/17 15:15 11/24/17 15:16 DC 11/24/17 17:18 20 MEQ Tamsulosin HCl (Flomax) 0.4 mg BID 11/24/17 10:00 11/25/17 08:36 0.4 MG Thiamine Mononitrate (Vitamin B-1) 100 mg DAILY 11/20/17 12:00 11/25/17 08:36 100 MG Vancomycin HCl (Vanco Per Pharmacy) 1 each PRN DAILY PRN 8/28/18 08:45 11/25/17 01:44 1 EACH Vancomycin HCl (Vancomycin Trough Level) 1 each 1X ONCE 11/25/17 00:30 11/25/17 00:31 DC 11/25/17 00:30 1 EACH Vancomycin HCl 1.25 gm/Sodium Chloride 250 ml @ 167 mls/hr Q12H 11/24/17 01:00 11/25/17 01:46 167 MLS/HR Vancomycin HCl 1 gm/Sodium Chloride 250 ml @ 250 mls/hr Q12HR 11/23/17 09:00 UNV Vancomycin HCl 2 gm/Sodium Chloride 500 ml @ 250 mls/hr ONCE ONCE 11/23/17 09:00 11/23/17 10:59 DC 11/23/17 13:32 250 MLS/HR Labs: Lab Laboratory Tests Test 11/24/17 12:05 11/24/17 17:09 11/24/17 20:10 11/25/17 00:45 Glucose (Fingerstick) 152 mg/dL (70-99) 258 mg/dL (70-99) 237 mg/dL (70-99) White Blood Count 5.8 x10^3/uL (4.0-11.0) Red Blood Count 4.52 x10^6/uL (4.30-5.70) Hemoglobin 13.8 g/dL (13.0-17.5) Hematocrit 40.6 % (39.0-53.0) Mean Corpuscular Volume 90 fL (79-100) Mean Corpuscular Hemoglobin 31 pg (25-35) Mean Corpuscular Hemoglobin Concent 34 g/dL (31-37) Red Cell Distribution Width 13.6 % (11.5-14.5) Platelet Count 228 x10^3/uL (140-400) Neutrophils (%) (Auto) 55 % (31-73) Lymphocytes (%) (Auto) 30 % (24-48) Monocytes (%) (Auto) 12 % (0-9) Eosinophils (%) (Auto) 3 % (0-3) Basophils (%) (Auto) 1 % (0-3) Neutrophils # (Auto) 3.2 x10^3uL (1.8-7.7) Lymphocytes # (Auto) 1.7 x10^3/uL (1.0-4.8) Monocytes # (Auto) 0.7 x10^3/uL (0.0-1.1) Eosinophils # (Auto) 0.1 x10^3/uL (0.0-0.7) Basophils # (Auto) 0.1 x10^3/uL (0.0-0.2) Sodium Level 140 mmol/L (136-145) Potassium Level 3.6 mmol/L (3.5-5.1) Chloride Level 108 mmol/L (98-107) Carbon Dioxide Level 28 mmol/L (21-32) Anion Gap 4 (6-14) Blood Urea Nitrogen 14 mg/dL (8-26) Creatinine 1.0 mg/dL (0.7-1.3) Estimated GFR (Cockcroft-Gault) 89.1 Glucose Level 108 mg/dL (70-99) Calcium Level 8.6 mg/dL (8.5-10.1) Magnesium Level 1.5 mg/dL (1.8-2.4) Vancomycin Level Trough 15.3 mcg/mL (10.0-20.0) Vancomycin Last Dose Date 11/24/17 Vancomycin Last Dose Time 1300 Test 11/25/17 07:47 Glucose (Fingerstick) 104 mg/dL (70-99) Objective: Assessment: 1. Fever, etiology unclear, has some cough. Urine culture is pending at this time. 2. Bilateral lower extremity edema, resolving. 3. Right leg wound with Citrobacter koseri on cultures, improving. 4. Diabetes mellitus type 2 with microalbuminuria. 5. Urinary retention, seen by Urology. Carson discontinued yesterday. 6. Hypertension/hyperlipidemia. 7. Coronary artery disease. 8. Cognitive impairment. 9. Excessive alcohol intake. 10. Cigarette smoker. 11. 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 12. Metabolic encephalopathy, improving slowly. Plan: Plan of Care 1. Continue empiric cefepime. DC IV Vanc 2. Follow up cultures and labs in a.m. 3. Continue supportive care. 4 Continue local wound care. JANE JIMENEZ MD Nov 25, 2017 09:37
--- NOTE | 2017-11-25 10:21 | PDOC ---
SUBJECTIVE Subjective Pt resting comfortably, doing OK on BID flomax. No burning today, dysuria or hematuria OBJECTIVE Objective Physical Exam: General appearance: Alert and Oriented Head: Normocephalic, without obvious abnormality Eyes: conjunctivae/corneas clear. PERRL, EOM's intact. Fundi benign False left eye Lungs: regular respirations, non labored breathing Abdomen: soft, non-tender. No masses, no organomegaly Pelvic: Normal Phallus Vital Signs Vital Signs Date Time Temp Pulse Resp B/P (MAP) Pulse Ox O2 Delivery O2 Flow Rate FiO2 11/25/17 08:37 71 165/92 11/25/17 08:36 71 165/92 11/25/17 07:00 98.2 75 18 139/93 (108) 99 Room Air 98.2 11/25/17 03:00 98.0 71 18 165/92 (116) 100 Room Air 98.0 11/24/17 23:00 98.5 68 18 120/59 (79) 98 Room Air 98.5 11/24/17 20:00 Room Air 11/24/17 19:00 99.0 77 18 144/79 (100) 97 Room Air 99.0 11/24/17 17:19 93 170/98 11/24/17 14:55 98.5 93 18 170/98 (122) 99 Room Air 98.5 11/24/17 10:51 98.4 75 18 130/110 (117) 95 Room Air 98.4 I & O Intake and Output 11/25/17 07:00 Intake Total 470 ml Output Total 2000 ml Balance -1530 ml Intake Oral 470 ml Output Urine Total 2000 ml # Voids 8 # Bowel Movements 1 PHYSICAL EXAM Physical Exam Physical Exam: General appearance: Alert and Oriented Head: Normocephalic, without obvious abnormality Eyes: conjunctivae/corneas clear. PERRL, EOM's intact. Fundi benign False left eye Lungs: regular respirations, non labored breathing Abdomen: soft, non-tender. No masses, no organomegaly Pelvic: Normal Phallus ASSESSMENT/PLAN Assessment/Plan Incomplete bladder emptying with PVRs consistently around 200-Continue BID flomax Continue PRN Pyridium Nursing staff may bladder scan patient PRN suspected retention. Insert robles catheter for PVR greater than 350. Today PVR is just 200 via bladder scan Ok for patient to go to custodial whenever medical team/other specialities are ready. Will follow peripherally while in house COMMENT Lab Laboratory Tests Test 11/24/17 12:05 11/24/17 17:09 11/24/17 20:10 11/25/17 00:45 Glucose (Fingerstick) 152 mg/dL (70-99) 258 mg/dL (70-99) 237 mg/dL (70-99) White Blood Count 5.8 x10^3/uL (4.0-11.0) Red Blood Count 4.52 x10^6/uL (4.30-5.70) Hemoglobin 13.8 g/dL (13.0-17.5) Hematocrit 40.6 % (39.0-53.0) Mean Corpuscular Volume 90 fL (79-100) Mean Corpuscular Hemoglobin 31 pg (25-35) Mean Corpuscular Hemoglobin Concent 34 g/dL (31-37) Red Cell Distribution Width 13.6 % (11.5-14.5) Platelet Count 228 x10^3/uL (140-400) Neutrophils (%) (Auto) 55 % (31-73) Lymphocytes (%) (Auto) 30 % (24-48) Monocytes (%) (Auto) 12 % (0-9) Eosinophils (%) (Auto) 3 % (0-3) Basophils (%) (Auto) 1 % (0-3) Neutrophils # (Auto) 3.2 x10^3uL (1.8-7.7) Lymphocytes # (Auto) 1.7 x10^3/uL (1.0-4.8) Monocytes # (Auto) 0.7 x10^3/uL (0.0-1.1) Eosinophils # (Auto) 0.1 x10^3/uL (0.0-0.7) Basophils # (Auto) 0.1 x10^3/uL (0.0-0.2) Sodium Level 140 mmol/L (136-145) Potassium Level 3.6 mmol/L (3.5-5.1) Chloride Level 108 mmol/L (98-107) Carbon Dioxide Level 28 mmol/L (21-32) Anion Gap 4 (6-14) Blood Urea Nitrogen 14 mg/dL (8-26) Creatinine 1.0 mg/dL (0.7-1.3) Estimated GFR (Cockcroft-Gault) 89.1 Glucose Level 108 mg/dL (70-99) Calcium Level 8.6 mg/dL (8.5-10.1) Magnesium Level 1.5 mg/dL (1.8-2.4) Vancomycin Level Trough 15.3 mcg/mL (10.0-20.0) Vancomycin Last Dose Date 11/24/17 Vancomycin Last Dose Time 1300 Test 11/25/17 07:47 Glucose (Fingerstick) 104 mg/dL (70-99) ALICIA IVY APRN Nov 25, 2017 10:21
--- NOTE | 2017-11-25 13:12 | PDOC ---
PROGRESS NOTES Subjective Subjective feels dizzy and lab reviewed. magnesium low 1.5. blood pressure high . feels better,. Objective Objective Vital Signs Date Time Temp Pulse Resp B/P (MAP) Pulse Ox O2 Delivery O2 Flow Rate FiO2 11/25/17 11:13 98.5 94 18 169/87 (114) 100 Nasal Cannula 98.5 Intake and Output 11/25/17 07:00 Intake Total 470 ml Output Total 2000 ml Balance -1530 ml Intake Oral 470 ml Output Urine Total 2000 ml # Voids 8 # Bowel Movements 1 Physical Exam Abdomen: Soft Heart: Regular rate, Normal S1, Normal S2 Extremities: No edema General: Alert HEENT: Atraumatic Lungs: Clear to auscultation Neuro: Normal speech Psych/Mental Status: Mental status NL Skin: No rashes, Other (skin wound clean right pretibial area) Assessment Assessment 1. Bilateral lower extremity edema. resolved 2. Right leg wound. 3. Diabetes mellitus type 2 with microalbuminuria. 4. Hypertension. 5. Hyperlipidemia. 6. Coronary artery disease. 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 will replace robles if PVR more than 350 cc excessive alcohol intake cigarette smoker cognitive and mobility and self care deficits fever resolved hypomagnesemia Plan Plan of Care iv magnesium increase amlodipine decrease tamsulosin iv cefepime d/c iv vancomycin discussed with dr. Wendy Gannon dismconstantine tomorrow Comment Review of Relevant I have reviewed the following items linda (where applicable) has been applied. Labs Laboratory Tests Test 11/23/17 16:35 11/23/17 20:38 11/24/17 05:00 11/24/17 07:56 Glucose (Fingerstick) 107 mg/dL (70-99) 184 mg/dL (70-99) 84 mg/dL (70-99) White Blood Count 5.5 x10^3/uL (4.0-11.0) Red Blood Count 4.59 x10^6/uL (4.30-5.70) Hemoglobin 14.1 g/dL (13.0-17.5) Hematocrit 41.5 % (39.0-53.0) Mean Corpuscular Volume 90 fL (79-100) Mean Corpuscular Hemoglobin 31 pg (25-35) Mean Corpuscular Hemoglobin Concent 34 g/dL (31-37) Red Cell Distribution Width 13.5 % (11.5-14.5) Platelet Count 200 x10^3/uL (140-400) Neutrophils (%) (Auto) 54 % (31-73) Lymphocytes (%) (Auto) 31 % (24-48) Monocytes (%) (Auto) 12 % (0-9) Eosinophils (%) (Auto) 3 % (0-3) Basophils (%) (Auto) 1 % (0-3) Neutrophils # (Auto) 3.0 x10^3uL (1.8-7.7) Lymphocytes # (Auto) 1.7 x10^3/uL (1.0-4.8) Monocytes # (Auto) 0.6 x10^3/uL (0.0-1.1) Eosinophils # (Auto) 0.1 x10^3/uL (0.0-0.7) Basophils # (Auto) 0.0 x10^3/uL (0.0-0.2) Sodium Level 140 mmol/L (136-145) Potassium Level 3.4 mmol/L (3.5-5.1) Chloride Level 107 mmol/L (98-107) Carbon Dioxide Level 26 mmol/L (21-32) Anion Gap 7 (6-14) Blood Urea Nitrogen 16 mg/dL (8-26) Creatinine 1.0 mg/dL (0.7-1.3) Estimated GFR (Cockcroft-Gault) 89.1 Glucose Level 81 mg/dL (70-99) Calcium Level 8.8 mg/dL (8.5-10.1) Test 11/24/17 12:05 11/24/17 17:09 11/24/17 20:10 11/25/17 00:45 Glucose (Fingerstick) 152 mg/dL (70-99) 258 mg/dL (70-99) 237 mg/dL (70-99) White Blood Count 5.8 x10^3/uL (4.0-11.0) Red Blood Count 4.52 x10^6/uL (4.30-5.70) Hemoglobin 13.8 g/dL (13.0-17.5) Hematocrit 40.6 % (39.0-53.0) Mean Corpuscular Volume 90 fL (79-100) Mean Corpuscular Hemoglobin 31 pg (25-35) Mean Corpuscular Hemoglobin Concent 34 g/dL (31-37) Red Cell Distribution Width 13.6 % (11.5-14.5) Platelet Count 228 x10^3/uL (140-400) Neutrophils (%) (Auto) 55 % (31-73) Lymphocytes (%) (Auto) 30 % (24-48) Monocytes (%) (Auto) 12 % (0-9) Eosinophils (%) (Auto) 3 % (0-3) Basophils (%) (Auto) 1 % (0-3) Neutrophils # (Auto) 3.2 x10^3uL (1.8-7.7) Lymphocytes # (Auto) 1.7 x10^3/uL (1.0-4.8) Monocytes # (Auto) 0.7 x10^3/uL (0.0-1.1) Eosinophils # (Auto) 0.1 x10^3/uL (0.0-0.7) Basophils # (Auto) 0.1 x10^3/uL (0.0-0.2) Sodium Level 140 mmol/L (136-145) Potassium Level 3.6 mmol/L (3.5-5.1) Chloride Level 108 mmol/L (98-107) Carbon Dioxide Level 28 mmol/L (21-32) Anion Gap 4 (6-14) Blood Urea Nitrogen 14 mg/dL (8-26) Creatinine 1.0 mg/dL (0.7-1.3) Estimated GFR (Cockcroft-Gault) 89.1 Glucose Level 108 mg/dL (70-99) Calcium Level 8.6 mg/dL (8.5-10.1) Magnesium Level 1.5 mg/dL (1.8-2.4) Vancomycin Level Trough 15.3 mcg/mL (10.0-20.0) Vancomycin Last Dose Date 11/24/17 Vancomycin Last Dose Time 1300 Test 11/25/17 07:47 11/25/17 11:43 Glucose (Fingerstick) 104 mg/dL (70-99) 159 mg/dL (70-99) Laboratory Tests Test 11/24/17 17:09 11/24/17 20:10 11/25/17 00:45 11/25/17 07:47 Glucose (Fingerstick) 258 mg/dL (70-99) 237 mg/dL (70-99) 104 mg/dL (70-99) White Blood Count 5.8 x10^3/uL (4.0-11.0) Red Blood Count 4.52 x10^6/uL (4.30-5.70) Hemoglobin 13.8 g/dL (13.0-17.5) Hematocrit 40.6 % (39.0-53.0) Mean Corpuscular Volume 90 fL (79-100) Mean Corpuscular Hemoglobin 31 pg (25-35) Mean Corpuscular Hemoglobin Concent 34 g/dL (31-37) Red Cell Distribution Width 13.6 % (11.5-14.5) Platelet Count 228 x10^3/uL (140-400) Neutrophils (%) (Auto) 55 % (31-73) Lymphocytes (%) (Auto) 30 % (24-48) Monocytes (%) (Auto) 12 % (0-9) Eosinophils (%) (Auto) 3 % (0-3) Basophils (%) (Auto) 1 % (0-3) Neutrophils # (Auto) 3.2 x10^3uL (1.8-7.7) Lymphocytes # (Auto) 1.7 x10^3/uL (1.0-4.8) Monocytes # (Auto) 0.7 x10^3/uL (0.0-1.1) Eosinophils # (Auto) 0.1 x10^3/uL (0.0-0.7) Basophils # (Auto) 0.1 x10^3/uL (0.0-0.2) Sodium Level 140 mmol/L (136-145) Potassium Level 3.6 mmol/L (3.5-5.1) Chloride Level 108 mmol/L (98-107) Carbon Dioxide Level 28 mmol/L (21-32) Anion Gap 4 (6-14) Blood Urea Nitrogen 14 mg/dL (8-26) Creatinine 1.0 mg/dL (0.7-1.3) Estimated GFR (Cockcroft-Gault) 89.1 Glucose Level 108 mg/dL (70-99) Calcium Level 8.6 mg/dL (8.5-10.1) Magnesium Level 1.5 mg/dL (1.8-2.4) Vancomycin Level Trough 15.3 mcg/mL (10.0-20.0) Vancomycin Last Dose Date 11/24/17 Vancomycin Last Dose Time 1300 Test 11/25/17 11:43 Glucose (Fingerstick) 159 mg/dL (70-99) Microbiology 11/23/17 Blood Culture - Preliminary, Resulted NO GROWTH AFTER 2 DAYS 11/18/17 Urine Culture - Final, Complete 11/18/17 Urine Culture Result 1 (BRITNEY) - Final, Complete 11/16/17 Anaerobic/Aerobic Culture - Final, Complete 11/16/17 Anaerobic Culture Result 1 (BRITNEY) - Final, Complete 11/16/17 Aerobic Culture - Final, Complete 11/16/17 Aerobic Culture Result 1 (BRITNEY) - Final, Complete 11/16/17 Aerobic Culture Result 2 (BRITNEY) - Final, Complete 11/16/17 Antimicrobic Susceptibility - Final, Complete 11/16/17 Gram Stain - Final, Complete 11/16/17 Gram Stain Result 1 (BRITNEY) - Final, Complete 11/16/17 Gram Stain Result 2 (BRITNEY) - Final, Complete Medications Current Medications Ondansetron HCl (Zofran) 4 mg PRN Q8HRS PRN IV NAUSEA/VOMITING 1ST CHOICE; Start 11/16/17 at 01:30; Stop 11/17/17 at 01:29; Status DC Morphine Sulfate (Morphine Sulfate) 4 mg PRN Q2HR PRN IV SEVERE PAIN; Start at 01:30; Stop 11/17/17 at 01:29; Status DC Acetaminophen (Tylenol) 650 mg PRN Q4HRS PRN PO MILD PAIN / TEMP Last administered on 11/24/17at 21:13; Start 11/16/17 at 01:30 Enoxaparin Sodium (Lovenox 40mg Syringe) 40 mg DAILY SQ Last administered on at 09:21; Start 11/16/17 at 09:00; Stop 11/17/17 at 10:16; Status DC Atorvastatin Calcium (Lipitor) 40 mg QHS PO Last administered on 11/24/17at 21: 13; Start 11/16/17 at 21:00 Insulin Human Lispro (HumaLOG) 4 units TIDAC SQ Last administered on 11/20/17at 08:45; Start 11/16/17 at 07:30; Stop 11/20/17 at 11:27; Status DC Insulin Glargine (Lantus) 12 units QHS SQ Last administered on 11/19/17at 21:29 ; Start 11/16/17 at 21:00; Stop 11/20/17 at 11:27; Status DC Lisinopril (Prinivil) 20 mg DAILY PO Last administered on 11/18/17at 09:11; Start 11/16/17 at 09:00; Stop 11/18/17 at 12:57; Status DC Metformin HCl (Glucophage) 500 mg BIDWMEALS PO Last administered on 11/25/17 08:35; Start 11/16/17 at 08:00 Amlodipine Besylate (Norvasc) 5 mg DAILY PO Last administered on 11/18/17 09: 11; Start 11/16/17 at 09:00; Stop 11/18/17 at 12:57; Status DC Clopidogrel Bisulfate (Plavix) 75 mg DAILY PO Last administered on 11/25/17at 08 :36; Start 11/16/17 at 09:00 Furosemide (Lasix) 20 mg DAILY IVP Last administered on 11/17/17 09:19; Start 11/16/17 at 12:00; Stop 11/17/17 at 10:16; Status DC Potassium Chloride (Klor-Con) 20 meq DAILYWBKFT PO Last administered on 09:19; Start 11/16/17 at 11:00; Stop 11/17/17 at 10:16; Status DC Nicotine (Nicoderm Cq 21mg) 1 patch DAILY TD Last administered on 11/25/17 08: 35; Start 11/16/17 at 16:00 Furosemide (Lasix) 40 mg DAILY IVP Last administered on 11/18/17 09:11; Start 11/17/17 at 11:00; Stop 11/18/17 at 12:57; Status DC Potassium Chloride (Klor-Con) 40 meq BIDWMEALS PO Last administered on at 09:10; Start 11/17/17 at 11:00; Stop 11/18/17 at 12:57; Status DC Lisinopril (Prinivil) 10 mg DAILY PO Last administered on 11/21/17at 08:39; Start 11/19/17 at 09:00; Stop 11/21/17 at 10:54; Status DC Potassium Chloride (Klor-Con) 20 meq BIDWMEALS PO Last administered on at 17:07; Start 11/18/17 at 17:00; Stop 11/22/17 at 09:03; Status DC Furosemide (Lasix) 20 mg DAILY PO Last administered on 11/21/17at 08:38; Start 11/19/17 at 09:00; Stop 11/22/17 at 09:03; Status DC Magnesium Sulfate 50 ml @ 25 mls/hr 1X ONCE IV Last administered on 11/18/17at 14:21; Start 11/18/17 at 14:00; Stop 11/18/17 at 15:59; Status DC Tamsulosin HCl (Flomax) 0.4 mg QHS PO Last administered on 11/23/17at 21:22; Start 11/18/17 at 21:00; Stop 11/24/17 at 09:37; Status DC Insulin Glargine (Lantus) 16 units QHS SQ Last administered on 11/20/17at 21:25 ; Start 11/20/17 at 21:00; Stop 11/21/17 at 10:54; Status DC Insulin Human Lispro (HumaLOG) 6 units TIDAC SQ Last administered on 11/21/17at 08:47; Start 11/20/17 at 11:30; Stop 11/21/17 at 10:54; Status DC Thiamine Mononitrate (Vitamin B-1) 100 mg DAILY PO Last administered on at 08:36; Start 11/20/17 at 12:00 Multivitamins (Thera M Plus) 1 tab DAILY PO Last administered on 11/25/17at 08: 36; Start 11/20/17 at 12:00 Insulin Human Lispro (HumaLOG) 0-5 UNITS TIDWMEALS SQ Last administered on 11/21at 08:46; Start 11/20/17 at 18:00; Stop 11/21/17 at 10:54; Status DC Dextrose (Dextrose 50%-Water Syringe) 12.5 gm PRN Q15MIN PRN IV SEE COMMENTS; Start 11/20/17 at 18:00 Insulin Glargine (Lantus) 20 units QHS SQ Last administered on 11/21/17at 20:59 ; Start 11/21/17 at 21:00; Stop 11/22/17 at 09:03; Status DC Insulin Human Lispro (HumaLOG) 8 units TIDAC SQ Last administered on 11/21/17at 17:12; Start 11/21/17 at 11:30; Stop 11/22/17 at 09:03; Status DC Lisinopril (Prinivil) 20 mg DAILY PO ; Start 11/22/17 at 09:00; Stop 11/22/17 at 09:03; Status DC Insulin Human Lispro (HumaLOG) BG 400-49,9=6 units TIDWMEALS SQ Last administered on 11/24/17at 17:23; Start 11/21/17 at 12:00 Furosemide (Lasix) 20 mg QODAY PO Last administered on 11/25/17at 08:36; Start 11/23/17 at 09:00 Insulin Glargine (Lantus) 12 units QHS SQ Last administered on 11/24/17at 21:19 ; Start 11/22/17 at 21:00 Insulin Human Lispro (HumaLOG) 4 units TIDAC SQ Last administered on 11/25/17at 08:47; Start 11/22/17 at 11:30 Lisinopril (Prinivil) 10 mg DAILY PO Last administered on 11/25/17at 08:36; Start 11/23/17 at 09:00 Potassium Chloride (Klor-Con) 40 meq QODAY PO Last administered on 11/23/17at 08 :33; Start 11/23/17 at 09:00; Stop 11/24/17 at 15:06; Status DC Vancomycin HCl 1 gm/Sodium Chloride 250 ml @ 250 mls/hr Q12HR IV ; Start at 09:00; Status UNV Vancomycin HCl (Vanco Per Pharmacy) 1 each PRN DAILY PRN MC SEE COMMENTS Last administered on 11/25/17at 01:44; Start 11/23/17 at 08:45; Stop 11/25/17 at 09:43 ; Status DC Cefepime HCl 1 gm/ Dextrose 50 ml @ 100 mls/hr Q8HRS IV ; Start 11/23/17 at 14: 00; Status UNV Cefepime HCl (Maxipime) 1 gm Q8HRS IVP Last administered on 11/25/17at 05:33; Start 11/23/17 at 09:00 Vancomycin HCl 2 gm/Sodium Chloride 500 ml @ 250 mls/hr ONCE ONCE IV Last administered on 11/23/17at 13:32; Start 11/23/17 at 09:00; Stop 11/23/17 at 10:59 ; Status DC Vancomycin HCl 1.25 gm/Sodium Chloride 250 ml @ 167 mls/hr Q12H IV Last administered on 11/25/17at 01:46; Start 11/24/17 at 01:00; Stop 11/25/17 at 09:38 ; Status DC Vancomycin HCl (Vancomycin Trough Level) 1 each 1X ONCE MC Last administered on 11/25/17at 00:30; Start 11/25/17 at 00:30; Stop 11/25/17 at 00:31; Status DC Phenazopyridine HCl (Pyridium) 200 mg PRN TID PRN PO URINARY PAIN Last administered on 11/24/17at 10:39; Start 11/24/17 at 09:45 Tamsulosin HCl (Flomax) 0.4 mg BID PO Last administered on 11/25/17 08:36; Start 11/24/17 at 10:00 Lactobacillus Rhamnosus (Culturelle) 1 cap BID PO Last administered on at 08:35; Start 11/24/17 at 21:00 Potassium Chloride (Klor-Con) 40 meq DAILY08 PO Last administered on 11/25/17at 08:37; Start 11/25/17 at 08:00 Amlodipine Besylate (Norvasc) 5 mg DAILY PO Last administered on 11/25/17at 08: 37; Start 11/25/17 at 09:00 Amlodipine Besylate (Norvasc) 5 mg 1X ONCE PO Last administered on 11/24/17at 17:19; Start 11/24/17 at 15:15; Stop 11/24/17 at 15:16; Status DC Potassium Chloride (Klor-Con) 20 meq 1X ONCE PO Last administered on at 17:18; Start 11/24/17 at 15:15; Stop 11/24/17 at 15:16; Status DC Active Scripts Active Reported Clopidogrel (Clopidogrel Bisulfate) 75 Mg Tablet 1 Tab PO DAILY Lantus (Insulin Glargine,Hum.rec.anlog) 100 Unit/1 Ml Vial 32 Unit SQ HS Apidra (Insulin Glulisine) 100 Unit/1 Ml Vial 6 Unit SQ TIDAC Lipitor (Atorvastatin Calcium) 40 Mg Tablet 40 Mg PO HS Lisinopril 10 Mg Tablet 10 Mg PO DAILY08 Metformin Hcl 500 Mg Tablet 500 Mg PO [id number] Vitals/I & O Vital Sign - Last 24 Hours 11/24/17 11/24/17 11/24/17 11/24/17 14:55 17:19 19:00 20:00 Temp 98.5 99.0 98.5 99.0 Pulse 93 93 77 Resp 18 B/P (MAP) 170/98 (122) 170/98 144/79 (100) Pulse Ox 99 97 O2 Delivery Room Air Room Air Room Air 11/24/17 11/25/17 11/25/17 11/25/17 23:00 03:00 07:00 07:30 Temp 98.5 98.0 98.2 98.5 98.0 98.2 Pulse 68 71 75 Resp 18 18 B/P (MAP) 120/59 (79) 165/92 (116) 139/93 (108) Pulse Ox 98 100 99 O2 Delivery Room Air Room Air Room Air Room Air 11/25/17 11/25/17 11/25/17 08:36 08:37 11:13 Temp 98.5 98.5 Pulse 71 71 94 Resp 18 B/P (MAP) 165/92 165/92 169/87 (114) Pulse Ox 100 O2 Delivery Nasal Cannula Intake and Output 11/24/17 11/24/17 11/25/17 15:00 23:00 07:00 Intake Total 470 ml Output Total 1000 ml 1000 ml Balance -530 ml -1000 ml ARAM TERRELL MD Nov 25, 2017 13:12
[2017-11-25] MEDS ORDERED: MAGNESIUM SULFATE 2GM 50 ML IV ONE (14:00)
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
--- NOTE | 2017-11-25 16:14 | EKG ---
[facility] [address] [place] [address] Test Date: 2017-11-25 Test Time: 13:34:41 Pat Name: BEATRIS BROCK Department: Room: 432 1 Gender: M Flask Pusher: : 1945 Requested By: ARAM TERRELL Order Number: [id number] Reading MD: Bill Orellana MD Measurements Intervals [place] Rate: 84 P: 72 CA: 148 QRS: -19 QRSD: 84 T: 64 QT: 364 QTc: 433 Interpretive Statements SINUS RHYTHM VENTRICULAR PREMATURE COMPLEX(ES) LOW VOLTAGE Electronically Signed On 11-30-2017 11:45:15 CDT by Bill Orellana MD
--- NOTE | 2017-11-25 18:16 | PDOC ---
PROGRESS NOTES Assessment Assessment Metabolic encephalopathy. Hyperglycemia. DM. HTN. HLD. CAD, MN. Bilateral LE edema. Right singh open wound. 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 Femoral lymphadenopathy. Left prosthetic eye. Smoking. No evidence of acute CVA this time. RECOMMENDATIONS/PLAN: Continue Plavix 75 mg daily. Continue Lipitor HS. Wound care, left LE. Treat medical diseases. OT/PT. FU with PCP. HISTORY OF THE PRESENT ILLNESS: 72-y-old AA male patent with above medical diseases was admitted into the hospital due to LE wounds. His nurse stated that he has been having mental status changes since yesterday and confusional episodes, so neurology was requested for consultation. PAST MEDICAL HISTORY: Diabetes mellitus type 2 with microalbuminuria. Hypertension. Hyperlipidemia Coronary artery disease. Myocardial infarction in the past Gastric ulcer in 2003. Irritable bowel syndrome. Prosthetic left eye. PAST SURGERY HISTORY: No major surgery recently. FAMILY HISTORY: Noncontributory. SOCIAL HISTORY: Does not drink alcohol. Smokes about 1 pack per day of cigarettes. ALLERGY: NKDA MEDICATIONS: Refer to MAR REVIEW OF SYSTEMS: Constitutional: No malnutrition, weight loss, cachexia. Head: No recent traumatic brain or head injury. Skin: No edema, or rash. Ear: No infection, tinnitus. Eyes: Left prosthetic eye. Nose: No bleeding or purulent discharges. Hearing: Hearing decrease. Neck: No injury. Cardiac: MN, CAD, HTN, HLD. Pulmonary: No COPD. GI: Gastric ulcer in 2003. Irritable bowel syndrome.. Urinary/genital: UTI. Endocrinologic: Diabetes Mellitus. Skeletomuscular: No muscular atrophy, deformity. Neurological: see HP. Psychiatric: Denies drug use/abuse. Otherwise, not [id number] review of systems. PHYSICAL EXAMINATION: General appearance is in no acute distress. HEENT: Normocephalic and nontraumatic. Nose, ears, and throat are unremarkable , left prosthetic eye. Neck is supple. No lymphadenopathy. No crepitus. Cardiovascular: S1, S2, regular rate and rhythm. Pulmonary: Clear to auscultation bilaterally. Abdomen: Bowel sounds are positive. Abdomen is soft, nontender, and nondistended. Extremities: LE wound. No restriction of range of motion NEUROLOGICAL EXAMINATION: Awake. Not fully oriented to time, but knew place and person. Right pupil reactive to light. Left eye prosthetic. EOMI. CN: no focal findings. Muscle tone: within normal. Muscle strength: 4 right side, 5- left side. DTR: 1-2 Plantar reflex: Neutral response bilaterally Gait: Able to walk with a walker. Sensory exam: no abnormal findings. No acute cerebellar signs elicited. F-T-N test fine. Objective Objective Vital Signs Date Time Temp Pulse Resp B/P (MAP) Pulse Ox O2 Delivery O2 Flow Rate FiO2 11/25/17 16:19 107 18 115/68 (84) 97 Room Air 11/25/17 11:13 98.5 98.5 Intake and Output 11/25/17 07:00 Intake Total 470 ml Output Total 2000 ml Balance -1530 ml Intake Oral 470 ml Output Urine Total 2000 ml # Voids 8 # Bowel Movements 1 Vitals Signs Vitals VS - Last 72 Hours, by Label Date Time Temp Pulse Resp B/P (MAP) Pulse Ox O2 Delivery O2 Flow Rate FiO2 11/25/17 16:19 107 18 115/68 (84) 97 Room Air 11/25/17 16:14 92 18 113/75 (88) 96 Room Air 11/25/17 16:08 82 18 120/73 (89) 98 Room Air 11/25/17 14:57 95 18 129/70 (89) 100 Room Air 11/25/17 12:55 84 136/84 (101) 100 Room Air 11/25/17 12:30 82 14 62/41 (48) 99 Room Air 11/25/17 11:13 98.5 94 18 169/87 (114) 100 Nasal Cannula 98.5 11/25/17 08:37 71 165/92 11/25/17 08:36 71 165/92 11/25/17 07:30 Room Air 11/25/17 07:00 98.2 75 18 139/93 (108) 99 Room Air 98.2 11/25/17 03:00 98.0 71 18 165/92 (116) 100 Room Air 98.0 11/24/17 23:00 98.5 68 18 120/59 (79) 98 Room Air 98.5 11/24/17 20:00 Room Air 11/24/17 19:00 99.0 77 18 144/79 (100) 97 Room Air 99.0 11/24/17 17:19 93 170/98 11/24/17 14:55 98.5 93 18 170/98 (122) 99 Room Air 98.5 11/24/17 10:51 98.4 75 18 130/110 (117) 95 Room Air 98.4 11/24/17 08:15 75 172/87 11/24/17 07:30 Room Air 11/24/17 07:00 97.8 75 18 172/87 (115) 100 Room Air 97.8 Laboratory Laboratory Laboratory Tests Test 11/24/17 20:10 11/25/17 00:45 11/25/17 07:47 11/25/17 11:43 Glucose (Fingerstick) 237 mg/dL (70-99) 104 mg/dL (70-99) 159 mg/dL (70-99) White Blood Count 5.8 x10^3/uL (4.0-11.0) Red Blood Count 4.52 x10^6/uL (4.30-5.70) Hemoglobin 13.8 g/dL (13.0-17.5) Hematocrit 40.6 % (39.0-53.0) Mean Corpuscular Volume 90 fL (79-100) Mean Corpuscular Hemoglobin 31 pg (25-35) Mean Corpuscular Hemoglobin Concent 34 g/dL (31-37) Red Cell Distribution Width 13.6 % (11.5-14.5) Platelet Count 228 x10^3/uL (140-400) Neutrophils (%) (Auto) 55 % (31-73) Lymphocytes (%) (Auto) 30 % (24-48) Monocytes (%) (Auto) 12 % (0-9) Eosinophils (%) (Auto) 3 % (0-3) Basophils (%) (Auto) 1 % (0-3) Neutrophils # (Auto) 3.2 x10^3uL (1.8-7.7) Lymphocytes # (Auto) 1.7 x10^3/uL (1.0-4.8) Monocytes # (Auto) 0.7 x10^3/uL (0.0-1.1) Eosinophils # (Auto) 0.1 x10^3/uL (0.0-0.7) Basophils # (Auto) 0.1 x10^3/uL (0.0-0.2) Sodium Level 140 mmol/L (136-145) Potassium Level 3.6 mmol/L (3.5-5.1) Chloride Level 108 mmol/L (98-107) Carbon Dioxide Level 28 mmol/L (21-32) Anion Gap 4 (6-14) Blood Urea Nitrogen 14 mg/dL (8-26) Creatinine 1.0 mg/dL (0.7-1.3) Estimated GFR (Cockcroft-Gault) 89.1 Glucose Level 108 mg/dL (70-99) Calcium Level 8.6 mg/dL (8.5-10.1) Magnesium Level 1.5 mg/dL (1.8-2.4) Vancomycin Level Trough 15.3 mcg/mL (10.0-20.0) Vancomycin Last Dose Date 11/24/17 Vancomycin Last Dose Time 1300 Test 11/25/17 13:30 11/25/17 17:31 Glucose (Fingerstick) 184 mg/dL (70-99) 117 mg/dL (70-99) Microbiology 11/23/17 Blood Culture - Preliminary, Resulted NO GROWTH AFTER 2 DAYS 11/23/17 - Final, Resulted 11/23/17 - Final, Resulted 11/23/17 - Final, Resulted 11/23/17 - Final, Resulted 11/23/17 Gram Stain Evaluation - Final, Resulted 11/23/17 Sputum Culture, Resulted Pending 11/18/17 Urine Culture - Final, Complete 11/18/17 Urine Culture Result 1 (BRITNEY) - Final, Complete 11/16/17 Anaerobic/Aerobic Culture - Final, Complete 11/16/17 Anaerobic Culture Result 1 (BRITNEY) - Final, Complete 11/16/17 Aerobic Culture - Final, Complete 11/16/17 Aerobic Culture Result 1 (BRITNEY) - Final, Complete 11/16/17 Aerobic Culture Result 2 (BRITNEY) - Final, Complete 11/16/17 Antimicrobic Susceptibility - Final, Complete 11/16/17 Gram Stain - Final, Complete 11/16/17 Gram Stain Result 1 (BRITNEY) - Final, Complete 11/16/17 Gram Stain Result 2 (BRITNEY) - Final, Complete Medication Medications Current Medications Amlodipine Besylate (Norvasc) 5 mg DAILY PO Last administered on 11/25/17at 08: 37; Start 11/25/17 at 09:00; Stop 11/25/17 at 13:10; Status DC Amlodipine Besylate (Norvasc) 10 mg DAILY PO ; Start 11/26/17 at 09:00; Stop at 09:00; Status DC Lactobacillus Rhamnosus (Culturelle) 1 cap BID PO Last administered on at 08:35; Start 11/24/17 at 21:00 Magnesium Sulfate 50 ml @ 25 mls/hr 1X ONCE IV Last administered on 11/25/17at 17:29; Start 11/25/17 at 14:00; Stop 11/25/17 at 15:59; Status DC Potassium Chloride (Klor-Con) 40 meq DAILY08 PO Last administered on 11/25/17at 08:37; Start 11/25/17 at 08:00; Stop 11/25/17 at 14:00; Status DC Tamsulosin HCl (Flomax) 0.4 mg QHS PO ; Start 11/25/17 at 21:00 Vancomycin HCl (Vancomycin Trough Level) 1 each 1X ONCE MC Last administered on 11/25/17at 00:30; Start 11/25/17 at 00:30; Stop 11/25/17 at 00:31; Status DC Comment Review of Relevant I have reviewed the following items linda (where applicable) has been applied. LUKASZ FINCH MD Nov 25, 2017 18:16
[2017-11-25] MEDS: ATORVASTATIN CALCIUM 40 MG TABLET. PO SCH (20:48)
[2017-11-25] MEDS: INSULIN GLARGINE 300 UNITS/3 ML INSULN.PEN. SQ SCH (20:52)
[2017-11-25] MEDS ORDERED: TAMSULOSIN 0.4 MG CAP.ER.24H. PO SCH (21:00)
[2017-11-26 03:00] VITALS: BP 157/85
[2017-11-26 05:33] LABS: BASO # 0.1 x10^3/uL (0.0-0.2); BASO % 1 % (0-3); EOS # 0.1 x10^3/uL (0.0-0.7); EOS % 2 % (0-3); HEMATOCRIT 41.4 % (39.0-53.0); HEMOGLOBIN 14.3 g/dL (13.0-17.5); LYMPH # 1.7 x10^3/uL (1.0-4.8); LYMPH % 30 % (24-48); MEAN CORPUSCULAR HEMOGLOBIN 31 pg (25-35); MEAN CORPUSCULAR HGB CONC 35 g/dL (31-37); MEAN CORPUSCULAR VOLUME 90 fL (79-100); MONO # 0.6 x10^3/uL (0.0-1.1); MONO % 10 % (0-9); NEUT # 3.3 x10^3uL (1.8-7.7); NEUT % 58 % (31-73); PLATELET COUNT 237 x10^3/uL (140-400); RED BLOOD COUNT 4.58 x10^6/uL (4.30-5.70); RED CELL DISTRIBUTION WIDTH 13.6 % (11.5-14.5); WHITE BLOOD COUNT 5.8 x10^3/uL (4.0-11.0)
[2017-11-26 06:01] LABS: GFR 89.1; MAGNESIUM 2.2 mg/dL (1.8-2.4); POTASSIUM 3.9 mmol/L (3.5-5.1)
[2017-11-26] MEDS: CEFEPIME HCL IV Push 1 GM VIAL. IVP SCH ×2 (06:21→13:31)
[2017-11-26 07:00] VITALS: BP 148/74
[2017-11-26] MEDS: INSULIN LISPRO 300 UNITS/3 ML INSULN.PEN. SQ SCH ×4 (07:30→13:34)
[2017-11-26] MEDS: metFORMIN 500 MG TABLET PO SCH (08:41)
[2017-11-26] MEDS: MULTIVITAMIN with MINERAL TABLET. PO SCH (08:41)
[2017-11-26] MEDS: CLOPIDOGREL BISULFATE 75 MG TABLET PO SCH (08:41)
[2017-11-26] MEDS: LACTOBACILLUS RHAMNOSUS GG 1 CAPSULE. PO SCH (08:41)
[2017-11-26] MEDS: NICOTINE 21MG PATCH. TD SCH (08:41)
--- NOTE | 2017-11-26 08:41 | PDOC ---
PROGRESS NOTES Subjective Subjective urine culture growing strep. has dysuria. denies dizziness. blood pressure okay yesterday but high this morning. lab reviewed. blood sugars reviewed. Objective Objective Vital Signs Date Time Temp Pulse Resp B/P (MAP) Pulse Ox O2 Delivery O2 Flow Rate FiO2 11/26/17 03:00 98.4 82 18 157/85 (109) 100 Room Air 98.4 Intake and Output 11/26/17 07:00 Intake Total 470 ml Balance 470 ml Intake Oral 470 ml # Voids 8 Physical Exam Abdomen: Soft Heart: Regular rate, Normal S1, Normal S2 Extremities: No edema General: Alert HEENT: Atraumatic Lungs: Clear to auscultation Neuro: Normal speech Psych/Mental Status: Mental status NL Skin: No rashes, Other (right pretibial wound) Assessment Assessment 1. Bilateral lower extremity edema. resolved 2. Right leg wound. 3. Diabetes mellitus type 2 with microalbuminuria. 4. Hypertension. 5. Hyperlipidemia. 6. Coronary artery disease. 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 currently on iv cefepime monitor blood pressure and dizziness and fever await urine culture report for sensitivities of strep anticipate dismissal tomorrow if stable can be dismissed today and oral antibiotic per ID and if okay with ID home health with home PT Comment Review of Relevant I have reviewed the following items linda (where applicable) has been applied. Labs Laboratory Tests Test 11/24/17 12:05 11/24/17 17:09 11/24/17 20:10 11/25/17 00:45 Glucose (Fingerstick) 152 mg/dL (70-99) 258 mg/dL (70-99) 237 mg/dL (70-99) White Blood Count 5.8 x10^3/uL (4.0-11.0) Red Blood Count 4.52 x10^6/uL (4.30-5.70) Hemoglobin 13.8 g/dL (13.0-17.5) Hematocrit 40.6 % (39.0-53.0) Mean Corpuscular Volume 90 fL (79-100) Mean Corpuscular Hemoglobin 31 pg (25-35) Mean Corpuscular Hemoglobin Concent 34 g/dL (31-37) Red Cell Distribution Width 13.6 % (11.5-14.5) Platelet Count 228 x10^3/uL (140-400) Neutrophils (%) (Auto) 55 % (31-73) Lymphocytes (%) (Auto) 30 % (24-48) Monocytes (%) (Auto) 12 % (0-9) Eosinophils (%) (Auto) 3 % (0-3) Basophils (%) (Auto) 1 % (0-3) Neutrophils # (Auto) 3.2 x10^3uL (1.8-7.7) Lymphocytes # (Auto) 1.7 x10^3/uL (1.0-4.8) Monocytes # (Auto) 0.7 x10^3/uL (0.0-1.1) Eosinophils # (Auto) 0.1 x10^3/uL (0.0-0.7) Basophils # (Auto) 0.1 x10^3/uL (0.0-0.2) Sodium Level 140 mmol/L (136-145) Potassium Level 3.6 mmol/L (3.5-5.1) Chloride Level 108 mmol/L (98-107) Carbon Dioxide Level 28 mmol/L (21-32) Anion Gap 4 (6-14) Blood Urea Nitrogen 14 mg/dL (8-26) Creatinine 1.0 mg/dL (0.7-1.3) Estimated GFR (Cockcroft-Gault) 89.1 Glucose Level 108 mg/dL (70-99) Calcium Level 8.6 mg/dL (8.5-10.1) Magnesium Level 1.5 mg/dL (1.8-2.4) Vancomycin Level Trough 15.3 mcg/mL (10.0-20.0) Vancomycin Last Dose Date 11/24/17 Vancomycin Last Dose Time 1300 Test 11/25/17 07:47 11/25/17 11:43 11/25/17 13:30 11/25/17 17:31 Glucose (Fingerstick) 104 mg/dL (70-99) 159 mg/dL (70-99) 184 mg/dL (70-99) 117 mg/dL (70-99) Test 11/25/17 20:31 11/26/17 04:34 8/31/18 07:29 Glucose (Fingerstick) 149 mg/dL (70-99) 89 mg/dL (70-99) White Blood Count 5.8 x10^3/uL (4.0-11.0) Red Blood Count 4.58 x10^6/uL (4.30-5.70) Hemoglobin 14.3 g/dL (13.0-17.5) Hematocrit 41.4 % (39.0-53.0) Mean Corpuscular Volume 90 fL (79-100) Mean Corpuscular Hemoglobin 31 pg (25-35) Mean Corpuscular Hemoglobin Concent 35 g/dL (31-37) Red Cell Distribution Width 13.6 % (11.5-14.5) Platelet Count 237 x10^3/uL (140-400) Neutrophils (%) (Auto) 58 % (31-73) Lymphocytes (%) (Auto) 30 % (24-48) Monocytes (%) (Auto) 10 % (0-9) Eosinophils (%) (Auto) 2 % (0-3) Basophils (%) (Auto) 1 % (0-3) Neutrophils # (Auto) 3.3 x10^3uL (1.8-7.7) Lymphocytes # (Auto) 1.7 x10^3/uL (1.0-4.8) Monocytes # (Auto) 0.6 x10^3/uL (0.0-1.1) Eosinophils # (Auto) 0.1 x10^3/uL (0.0-0.7) Basophils # (Auto) 0.1 x10^3/uL (0.0-0.2) Sodium Level 142 mmol/L (136-145) Potassium Level 3.9 mmol/L (3.5-5.1) Chloride Level 107 mmol/L (98-107) Carbon Dioxide Level 26 mmol/L (21-32) Anion Gap 9 (6-14) Blood Urea Nitrogen 15 mg/dL (8-26) Creatinine 1.0 mg/dL (0.7-1.3) Estimated GFR (Cockcroft-Gault) 89.1 Glucose Level 88 mg/dL (70-99) Calcium Level 9.0 mg/dL (8.5-10.1) Magnesium Level 2.2 mg/dL (1.8-2.4) Laboratory Tests Test 11/25/17 11:43 11/25/17 13:30 11/25/17 17:31 11/25/17 20:31 Glucose (Fingerstick) 159 mg/dL (70-99) 184 mg/dL (70-99) 117 mg/dL (70-99) 149 mg/dL (70-99) Test 11/26/17 04:34 11/26/17 07:29 White Blood Count 5.8 x10^3/uL (4.0-11.0) Red Blood Count 4.58 x10^6/uL (4.30-5.70) Hemoglobin 14.3 g/dL (13.0-17.5) Hematocrit 41.4 % (39.0-53.0) Mean Corpuscular Volume 90 fL (79-100) Mean Corpuscular Hemoglobin 31 pg (25-35) Mean Corpuscular Hemoglobin Concent 35 g/dL (31-37) Red Cell Distribution Width 13.6 % (11.5-14.5) Platelet Count 237 x10^3/uL (140-400) Neutrophils (%) (Auto) 58 % (31-73) Lymphocytes (%) (Auto) 30 % (24-48) Monocytes (%) (Auto) 10 % (0-9) Eosinophils (%) (Auto) 2 % (0-3) Basophils (%) (Auto) 1 % (0-3) Neutrophils # (Auto) 3.3 x10^3uL (1.8-7.7) Lymphocytes # (Auto) 1.7 x10^3/uL (1.0-4.8) Monocytes # (Auto) 0.6 x10^3/uL (0.0-1.1) Eosinophils # (Auto) 0.1 x10^3/uL (0.0-0.7) Basophils # (Auto) 0.1 x10^3/uL (0.0-0.2) Sodium Level 142 mmol/L (136-145) Potassium Level 3.9 mmol/L (3.5-5.1) Chloride Level 107 mmol/L (98-107) Carbon Dioxide Level 26 mmol/L (21-32) Anion Gap 9 (6-14) Blood Urea Nitrogen 15 mg/dL (8-26) Creatinine 1.0 mg/dL (0.7-1.3) Estimated GFR (Cockcroft-Gault) 89.1 Glucose Level 88 mg/dL (70-99) Calcium Level 9.0 mg/dL (8.5-10.1) Magnesium Level 2.2 mg/dL (1.8-2.4) Glucose (Fingerstick) 89 mg/dL (70-99) Microbiology 11/23/17 Blood Culture - Preliminary, Resulted NO GROWTH AFTER 2 DAYS 11/23/17 - Final, Resulted 11/23/17 - Final, Resulted 11/23/17 - Final, Resulted 11/23/17 - Final, Resulted 11/23/17 Gram Stain Evaluation - Final, Resulted 11/23/17 Sputum Culture, Resulted Pending 11/23/17 Urine Culture - Preliminary, Resulted 11/23/17 Urine Culture Result 1 (BRITNEY) - Preliminary, Resulted 11/16/17 Anaerobic/Aerobic Culture - Final, Complete 11/16/17 Anaerobic Culture Result 1 (BRITNEY) - Final, Complete 11/16/17 Aerobic Culture - Final, Complete 11/16/17 Aerobic Culture Result 1 (BRITNEY) - Final, Complete 11/16/17 Aerobic Culture Result 2 (BRITNEY) - Final, Complete 11/16/17 Antimicrobic Susceptibility - Final, Complete 11/16/17 Gram Stain - Final, Complete 11/16/17 Gram Stain Result 1 (BRITNEY) - Final, Complete 11/16/17 Gram Stain Result 2 (BRITNEY) - Final, Complete Medications Current Medications Ondansetron HCl (Zofran) 4 mg PRN Q8HRS PRN IV NAUSEA/VOMITING 1ST CHOICE; Start 11/16/17 at 01:30; Stop 11/17/17 at 01:29; Status DC Morphine Sulfate (Morphine Sulfate) 4 mg PRN Q2HR PRN IV SEVERE PAIN; Start at 01:30; Stop 11/17/17 at 01:29; Status DC Acetaminophen (Tylenol) 650 mg PRN Q4HRS PRN PO MILD PAIN / TEMP Last administered on 11/24/17at 21:13; Start 11/16/17 at 01:30 Enoxaparin Sodium (Lovenox 40mg Syringe) 40 mg DAILY SQ Last administered on at 09:21; Start 11/16/17 at 09:00; Stop 11/17/17 at 10:16; Status DC Atorvastatin Calcium (Lipitor) 40 mg QHS PO Last administered on 11/25/17 20: 48; Start 11/16/17 at 21:00 Insulin Human Lispro (HumaLOG) 4 units TIDAC SQ Last administered on 11/20/17at 08:45; Start 11/16/17 at 07:30; Stop 11/20/17 at 11:27; Status DC Insulin Glargine (Lantus) 12 units QHS SQ Last administered on 11/19/17at 21:29 ; Start 11/16/17 at 21:00; Stop 11/20/17 at 11:27; Status DC Lisinopril (Prinivil) 20 mg DAILY PO Last administered on 11/18/17 09:11; Start 11/16/17 at 09:00; Stop 11/18/17 at 12:57; Status DC Metformin HCl (Glucophage) 500 mg BIDWMEALS PO Last administered on 11/25/17 17:29; Start 11/16/17 at 08:00 Amlodipine Besylate (Norvasc) 5 mg DAILY PO Last administered on 11/18/17 09: 11; Start 11/16/17 at 09:00; Stop 11/18/17 at 12:57; Status DC Clopidogrel Bisulfate (Plavix) 75 mg DAILY PO Last administered on 11/25/17 08 :36; Start 11/16/17 at 09:00 Furosemide (Lasix) 20 mg DAILY IVP Last administered on 11/17/17at 09:19; Start 11/16/17 at 12:00; Stop 11/17/17 at 10:16; Status DC Potassium Chloride (Klor-Con) 20 meq DAILYWBKFT PO Last administered on 09:19; Start 11/16/17 at 11:00; Stop 11/17/17 at 10:16; Status DC Nicotine (Nicoderm Cq 21mg) 1 patch DAILY TD Last administered on 11/25/17 08: 35; Start 11/16/17 at 16:00 Furosemide (Lasix) 40 mg DAILY IVP Last administered on 11/18/17at 09:11; Start 11/17/17 at 11:00; Stop 11/18/17 at 12:57; Status DC Potassium Chloride (Klor-Con) 40 meq BIDWMEALS PO Last administered on at 09:10; Start 11/17/17 at 11:00; Stop 11/18/17 at 12:57; Status DC Lisinopril (Prinivil) 10 mg DAILY PO Last administered on 11/21/17at 08:39; Start 11/19/17 at 09:00; Stop 11/21/17 at 10:54; Status DC Potassium Chloride (Klor-Con) 20 meq BIDWMEALS PO Last administered on at 17:07; Start 11/18/17 at 17:00; Stop 11/22/17 at 09:03; Status DC Furosemide (Lasix) 20 mg DAILY PO Last administered on 11/21/17at 08:38; Start 11/19/17 at 09:00; Stop 11/22/17 at 09:03; Status DC Magnesium Sulfate 50 ml @ 25 mls/hr 1X ONCE IV Last administered on 11/18/17at 14:21; Start 11/18/17 at 14:00; Stop 11/18/17 at 15:59; Status DC Tamsulosin HCl (Flomax) 0.4 mg QHS PO Last administered on 11/23/17at 21:22; Start 11/18/17 at 21:00; Stop 11/24/17 at 09:37; Status DC Insulin Glargine (Lantus) 16 units QHS SQ Last administered on 11/20/17at 21:25 ; Start 11/20/17 at 21:00; Stop 11/21/17 at 10:54; Status DC Insulin Human Lispro (HumaLOG) 6 units TIDAC SQ Last administered on 11/21/17at 08:47; Start 11/20/17 at 11:30; Stop 11/21/17 at 10:54; Status DC Thiamine Mononitrate (Vitamin B-1) 100 mg DAILY PO Last administered on at 08:36; Start 11/20/17 at 12:00; Stop 11/25/17 at 13:10; Status DC Multivitamins (Thera M Plus) 1 tab DAILY PO Last administered on 11/25/17at 08: 36; Start 11/20/17 at 12:00 Insulin Human Lispro (HumaLOG) 0-5 UNITS TIDWMEALS SQ Last administered on 11/21at 08:46; Start 11/20/17 at 18:00; Stop 11/21/17 at 10:54; Status DC Dextrose (Dextrose 50%-Water Syringe) 12.5 gm PRN Q15MIN PRN IV SEE COMMENTS; Start 11/20/17 at 18:00 Insulin Glargine (Lantus) 20 units QHS SQ Last administered on 11/21/17at 20:59 ; Start 11/21/17 at 21:00; Stop 11/22/17 at 09:03; Status DC Insulin Human Lispro (HumaLOG) 8 units TIDAC SQ Last administered on 11/21/17at 17:12; Start 11/21/17 at 11:30; Stop 11/22/17 at 09:03; Status DC Lisinopril (Prinivil) 20 mg DAILY PO ; Start 11/22/17 at 09:00; Stop 11/22/17 at 09:03; Status DC Insulin Human Lispro (HumaLOG) BG 400-49,9=6 units TIDWMEALS SQ Last administered on 11/24/17at 17:23; Start 11/21/17 at 12:00 Furosemide (Lasix) 20 mg QODAY PO Last administered on 11/25/17at 08:36; Start 11/23/17 at 09:00; Stop 11/25/17 at 14:00; Status DC Insulin Glargine (Lantus) 12 units QHS SQ Last administered on 11/25/17at 20:52 ; Start 11/22/17 at 21:00 Insulin Human Lispro (HumaLOG) 4 units TIDAC SQ Last administered on 11/25/17at 17:49; Start 11/22/17 at 11:30 Lisinopril (Prinivil) 10 mg DAILY PO Last administered on 11/25/17at 08:36; Start 11/23/17 at 09:00 Potassium Chloride (Klor-Con) 40 meq QODAY PO Last administered on 11/23/17at 08 :33; Start 11/23/17 at 09:00; Stop 11/24/17 at 15:06; Status DC Vancomycin HCl 1 gm/Sodium Chloride 250 ml @ 250 mls/hr Q12HR IV ; Start at 09:00; Status UNV Vancomycin HCl (Vanco Per Pharmacy) 1 each PRN DAILY PRN MC SEE COMMENTS Last administered on 11/25/17at 01:44; Start 11/23/17 at 08:45; Stop 11/25/17 at 09:43 ; Status DC Cefepime HCl 1 gm/ Dextrose 50 ml @ 100 mls/hr Q8HRS IV ; Start 11/23/17 at 14: 00; Status UNV Cefepime HCl (Maxipime) 1 gm Q8HRS IVP Last administered on 11/26/17at 06:21; Start 11/23/17 at 09:00 Vancomycin HCl 2 gm/Sodium Chloride 500 ml @ 250 mls/hr ONCE ONCE IV Last administered on 11/23/17at 13:32; Start 11/23/17 at 09:00; Stop 11/23/17 at 10:59 ; Status DC Vancomycin HCl 1.25 gm/Sodium Chloride 250 ml @ 167 mls/hr Q12H IV Last administered on 11/25/17at 01:46; Start 11/24/17 at 01:00; Stop 11/25/17 at 09:38 ; Status DC Vancomycin HCl (Vancomycin Trough Level) 1 each 1X ONCE MC Last administered on 11/25/17at 00:30; Start 11/25/17 at 00:30; Stop 11/25/17 at 00:31; Status DC Phenazopyridine HCl (Pyridium) 200 mg PRN TID PRN PO URINARY PAIN Last administered on 11/24/17at 10:39; Start 11/24/17 at 09:45 Tamsulosin HCl (Flomax) 0.4 mg BID PO Last administered on 11/25/17at 08:36; Start 11/24/17 at 10:00; Stop 11/25/17 at 13:10; Status DC Lactobacillus Rhamnosus (Culturelle) 1 cap BID PO Last administered on at 20:48; Start 11/24/17 at 21:00 Potassium Chloride (Klor-Con) 40 meq DAILY08 PO Last administered on 11/25/17at 08:37; Start 11/25/17 at 08:00; Stop 11/25/17 at 14:00; Status DC Amlodipine Besylate (Norvasc) 5 mg DAILY PO Last administered on 11/25/17at 08: 37; Start 11/25/17 at 09:00; Stop 11/25/17 at 13:10; Status DC Amlodipine Besylate (Norvasc) 5 mg 1X ONCE PO Last administered on 11/24/17at 17:19; Start 11/24/17 at 15:15; Stop 11/24/17 at 15:16; Status DC Potassium Chloride (Klor-Con) 20 meq 1X ONCE PO Last administered on at 17:18; Start 11/24/17 at 15:15; Stop 11/24/17 at 15:16; Status DC Amlodipine Besylate (Norvasc) 10 mg DAILY PO ; Start 11/26/17 at 09:00; Stop at 09:00; Status DC Tamsulosin HCl (Flomax) 0.4 mg QHS PO Last administered on 11/25/17at 20:48; Start 11/25/17 at 21:00 Magnesium Sulfate 50 ml @ 25 mls/hr 1X ONCE IV Last administered on 11/25/17at 17:29; Start 11/25/17 at 14:00; Stop 11/25/17 at 15:59; Status DC Active Scripts Active Reported Clopidogrel (Clopidogrel Bisulfate) 75 Mg Tablet 1 Tab PO DAILY Lantus (Insulin Glargine,Hum.rec.anlog) 100 Unit/1 Ml Vial 32 Unit SQ HS Apidra (Insulin Glulisine) 100 Unit/1 Ml Vial 6 Unit SQ TIDAC Lipitor (Atorvastatin Calcium) 40 Mg Tablet 40 Mg PO HS Lisinopril 10 Mg Tablet 10 Mg PO DAILY08 Metformin Hcl 500 Mg Tablet 500 Mg PO [id number] Vitals/I & O Vital Sign - Last 24 Hours 11/25/17 11/25/17 11/25/17 11/25/17 08:36 08:37 11:13 12:30 Temp 98.5 98.5 Pulse 71 71 94 82 Resp 18 14 B/P (MAP) 165/92 165/92 169/87 (114) 62/41 (48) Pulse Ox 100 99 O2 Delivery Nasal Cannula Room Air 11/25/17 11/25/17 11/25/17 11/25/17 12:55 14:57 16:08 16:14 Pulse 84 95 82 92 Resp 18 18 18 B/P (MAP) 136/84 (101) 129/70 (89) 120/73 (89) 113/75 (88) Pulse Ox 100 100 98 96 O2 Delivery Room Air Room Air Room Air Room Air 11/25/17 11/25/17 11/25/17 11/25/17 16:19 19:00 20:00 23:00 Temp 98.8 98.5 98.8 98.5 Pulse 107 115 77 Resp 18 B/P (MAP) 115/68 (84) 140/77 (98) 120/76 (91) Pulse Ox 97 98 100 O2 Delivery Room Air Room Air Room Air Room Air 11/26/17 03:00 Temp 98.4 98.4 Pulse 82 Resp 18 B/P (MAP) 157/85 (109) Pulse Ox 100 O2 Delivery Room Air Intake and Output 11/25/17 11/25/17 11/26/17 15:00 23:00 07:00 Intake Total 250 ml 220 ml Balance 250 ml 220 ml ARAM TERRELL MD Nov 26, 2017 08:41
[2017-11-26] MEDS: LISINOPRIL 10 MG TABLET PO SCH (08:42)
[2017-11-26] MEDS ORDERED: amLODIPine BESYLATE 10 MG TABLET PO SCH (09:00)
--- NOTE | 2017-11-26 09:21 | PDOC ---
Infectious Disease Note Subjective: Subjective Pt without compliants no f/cn/v/d/worsening cough rt leg wound improving pt is been dc home today ROS: ROS Negative except for above. Vital Signs: Vital Signs Vital Signs Date Time Temp Pulse Resp B/P (MAP) Pulse Ox O2 Delivery O2 Flow Rate FiO2 11/26/17 08:42 74 148/74 11/26/17 07:00 98.1 16 98 Room Air 98.1 Physical Exam: PHYSICAL EXAM GENERAL: Alert, oriented x 2, male, sitting in the chair, in no acute distress. HEENT: Pupils equal, reactive. Anicteric. No thrush. NECK: Supple. No JVD. LUNGS: Clear. HEART: S1, S2. ABDOMEN: Soft, nontender, bowel sounds present. EXTREMITIES: Trace pedal edema, right pretibial wound clean. DERM: No generalized rash. BACK WOUND: Superficial wound noted.not infected PSYCHIATRIC: Appropriate mood. NEUROLOGIC: Normal speech. Moves all 4 extremities. Medications: Inpatient Meds: Current Medications Medications (Trade) Dose Ordered Sig/Sheri Start Time Stop Time Status Last Admin Dose Admin Acetaminophen (Tylenol) 650 mg PRN Q4HRS PRN 11/16/17 01:30 11/24/17 21:13 650 MG Amlodipine Besylate (Norvasc) 10 mg DAILY 11/26/17 09:00 11/26/17 09:00 DC Atorvastatin Calcium (Lipitor) 40 mg QHS 11/16/17 21:00 11/25/17 20:48 40 MG Cefepime HCl (Maxipime) 1 gm Q8HRS 11/23/17 09:00 11/26/17 06:21 1 GM Cefepime HCl 1 gm/ Dextrose 50 ml @ 100 mls/hr Q8HRS 11/23/17 14:00 UNV Clopidogrel Bisulfate (Plavix) 75 mg DAILY 11/16/17 09:00 11/26/17 08:41 75 MG Dextrose (Dextrose 50%-Water Syringe) 12.5 gm PRN Q15MIN PRN 11/20/17 18:00 Enoxaparin Sodium (Lovenox 40mg Syringe) 40 mg DAILY 11/16/17 09:00 11/17/17 10:16 DC 11/17/17 09:21 40 MG Furosemide (Lasix) 20 mg QODAY 11/23/17 09:00 11/25/17 14:00 DC 11/25/17 08:36 20 MG Insulin Glargine (Lantus) 12 units QHS 11/22/17 21:00 11/25/17 20:52 12 UNITS Insulin Human Lispro (HumaLOG) 4 units TIDAC 11/22/17 11:30 11/25/17 17:49 4 UNITS Lactobacillus Rhamnosus (Culturelle) 1 cap BID 11/24/17 21:00 11/26/17 08:41 1 CAP Lisinopril (Prinivil) 10 mg DAILY 11/23/17 09:00 11/26/17 08:42 10 MG Magnesium Sulfate 50 ml @ 25 mls/hr 1X ONCE 11/25/17 14:00 11/25/17 15:59 DC 11/25/17 17:29 25 MLS/HR Metformin HCl (Glucophage) 500 mg BIDWMEALS 11/16/17 08:00 11/26/17 08:41 500 MG Morphine Sulfate (Morphine Sulfate) 4 mg PRN Q2HR PRN 11/16/17 01:30 11/17/17 01:29 DC Multivitamins (Thera M Plus) 1 tab DAILY 11/20/17 12:00 11/26/17 08:41 1 TAB Nicotine (Nicoderm Cq 21mg) 1 patch DAILY 11/16/17 16:00 11/26/17 08:41 1 PATCH Ondansetron HCl (Zofran) 4 mg PRN Q8HRS PRN 11/16/17 01:30 11/17/17 01:29 DC Phenazopyridine HCl (Pyridium) 200 mg PRN TID PRN 11/24/17 09:45 11/24/17 10:39 200 MG Potassium Chloride (Klor-Con) 20 meq 1X ONCE 11/24/17 15:15 11/24/17 15:16 DC 11/24/17 17:18 20 MEQ Tamsulosin HCl (Flomax) 0.4 mg QHS 11/25/17 21:00 11/25/17 20:48 0.4 MG Thiamine Mononitrate (Vitamin B-1) 100 mg DAILY 11/20/17 12:00 11/25/17 13:10 DC 11/25/17 08:36 100 MG Vancomycin HCl (Vanco Per Pharmacy) 1 each PRN DAILY PRN 11/23/17 08:45 11/25/17 09:43 DC 11/25/17 01:44 1 EACH Vancomycin HCl (Vancomycin Trough Level) 1 each 1X ONCE 11/25/17 00:30 11/25/17 00:31 DC 11/25/17 00:30 1 EACH Vancomycin HCl 1.25 gm/Sodium Chloride 250 ml @ 167 mls/hr Q12H 11/24/17 01:00 11/25/17 09:38 DC 11/25/17 01:46 167 MLS/HR Vancomycin HCl 1 gm/Sodium Chloride 250 ml @ 250 mls/hr Q12HR 11/23/17 09:00 UNV Vancomycin HCl 2 gm/Sodium Chloride 500 ml @ 250 mls/hr ONCE ONCE 11/23/17 09:00 11/23/17 10:59 DC 11/23/17 13:32 250 MLS/HR Labs: Lab Laboratory Tests Test 11/25/17 11:43 11/25/17 13:30 11/25/17 17:31 11/25/17 20:31 Glucose (Fingerstick) 159 mg/dL (70-99) 184 mg/dL (70-99) 117 mg/dL (70-99) 149 mg/dL (70-99) Test 11/26/17 04:34 11/26/17 07:29 White Blood Count 5.8 x10^3/uL (4.0-11.0) Red Blood Count 4.58 x10^6/uL (4.30-5.70) Hemoglobin 14.3 g/dL (13.0-17.5) Hematocrit 41.4 % (39.0-53.0) Mean Corpuscular Volume 90 fL (79-100) Mean Corpuscular Hemoglobin 31 pg (25-35) Mean Corpuscular Hemoglobin Concent 35 g/dL (31-37) Red Cell Distribution Width 13.6 % (11.5-14.5) Platelet Count 237 x10^3/uL (140-400) Neutrophils (%) (Auto) 58 % (31-73) Lymphocytes (%) (Auto) 30 % (24-48) Monocytes (%) (Auto) 10 % (0-9) Eosinophils (%) (Auto) 2 % (0-3) Basophils (%) (Auto) 1 % (0-3) Neutrophils # (Auto) 3.3 x10^3uL (1.8-7.7) Lymphocytes # (Auto) 1.7 x10^3/uL (1.0-4.8) Monocytes # (Auto) 0.6 x10^3/uL (0.0-1.1) Eosinophils # (Auto) 0.1 x10^3/uL (0.0-0.7) Basophils # (Auto) 0.1 x10^3/uL (0.0-0.2) Sodium Level 142 mmol/L (136-145) Potassium Level 3.9 mmol/L (3.5-5.1) Chloride Level 107 mmol/L (98-107) Carbon Dioxide Level 26 mmol/L (21-32) Anion Gap 9 (6-14) Blood Urea Nitrogen 15 mg/dL (8-26) Creatinine 1.0 mg/dL (0.7-1.3) Estimated GFR (Cockcroft-Gault) 89.1 Glucose Level 88 mg/dL (70-99) Calcium Level 9.0 mg/dL (8.5-10.1) Magnesium Level 2.2 mg/dL (1.8-2.4) Glucose (Fingerstick) 89 mg/dL (70-99) Micro RUN DATE: 11/25/17 PAGE 1 RUN TIME: 9036 [facility] [address] [place] [address] See Brown M.D., [employer]ing Press Operator PATIENT: BEATRIS BROCK ACCT: [id number] LOC: [address] [place] [address] U : [id number] AGE/SX: 72/M ROOM: 432 REG : 11/16/[address]: ARAM CASTELAN MD : 1945 BED: 1 DIS : STATUS: ADM IN TLOC: SPEC #: [id number] MARILYN: 11/23/17 STATUS: RES REQ #: [id number] RECD: 11/24/[address] [facility] [address]: ARAM CASTELAN MD SOURCE: SPUTUM ENTR: 11/23/17 [facility] DR: SANDRA CM MD [facility]: MAGUI BAY MD, FERILYN MD ORDERED: SPUTUM CULTURE Procedure Result GRAM STAIN WHITE BLOOD CELLS Final Few GRAM STAIN EPITHELIAL CELLS Final Few GRAM STAIN RESULT 1 Final Comment Few gram positive cocci GRAM STAIN RESULT 2 Final Comment Few gram negative rods. GRAM STAIN EVALUATION Final Comment This specimen is of good quality and is acceptable for routine bacterial culture. Performed at: - [facility], [place], [place] [id number] Shingles Roofer Helper: DAMEON Pino MD, Phone: [phone] SPUTUM CULTURE-LC PENDING RUN DATE: 11/26/17 PAGE 1 RUN TIME: 0114 [facility] [address] [place] [address] See Brown M.D., [employer]ing Press Operator PATIENT: BEATRIS BROCK ACCT: [id number] LOC: [address] [place] [address] U : [id number] AGE/SX: 72/M ROOM: 432 REG : 11/16/[address]: ARAM CASTELAN MD : 1945 BED: 1 DIS : STATUS: ADM IN TLOC: SPEC #: [id number] AMRILYN: 11/23/17-999 STATUS: RES REQ #: [id number] RECD: 11/23/17-[address] [facility] [address]: ARAM CASTELAN MD SOURCE: URINE CC ENTR: 11/23/17-[address]: SANDRA CM MD SPDC: MAGUI BAY MD, FERILYN MD ORDERED: URINE CULTURE Procedure Result URINE CULTURE Preliminary Preliminary report URINE CULTURE RES 1 Preliminary Streptococcus species Greater than 100,000 colony forming units per mL Performed at: DA - [facility] [address] [facility] [address], [place], [place] [id number] Shingles Roofer Helper: DAMEON Pino MD, Phone: [phone] Objective: Assessment: 1. Fever, etiology unclear, has some cough. sputum gnr ID and BRITNEY pending Urine culture strep Final ID and BRITNEY pending 2. Bilateral lower extremity edema, resolving. 3. Right leg wound with Citrobacter koseri on cultures, improving. 4. Diabetes mellitus type 2 with microalbuminuria. 5. Urinary retention, seen by Urology. Carson discontinued yesterday. 6. Hypertension/hyperlipidemia. 7. Coronary artery disease. 8. Cognitive impairment. 9. Excessive alcohol intake. 10. Cigarette smoker. 11. 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 12. Metabolic encephalopathy, improving slowly. Plan: Plan of Care Can dc home on empiric zyvox and levaquin SW to assist with zyvox script f/u on c/s next week as pending Dr Castelan plans to see pt early next week D/W JANE CR MD Nov 26, 2017 09:21
[2017-11-26 11:00] VITALS: BP 156/80
--- NOTE | 2017-11-26 13:15 | PDOC ---
PROGRESS NOTES Assessment Assessment Metabolic encephalopathy. Hyperglycemia. DM. HTN. HLD. CAD, AR. Bilateral LE edema. Right singh open wound. 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 Femoral lymphadenopathy. Left prosthetic eye. Smoking. Dementia features. No evidence of acute CVA this time. RECOMMENDATIONS/PLAN: Continue Plavix 75 mg daily. Continue Lipitor HS. Wound care, left LE. Treat medical diseases. OT/PT. FU with PCP. HISTORY OF THE PRESENT ILLNESS: 72-y-old AA male patent with above medical diseases was admitted into the hospital due to LE wounds. His nurse stated that he has been having mental status changes since yesterday and confusional episodes, so neurology was requested for consultation. PAST MEDICAL HISTORY: Diabetes mellitus type 2 with microalbuminuria. Hypertension. Hyperlipidemia Coronary artery disease. Myocardial infarction in the past Gastric ulcer in 2003. Irritable bowel syndrome. Prosthetic left eye. PAST SURGERY HISTORY: No major surgery recently. FAMILY HISTORY: Noncontributory. SOCIAL HISTORY: Does not drink alcohol. Smokes about 1 pack per day of cigarettes. ALLERGY: NKDA MEDICATIONS: Refer to MAR REVIEW OF SYSTEMS: Constitutional: No malnutrition, weight loss, cachexia. Head: No recent traumatic brain or head injury. Skin: No edema, or rash. Ear: No infection, tinnitus. Eyes: Left prosthetic eye. Nose: No bleeding or purulent discharges. Hearing: Hearing decrease. Neck: No injury. Cardiac: AR, CAD, HTN, HLD. Pulmonary: No COPD. GI: Gastric ulcer in 2003. Irritable bowel syndrome.. Urinary/genital: UTI. Endocrinologic: Diabetes Mellitus. Skeletomuscular: No muscular atrophy, deformity. Neurological: see HP. Psychiatric: Denies drug use/abuse. Otherwise, not [id number] review of systems. PHYSICAL EXAMINATION: General appearance is in no acute distress. HEENT: Normocephalic and nontraumatic. Nose, ears, and throat are unremarkable , left prosthetic eye. Neck is supple. No lymphadenopathy. No crepitus. Cardiovascular: S1, S2, regular rate and rhythm. Pulmonary: Clear to auscultation bilaterally. Abdomen: Bowel sounds are positive. Abdomen is soft, nontender, and nondistended. Extremities: LE wound. No restriction of range of motion NEUROLOGICAL EXAMINATION: Awake. Not fully oriented to time, but knew place and person. Right pupil reactive to light. Left eye prosthetic. EOMI. CN: no focal findings. Muscle tone: within normal. Muscle strength: 4+. DTR: 1-2 Plantar reflex: Neutral response bilaterally Gait: Able to walk with a walker. Sensory exam: no abnormal findings. No acute cerebellar signs elicited. F-T-N test fine. Objective Objective Vital Signs Date Time Temp Pulse Resp B/P (MAP) Pulse Ox O2 Delivery O2 Flow Rate FiO2 11/26/17 08:42 74 148/74 11/26/17 07:40 Room Air 11/26/17 07:00 98.1 16 98 98.1 Intake and Output 11/26/17 07:00 Intake Total 470 ml Balance 470 ml Intake Oral 470 ml # Voids 8 Vitals Signs Vitals VS - Last 72 Hours, by Label Date Time Temp Pulse Resp B/P (MAP) Pulse Ox O2 Delivery O2 Flow Rate FiO2 11/26/17 08:42 74 148/74 11/26/17 07:40 Room Air 11/26/17 07:00 98.1 74 16 148/74 (98) 98 Room Air 98.1 11/26/17 03:00 98.4 82 18 157/85 (109) 100 Room Air 98.4 11/25/17 23:00 98.5 77 18 120/76 (91) 100 Room Air 98.5 11/25/17 20:00 Room Air 11/25/17 19:00 98.8 115 18 140/77 (98) 98 Room Air 98.8 11/25/17 16:19 107 18 115/68 (84) 97 Room Air 11/25/17 16:14 92 18 113/75 (88) 96 Room Air 11/25/17 16:08 82 18 120/73 (89) 98 Room Air 11/25/17 14:57 95 18 129/70 (89) 100 Room Air 11/25/17 12:55 84 136/84 (101) 100 Room Air 11/25/17 12:30 82 14 62/41 (48) 99 Room Air 11/25/17 11:13 98.5 94 18 169/87 (114) 100 Nasal Cannula 98.5 11/25/17 08:37 71 165/92 11/25/17 08:36 71 165/92 11/25/17 07:30 Room Air 11/25/17 07:00 98.2 75 18 139/93 (108) 99 Room Air 98.2 Laboratory Laboratory Laboratory Tests Test 11/25/17 13:30 11/25/17 17:31 11/25/17 20:31 11/26/17 04:34 Glucose (Fingerstick) 184 mg/dL (70-99) 117 mg/dL (70-99) 149 mg/dL (70-99) White Blood Count 5.8 x10^3/uL (4.0-11.0) Red Blood Count 4.58 x10^6/uL (4.30-5.70) Hemoglobin 14.3 g/dL (13.0-17.5) Hematocrit 41.4 % (39.0-53.0) Mean Corpuscular Volume 90 fL (79-100) Mean Corpuscular Hemoglobin 31 pg (25-35) Mean Corpuscular Hemoglobin Concent 35 g/dL (31-37) Red Cell Distribution Width 13.6 % (11.5-14.5) Platelet Count 237 x10^3/uL (140-400) Neutrophils (%) (Auto) 58 % (31-73) Lymphocytes (%) (Auto) 30 % (24-48) Monocytes (%) (Auto) 10 % (0-9) Eosinophils (%) (Auto) 2 % (0-3) Basophils (%) (Auto) 1 % (0-3) Neutrophils # (Auto) 3.3 x10^3uL (1.8-7.7) Lymphocytes # (Auto) 1.7 x10^3/uL (1.0-4.8) Monocytes # (Auto) 0.6 x10^3/uL (0.0-1.1) Eosinophils # (Auto) 0.1 x10^3/uL (0.0-0.7) Basophils # (Auto) 0.1 x10^3/uL (0.0-0.2) Sodium Level 142 mmol/L (136-145) Potassium Level 3.9 mmol/L (3.5-5.1) Chloride Level 107 mmol/L (98-107) Carbon Dioxide Level 26 mmol/L (21-32) Anion Gap 9 (6-14) Blood Urea Nitrogen 15 mg/dL (8-26) Creatinine 1.0 mg/dL (0.7-1.3) Estimated GFR (Cockcroft-Gault) 89.1 Glucose Level 88 mg/dL (70-99) Calcium Level 9.0 mg/dL (8.5-10.1) Magnesium Level 2.2 mg/dL (1.8-2.4) Test 11/26/17 07:29 11/26/17 12:14 Glucose (Fingerstick) 89 mg/dL (70-99) 166 mg/dL (70-99) Microbiology 11/23/17 Blood Culture - Preliminary, Resulted NO GROWTH AFTER 3 DAYS 11/23/17 - Final, Complete 11/23/17 - Final, Complete 11/23/17 - Final, Complete 11/23/17 - Final, Complete 11/23/17 Gram Stain Evaluation - Final, Complete 11/23/17 Sputum Culture - Final, Complete 11/23/17 Sputum Result 1 - Final, Complete 11/23/17 Urine Culture - Preliminary, Resulted 11/23/17 Urine Culture Result 1 (BRITNEY) - Preliminary, Resulted 11/16/17 Anaerobic/Aerobic Culture - Final, Complete 11/16/17 Anaerobic Culture Result 1 (BRITNEY) - Final, Complete 11/16/17 Aerobic Culture - Final, Complete 11/16/17 Aerobic Culture Result 1 (BRITNEY) - Final, Complete 11/16/17 Aerobic Culture Result 2 (BRITNEY) - Final, Complete 11/16/17 Antimicrobic Susceptibility - Final, Complete 11/16/17 Gram Stain - Final, Complete 11/16/17 Gram Stain Result 1 (BRITNEY) - Final, Complete 11/16/17 Gram Stain Result 2 (BRITNEY) - Final, Complete Medication Medications Current Medications Amlodipine Besylate (Norvasc) 10 mg DAILY PO ; Start 11/26/17 at 09:00; Stop at 09:00; Status DC Magnesium Sulfate 50 ml @ 25 mls/hr 1X ONCE IV Last administered on 11/25/17at 17:29; Start 11/25/17 at 14:00; Stop 11/25/17 at 15:59; Status DC Tamsulosin HCl (Flomax) 0.4 mg QHS PO Last administered on 11/25/17at 20:48; Start 11/25/17 at 21:00 Comment Review of Relevant I have reviewed the following items linda (where applicable) has been applied. LUKASZ FINCH MD Nov 26, 2017 13:15
[2017-11-26 15:00] VITALS: BP 94/63
--- NOTE | 2017-11-27 09:53 | PDOC ---
Provider Note Provider Note discharge summary dictated # [id number] ARAM TERRELL MD Nov 27, 2017 09:53
--- NOTE | 2017-11-27 11:33 | DS ---
DATE OF DISCHARGE: 11/26/2017 CONSULTANTS: Include Dr. Barb Gannon, Dr. Tapia, Dr. Rudolph and Dr. Orellana. FINAL DIAGNOSES: 1. Bilateral lower extremity edema. 2. Right leg wound. 3. Enterococcus urinary tract infection. 4. Right leg wound. 5. Diabetes mellitus type 2 with microalbuminuria. 6. Hypertension. 7. Hyperlipidemia. 8. Coronary artery disease. 9. Multiple cerebrovascular accidents on MRI of the brain, including the right basal ganglia, right cerebellum, left dru and left fish radiata. 10. Excessive alcohol intake. 11. Cigarette smoker. 12. Cognitive and mobility deficits. 13. Fever, resolved. 14. Hypomagnesemia, treated. 15. Hypotensive episode on 11/25/2017, treated with IV fluids and a change in his medications. HOSPITAL COURSE: The patient is a 72-year-old -[place] male with history of diabetes mellitus type 2 with microalbuminuria, hypertension, hyperlipidemia, coronary artery disease with previous myocardial infarction, with a prosthetic left eye and cigarette smoker who drinks excessive alcohol, admitted to [facility] at the Emergency Room on 11/16/2017, with swelling of both legs and a right leg wound. He apparently got his right leg wound while wrestling with his granddaughter. He said he had swelling in his lower extremities for several months and it worsened recently. He was admitted to [facility] through the Emergency Room with bilateral lower extremity edema and the right leg wound. He was seen by the wound care team and treated with topical wound care treatment for his right leg wound. He had a venous Doppler of both legs, which was negative for deep vein thrombosis. He had an echocardiogram that showed a preserved left ventricular ejection fraction. He was seen in consultation by Dr. Orellana for Cardiology and Dr. Malone for Urology as he had some urine retention. For the Carson catheter which was placed, as removed. He was started on Flomax once a day. He has lower extremity edema, which was treated with IV Lasix and then oral Lasix. He had an episode of hypotension; so, the Lasix and amlodipine were discontinued and his Flomax was decreased from b.i.d. to 1 tablet at bedtime, with good urine flow and his dizziness resolved. He did receive IV normal saline for his dizziness and that was discontinued. His insulin was adjusted, with improved blood sugar control. He had an Enterococcus urinary tract infection, was seen by Dr. Barb Gannon and was treated with IV antibiotics and then was switched to oral doxycycline and Levaquin at dismissal, as the Enterococcus urinary tract infection was sensitive not only to Penicillin but to Levaquin. The Zyvox that was ordered will not be covered by his insurance. He, therefore, will be dismissed to home with home health. He was told to follow up with Dr. Castelan in the office next week and he will be dismissed on atorvastatin 40 mg every day, Humalog insulin 4 units before meals t.i.d., Lantus insulin 12 units at bedtime, lisinopril dose was 10 mg every day, metformin 500 mg b.i.d., Plavix 75 mg every day, Levaquin, I believe, is 500 mg every day for 10 days and doxycycline 100 mg b.i.d. for 10 days. He will also be dismissed on tamsulosin 0.4 mg at bedtime. ARAM CASTELAN MD DR: YEYO/heladio JOB#: [id number] / [id number]
== END 2017-11-26 18:42 | disposition home health service (06) | DRG 604 ==
LOC: ER 20:05 → ED HOLD 11-16 01:02 → 4 NORTH 11-16 05:01
PROVIDERS: ADMIT Internal Medicine; ATTEND Internal Medicine
PROC: 4A00X4Z Measurement of Central Nervous Electrical Activity, External Approach (ICD-10-PCS; principal; 2017-11-19)
DX: S81.801A Unspecified open wound, right lower leg, initial encounter (principal); G93.41 Metabolic encephalopathy; L03.90 Cellulitis, unspecified; N39.0 Urinary tract infection, site not specified; I87.2 Venous insufficiency (chronic) (peripheral); E87.6 Hypokalemia; I95.9 Hypotension, unspecified; E11.65 Type 2 diabetes mellitus with hyperglycemia; B95.2 Enterococcus as the cause of diseases classified elsewhere; E78.00 Pure hypercholesterolemia, unspecified; E78.5 Hyperlipidemia, unspecified; E83.42 Hypomagnesemia; F03.90 Unspecified dementia, unspecified severity, without behavioral disturbance, psychotic disturbance, mood disturbance, and anxiety; I89.0 Lymphedema, not elsewhere classified; K58.9 Irritable bowel syndrome, unspecified; M19.90 Unspecified osteoarthritis, unspecified site; F10.10 Alcohol abuse, uncomplicated; F17.210 Nicotine dependence, cigarettes, uncomplicated; Y90.9 Presence of alcohol in blood, level not specified; I10 Essential (primary) hypertension; X58.XXXA Exposure to other specified factors, initial encounter; I25.10 Atherosclerotic heart disease of native coronary artery without angina pectoris; I25.2 Old myocardial infarction; Z79.02 Long term (current) use of antithrombotics/antiplatelets; Z79.4 Long term (current) use of insulin; Z83.3 Family history of diabetes mellitus; Z86.73 Personal history of transient ischemic attack (TIA), and cerebral infarction without residual deficits; Z87.11 Personal history of peptic ulcer disease; Z95.5 Presence of coronary angioplasty implant and graft; Z97.0 Presence of artificial eye; Z90.89 Acquired absence of other organs; Y93.89 Activity, other specified; Y92.89 Other specified places as the place of occurrence of the external cause; Y99.8 Other external cause status
CPT/HCPCS: 36415; 70551; 71045; 71046; 80048; 80053; 80061; 80202; 81001; 82607; 82962; 83036; 83735; 83880; 84156; 84443; 85025; 87040; 87070; 87071; 87075; 87086; 87186; 87205; 93005; 93306; 93970; 95816; G0103; J0692; J1650; J1815; J1940; J3370; J3475; J7040; J7050; 92507; 92523; 97110; 97116; 97530; 97535; 99285-25; J7030

== ENCOUNTER 2017-12-02 18:07 | Inpatient (IN) | payer OTHER ==
[~2017-12-02] VITALS: Ht 182.9 cm; Wt 78.5 kg
[~2017-12-02 18:07] MED LIST changes: +CLOP75TA PO
--- NOTE | 2017-12-02 18:54 | PHYS DOC ---
Past Medical History Past Medical History: Alcoholism, CVA, Dementia, Diabetes-Type II, High Cholesterol, Hypertension, Other Additional Past Medical Histor: lower ext edema, brain aneurysm Past Surgical History: Cholecystectomy Additional Information: 5 cigarettes daily Alcohol Use: Heavy Additional Information: reports drinking 1/5 gin per day Drug Use: Marijuana Social History Narrative: reports daily use Adult General Chief Complaint Chief Complaint: ALTERED MENTAL STATUS HPI HPI 72-year-old male returns to the ER with his daughter Roger who reports pt is struggling with home care and has been having increased confusion. Dr. Castelan, pt's PCP had called earlier today to inform ER that pt was coming d/t confusion and difficulty with home/self care. Pt on arrival to ER is A&Ox3 reporting he drinks a fifth of gin daily and has for yrs. He reports he has ongoing pain similar to when he was evaluated in ER yesterday- denying any changes. Pt's dgtr reports pt has slowly declined since his past in August and has been more confused and not wanting to take daily meds as prescribed. Per Dr. Castelan's call earlier to this provider pt will have routine labs while in ER and be admitted to his services for rehab/half-way placement for further assist/care. Review of Systems Review of Systems Constitutional: Denies fever or chills [] Eyes: Denies change in visual acuity, redness, or eye pain [] HENT: Denies nasal congestion or sore throat [] Respiratory: Denies cough or shortness of breath [] Cardiovascular: No additional information not addressed in HPI [] GI: Denies abdominal pain, nausea, vomiting, bloody stools or diarrhea [] : Denies dysuria or hematuria [] Musculoskeletal: Denies back pain or joint pain [] Integument: Denies rash or skin lesions [] Neurologic: Denies headache, focal weakness or sensory changes [] Endocrine: Denies polyuria or polydipsia [] All other systems were reviewed and found to be within normal limits, except as documented in this note. Allergies Allergies Allergies Coded Allergies Type Severity Reaction Last Updated Verified No Known Drug Allergies 04/17/13 No Physical Exam Physical Exam Constitutional: Well developed, well nourished, no acute distress, non-toxic appearance. [] HENT: Normocephalic, atraumatic, bilateral external ears normal, oropharynx moist, no oral exudates, nose normal. [] Eyes: PERRLA, EOMI, conjunctiva normal, no discharge. [] Neck: Normal range of motion, no tenderness, supple, no stridor. [] Cardiovascular:Heart rate regular rhythm, no murmur [] Lungs & Thorax: Bilateral breath sounds clear to auscultation [] Abdomen: Bowel sounds normal, soft, no tenderness, no masses, no pulsatile masses. [] Skin: Warm, dry, no erythema, no rash. [] Back: No tenderness, no CVA tenderness. [] Extremities: No tenderness, no cyanosis, no clubbing, ROM intact, no edema. [] Neurologic: Alert and oriented X 3, normal motor function, normal sensory function, no focal deficits noted. [] Psychologic: Affect normal, judgement normal, mood normal. [] Current Patient Data Vital Signs Vital Signs Date Time Temp Pulse Resp B/P (MAP) Pulse Ox O2 Delivery O2 Flow Rate FiO2 12/02/17 18:25 99.3 60 16 167/79 (108) 100 Room Air 99.3 EKG EKG [] Radiology/Procedures Radiology/Procedures [] Course & Med Decision Making Course & Med Decision Making Pertinent Labs and Imaging studies reviewed. (See chart for details) [] Dragon Disclaimer Dragon Disclaimer This electronic medical record was generated, in whole or in part, using a voice recognition dictation system. Departure Departure Impression: Primary Impression: Confusion Additional Impression: Total self-care deficit Disposition: ADMITTED INPATIENT Admitting Physician: Yandel Castelan Condition: STABLE Referrals: YANDEL CASTELAN MD (PCP) Problem Qualifiers ANDREA PAPPAS LAND LEASE INFORMATION CLERK Dec 02, 2017 18:54
[2017-12-02 20:22] LABS: BASO # 0.1 x10^3/uL (0.0-0.2); BASO % 1 % (0-3); EOS # 0.2 x10^3/uL (0.0-0.7); EOS % 3 % (0-3); HEMATOCRIT 40.5 % (39.0-53.0); HEMOGLOBIN 14.1 g/dL (13.0-17.5); LYMPH # 2.2 x10^3/uL (1.0-4.8); LYMPH % 29 % (24-48); MEAN CORPUSCULAR HEMOGLOBIN 31 pg (25-35); MEAN CORPUSCULAR HGB CONC 35 g/dL (31-37); MEAN CORPUSCULAR VOLUME 90 fL (79-100); MONO # 0.7 x10^3/uL (0.0-1.1); MONO % 9 % (0-9); NEUT # 4.5 x10^3uL (1.8-7.7); NEUT % 58 % (31-73); PLATELET COUNT 249 x10^3/uL (140-400); RED CELL DISTRIBUTION WIDTH 13.5 % (11.5-14.5); WHITE BLOOD COUNT 7.6 x10^3/uL (4.0-11.0)
[2017-12-02 20:39] LABS: CALCIUM 9.7 mg/dL (8.5-10.1); GFR 89.1; POTASSIUM 3.8 mmol/L (3.5-5.1)
[2017-12-02 20:45] LABS: ALBUMIN 3.6 g/dL (3.4-5.0); ALBUMIN/GLOBULIN RATIO 0.9 (1.0-1.7); TOTAL PROTEIN 7.5 g/dL (6.4-8.2)
[2017-12-02 21:05] VITALS: BP 131/64
[2017-12-02 23:30] VITALS: BP 154/82
[2017-12-03] MEDS ORDERED: MULT-404 PO (01:23)
[2017-12-03] MEDS ORDERED: INSU100C SQ (01:23)
[2017-12-03 03:30] VITALS: BP 152/72
[2017-12-03 07:00] VITALS: BP 141/70
[2017-12-03] MEDS ORDERED: metFORMIN 500 MG TABLET PO SCH (07:00)
--- NOTE | 2017-12-03 07:20 | EKG ---
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
[2017-12-03] MEDS: metFORMIN 500 MG TABLET PO SCH ×2 (09:19→17:14)
[2017-12-03] MEDS: CLOPIDOGREL BISULFATE 75 MG TABLET PO SCH (09:19)
[2017-12-03] MEDS: LISINOPRIL 10 MG TABLET PO SCH (09:21)
[2017-12-03 10:30] VITALS: BP 143/76
--- NOTE | 2017-12-03 10:45 | PDOC ---
Provider Note Provider Note history and physical dictated # [id number] ARAM TERRELL MD Dec 03, 2017 10:45
[2017-12-03] MEDS: THIAMINE 100 MG TABLET. PO SCH (11:00)
[2017-12-03] MEDS ORDERED: MAGNESIUM SULFATE 2GM 50 ML IV ONE (11:00)
--- NOTE | 2017-12-03 11:29 | HP ---
ADMIT DATE: 12/03/2017 HISTORY OF PRESENT ILLNESS: The patient is a 72-year-old -[place] male who was recently dismissed from [facility] 11/26/2017 with a history of diabetes mellitus type 2 with microalbuminuria, hypertension, hyperlipidemia, coronary artery disease, prosthetic left eye, cigarette smoker and alcoholic who was dismissed to home as the family refused to send him to physical rehabilitation facility or group home facility and at home health. At home, he was drinking a fifth of gin a day, which he normally does and was not taking his medications or eating properly, taking his insulin and was actually wearing his underwear on his head. Because of this behavior, the patient was sent to the [facility] Emergency Room where he was subsequently admitted for further evaluation and treatment of his failure to thrive. It should be noted that he actually went to the Emergency Room the night of 12/01/2017 for abdominal pain, had a CAT scan of the abdomen and pelvis done, it was unremarkable and sent home and then he was therefore admitted on 12/02/2017 through the Emergency Room. ALLERGIES AND INTOLERANCES: None. MEDICATIONS: Prior to admission include Humalog insulin 4 units before meals t.i.d., Lantus insulin 12 units at bedtime, atorvastatin 40 mg every day, lisinopril 10 mg every day, metformin 500 mg b.i.d., Plavix 75 mg every day, Levaquin 500 mg every day, doxycycline 100 mg every day and tamsulosin 0.4 mg at bedtime. PAST MEDICAL HISTORY: Significant for bilateral lower extremity edema during his last hospital stay with a negative venous Doppler. He had a right leg wound, seen by the wound care nurse, treated topically, had an Enterococcus urinary tract infection, diabetes mellitus type 2, microalbuminuria, hypertension, hyperlipidemia, coronary artery disease. He had an MRI of the brain, which showed old right basal ganglia, old right cerebellar as well as an old left dru and left fish radiata infarcts, none of which were new. He also has alcoholism. He is a cigarette smoker and he had cognitive and mobility deficits at that time. Hypomagnesemia and had a low blood pressure episode treated with IV fluids and a change in his medications with improvement in his blood pressure. He had problems with urine retention, was seen by the urologist and he did well with tamsulosin, which he has taken at bedtime. He had a gastric ulcer in 2003, has a prosthetic left eye which was removed as he had a lot of mucus material in his left eye probably from poor hygiene, irritable bowel syndrome. He had a myocardial infarction as mentioned in the past. SOCIAL HISTORY: He drinks a fifth of a gin a day. He smokes about a half a pack of cigarettes a day he says. Lives alone. FAMILY HISTORY: Not contributory. REVIEW OF SYSTEMS: GENERAL: Denies any fever, but admits to some chills. CARDIOVASCULAR: He had some chest pain that he mentioned to the Emergency Room doctor. PULMONARY: He has got a cough with yellow sputum. GASTROINTESTINAL: No diarrhea. ENDOCRINE: He has diabetes mellitus. SKIN: No rashes, but he had a right pretibial leg wound, which he had before. The rest of systems reviewed are negative except as stated in history of present illness. PHYSICAL EXAMINATION: VITAL SIGNS: His temperature is 98.4 degrees, apical pulse regular at 66, respiratory rate 18, blood pressure 143/76 and oxygen saturation 100% on room air. 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 The socket looks clean at this point. Mouth is symmetrical. NECK: No cervical lymphadenopathy. HEART: Reveals S1, S2. There is no S3 or murmur. LUNGS: Clear. ABDOMEN: Soft with no hepatosplenomegaly, masses or tenderness. EXTREMITIES: Lower extremities without edema. SKIN: No rashes. NEUROLOGIC: Coherent. He has got no focal weakness in the arms or legs or facial asymmetry. LABORATORY DATA: White count 7.6, hemoglobin 14.1 with MCV of 90 and a platelet count 249,000, 58 polys and 29 lymphocytes. Sodium 143, potassium 3.8, chloride 106, total CO2 of 27, BUN 14, creatinine 1.0, blood sugar 120. Magnesium was low at 1.6. Liver function tests were okay. Troponin level is less than 0.017. Albumin was 3.6. Urine alcohol level is less than 10. I do not see an EKG or chest x-ray done or urinalysis. ASSESSMENT: 1. Failure to thrive. 2. Alcoholism. 3. Diabetes mellitus type 2 with microalbuminuria. 4. Hypertension. 5. Hyperlipidemia. 6. Right leg wound. 7. Coronary artery disease. 8. Chest pain. 9. 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 10. Hypomagnesemia. PLAN: At this time is to consult the mainframe software developer. He did have a recent echocardiogram done, which I recall showed a preserved left ventricular ejection fraction. It was done on 11/16/2017 and the echocardiogram showed a left ventricular ejection fraction of 55% to 60%, was unremarkable. manager respiratory will evaluate him and we will try to send him to a group home facility and he will probably need to be in long-term [place] [facility] facility after that because of his noncompliance of taking his medications and , and the family can take care of him at home. Continue with his wound care. He will receive physical and occupational therapy. I doubt he will not be able to take care of himself at home. We will continue with his home medications and insulin. Cardiac enzymes as mentioned have been ordered. Given 2 g of magnesium sulfate IV and recheck his magnesium level. ARAM TERRELL MD DR: YEYO/heladio JOB#: [id number] / [id number]
[2017-12-03] MEDS: INSULIN LISPRO 300 UNITS/3 ML INSULN.PEN. SQ SCH ×2 (11:30→17:17)
[2017-12-03] MEDS: DOXYCYCLINE HYCLATE 100 MG TABLET PO SCH ×2 (12:08→21:02)
[2017-12-03] MEDS: FOLIC ACID 1 MG TABLET. PO SCH (12:09)
[2017-12-03] MEDS: ACETAMINOPHEN 325 MG TABLET. PO PRN (12:09)
[2017-12-03] MEDS: MULTIVITAMIN with MINERAL TABLET. PO SCH (12:09)
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
[2017-12-03 15:00] VITALS: BP 125/68
[2017-12-03 19:46] VITALS: BP 127/67
[2017-12-03] MEDS ORDERED: INSULIN GLARGINE 300 UNITS/3 ML INSULN.PEN. SQ SCH (21:00)
[2017-12-03] MEDS: ATORVASTATIN CALCIUM 40 MG TABLET. PO SCH (21:02)
[2017-12-03] MEDS: TAMSULOSIN 0.4 MG CAP.ER.24H. PO SCH (21:02)
[2017-12-03] MEDS: INSULIN GLARGINE 300 UNITS/3 ML INSULN.PEN. SQ SCH (21:07)
[2017-12-03 23:30] VITALS: BP 132/76
[2017-12-04 03:19] VITALS: BP_SYST 138
[2017-12-04 07:23] VITALS: BP 170/77
[2017-12-04] MEDS: INSULIN LISPRO 300 UNITS/3 ML INSULN.PEN. SQ SCH ×3 (07:30→17:40)
--- NOTE | 2017-12-04 08:01 | PDOC ---
PROGRESS NOTES Subjective Subjective abuses alcohol and THC and cigarettes. will order a nicotine patch and urine drug screen. lab pending. feels okay. blood pressure okay. blood sugars reviewed. Objective Objective Vital Signs Date Time Temp Pulse Resp B/P (MAP) Pulse Ox O2 Delivery O2 Flow Rate FiO2 12/04/17 03:19 98.0 63 20 138/ 100 Room Air 98.0 Intake and Output 12/04/17 07:00 Intake Total 400 ml Output Total 750 ml Balance -350 ml Intake Oral 400 ml Output Urine Total 750 ml # Voids 1 Physical Exam Abdomen: Soft Heart: Regular rate, Normal S1, Normal S2 Extremities: No edema General: Alert HEENT: Atraumatic Lungs: Clear to auscultation Neuro: Normal speech Psych/Mental Status: Mental status NL Skin: No rashes Assessment Assessment 1. Failure to thrive. 2. 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 4. Hypertension. 5. Hyperlipidemia. 6. Right leg wound. 7. Coronary artery disease. 8. 9. 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 10. Hypomagnesemia. treated Plan Plan of Care PT and OT SNF and long-term placement nicotine patch urine drug screen watch for alcohol withdrawal Comment Review of Relevant I have reviewed the following items linda (where applicable) has been applied. Labs Laboratory Tests Test 12/02/17 20:18 12/03/17 16:59 12/03/17 20:44 White Blood Count 7.6 x10^3/uL (4.0-11.0) Red Blood Count 4.50 x10^6/uL (4.30-5.70) Hemoglobin 14.1 g/dL (13.0-17.5) Hematocrit 40.5 % (39.0-53.0) Mean Corpuscular Volume 90 fL (79-100) Mean Corpuscular Hemoglobin 31 pg (25-35) Mean Corpuscular Hemoglobin Concent 35 g/dL (31-37) Red Cell Distribution Width 13.5 % (11.5-14.5) Platelet Count 249 x10^3/uL (140-400) Neutrophils (%) (Auto) 58 % (31-73) Lymphocytes (%) (Auto) 29 % (24-48) Monocytes (%) (Auto) 9 % (0-9) Eosinophils (%) (Auto) 3 % (0-3) Basophils (%) (Auto) 1 % (0-3) Neutrophils # (Auto) 4.5 x10^3uL (1.8-7.7) Lymphocytes # (Auto) 2.2 x10^3/uL (1.0-4.8) Monocytes # (Auto) 0.7 x10^3/uL (0.0-1.1) Eosinophils # (Auto) 0.2 x10^3/uL (0.0-0.7) Basophils # (Auto) 0.1 x10^3/uL (0.0-0.2) Sodium Level 143 mmol/L (136-145) Potassium Level 3.8 mmol/L (3.5-5.1) Chloride Level 106 mmol/L (98-107) Carbon Dioxide Level 27 mmol/L (21-32) Anion Gap 10 (6-14) Blood Urea Nitrogen 14 mg/dL (8-26) Creatinine 1.0 mg/dL (0.7-1.3) Estimated GFR (Cockcroft-Gault) 89.1 BUN/Creatinine Ratio 14 (6-20) Glucose Level 120 mg/dL (70-99) Calcium Level 9.7 mg/dL (8.5-10.1) Magnesium Level 1.6 mg/dL (1.8-2.4) Total Bilirubin 1.0 mg/dL (0.2-1.0) Aspartate Amino Transf (AST/SGOT) 25 U/L (15-37) Alanine Aminotransferase (ALT/SGPT) 48 U/L (16-63) Alkaline Phosphatase 74 U/L (46-116) Troponin I Quantitative < 0.017 ng/mL (0.000-0.055) Total Protein 7.5 g/dL (6.4-8.2) Albumin 3.6 g/dL (3.4-5.0) Albumin/Globulin Ratio 0.9 (1.0-1.7) Ethyl Alcohol Level < 10 mg/dL (0-10) Glucose (Fingerstick) 140 mg/dL (70-99) 192 mg/dL (70-99) Laboratory Tests Test 12/03/17 16:59 12/03/17 20:44 Glucose (Fingerstick) 140 mg/dL (70-99) 192 mg/dL (70-99) Medications Current Medications Atorvastatin Calcium (Lipitor) 40 mg HS PO Last administered on 12/03/17 21:02 ; Start 12/03/17 at 21:00 Clopidogrel Bisulfate (Plavix) 75 mg DAILY PO Last administered on 12/03/17at 09: 19; Start 12/03/17 at 09:00 Lisinopril (Prinivil) 10 mg DAILY08 PO Last administered on 12/03/17at 09:21; Start 12/03/17 at 08:00 Insulin Glargine (Lantus) 32 units HS SQ ; Start 12/03/17 at 21:00; Stop 12/03/17 at 21:00; Status DC Metformin HCl (Glucophage) 500 mg BID76 PO ; Start 12/03/17 at 07:00; Stop at 07:00; Status DC Metformin HCl (Glucophage) 500 mg BIDWMEALS PO Last administered on 12/03/17at 17 :14; Start 12/03/17 at 08:00 Insulin Glargine (Lantus) 12 units HS SQ Last administered on 12/03/17at 21:07; Start 12/03/17 at 21:00 Insulin Human Lispro (HumaLOG) 4 units TIDAC SQ Last administered on 12/03/17 17:17; Start 12/03/17 at 11:30 Doxycycline Hyclate (Vibra-Tab) 100 mg BID PO Last administered on 12/03/17 21: 02; Start 12/03/17 at 11:00 Tamsulosin HCl (Flomax) 0.4 mg QHS PO Last administered on 12/03/17at 21:02; Start 12/03/17 at 21:00 Levofloxacin (Levaquin) 500 mg DAILY06 PO Last administered on 12/04/17at 06:04; Start 12/03/17 at 11:00 Acetaminophen (Tylenol) 325 mg PRN Q6HRS PRN PO MILD PAIN / TEMP Last administered on 12/03/17at 12:09; Start 12/03/17 at 10:30 Lorazepam (Ativan) 0.5 mg PRN Q8HRS PRN PO ANXIETY / AGITATION; Start 12/03/17 at 10:45 Magnesium Sulfate 50 ml @ 25 mls/hr 1X ONCE IV Last administered on 12/03/17at 12:10; Start 12/03/17 at 11:00; Stop 12/03/17 at 12:59; Status DC Multivitamins (Thera M Plus) 1 tab DAILY PO Last administered on 12/03/17at 12:09 ; Start 12/03/17 at 11:00 Thiamine Mononitrate (Vitamin B-1) 100 mg DAILY PO Last administered on at 11:00; Start 12/03/17 at 11:00 Folic Acid (Folic Acid) 1 mg DAILY PO Last administered on 12/03/17at 12:09; Start 12/03/17 at 11:00 Active Scripts Active Reported Men's Multi-Vitamin (Multivitamin) 1 Each Tablet 1 Each PO DAILY Humalog (Insulin Lispro) 100 Unit/1 Ml Cartridge 6 Unit SQ BID Clopidogrel (Clopidogrel Bisulfate) 75 Mg Tablet 1 Tab PO DAILY Lantus (Insulin Glargine,Hum.rec.anlog) 100 Unit/1 Ml Vial 32 Unit SQ HS Apidra (Insulin Glulisine) 100 Unit/1 Ml Vial 6 Unit SQ TIDAC Lipitor (Atorvastatin Calcium) 40 Mg Tablet 40 Mg PO HS Lisinopril 10 Mg Tablet 10 Mg PO DAILY08 Metformin Hcl 500 Mg Tablet 500 Mg PO BID76 Vitals/I & O Vital Sign - Last 24 Hours 12/03/17 12/03/17 12/03/17 12/03/17 08:00 09:21 10:30 15:00 Temp 98.4 98.1 98.4 98.1 Pulse 58 66 61 Resp 18 18 B/P (MAP) 141/70 143/76 (98) 125/68 (87) Pulse Ox 100 100 O2 Delivery Room Air Room Air Room Air 12/03/17 12/03/17 12/03/17 12/04/17 19:46 20:00 23:30 03:19 Temp 98.4 97.6 98.0 98.4 97.6 98.0 Pulse 56 59 63 Resp 20 20 20 B/P (MAP) 127/67 (87) 132/76 (94) 138/ Pulse Ox 100 99 100 O2 Delivery Room Air Room Air Room Air Room Air Intake and Output 12/03/17 12/03/17 12/04/17 15:00 23:00 07:00 Intake Total 400 ml Output Total 200 ml 550 ml Balance 200 ml -550 ml ARAM TERRELL MD Dec 04, 2017 08:01
[2017-12-04] MEDS: THIAMINE 100 MG TABLET. PO SCH (09:00)
[2017-12-04] MEDS: LISINOPRIL 10 MG TABLET PO SCH (09:12)
[2017-12-04] MEDS: MULTIVITAMIN with MINERAL TABLET. PO SCH (09:12)
[2017-12-04] MEDS: DOXYCYCLINE HYCLATE 100 MG TABLET PO SCH ×2 (09:12→20:09)
[2017-12-04] MEDS: ACETAMINOPHEN 325 MG TABLET. PO PRN ×2 (09:12→22:02)
[2017-12-04] MEDS: metFORMIN 500 MG TABLET PO SCH ×2 (09:12→17:36)
[2017-12-04] MEDS: CLOPIDOGREL BISULFATE 75 MG TABLET PO SCH (09:12)
[2017-12-04] MEDS: FOLIC ACID 1 MG TABLET. PO SCH (09:12)
[2017-12-04] MEDS: NICOTINE 21MG PATCH. TD SCH (09:13)
[2017-12-04 10:11] LABS: BASO % 1 % (0-3); EOS # 0.1 x10^3/uL (0.0-0.7); EOS % 2 % (0-3); HEMATOCRIT 43.2 % (39.0-53.0); HEMOGLOBIN 14.8 g/dL (13.0-17.5); LYMPH # 1.3 x10^3/uL (1.0-4.8); LYMPH % 22 % (24-48); MEAN CORPUSCULAR HEMOGLOBIN 31 pg (25-35); MEAN CORPUSCULAR HGB CONC 34 g/dL (31-37); MEAN CORPUSCULAR VOLUME 91 fL (79-100); MONO # 0.5 x10^3/uL (0.0-1.1); MONO % 8 % (0-9); NEUT % 68 % (31-73); PLATELET COUNT 240 x10^3/uL (140-400); RED BLOOD COUNT 4.77 x10^6/uL (4.30-5.70); RED CELL DISTRIBUTION WIDTH 13.5 % (11.5-14.5); WHITE BLOOD COUNT 5.9 x10^3/uL (4.0-11.0)
[2017-12-04 10:37] LABS: ALBUMIN 3.5 g/dL (3.4-5.0); ALBUMIN/GLOBULIN RATIO 0.9 (1.0-1.7); CALCIUM 9.2 mg/dL (8.5-10.1); GFR 89.1; POTASSIUM 3.5 mmol/L (3.5-5.1); TOTAL BILIRUBIN 1.5 mg/dL (0.2-1.0); TOTAL PROTEIN 7.5 g/dL (6.4-8.2)
[2017-12-04 11:25] VITALS: BP 139/96
[2017-12-04 15:45] VITALS: BP 145/78
[2017-12-04 15:58] LABS: BILIRUBIN,URINE NEGATIVE (NEG); CLARITY,URINE CLEAR; COLOR,URINE YELLOW; NITRITE,URINE NEGATIVE (NEG); PROTEIN,URINE NEGATIVE (NEG-TRACE); UROBILINOGEN,URINE 0.2 mg/dL (0.2 mg/dL)
[2017-12-04 16:05] LABS: BARBITURATES NEG (NEG); BENZODIAZEPINES NEG (NEG); CANNABINOIDS POS (NEG); COCAINE NEG (NEG); METHADONE NEG (NEG); OPIATES NEG (NEG); PHENCYCLIDINE NEG (NEG)
[2017-12-04 16:08] LABS: AMPHETAMINE/METHAMPHETAMINE NEG (NEG)
[2017-12-04 16:24] LABS: BACTERIA,URINE 0 /HPF (0-FEW); RBC,URINE OCC /HPF (0-2); SQUAMOUS EPITHELIAL CELL,UR FEW /LPF; WBC,URINE OCC /HPF (0-4)
[2017-12-04 19:53] VITALS: BP 136/72
[2017-12-04] MEDS: ATORVASTATIN CALCIUM 40 MG TABLET. PO SCH (20:09)
[2017-12-04] MEDS: TAMSULOSIN 0.4 MG CAP.ER.24H. PO SCH (20:09)
[2017-12-04] MEDS: INSULIN GLARGINE 300 UNITS/3 ML INSULN.PEN. SQ SCH (20:21)
[2017-12-04] MEDS: LORazepam 0.5 MG TABLET PO PRN (21:23)
[2017-12-04 23:32] VITALS: BP 146/72
[2017-12-05 03:28] VITALS: BP 144/78
[2017-12-05 07:00] VITALS: BP 145/76
[2017-12-05] MEDS: INSULIN LISPRO 300 UNITS/3 ML INSULN.PEN. SQ SCH ×3 (07:30→16:56)
--- NOTE | 2017-12-05 08:11 | PDOC ---
PROGRESS NOTES Subjective Subjective feels well. blood pressure is high and will increase lisinopril. fbs 72 and will decrease hs lantus insulin. serum magnesium low and will order iv magnesium. has a difficult time sitting up in bed to eat breakfast consistent with alcohol polyneuropathy Objective Objective Vital Signs Date Time Temp Pulse Resp B/P (MAP) Pulse Ox O2 Delivery O2 Flow Rate FiO2 12/05/17 07:00 97.7 67 18 145/76 (99) 99 Room Air 97.7 Intake and Output 12/05/17 07:00 Intake Total 740 ml Output Total 1200 ml Balance -460 ml Intake Oral 740 ml Output Urine Total 1200 ml # Voids 1 # Bowel Movements 1 Physical Exam Abdomen: Soft Heart: Regular rate, Normal S1, Normal S2 Extremities: No edema General: Alert HEENT: Atraumatic Lungs: Clear to auscultation Neuro: Normal speech Psych/Mental Status: Mood NL Skin: No rashes, Other (skin abrasion right pretibial area and below left knee) Assessment Assessment 1. Failure to thrive. 2. 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 4. Hypertension. 5. Hyperlipidemia. 6. Right leg wound. 7. Coronary artery disease. 8. 9. 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 Labs Laboratory Tests Test 12/03/17 16:59 12/03/17 20:44 12/04/17 07:38 12/04/17 09:30 Glucose (Fingerstick) 140 mg/dL (70-99) 192 mg/dL (70-99) 82 mg/dL (70-99) White Blood Count 5.9 x10^3/uL (4.0-11.0) Red Blood Count 4.77 x10^6/uL (4.30-5.70) Hemoglobin 14.8 g/dL (13.0-17.5) Hematocrit 43.2 % (39.0-53.0) Mean Corpuscular Volume 91 fL (79-100) Mean Corpuscular Hemoglobin 31 pg (25-35) Mean Corpuscular Hemoglobin Concent 34 g/dL (31-37) Red Cell Distribution Width 13.5 % (11.5-14.5) Platelet Count 240 x10^3/uL (140-400) Neutrophils (%) (Auto) 68 % (31-73) Lymphocytes (%) (Auto) 22 % (24-48) Monocytes (%) (Auto) 8 % (0-9) Eosinophils (%) (Auto) 2 % (0-3) Basophils (%) (Auto) 1 % (0-3) Neutrophils # (Auto) 4.0 x10^3uL (1.8-7.7) Lymphocytes # (Auto) 1.3 x10^3/uL (1.0-4.8) Monocytes # (Auto) 0.5 x10^3/uL (0.0-1.1) Eosinophils # (Auto) 0.1 x10^3/uL (0.0-0.7) Basophils # (Auto) 0.0 x10^3/uL (0.0-0.2) Sodium Level 140 mmol/L (136-145) Potassium Level 3.5 mmol/L (3.5-5.1) Chloride Level 104 mmol/L (98-107) Carbon Dioxide Level 30 mmol/L (21-32) Anion Gap 6 (6-14) Blood Urea Nitrogen 12 mg/dL (8-26) Creatinine 1.0 mg/dL (0.7-1.3) Estimated GFR (Cockcroft-Gault) 89.1 BUN/Creatinine Ratio 12 (6-20) Glucose Level 180 mg/dL (70-99) Calcium Level 9.2 mg/dL (8.5-10.1) Magnesium Level 1.7 mg/dL (1.8-2.4) Total Bilirubin 1.5 mg/dL (0.2-1.0) Aspartate Amino Transf (AST/SGOT) 25 U/L (15-37) Alanine Aminotransferase (ALT/SGPT) 45 U/L (16-63) Alkaline Phosphatase 78 U/L (46-116) Total Protein 7.5 g/dL (6.4-8.2) Albumin 3.5 g/dL (3.4-5.0) Albumin/Globulin Ratio 0.9 (1.0-1.7) Test 12/04/17 12:21 12/04/17 15:50 12/04/17 16:25 12/05/17 07:45 Glucose (Fingerstick) 165 mg/dL (70-99) 155 mg/dL (70-99) 72 mg/dL (70-99) Urine Collection Type Unknown Urine Color Yellow Urine Clarity Clear Urine pH 6.0 Urine Specific [place] 1.010 Urine Protein Negative mg/dL (NEG-TRACE) Urine Glucose (UA) Negative mg/dL (NEG) Urine Ketones (Stick) Negative mg/dL (NEG) Urine Blood Negative (NEG) Urine Nitrite Negative (NEG) Urine Bilirubin Negative (NEG) Urine Urobilinogen Dipstick 0.2 mg/dL (0.2 mg/dL) Urine Leukocyte Esterase Negative (NEG) Urine RBC Occ /HPF (0-2) Urine WBC Occ /HPF (0-4) Urine Squamous Epithelial Cells Few /LPF Urine Bacteria 0 /HPF (0-FEW) Urine Opiates Screen Neg (NEG) Urine Methadone Screen Neg (NEG) Urine Barbiturates Neg (NEG) Urine Phencyclidine Screen Neg (NEG) Urine Amphetamine/Methamphetamine Neg (NEG) Urine Benzodiazepines Screen Neg (NEG) Urine Cocaine Screen Neg (NEG) Urine Cannabinoids Screen Pos (NEG) Urine Ethyl Alcohol Neg (NEG) Laboratory Tests Test 12/04/17 09:30 12/04/17 12:21 12/04/17 15:50 12/04/17 16:25 White Blood Count 5.9 x10^3/uL (4.0-11.0) Red Blood Count 4.77 x10^6/uL (4.30-5.70) Hemoglobin 14.8 g/dL (13.0-17.5) Hematocrit 43.2 % (39.0-53.0) Mean Corpuscular Volume 91 fL (79-100) Mean Corpuscular Hemoglobin 31 pg (25-35) Mean Corpuscular Hemoglobin Concent 34 g/dL (31-37) Red Cell Distribution Width 13.5 % (11.5-14.5) Platelet Count 240 x10^3/uL (140-400) Neutrophils (%) (Auto) 68 % (31-73) Lymphocytes (%) (Auto) 22 % (24-48) Monocytes (%) (Auto) 8 % (0-9) Eosinophils (%) (Auto) 2 % (0-3) Basophils (%) (Auto) 1 % (0-3) Neutrophils # (Auto) 4.0 x10^3uL (1.8-7.7) Lymphocytes # (Auto) 1.3 x10^3/uL (1.0-4.8) Monocytes # (Auto) 0.5 x10^3/uL (0.0-1.1) Eosinophils # (Auto) 0.1 x10^3/uL (0.0-0.7) Basophils # (Auto) 0.0 x10^3/uL (0.0-0.2) Sodium Level 140 mmol/L (136-145) Potassium Level 3.5 mmol/L (3.5-5.1) Chloride Level 104 mmol/L (98-107) Carbon Dioxide Level 30 mmol/L (21-32) Anion Gap 6 (6-14) Blood Urea Nitrogen 12 mg/dL (8-26) Creatinine 1.0 mg/dL (0.7-1.3) Estimated GFR (Cockcroft-Gault) 89.1 BUN/Creatinine Ratio 12 (6-20) Glucose Level 180 mg/dL (70-99) Calcium Level 9.2 mg/dL (8.5-10.1) Magnesium Level 1.7 mg/dL (1.8-2.4) Total Bilirubin 1.5 mg/dL (0.2-1.0) Aspartate Amino Transf (AST/SGOT) 25 U/L (15-37) Alanine Aminotransferase (ALT/SGPT) 45 U/L (16-63) Alkaline Phosphatase 78 U/L (46-116) Total Protein 7.5 g/dL (6.4-8.2) Albumin 3.5 g/dL (3.4-5.0) Albumin/Globulin Ratio 0.9 (1.0-1.7) Glucose (Fingerstick) 165 mg/dL (70-99) 155 mg/dL (70-99) Urine Collection Type Unknown Urine Color Yellow Urine Clarity Clear Urine pH 6.0 Urine Specific [place] 1.010 Urine Protein Negative mg/dL (NEG-TRACE) Urine Glucose (UA) Negative mg/dL (NEG) Urine Ketones (Stick) Negative mg/dL (NEG) Urine Blood Negative (NEG) Urine Nitrite Negative (NEG) Urine Bilirubin Negative (NEG) Urine Urobilinogen Dipstick 0.2 mg/dL (0.2 mg/dL) Urine Leukocyte Esterase Negative (NEG) Urine RBC Occ /HPF (0-2) Urine WBC Occ /HPF (0-4) Urine Squamous Epithelial Cells Few /LPF Urine Bacteria 0 /HPF (0-FEW) Urine Opiates Screen Neg (NEG) Urine Methadone Screen Neg (NEG) Urine Barbiturates Neg (NEG) Urine Phencyclidine Screen Neg (NEG) Urine Amphetamine/Methamphetamine Neg (NEG) Urine Benzodiazepines Screen Neg (NEG) Urine Cocaine Screen Neg (NEG) Urine Cannabinoids Screen Pos (NEG) Urine Ethyl Alcohol Neg (NEG) Test 12/05/17 07:45 Glucose (Fingerstick) 72 mg/dL (70-99) Medications Current Medications Atorvastatin Calcium (Lipitor) 40 mg HS PO Last administered on 12/04/17 20:09 ; Start 12/03/17 at 21:00 Clopidogrel Bisulfate (Plavix) 75 mg DAILY PO Last administered on 12/04/17 09: 12; Start 12/03/17 at 09:00 Lisinopril (Prinivil) 10 mg DAILY08 PO Last administered on 12/04/17 09:12; Start 12/03/17 at 08:00 Insulin Glargine (Lantus) 32 units HS SQ ; Start 12/03/17 at 21:00; Stop 12/03/17 at 21:00; Status DC Metformin HCl (Glucophage) 500 mg BID76 PO ; Start 12/03/17 at 07:00; Stop at 07:00; Status DC Metformin HCl (Glucophage) 500 mg BIDWMEALS PO Last administered on 12/04/17 17 :36; Start 12/03/17 at 08:00 Insulin Glargine (Lantus) 12 units HS SQ Last administered on 12/04/17 20:21; Start 12/03/17 at 21:00 Insulin Human Lispro (HumaLOG) 4 units TIDAC SQ Last administered on 12/04/17 17:40; Start 12/03/17 at 11:30 Doxycycline Hyclate (Vibra-Tab) 100 mg BID PO Last administered on 12/04/17 20: 09; Start 12/03/17 at 11:00 Tamsulosin HCl (Flomax) 0.4 mg QHS PO Last administered on 12/04/17 20:09; Start 12/03/17 at 21:00 Levofloxacin (Levaquin) 500 mg DAILY06 PO Last administered on 12/05/17 05:56; Start 12/03/17 at 11:00 Acetaminophen (Tylenol) 325 mg PRN Q6HRS PRN PO MILD PAIN / TEMP Last administered on 12/04/17 22:02; Start 12/03/17 at 10:30 Lorazepam (Ativan) 0.5 mg PRN Q8HRS PRN PO ANXIETY / AGITATION Last administered on 12/04/17 21:23; Start 12/03/17 at 10:45 Magnesium Sulfate 50 ml @ 25 mls/hr 1X ONCE IV Last administered on 12/03/17 12:10; Start 12/03/17 at 11:00; Stop 12/03/17 at 12:59; Status DC Multivitamins (Thera M Plus) 1 tab DAILY PO Last administered on 12/04/17 09:12 ; Start 12/03/17 at 11:00 Thiamine Mononitrate (Vitamin B-1) 100 mg DAILY PO Last administered on 09:00; Start 12/03/17 at 11:00 Folic Acid (Folic Acid) 1 mg DAILY PO Last administered on 12/04/17 09:12; Start 12/03/17 at 11:00 Nicotine (Nicoderm Cq 21mg) 1 patch DAILY TD Last administered on 12/04/17 09: 13; Start 12/04/17 at 09:00 Active Scripts Active Reported Men's Multi-Vitamin (Multivitamin) 1 Each Tablet 1 Each PO DAILY Humalog (Insulin Lispro) 100 Unit/1 Ml Cartridge 6 Unit SQ BID Clopidogrel (Clopidogrel Bisulfate) 75 Mg Tablet 1 Tab PO DAILY Lantus (Insulin Glargine,Hum.rec.anlog) 100 Unit/1 Ml Vial 32 Unit SQ HS Apidra (Insulin Glulisine) 100 Unit/1 Ml Vial 6 Unit SQ TIDAC Lipitor (Atorvastatin Calcium) 40 Mg Tablet 40 Mg PO HS Lisinopril 10 Mg Tablet 10 Mg PO DAILY08 Metformin Hcl 500 Mg Tablet 500 Mg PO [id number] Vitals/I & O Vital Sign - Last 24 Hours 12/04/17 12/04/17 12/04/17/8/18 09:12 11:25 15:45 19:53 Temp 98.4 98.3 98.1 98.4 98.3 98.1 Pulse 108 105 117 85 Resp 21 21 16 B/P (MAP) 170/77 139/96 (110) 145/78 (100) 136/72 (93) Pulse Ox 100 100 100 O2 Delivery Room Air Room Air Room Air 12/04/17 12/04/17 12/05/17 12/05/17 20:05 23:32 03:28 07:00 Temp 98.0 97.7 98.0 97.7 Pulse 65 72 67 Resp 16 16 18 B/P (MAP) 146/72 (96) 144/78 (100) 145/76 (99) Pulse Ox 100 98 99 O2 Delivery Room Air Room Air Room Air Room Air Intake and Output 12/04/17 12/04/17 12/05/17 15:00 23:00 07:00 Intake Total 740 ml Output Total 700 ml 500 ml Balance 40 ml -500 ml ARAM TERRELL MD Dec 05, 2017 08:11
[2017-12-05] MEDS: metFORMIN 500 MG TABLET PO SCH ×2 (08:16→16:52)
[2017-12-05] MEDS: NICOTINE 21MG PATCH. TD SCH (08:16)
[2017-12-05] MEDS: DOXYCYCLINE HYCLATE 100 MG TABLET PO SCH ×2 (08:16→20:16)
[2017-12-05] MEDS: FOLIC ACID 1 MG TABLET. PO SCH (08:16)
[2017-12-05] MEDS: CLOPIDOGREL BISULFATE 75 MG TABLET PO SCH (08:16)
[2017-12-05] MEDS: MULTIVITAMIN with MINERAL TABLET. PO SCH (08:16)
[2017-12-05] MEDS: THIAMINE 100 MG TABLET. PO SCH (08:17)
[2017-12-05] MEDS: LISINOPRIL 20 MG TABLET PO SCH (08:20)
[2017-12-05] MEDS ORDERED: MAGNESIUM SULFATE 2GM 50 ML IV ONE (08:30)
[2017-12-05 11:00] VITALS: BP 147/78
[2017-12-05 15:00] VITALS: BP 146/85
[2017-12-05 19:36] VITALS: BP 93/74
[2017-12-05] MEDS: TAMSULOSIN 0.4 MG CAP.ER.24H. PO SCH (20:16)
[2017-12-05] MEDS: ATORVASTATIN CALCIUM 40 MG TABLET. PO SCH (20:16)
[2017-12-05] MEDS: LACTOBACILLUS RHAMNOSUS GG 1 CAPSULE. PO SCH (20:16)
[2017-12-05] MEDS ORDERED: INSULIN GLARGINE 300 UNITS/3 ML INSULN.PEN. SQ SCH (21:00)
[2017-12-05 23:19] VITALS: BP 119/89
[2017-12-05] MEDS: ACETAMINOPHEN 325 MG TABLET. PO PRN (23:40)
[2017-12-05] MEDS: LORazepam 0.5 MG TABLET PO PRN (23:40)
[2017-12-06 07:00] VITALS: BP 134/78
[2017-12-06] MEDS: THIAMINE 100 MG TABLET. PO SCH (09:00)
--- NOTE | 2017-12-06 09:24 | PDOC ---
PROGRESS NOTES Subjective Subjective feels well. fbs elevated and will increase hs lantus insulin. blood pressure is okay. no complaints Objective Objective Vital Signs Date Time Temp Pulse Resp B/P (MAP) Pulse Ox O2 Delivery O2 Flow Rate FiO2 12/06/17 07:00 98.2 87 18 134/78 (96) 99 Room Air 98.2 Intake and Output 12/06/17 07:00 Intake Total 760 ml Output Total 300 ml Balance 460 ml Intake Oral 760 ml Output Urine Total 300 ml # Voids 4 # Bowel Movements 1 Physical Exam Heart: Regular rate, Normal S1, Normal S2 Extremities: No edema General: Alert HEENT: Atraumatic Lungs: Clear to auscultation Neuro: Normal speech Psych/Mental Status: Mood NL Skin: No rashes Assessment Assessment Assessment 1. Failure to thrive. 2. 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 4. Hypertension. 5. Hyperlipidemia. 6. Right leg wound. 7. Coronary artery disease. 8. cognitive deficits 9. 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 10. Hypomagnesemia treated alcoholic polyneuropathy Plan Plan of Care increase hs lantus insulini PT and OT dismiss to SNF and then retirement when SNF available he will not be able to live at home due to alcohol abuse and non compliance with insulin diet and meds Comment Review of Relevant I have reviewed the following items linda (where applicable) has been applied. Labs Laboratory Tests Test 12/04/17 09:30 12/04/17 12:21 12/04/17 15:50 12/04/17 16:25 White Blood Count 5.9 x10^3/uL (4.0-11.0) Red Blood Count 4.77 x10^6/uL (4.30-5.70) Hemoglobin 14.8 g/dL (13.0-17.5) Hematocrit 43.2 % (39.0-53.0) Mean Corpuscular Volume 91 fL (79-100) Mean Corpuscular Hemoglobin 31 pg (25-35) Mean Corpuscular Hemoglobin Concent 34 g/dL (31-37) Red Cell Distribution Width 13.5 % (11.5-14.5) Platelet Count 240 x10^3/uL (140-400) Neutrophils (%) (Auto) 68 % (31-73) Lymphocytes (%) (Auto) 22 % (24-48) Monocytes (%) (Auto) 8 % (0-9) Eosinophils (%) (Auto) 2 % (0-3) Basophils (%) (Auto) 1 % (0-3) Neutrophils # (Auto) 4.0 x10^3uL (1.8-7.7) Lymphocytes # (Auto) 1.3 x10^3/uL (1.0-4.8) Monocytes # (Auto) 0.5 x10^3/uL (0.0-1.1) Eosinophils # (Auto) 0.1 x10^3/uL (0.0-0.7) Basophils # (Auto) 0.0 x10^3/uL (0.0-0.2) Sodium Level 140 mmol/L (136-145) Potassium Level 3.5 mmol/L (3.5-5.1) Chloride Level 104 mmol/L (98-107) Carbon Dioxide Level 30 mmol/L (21-32) Anion Gap 6 (6-14) Blood Urea Nitrogen 12 mg/dL (8-26) Creatinine 1.0 mg/dL (0.7-1.3) Estimated GFR (Cockcroft-Gault) 89.1 BUN/Creatinine Ratio 12 (6-20) Glucose Level 180 mg/dL (70-99) Calcium Level 9.2 mg/dL (8.5-10.1) Magnesium Level 1.7 mg/dL (1.8-2.4) Total Bilirubin 1.5 mg/dL (0.2-1.0) Aspartate Amino Transf (AST/SGOT) 25 U/L (15-37) Alanine Aminotransferase (ALT/SGPT) 45 U/L (16-63) Alkaline Phosphatase 78 U/L (46-116) Total Protein 7.5 g/dL (6.4-8.2) Albumin 3.5 g/dL (3.4-5.0) Albumin/Globulin Ratio 0.9 (1.0-1.7) Glucose (Fingerstick) 165 mg/dL (70-99) 155 mg/dL (70-99) Urine Collection Type Unknown Urine Color Yellow Urine Clarity Clear Urine pH 6.0 Urine Specific [place] 1.010 Urine Protein Negative mg/dL (NEG-TRACE) Urine Glucose (UA) Negative mg/dL (NEG) Urine Ketones (Stick) Negative mg/dL (NEG) Urine Blood Negative (NEG) Urine Nitrite Negative (NEG) Urine Bilirubin Negative (NEG) Urine Urobilinogen Dipstick 0.2 mg/dL (0.2 mg/dL) Urine Leukocyte Esterase Negative (NEG) Urine RBC Occ /HPF (0-2) Urine WBC Occ /HPF (0-4) Urine Squamous Epithelial Cells Few /LPF Urine Bacteria 0 /HPF (0-FEW) Urine Opiates Screen Neg (NEG) Urine Methadone Screen Neg (NEG) Urine Barbiturates Neg (NEG) Urine Phencyclidine Screen Neg (NEG) Urine Amphetamine/Methamphetamine Neg (NEG) Urine Benzodiazepines Screen Neg (NEG) Urine Cocaine Screen Neg (NEG) Urine Cannabinoids Screen Pos (NEG) Urine Ethyl Alcohol Neg (NEG) Test 12/05/17 07:45 12/05/17 11:01 12/05/17 16:30 12/06/17 07:23 Glucose (Fingerstick) 72 mg/dL (70-99) 156 mg/dL (70-99) 159 mg/dL (70-99) 194 mg/dL (70-99) Laboratory Tests Test 12/05/17 11:01 12/05/17 16:30 12/06/17 07:23 Glucose (Fingerstick) 156 mg/dL (70-99) 159 mg/dL (70-99) 194 mg/dL (70-99) Medications Current Medications Atorvastatin Calcium (Lipitor) 40 mg HS PO Last administered on 12/05/17at 20:16 ; Start 12/03/17 at 21:00 Clopidogrel Bisulfate (Plavix) 75 mg DAILY PO Last administered on 12/05/17at 08: 16; Start 12/03/17 at 09:00 Lisinopril (Prinivil) 10 mg DAILY08 PO Last administered on 12/04/17at 09:12; Start 12/03/17 at 08:00; Stop 12/05/17 at 08:08; Status DC Insulin Glargine (Lantus) 32 units HS SQ ; Start 12/03/17 at 21:00; Stop 12/03/17 at 21:00; Status DC Metformin HCl (Glucophage) 500 mg BID76 PO ; Start 12/03/17 at 07:00; Stop at 07:00; Status DC Metformin HCl (Glucophage) 500 mg BIDWMEALS PO Last administered on 12/05/17 16 :52; Start 12/03/17 at 08:00 Insulin Glargine (Lantus) 12 units HS SQ Last administered on 12/04/17 20:21; Start 12/03/17 at 21:00; Stop 12/05/17 at 08:09; Status DC Insulin Human Lispro (HumaLOG) 4 units TIDAC SQ Last administered on 12/05/17 16:56; Start 12/03/17 at 11:30 Doxycycline Hyclate (Vibra-Tab) 100 mg BID PO Last administered on 12/05/17 20: 16; Start 12/03/17 at 11:00 Tamsulosin HCl (Flomax) 0.4 mg QHS PO Last administered on 12/05/17 20:16; Start 12/03/17 at 21:00 Levofloxacin (Levaquin) 500 mg DAILY06 PO Last administered on 12/06/17 06:28 ; Start 12/03/17 at 11:00 Acetaminophen (Tylenol) 325 mg PRN Q6HRS PRN PO MILD PAIN / TEMP Last administered on 12/05/17 23:40; Start 12/03/17 at 10:30 Lorazepam (Ativan) 0.5 mg PRN Q8HRS PRN PO ANXIETY / AGITATION Last administered on 12/05/17 23:40; Start 12/03/17 at 10:45 Magnesium Sulfate 50 ml @ 25 mls/hr 1X ONCE IV Last administered on 12/03/17 12:10; Start 12/03/17 at 11:00; Stop 12/03/17 at 12:59; Status DC Multivitamins (Thera M Plus) 1 tab DAILY PO Last administered on 12/05/17 08:16 ; Start 12/03/17 at 11:00 Thiamine Mononitrate (Vitamin B-1) 100 mg DAILY PO Last administered on 08:17; Start 12/03/17 at 11:00 Folic Acid (Folic Acid) 1 mg DAILY PO Last administered on 12/05/17 08:16; Start 12/03/17 at 11:00 Nicotine (Nicoderm Cq 21mg) 1 patch DAILY TD Last administered on 9/9/18at 08: 16; Start 12/04/17 at 09:00 Insulin Glargine (Lantus) 8 units HS SQ Last administered on 12/05/17at 20:21; Start 12/05/17 at 21:00 Lisinopril (Prinivil) 20 mg DAILY PO Last administered on 12/05/17at 08:20; Start 12/05/17 at 09:00 Magnesium Sulfate 50 ml @ 25 mls/hr 1X ONCE IV Last administered on 12/05/17at 08:27; Start 12/05/17 at 08:30; Stop 12/05/17 at 10:29; Status DC Lactobacillus Rhamnosus (Culturelle) 1 cap BID PO Last administered on at 20:16; Start 12/05/17 at 21:00 Active Scripts Active Reported Men's Multi-Vitamin (Multivitamin) 1 Each Tablet 1 Each PO DAILY Humalog (Insulin Lispro) 100 Unit/1 Ml Cartridge 6 Unit SQ BID Clopidogrel (Clopidogrel Bisulfate) 75 Mg Tablet 1 Tab PO DAILY Lantus (Insulin Glargine,Hum.rec.anlog) 100 Unit/1 Ml Vial 32 Unit SQ HS Apidra (Insulin Glulisine) 100 Unit/1 Ml Vial 6 Unit SQ TIDAC Lipitor (Atorvastatin Calcium) 40 Mg Tablet 40 Mg PO HS Lisinopril 10 Mg Tablet 10 Mg PO DAILY08 Metformin Hcl 500 Mg Tablet 500 Mg PO BID76 Vitals/I & O Vital Sign - Last 24 Hours 12/05/17 12/05/17 12/05/17 12/05/17 11:00 15:00 19:36 20:00 Temp 97.9 98.1 98.0 97.9 98.1 98.0 Pulse 75 88 96 Resp 18 20 20 B/P (MAP) 147/78 (101) 146/85 (105) 93/74 (80) Pulse Ox 100 100 98 O2 Delivery Room Air Room Air Room Air Room Air 12/05/17 12/06/17 12/06/17 23:19 03:00 07:00 Temp 98.4 98.2 98.4 98.2 Pulse 104 87 Resp 16 16 18 B/P (MAP) 119/89 (99) 134/78 (96) Pulse Ox 100 99 O2 Delivery Room Air Room Air Intake and Output 12/05/17 12/05/1718 15:00 23:00 07:00 Intake Total 520 ml 240 ml Output Total 300 ml Balance 520 ml -60 ml ARAM TERRELL MD Dec 06, 2017 09:24
[2017-12-06] MEDS: DOXYCYCLINE HYCLATE 100 MG TABLET PO SCH (09:29)
[2017-12-06] MEDS: metFORMIN 500 MG TABLET PO SCH (09:29)
[2017-12-06] MEDS: LISINOPRIL 20 MG TABLET PO SCH (09:29)
[2017-12-06] MEDS: LACTOBACILLUS RHAMNOSUS GG 1 CAPSULE. PO SCH (09:29)
[2017-12-06] MEDS: MULTIVITAMIN with MINERAL TABLET. PO SCH (09:30)
[2017-12-06] MEDS: CLOPIDOGREL BISULFATE 75 MG TABLET PO SCH (09:30)
[2017-12-06] MEDS: FOLIC ACID 1 MG TABLET. PO SCH (09:31)
[2017-12-06] MEDS: NICOTINE 21MG PATCH. TD SCH (09:31)
[2017-12-06] MEDS: INSULIN LISPRO 300 UNITS/3 ML INSULN.PEN. SQ SCH ×2 (09:38→12:45)
[2017-12-06 10:42] LABS: BASO % 1 % (0-3); EOS # 0.1 x10^3/uL (0.0-0.7); EOS % 2 % (0-3); HEMATOCRIT 42.6 % (39.0-53.0); LYMPH # 1.5 x10^3/uL (1.0-4.8); LYMPH % 30 % (24-48); MEAN CORPUSCULAR HEMOGLOBIN 32 pg (25-35); MEAN CORPUSCULAR HGB CONC 35 g/dL (31-37); MEAN CORPUSCULAR VOLUME 91 fL (79-100); MONO # 0.4 x10^3/uL (0.0-1.1); MONO % 8 % (0-9); NEUT # 3.1 x10^3uL (1.8-7.7); NEUT % 59 % (31-73); PLATELET COUNT 235 x10^3/uL (140-400); RED BLOOD COUNT 4.69 x10^6/uL (4.30-5.70); RED CELL DISTRIBUTION WIDTH 13.5 % (11.5-14.5); WHITE BLOOD COUNT 5.2 x10^3/uL (4.0-11.0)
[2017-12-06 10:58] LABS: GFR 89.1; MAGNESIUM 1.8 mg/dL (1.8-2.4)
[2017-12-06 11:00] VITALS: BP 156/82
[2017-12-06 15:00] VITALS: BP 118/72
[2017-12-06] MEDS ORDERED: INSULIN GLARGINE 300 UNITS/3 ML INSULN.PEN. SQ SCH (21:00)
--- NOTE | 2017-12-07 09:54 | PDOC ---
Provider Note Provider Note discharge summary dictated # [id number] ARAM TERRELL MD Dec 07, 2017 09:54
--- NOTE | 2017-12-07 11:44 | DS ---
DATE OF DISCHARGE: 12/06/2017 [employer] [facility] PROCESSING: Dr. Orellana. FINAL DIAGNOSES: 1. Failure to thrive. 2. Alcoholism. 3. Alcoholic peripheral neuropathy. 4. Diabetes mellitus type 2 with microalbuminuria. 5. Hypertension. 6. Hyperlipidemia. 7. Right leg wound. 8. Coronary artery disease. 9. Atypical chest pain. 10. Old cerebrovascular accident. 11. Hypomagnesemia. 12. Mobility and self-care deficits. HOSPITAL COURSE: The patient is a 72-year-old male recently dismissed from [facility] 11/26/2017 with a history of diabetes mellitus type 2 with microalbuminuria, hypertension, hyperlipidemia, coronary artery disease, prosthetic left eye, cigarette smoker, alcoholic. He was dismissed to home with home health as the family refused physical rehabilitation facility or prison facility at that time. The patient continues to drink a fifth of gin a day, which he has done for years. He has not been taking his medications here and eating food or adherent to his diet nor was he taking his insulin and was doing bizarre behavior such as putting his underwear on his head. The patient was readmitted to [facility] Emergency Room on 12/03/2017 for failure to thrive. The patient actually had gone to the Emergency Room the night of 12/01/2017 for abdominal pain. A CAT scan of the abdomen and pelvis was unremarkable. He therefore was admitted 12/02/2017 through the Emergency Room. He was seen by Physical and Occupational Therapy. He received some IV magnesium for hypomagnesemia. He continued with his antihypertensive medication. His insulin was adjusted. It was obvious that he would not be able to thrive at home and was dismissed to a prison facility and also will be from there probably be in a long-term [facility] subsequent to that. He can look at his discharge medication list on discharge. ARAM TERRELL MD DR: YEYO/heladio JOB#: [id number] / [id number]
[2017-12-11] MEDS ORDERED: TAMS0.4C97 PO (03:30)
[2017-12-11] MEDS ORDERED: ACET325T9 PO (03:30)
[2017-12-11] MEDS ORDERED: NICO1PAT21 TP (03:30)
[2017-12-11] MEDS ORDERED: FOLI1TAB16 PO (03:30)
[2017-12-17] MEDS ORDERED: INSU100I13 SQ (10:18)
[2017-12-17] MEDS ORDERED: AMLO2.5T3 PO (10:18)
[2017-12-17] MEDS ORDERED: FAMO20TA5 PO (10:18)
[2017-12-17] MEDS ORDERED: POLY17PO3 PO (10:18)
[2017-12-17] MEDS ORDERED: SERT50TA8 PO (10:18)
== END 2017-12-06 16:30 | DRG 640 ==
LOC: ER 18:07 → 6 SOUTH 19:41
PROVIDERS: ADMIT Internal Medicine; ATTEND Internal Medicine
DX: R62.7 Adult failure to thrive (principal); G93.41 Metabolic encephalopathy; E83.42 Hypomagnesemia; E11.9 Type 2 diabetes mellitus without complications; G62.1 Alcoholic polyneuropathy; E78.00 Pure hypercholesterolemia, unspecified; E78.5 Hyperlipidemia, unspecified; F03.90 Unspecified dementia, unspecified severity, without behavioral disturbance, psychotic disturbance, mood disturbance, and anxiety; F10.20 Alcohol dependence, uncomplicated; F12.90 Cannabis use, unspecified, uncomplicated; F17.210 Nicotine dependence, cigarettes, uncomplicated; I10 Essential (primary) hypertension; I25.10 Atherosclerotic heart disease of native coronary artery without angina pectoris; I89.0 Lymphedema, not elsewhere classified; K58.9 Irritable bowel syndrome, unspecified; M19.90 Unspecified osteoarthritis, unspecified site; I25.2 Old myocardial infarction; Z83.3 Family history of diabetes mellitus; Z86.73 Personal history of transient ischemic attack (TIA), and cerebral infarction without residual deficits; Z87.11 Personal history of peptic ulcer disease; Z97.0 Presence of artificial eye; Z90.49 Acquired absence of other specified parts of digestive tract; Z79.899 Other long term (current) drug therapy
CPT/HCPCS: 36415; 80048; 80053; 80307; 81001; 82962; 83735; 84484; 85025; 93005; G0480; J1815; J3475; 97110; 97116; 99285-25; G0479

== ENCOUNTER → 2018-06-22 | Outpatient (CLI) | payer OTHER ==
[2017-12-17 11:00] VITALS: BP 139/73
[~2018-06-22] MED LIST changes: +ACET325T9 PO; +AMLO2.5T5 PO; +FAMO20TA5 PO; +FOLI1TAB16 PO; +INSU100C SQ; +INSU100I13 SQ; +MULT-404 PO; +NICO1PAT21 TP; +ONDA4TAB7 PO; +POLY17PO28 PO; +SERT50TA8 PO; +TAMS0.4C97 PO
--- NOTE | 2018-06-23 08:02 | RAD ---
Right knee, 3 views, 06/22/2018: HISTORY: Fall, pain Comparison is made to a study from 09/23/2006. There is a chronic oblique lucency projected over the proximal tibia compatible with an old fracture. An old surgical tract is less likely. There is a small chronic loose body/old bone fragment in the region of the tibial spines. There is an old healed proximal fibular fracture. No new fracture or dislocation is identified. There is spurring at the knee joint and at the patellofemoral articulation. IMPRESSION: 1. Old tibial and fibular fractures. 2. Moderate degenerative change. 3. No acute bony abnormality is detected. Electronically signed by: Reinaldo Pineda MD (06/23/2018 7:59 AM) [facility]
--- NOTE | 2018-06-23 08:03 | RAD ---
Pelvis with right hip, 3 views, 06/22/2018: HISTORY: Fall, right hip pain No fracture or dislocation is identified. The hip joints are minimally narrowed with mild marginal spurring. There is mild degenerative change at the symphysis pubis. Scattered vascular calcifications are present. IMPRESSION: 1. Mild degenerative change at both hip joints. 2. No acute bony abnormality is detected. Electronically signed by: Reinaldo Pineda MD (06/23/2018 8:00 AM) [facility]
== END | disposition home or self-care (01) ==
LOC: RAD 17:47
PROVIDERS: ATTEND Internal Medicine
DX: M17.11 Unilateral primary osteoarthritis, right knee (principal); M16.0 Bilateral primary osteoarthritis of hip; Z87.81 Personal history of (healed) traumatic fracture; W19.XXXA Unspecified fall, initial encounter; Y93.89 Activity, other specified; Y92.89 Other specified places as the place of occurrence of the external cause; Y99.8 Other external cause status
CPT/HCPCS: 73502; 73562

== ENCOUNTER 2018-07-29 18:28 | Emergency (ER) | payer MEDICARE, OTHER ==
[~2018-07-29] VITALS: Ht 177.8 cm; Wt 90.7 kg
[~2018-07-29 18:28] MED LIST changes: -ONDA4TAB7 PO
--- NOTE | 2018-07-29 19:54 | PHYS DOC ---
Past Medical History Past Medical History: Alcoholism, CVA, Dementia, Diabetes-Type II, High Cholesterol, Hypertension, Other Additional Past Medical Histor: lower ext edema, brain aneurysm Past Surgical History: Cholecystectomy Alcohol Use: Heavy Drug Use: Marijuana Adult General Chief Complaint Chief Complaint: NAUSEA/VOMITING/DIARRHA HPI HPI Patient is a 72 year old male who presents with vomiting and diarrhea. He states this has been going on since 7am this morning. He has been vomiting every time that he eats. He states that the vomit is yellow in nature without blood. He also states that he has been having diarrhea since this morning without blood. He reports pain in the middle of his abdomen that is stabbing in nature without radiation. He reports feeling like he may be chilled. He denies any new foods, sick contacts, or burning with urination. Review of Systems Review of Systems Constitutional: Denies fever, reports chills [] Eyes: Denies change in visual acuity, redness, or eye pain [] HENT: Denies nasal congestion or sore throat [] Respiratory: Denies cough or shortness of breath [] Cardiovascular: No additional information not addressed in HPI [] GI: Reports abdominal pain, nausea, vomiting, and diarrhea, denies any blood in the stool [] : Denies dysuria or hematuria [] Musculoskeletal: Denies back pain or joint pain [] Integument: Denies rash or skin lesions [] Neurologic: Denies headache, focal weakness or sensory changes [] Endocrine: Denies polyuria or polydipsia [] All other systems were reviewed and found to be within normal limits, except as documented in this note. Current Medications Current Medications Current Medications Medications (Trade) Dose Ordered Sig/Sheri Start Time Stop Time Status Last Admin Dose Admin Fentanyl Citrate (Fentanyl 2ml Vial) 50 mcg 1X ONCE 07/29/18 20:00 07/29/18 20:01 DC 07/29/18 19:59 50 MCG Ondansetron HCl (Zofran) 4 mg 1X ONCE 07/29/18 20:00 07/29/18 20:01 DC 07/29/18 19:59 4 MG Potassium Chloride (KCl Oral Soln) 40 meq 1X ONCE 07/29/18 21:15 07/29/18 21:16 DC 07/29/18 21:21 40 MEQ Sodium Chloride 1,000 ml @ 1,000 mls/hr 1X ONCE 07/29/18 20:00 07/29/18 20:59 DC 07/29/18 19:59 1,000 MLS/HR Allergies Allergies Allergies Coded Allergies Type Severity Reaction Last Updated Verified No Known Drug Allergies 04/17/13 No Physical Exam Physical Exam Constitutional: Well developed, well nourished, no acute distress, non-toxic appearance. [] HENT: Normocephalic, atraumatic, bilateral external ears normal, oropharynx melo st, no oral exudates, nose normal. [] Eyes: PERRLA, EOMI, conjunctiva normal, no discharge. [] Neck: Normal range of motion, no tenderness, supple, no stridor. [] Cardiovascular:Heart rate regular rhythm, no murmur [] Lungs & Thorax: Bilateral breath sounds clear to auscultation [] Abdomen: Bowel sounds normal, tenderness to palpation in both right and left lower quadrants. [] Skin: Warm, dry, no erythema, no rash. [] Back: No tenderness, no CVA tenderness. [] Extremities: No tenderness, no cyanosis, no clubbing, ROM intact, no edema. [] Neurologic: Alert and oriented X 3, normal motor function, normal sensory function, no focal deficits noted. [] Psychologic: Affect normal, judgement normal, mood normal. [] Current Patient Data Vital Signs Vital Signs Date Time Temp Pulse Resp B/P (MAP) Pulse Ox O2 Delivery O2 Flow Rate FiO2 07/29/18 22:45 70 16 147/67 (93) 97 Room Air 07/29/18 18:50 99.3 99.3 Lab Values Laboratory Tests Test 07/29/18 19:48 07/29/18 21:45 White Blood Count 6.2 x10^3/uL (4.0-11.0) Red Blood Count 4.85 x10^6/uL (4.30-5.70) Hemoglobin 14.5 g/dL (13.0-17.5) Hematocrit 43.1 % (39.0-53.0) Mean Corpuscular Volume 89 fL (79-100) Mean Corpuscular Hemoglobin 30 pg (25-35) Mean Corpuscular Hemoglobin Concent 34 g/dL (31-37) Red Cell Distribution Width 13.4 % (11.5-14.5) Platelet Count 244 x10^3/uL (140-400) Neutrophils (%) (Auto) 80 % (31-73) H Lymphocytes (%) (Auto) 14 % (24-48) L Monocytes (%) (Auto) 5 % (0-9) Eosinophils (%) (Auto) 0 % (0-3) Basophils (%) (Auto) 1 % (0-3) Neutrophils # (Auto) 4.9 x10^3uL (1.8-7.7) Lymphocytes # (Auto) 0.9 x10^3/uL (1.0-4.8) L Monocytes # (Auto) 0.3 x10^3/uL (0.0-1.1) Eosinophils # (Auto) 0.0 x10^3/uL (0.0-0.7) Basophils # (Auto) 0.1 x10^3/uL (0.0-0.2) Sodium Level 138 mmol/L (136-145) Potassium Level 3.1 mmol/L (3.5-5.1) L Chloride Level 97 mmol/L (98-107) L Carbon Dioxide Level 30 mmol/L (21-32) Anion Gap 11 (6-14) Blood Urea Nitrogen 9 mg/dL (8-26) Creatinine 0.8 mg/dL (0.7-1.3) Estimated GFR (Cockcroft-Gault) 115.3 BUN/Creatinine Ratio 11 (6-20) Glucose Level 191 mg/dL (70-99) H Calcium Level 8.8 mg/dL (8.5-10.1) Total Bilirubin 1.0 mg/dL (0.2-1.0) Aspartate Amino Transferase (AST) 22 U/L (15-37) Alanine Aminotransferase (ALT) 19 U/L (16-63) Alkaline Phosphatase 67 U/L (46-116) Total Protein 7.8 g/dL (6.4-8.2) Albumin 3.4 g/dL (3.4-5.0) Albumin/Globulin Ratio 0.8 (1.0-1.7) L Lipase 48 U/L (73-393) L Urine Collection Type Unknown Urine Color Yellow Urine Clarity Clear Urine pH 6.5 Urine Specific [place] 1.020 Urine Protein >=300 mg/dL (NEG-TRACE) Urine Glucose (UA) >=1000 mg/dL (NEG) Urine Ketones (Stick) 15 mg/dL (NEG) Urine Blood Small (NEG) Urine Nitrite Negative (NEG) Urine Bilirubin Negative (NEG) Urine Urobilinogen Dipstick 1.0 mg/dL (0.2 mg/dL) Urine Leukocyte Esterase Negative (NEG) Urine RBC 1-2 /HPF (0-2) Urine WBC 1-4 /HPF (0-4) Urine Squamous Epithelial Cells Few /LPF Urine Bacteria Many /HPF (0-FEW) Urine Hyaline Casts Occasional /HPF Urine Mucus Mod /LPF Laboratory Tests 07/29/18 19:48 Laboratory Tests 07/29/18 19:48 EKG EKG [] Radiology/Procedures Radiology/Procedures [] Impressions: CT ABDOMEN PELVIS WO CONTRAST Indication: LLQ PAIN; EVAL FOR DIVERTICULITITS; Exposure: One or more of the following individualized dose reduction techniques were utilized for this examination: 1. Automated exposure control 2. Adjustment of the mA and/or kV according to patient size 3. Use of iterative reconstruction technique. Comparison: None are available. Technique: No intravenous contrast given. No oral contrast per request. Findings: Evaluation of solid viscera, bowel and vasculature is compromised by the noncontrast technique. Mild linear markings in lung bases likely atelectasis or fibrosis. Liver and spleen are unremarkable. No peripancreatic fluid or inflammatory changes. Mild fullness of both adrenals without discrete mass. There is stranding in the perinephric fat bilaterally. No evidence of hydronephrosis or urinary tract calculus. Gallbladder surgically absent. Aorta mildly calcified and ectatic up to 2.6 cm diameter. Mildly prominent inguinal lymph nodes and aortocaval lymph nodes without pathologic enlargement. Small hiatal hernia. No significant small bowel distention. Mild retained stool through the colon. No evidence of acute colitis. Mild thickening of the pararenal fascia bilaterally. The appendix is not clearly seen. There is some density within the ascending colon may represent contrast from a prior study. No evidence of ascites or pneumoperitoneum. No evidence of pelvic mass. Mild urinary bladder wall thickening. Degenerative changes of the spine, mild. Mild degenerative changes at the skeletal pelvis. Partial ankylosis of the right sacroiliac joint as can be seen with chronic sacroiliitis. IMPRESSION: 1. Stranding in the bilateral perinephric fat with perirenal fascial thickening. Findings suggest nonspecific inflammatory process or pyelonephritis. 2. No evidence of urinary tract calculus or obstruction. 3. No evidence of acute colitis. 4. Mild urinary bladder wall thickening is nonspecific. Correlate for cystitis. Could be due to chronic outlet obstruction. 5. Partial ankylosis of right sacroiliac joint, as can be seen with chronic sacroiliitis. Electronically signed by: Yandel Avila MD (07/29/2018 8:41 PM) [facility] DICTATED and SIGNED BY: YANDEL AVILA MD DATE: 07/29/182040 Course & Med Decision Making Course & Med Decision Making Pertinent Labs and Imaging studies reviewed. (See chart for details) []72-year-old male with the above past medical history presenting with nausea vomiting and diarrhea did have some mild lower abdominal tenderness CT scan was not consistent with diverticulitis. Urinalysis was essentially negative patient was reassured Zofran for nausea K was repleted return precautions were discussed. Probably a viral etiology of symptoms overall Dragon Disclaimer Dragon Disclaimer This electronic medical record was generated, in whole or in part, using a voice recognition dictation system. Departure Departure Impression: Primary Impression: Nausea vomiting and diarrhea Disposition: HOME, SELF-CARE Condition: STABLE Referrals: YANDEL TERRELL MD (PCP) Scripts Ondansetron Hcl (ZOFRAN) 4 Mg Tablet 4 MG PO PRN TID PRN for NAUSEA/VOMITING, #15 nausea/vomiting Prov: JAMES WINN MD 07/29/18 JAMES WINN MD July 29, 2018 19:54
[2018-07-29 19:57] LABS: BASO # 0.1 x10^3/uL (0.0-0.2); BASO % 1 % (0-3); EOS % 0 % (0-3); HEMATOCRIT 43.1 % (39.0-53.0); HEMOGLOBIN 14.5 g/dL (13.0-17.5); LYMPH # 0.9 x10^3/uL (1.0-4.8); LYMPH % 14 % (24-48); MEAN CORPUSCULAR HEMOGLOBIN 30 pg (25-35); MEAN CORPUSCULAR HGB CONC 34 g/dL (31-37); MEAN CORPUSCULAR VOLUME 89 fL (79-100); MONO # 0.3 x10^3/uL (0.0-1.1); MONO % 5 % (0-9); NEUT # 4.9 x10^3uL (1.8-7.7); NEUT % 80 % (31-73); PLATELET COUNT 244 x10^3/uL (140-400); RED BLOOD COUNT 4.85 x10^6/uL (4.30-5.70); RED CELL DISTRIBUTION WIDTH 13.4 % (11.5-14.5); WHITE BLOOD COUNT 6.2 x10^3/uL (4.0-11.0)
[2018-07-29] MEDS ORDERED: fentaNYL PF VIAL 100 MCG/2 ML VIAL IV ONE (20:00)
[2018-07-29] MEDS ORDERED: ONDANSETRON PF 4 MG/2 ML VIAL. IV ONE (20:00)
[2018-07-29] MEDS ORDERED: IV NORMAL SALINE 1000ML BAG 1,000 ML IV ONE (20:00)
[2018-07-29 20:21] LABS: CALCIUM 8.8 mg/dL (8.5-10.1); CREATININE 0.8 mg/dL (0.7-1.3); GFR 115.3; POTASSIUM 3.1 mmol/L (3.5-5.1)
[2018-07-29 20:26] LABS: ALBUMIN 3.4 g/dL (3.4-5.0); ALBUMIN/GLOBULIN RATIO 0.8 (1.0-1.7); TOTAL PROTEIN 7.8 g/dL (6.4-8.2)
--- NOTE | 2018-07-29 20:43 | RAD ---
CT ABDOMEN PELVIS WO CONTRAST Indication: LLQ PAIN; EVAL FOR DIVERTICULITITS; Exposure: One or more of the following individualized dose reduction techniques were utilized for this examination: 1. Automated exposure control 2. Adjustment of the mA and/or kV according to patient size 3. Use of iterative reconstruction technique. Comparison: None are available. Technique: No intravenous contrast given. No oral contrast per request. Findings: Evaluation of solid viscera, bowel and vasculature is compromised by the noncontrast technique. Mild linear markings in lung bases likely atelectasis or fibrosis. Liver and spleen are unremarkable. No peripancreatic fluid or inflammatory changes. Mild fullness of both adrenals without discrete mass. There is stranding in the perinephric fat bilaterally. No evidence of hydronephrosis or urinary tract calculus. Gallbladder surgically absent. Aorta mildly calcified and ectatic up to 2.6 cm diameter. Mildly prominent inguinal lymph nodes and aortocaval lymph nodes without pathologic enlargement. Small hiatal hernia. No significant small bowel distention. Mild retained stool through the colon. No evidence of acute colitis. Mild thickening of the pararenal fascia bilaterally. The appendix is not clearly seen. There is some density within the ascending colon may represent contrast from a prior study. No evidence of ascites or pneumoperitoneum. No evidence of pelvic mass. Mild urinary bladder wall thickening. Degenerative changes of the spine, mild. Mild degenerative changes at the skeletal pelvis. Partial ankylosis of the right sacroiliac joint as can be seen with chronic sacroiliitis. IMPRESSION: 1. Stranding in the bilateral perinephric fat with perirenal fascial thickening. Findings suggest nonspecific inflammatory process or pyelonephritis. 2. No evidence of urinary tract calculus or obstruction. 3. No evidence of acute colitis. 4. Mild urinary bladder wall thickening is nonspecific. Correlate for cystitis. Could be due to chronic outlet obstruction. 5. Partial ankylosis of right sacroiliac joint, as can be seen with chronic sacroiliitis. Electronically signed by: Yandel Avila MD (07/29/2018 8:41 PM) [facility]
[2018-07-29] MEDS ORDERED: POTASSIUM CHLORIDE 20 MEQ/15 ML ORAL LIQUID. PO ONE (21:15)
[2018-07-29 22:31] LABS: BILIRUBIN,URINE NEGATIVE (NEG); CLARITY,URINE CLEAR; COLOR,URINE YELLOW; NITRITE,URINE NEGATIVE (NEG); PH,URINE 6.5; PROTEIN,URINE >=300 mg/dL (NEG-TRACE)
[2018-07-29 22:45] VITALS: BP 147/67
[2018-07-29 23:00] LABS: BACTERIA,URINE MANY /HPF (0-FEW); HYALINE CASTS, URINE OCCASIONAL /HPF; SQUAMOUS EPITHELIAL CELL,UR FEW /LPF
[2018-07-29] MEDS ORDERED: ONDA4TAB7 PO (23:13)
--- NOTE | 2018-08-03 13:08 | NUR ---
Late entry made to Medical Record. IV Stop time transcribed from eMAR to IV spreadsheet
== END 2018-07-29 23:35 | disposition home or self-care (01) ==
LOC: ER 18:28
DX: R11.2 Nausea with vomiting, unspecified (principal); R19.7 Diarrhea, unspecified; F03.90 Unspecified dementia, unspecified severity, without behavioral disturbance, psychotic disturbance, mood disturbance, and anxiety; E78.00 Pure hypercholesterolemia, unspecified; E11.9 Type 2 diabetes mellitus without complications; I10 Essential (primary) hypertension; Z86.73 Personal history of transient ischemic attack (TIA), and cerebral infarction without residual deficits; F10.20 Alcohol dependence, uncomplicated; Y90.9 Presence of alcohol in blood, level not specified; Z90.49 Acquired absence of other specified parts of digestive tract
CPT/HCPCS: 36415; 74176; 80053; 81001; 83690; 85025; 87086; 96361; 96374; 96375; 99285; J2405; J3010; J7030; 87186

== ENCOUNTER 2018-11-04 18:05 | Emergency (ER) | payer OTHER ==
[~2018-11-04] VITALS: Ht 180.3 cm; Wt 79.4 kg
[~2018-11-04 18:05] MED LIST changes: +MIRT15TA3 PO; +ONDA4TAB7 PO; +PANT40TA77 PO
[2018-11-04] MEDS ORDERED: IV NORMAL SALINE 1000ML BAG 1,000 ML IV ONE (18:15)
[2018-11-04] MEDS ORDERED: fentaNYL PF VIAL 100 MCG/2 ML VIAL IV ONE (18:15)
--- NOTE | 2018-11-04 18:26 | EKG ---
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
[2018-11-04 18:33] LABS: BASO % 1 % (0-3); EOS # 0.2 x10^3/uL (0.0-0.7); EOS % 3 % (0-3); HEMATOCRIT 37.7 % (39.0-53.0); HEMOGLOBIN 12.6 g/dL (13.0-17.5); LYMPH # 2.3 x10^3/uL (1.0-4.8); LYMPH % 48 % (24-48); MEAN CORPUSCULAR HEMOGLOBIN 30 pg (25-35); MEAN CORPUSCULAR HGB CONC 34 g/dL (31-37); MEAN CORPUSCULAR VOLUME 90 fL (79-100); MONO # 0.5 x10^3/uL (0.0-1.1); MONO % 10 % (0-9); NEUT # 1.8 x10^3/uL (1.8-7.7); NEUT % 38 % (31-73); PLATELET COUNT 225 x10^3/uL (140-400); RED CELL DISTRIBUTION WIDTH 15.5 % (11.5-14.5); WHITE BLOOD COUNT 4.7 x10^3/uL (4.0-11.0)
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
[2018-11-04 18:42] LABS: PROTHROMBIN TIME PATIENT 13.3 SEC (11.7-14.0)
[2018-11-04 18:52] LABS: CALCIUM 8.6 mg/dL (8.5-10.1); CREATININE 0.9 mg/dL (0.7-1.3); GFR 100.4; POTASSIUM 3.6 mmol/L (3.5-5.1)
[2018-11-04 18:58] LABS: ALBUMIN 3.3 g/dL (3.4-5.0); ALBUMIN/GLOBULIN RATIO 0.9 (1.0-1.7); TOTAL BILIRUBIN 1.3 mg/dL (0.2-1.0); TOTAL PROTEIN 6.8 g/dL (6.4-8.2)
[2018-11-04] MEDS ORDERED: CONTRAST GIVEN. MC PRN ×2 (19:15→19:30)
[2018-11-04] MEDS ORDERED: IOHEXOL 300 MG/ML 100ML VIAL. IV ONE ×2 (19:15)
[2018-11-04 19:57] LABS: BILIRUBIN,URINE NEGATIVE (NEG); CLARITY,URINE CLEAR; COLOR,URINE YELLOW; NITRITE,URINE NEGATIVE (NEG); PH,URINE 6.5; PROTEIN,URINE NEGATIVE (NEG-TRACE)
[2018-11-04 20:04] LABS: BARBITURATES NEG (NEG); BENZODIAZEPINES NEG (NEG); CANNABINOIDS POS (NEG); COCAINE NEG (NEG); METHADONE NEG (NEG); OPIATES NEG (NEG); PHENCYCLIDINE NEG (NEG)
[2018-11-04 20:06] LABS: AMPHETAMINE/METHAMPHETAMINE NEG (NEG)
[2018-11-04 20:12] LABS: BACTERIA,URINE 0 /HPF (0-FEW); RBC,URINE 0 /HPF (0-2); SQUAMOUS EPITHELIAL CELL,UR OCC /LPF
--- NOTE | 2018-11-04 20:31 | RAD ---
PQRS Compliance Statement: One or more of the following individualized dose reduction techniques were utilized for this examination: 1. Automated exposure control 2. Adjustment of the mA and/or kV according to patient size 3. Use of iterative reconstruction technique PQRS Compliance Statement: One or more of the following individualized dose reduction techniques were utilized for this examination: 1. Automated exposure control 2. Adjustment of the mA and/or kV according to patient size 3. Use of iterative reconstruction technique CT head and cervical spine without contrast 11/04/2018 7:[address] chest, abdomen and pelvis with contrast CT thoracic and lumbar spine without contrast INDICATION: Fall COMPARISON: CT head October 07, 2018, CT abdomen and pelvis June 09, 2010 TECHNIQUE: Multiple axial CT images of the head were obtained from skull base through the vertex without intravenous contrast. Multiple axial CT images of the cervical spine were obtained without intravenous contrast. Coronal and sagittal reformats are provided. Multiple axial CT images of the chest, abdomen and pelvis were obtained after the intravenous administration of 75 cc Omnipaque 300. Coronal and sagittal reformats are provided. 2-D reconstructions of the thoracic and lumbar spine are provided. FINDINGS: Head: Ventricles, sulci and basal cisterns are within normal limits. Remote lacunar infarct is identified involving the right basal ganglia. Low-attenuation in the periventricular white matter is suggestive of chronic small vessel ischemic changes. There is no hydrocephalus. Hebert-white matter differentiation is normal. There is no acute intracranial hemorrhage. There is no mass, mass effect or midline shift. Remote infarcts are identified in the posterior fossa bilaterally. Left eye exenteration with ocular prosthesis noted. Right orbit is normal in appearance. Paranasal sinuses are well aerated. Mastoid air cells are well aerated. Scalp and calvaria are normal. Cervical spine: Straightening of the normal cervical lordosis without spondylolisthesis. Skull base is intact. Craniocervical junction is normal in appearance. Atlantoaxial articulation is normal. Vertebral body heights are maintained without evidence for acute fracture. There is moderate disc height loss at C5-C6 with posterior disc osteophyte complex, moderate facet arthropathy and moderate vertebral joint disease resulting in moderate bilateral neuroforaminal stenosis and mild spinal canal stenosis. At C6-C7, there is a posterior discussed by complex with severe left facet arthropathy and moderate to severe uncovertebral joint disease resulting in moderate left neural foraminal stenosis and mild spinal canal stenosis. There is no prevertebral soft tissue swelling. Thyroid gland is normal in appearance. Visualized portions of the lung apices are normal without evidence for suspicious pulmonary nodule or infiltrate. CHEST: There is a prevascular lymph node which measures 6 mm by short axis. No pathologically enlarged thoracic lymph nodes are identified. Heart size is within normal limits. Thoracic esophagus is normal. Thoracic aorta is normal in course and caliber. Mild paraseptal pulmonary emphysema. Mild bronchitis. No suspicious solid noncalcified pulmonary nodules are identified. No pleural effusions, pulmonary vascular congestion or pneumothorax. No acutely displaced rib fracture is identified. Scapulae, clavicles and sternum are intact. ABDOMEN/PELVIS: Liver, spleen, bilateral adrenal glands and pancreas are normal in appearance. Gallbladder is surgically absent. Mild intrahepatic and extra hepatic biliary ductal dilatation most favors reservoir effect status post cholecystectomy. Abdominal aorta is normal in course and caliber. Mild calcified atheromatous plaque is identified. No pathologically enlarged lymph nodes are identified in abdomen and pelvis. There is no free fluid or free intraperitoneal air. Small and large bowel are normal in caliber. There is no evidence for bowel obstruction. There are no pericolonic inflammatory changes. A normal, nondilated appendix is visualized without adjacent inflammatory changes. The kidneys enhance symmetrically. There is no suspicious renal mass. There is no hydronephrosis. There are no suspected calculi within the kidneys, ureters or urinary bladder. Mild bladder wall thickening may be secondary to underdistention versus cystitis. Prostate and seminal vesicles appear normal. 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 No acute pelvic fracture is identified. Thoracic spine is normal in alignment. No acute fracture is identified. Vertebral body heights are maintained. Spinous processes are intact. There is no significant osseous neuroforaminal or spinal canal stenosis. Minimal retrolisthesis of L5 on S1. Vertebral body heights are maintained. No acute fracture is identified.. Spinous processes and transverse processes are intact. There is moderate severe facet arthropathy in the lower lumbar spine. Mild neuroforaminal stenosis is identified at L3-L4, L4-L5 and L5-S1. IMPRESSION: 1. No acute intracranial hemorrhage. Remote lacunar infarcts are identified in the bilateral cerebellum and right basal ganglia. Low-attenuation in the periventricular white matter is suggestive of chronic small vessel ischemic changes. 2. No acute fracture or malalignment of the cervical spine. Moderate cervical spondylosis. 3. No traumatic abnormalities identified involving the chest, abdomen and pelvis. Please see incidental findings as detailed above. 4. No acute fracture of the thoracic and lumbar spine. Minimal retrolisthesis of L5 on S1. 5. 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 No definite pelvic fracture. Electronically signed by: Yakelin Nuñez MD (11/04/2018 8:28 PM) [facility]
[2018-11-04 21:17] VITALS: BP 133/76
--- NOTE | 2018-11-04 21:33 | RAD ---
Chest radiograph 11/04/2018 6:34 PM INDICATION: Fall, altered mental status COMPARISON: October 07, 2018 TECHNIQUE: Frontal view of the chest is provided. FINDINGS: The cardiomediastinal silhouette is within normal limits. There are no pleural effusions. There is no pulmonary vascular congestion. There is no pneumothorax. The lungs are clear. No significant osseous abnormality is identified. IMPRESSION: No acute cardiopulmonary process. Electronically signed by: Yakelin Nuñez MD (11/04/2018 9:30 PM) [facility]
--- NOTE | 2018-11-09 13:39 | NUR ---
Late entry made to Medical Record. IV Stop time transcribed from eMAR to IV spreadsheet
== END 2018-11-04 21:30 | disposition home or self-care (01) ==
LOC: ER 18:05
DX: R55 Syncope and collapse (principal); R41.82 Altered mental status, unspecified; R51 Headache; E11.9 Type 2 diabetes mellitus without complications; E78.00 Pure hypercholesterolemia, unspecified; I10 Essential (primary) hypertension; Z90.49 Acquired absence of other specified parts of digestive tract; Z86.73 Personal history of transient ischemic attack (TIA), and cerebral infarction without residual deficits; Z91.041 Radiographic dye allergy status
CPT/HCPCS: 36415; 70450; 71045; 71260; 72125; 74177; 80053; 80307; 81001; 82962; 83605; 84484; 85025; 85610; 87086; 93005; 96361; 96374; 99285; G0480; J3010; J7030

== ENCOUNTER 2019-03-06 18:20 | Emergency (ER) | payer OTHER, MEDICAID ==
[~2019-03-06] VITALS: Ht 177.8 cm; Wt 74.8 kg
--- NOTE | 2019-03-06 18:42 | PHYS DOC ---
Past Medical History Past Medical History: Alcoholism, CVA, Dementia, Diabetes-Type II, High Cholesterol, Hypertension, Other Additional Past Medical Histor: lower ext edema, brain aneurysm Past Surgical History: Cholecystectomy Alcohol Use: Sober Drug Use: Marijuana Adult General HPI HPI 73-year-old male presents to the emergency department with nausea, vomiting, generalized abdominal pain, chills. This has been ongoing all day. Patient denies any diarrhea or fever. Patient denies any headache or visual changes. He is complaining of body aches. Nothing makes symptoms worse, nothing makes his symptoms better. Blood pressure 203/97. Patient is afebrile on exam Review of Systems Review of Systems Constitutional: + chills Eyes: Denies change in visual acuity, redness, or eye pain [] HENT: Denies nasal congestion or sore throat [] Respiratory: Denies cough or shortness of breath [] Cardiovascular: No additional information not addressed in HPI [] GI: genearl abdominal pain, nausea, vomiting, no bloody stools or diarrhea [] : Denies dysuria or hematuria [] Musculoskeletal: Denies back pain or joint pain [] Neurologic: Denies headache, focal weakness or sensory changes [] All other systems were reviewed and found to be within normal limits, except as documented in this note. Current Medications Current Medications Current Medications Medications (Trade) Dose Ordered Sig/Sheri Start Time Stop Time Status Last Admin Dose Admin Magnesium Sulfate 50 ml @ 25 mls/hr 1X ONCE 03/06/19 21:30 03/06/19 23:29 03/06/19 21:45 25 MLS/HR Allergies Allergies Allergies Coded Allergies Type Severity Reaction Last Updated Verified I S O L A T I O N *CONTACT* Allergy Unknown 10/11/18 Yes No Known Medication Allergies Allergy Unknown 10/11/18 Yes Physical Exam Physical Exam Constitutional: Well developed, well nourished, no acute distress, non-toxic appearance. [] HENT: Normocephalic, atraumatic, bilateral external ears normal, oropharynx moist, no oral exudates, nose normal. [] Eyes: PERRLA, EOMI, conjunctiva normal, no discharge. [] Cardiovascular:Heart rate regular rhythm, no murmur [] Lungs & Thorax: Bilateral breath sounds clear to auscultation [] Abdomen: Bowel sounds normal, soft, no tenderness, no masses, no pulsatile masses. [] Skin: Warm, dry, no erythema, no rash. [] Back: No tenderness, no CVA tenderness. [] Extremities: No tenderness, no edema. [] Neurologic: Alert and oriented X 3, no focal deficits noted. [] Psychologic: Affect normal, judgement normal, mood normal. [] Current Patient Data Vital Signs Vital Signs Date Time Temp Pulse Resp B/P (MAP) Pulse Ox O2 Delivery O2 Flow Rate FiO2 03/06/19 18:23 99.2 80 16 203/97 (132) 96 Room Air 99.2 Lab Values Laboratory Tests Test 03/06/19 18:29 03/06/19 18:36 03/06/19 19:02 03/06/19 20:00 Glucose (Fingerstick) 260 mg/dL (70-99) H Influenza Type A Antigen Negative (NEGATIVE) Influenza Type B Antigen Negative (NEGATIVE) White Blood Count 6.8 x10^3/uL (4.0-11.0) Red Blood Count 5.35 x10^6/uL (4.30-5.70) Hemoglobin 15.8 g/dL (13.0-17.5) Hematocrit 46.3 % (39.0-53.0) Mean Corpuscular Volume 87 fL (79-100) Mean Corpuscular Hemoglobin 30 pg (25-35) Mean Corpuscular Hemoglobin Concent 34 g/dL (31-37) Red Cell Distribution Width 13.2 % (11.5-14.5) Platelet Count 215 x10^3/uL (140-400) Neutrophils (%) (Auto) 82 % (31-73) H Lymphocytes (%) (Auto) 13 % (24-48) L Monocytes (%) (Auto) 5 % (0-9) Eosinophils (%) (Auto) 0 % (0-3) Basophils (%) (Auto) 1 % (0-3) Neutrophils # (Auto) 5.6 x10^3/uL (1.8-7.7) Lymphocytes # (Auto) 0.9 x10^3/uL (1.0-4.8) L Monocytes # (Auto) 0.3 x10^3/uL (0.0-1.1) Eosinophils # (Auto) 0.0 x10^3/uL (0.0-0.7) Basophils # (Auto) 0.0 x10^3/uL (0.0-0.2) Lactic Acid Level 2.0 mmol/L (0.4-2.0) Sodium Level 142 mmol/L (136-145) Potassium Level 4.1 mmol/L (3.5-5.1) Chloride Level 102 mmol/L (98-107) Carbon Dioxide Level 28 mmol/L (21-32) Anion Gap 12 (6-14) Blood Urea Nitrogen 17 mg/dL (8-26) Creatinine 1.0 mg/dL (0.7-1.3) Estimated GFR (Cockcroft-Gault) 88.9 BUN/Creatinine Ratio 17 (6-20) Glucose Level 291 mg/dL (70-99) H Calcium Level 9.1 mg/dL (8.5-10.1) Magnesium Level 1.2 mg/dL (1.8-2.4) L Total Bilirubin 1.2 mg/dL (0.2-1.0) H Aspartate Amino Transferase (AST) 17 U/L (15-37) Alanine Aminotransferase (ALT) 15 U/L (16-63) L Alkaline Phosphatase 94 U/L (46-116) Ammonia < 10 mcmol/L (11-34) L Troponin I Quantitative < 0.017 ng/mL (0.000-0.055) Total Protein 7.8 g/dL (6.4-8.2) Albumin 3.8 g/dL (3.4-5.0) Albumin/Globulin Ratio 1.0 (1.0-1.7) Test 03/06/19 21:54 Urine Collection Type U cath Urine Color Yellow Urine Clarity Cloudy Urine pH 6.0 Urine Specific [place] >=1.030 Urine Protein 100 mg/dL (NEG-TRACE) Urine Glucose (UA) >=1000 mg/dL (NEG) Urine Ketones (Stick) Negative mg/dL (NEG) Urine Blood Large (NEG) Urine Nitrite Positive (NEG) Urine Bilirubin Negative (NEG) Urine Urobilinogen Dipstick 1.0 mg/dL (0.2 mg/dL) Urine Leukocyte Esterase Large (NEG) Urine RBC 11-20 /HPF (0-2) Urine WBC Tntc /HPF (0-4) Urine Transitional Epithelial Cells Occ /LPF Urine Bacteria Many /HPF (0-FEW) Laboratory Tests 03/06/19 19:02 Laboratory Tests 03/06/19 20:00 EKG EKG [] Radiology/Procedures Radiology/Procedures [facility] [address] [place] [address] IMAGING REPORT Signed PATIENT: BEATRIS BROCK EACCOUNT: [id number] : 1945 LOCATION: ER AGE: 73 SEX: M EXAM STATUS: REG ER ORD. PHYSICIAN: POWER VAZQUEZ MD REASON: AMS PROCEDURE: CT HEAD WO CONTRAST STUDY: CT head without contrast INDICATION: Altered mental status. COMPARISON: 11/04/2018 TECHNIQUE: Axial CT imaging through the head without the use of intravenous contrast. Sagittal and coronal reformats were obtained. One or more of the following individualized dose reduction techniques were utilized for this examination: 1. Automated exposure control 2. Adjustment of the mA and/or kV according to patient size 3. Use of iterative reconstruction technique. FINDINGS: No acute intracranial hemorrhage. No mass effect or midline shift. Unchanged ex vacuo prominence of the ventricular system. Redemonstrated white matter findings typical of chronic microvascular ischemic change as well as scattered remote infarcts such as in the region of the right internal capsule/caudate as well as involving both cerebellar hemispheres. No localized meadows-white matter differentiation loss to suggest an acute cortical infarction. Intracranial atherosclerotic calcifications. Status post left orbital exenteration with ocular prosthesis. Unremarkable right orbit. No acute osseous abnormality. IMPRESSION: 1. No acute intracranial abnormality seen by CT. 2. Redemonstrated white matter findings typical of chronic microvascular ischemic change and scattered remote infarcts. 3. Additional chronic findings as above. Electronically signed by: FERCHO PACHECO MD (03/06/2019 8:45 PM) [id number] DICTATED and SIGNED BY: FERCHO PACHECO MD DATE: 03/06/192044 [] Chest xray without acute process identified (wet read per ED) Course & Med Decision Making Course & Med Decision Making Pertinent Labs and Imaging studies reviewed. (See chart for details) []73-year-old male presents to the emergency department with nausea, vomiting, generalized abdominal pain, chills. This has been ongoing all day. Patient denies any diarrhea or fever. Patient denies any headache or visual changes. He is complaining of body aches. Nothing makes symptoms worse, nothing makes his symptoms better. Blood pressure 203/97. Patient is afebrile on exam Labs reviewed, influenza negative, lactic acid within normal limits. Magnesium is 1.2. Patient with evidence of urinary tract infection as well. White count is 6.8. Magnesium was replaced in the emergency department, we'll plan for by mouth antibiotics therapy upon discharge. CT the head was performed without evidence of acute intracranial process. Patient be discharged back to nursing facility. Dragon Disclaimer Dragon Disclaimer This electronic medical record was generated, in whole or in part, using a voice recognition dictation system. Departure Departure Impression: Primary Impression: Urinary tract infection Additional Impression: Hypomagnesemia Disposition: 03 TRANSFER SNF Condition: IMPROVED Referrals: ARAM TERRELL MD (PCP) Patient Instructions: Hypomagnesemia, Urinary Tract Infection, [id number] Additional Instructions: Recommend follow up with PCP 3 - 5 days Return to the ER with worsening symptoms, intractable pain, fever, altered mental status Tylenol/Motrin as needed for pain Take antibiotics as prescribed Magnesium replaced in ER Scripts Cephalexin (KEFLEX) 500 Mg Capsule 2 CAP PO Q12HR for 5 Days, #20 CAP Prov: POWER VAZQUEZ MD 03/06/19 Problem Qualifiers Primary Impression: Urinary tract infection Urinary tract infection type: site unspecified Hematuria presence: without hematuria Qualified Codes: N39.0 - Urinary tract infection, site not specified POWER VAZQUEZ MD Mar 06, 2019 18:42
[2019-03-06 19:07] LABS: INFLUENZA A PATIENT NEGATIVE (NEGATIVE); INFLUENZA B PATIENT NEGATIVE (NEGATIVE)
[2019-03-06 19:13] LABS: BASO % 1 % (0-3); EOS % 0 % (0-3); HEMATOCRIT 46.3 % (39.0-53.0); HEMOGLOBIN 15.8 g/dL (13.0-17.5); LYMPH # 0.9 x10^3/uL (1.0-4.8); LYMPH % 13 % (24-48); MEAN CORPUSCULAR HEMOGLOBIN 30 pg (25-35); MEAN CORPUSCULAR HGB CONC 34 g/dL (31-37); MEAN CORPUSCULAR VOLUME 87 fL (79-100); MONO # 0.3 x10^3/uL (0.0-1.1); MONO % 5 % (0-9); NEUT # 5.6 x10^3/uL (1.8-7.7); NEUT % 82 % (31-73); PLATELET COUNT 215 x10^3/uL (140-400); RED BLOOD COUNT 5.35 x10^6/uL (4.30-5.70); RED CELL DISTRIBUTION WIDTH 13.2 % (11.5-14.5); WHITE BLOOD COUNT 6.8 x10^3/uL (4.0-11.0)
[2019-03-06 20:17] LABS: CALCIUM 9.1 mg/dL (8.5-10.1); GFR 88.9; POTASSIUM 4.1 mmol/L (3.5-5.1)
[2019-03-06 20:24] LABS: ALBUMIN 3.8 g/dL (3.4-5.0); MAGNESIUM 1.2 mg/dL (1.8-2.4); TOTAL BILIRUBIN 1.2 mg/dL (0.2-1.0); TOTAL PROTEIN 7.8 g/dL (6.4-8.2)
--- NOTE | 2019-03-06 20:47 | RAD ---
STUDY: CT head without contrast INDICATION: Altered mental status. COMPARISON: 11/04/2018 TECHNIQUE: Axial CT imaging through the head without the use of intravenous contrast. Sagittal and coronal reformats were obtained. One or more of the following individualized dose reduction techniques were utilized for this examination: 1. Automated exposure control 2. Adjustment of the mA and/or kV according to patient size 3. Use of iterative reconstruction technique. FINDINGS: No acute intracranial hemorrhage. No mass effect or midline shift. Unchanged ex vacuo prominence of the ventricular system. Redemonstrated white matter findings typical of chronic microvascular ischemic change as well as scattered remote infarcts such as in the region of the right internal capsule/caudate as well as involving both cerebellar hemispheres. No localized meadows-white matter differentiation loss to suggest an acute cortical infarction. Intracranial atherosclerotic calcifications. Status post left orbital exenteration with ocular prosthesis. Unremarkable right orbit. No acute osseous abnormality. IMPRESSION: 1. No acute intracranial abnormality seen by CT. 2. Redemonstrated white matter findings typical of chronic microvascular ischemic change and scattered remote infarcts. 3. Additional chronic findings as above. Electronically signed by: FERCHO PACHECO MD (03/06/2019 8:45 PM) [id number]
[2019-03-06] MEDS ORDERED: MAGNESIUM SULFATE 2GM 50 ML IV ONE (21:30)
[2019-03-06 22:01] LABS: BILIRUBIN,URINE NEGATIVE (NEG); CLARITY,URINE CLOUDY; COLOR,URINE YELLOW; NITRITE,URINE POSITIVE (NEG); PROTEIN,URINE 100 mg/dL (NEG-TRACE)
[2019-03-06 22:12] LABS: BACTERIA,URINE MANY /HPF (0-FEW); WBC,URINE TNTC /HPF (0-4)
[2019-03-06] MEDS ORDERED: CEPH-264 PO (22:46)
[2019-03-06 23:47] VITALS: BP 184/82
--- NOTE | 2019-03-07 00:25 | RAD ---
PORTABLE CHEST 1V History: Altered mental status Comparison: None. Findings: Single view of the chest is submitted. There is suboptimal inspiration. No lobar consolidation, pleural fluid, or pneumothorax is identified. Cardiac silhouette is within normal limits. Impression: 1. There is no radiographic evidence of acute cardiopulmonary disease. Electronically signed by: Satinder Jacobs MD (03/07/2019 12:22 AM) [facility]
--- NOTE | 2019-03-07 05:06 | EKG ---
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
== END 2019-03-07 00:05 | disposition home or self-care (01) ==
LOC: ER 18:20
DX: N39.0 Urinary tract infection, site not specified (principal); E83.42 Hypomagnesemia; F03.90 Unspecified dementia, unspecified severity, without behavioral disturbance, psychotic disturbance, mood disturbance, and anxiety; E11.9 Type 2 diabetes mellitus without complications; E78.00 Pure hypercholesterolemia, unspecified; I10 Essential (primary) hypertension; F10.20 Alcohol dependence, uncomplicated; Z86.73 Personal history of transient ischemic attack (TIA), and cerebral infarction without residual deficits; Z90.49 Acquired absence of other specified parts of digestive tract; Z91.041 Radiographic dye allergy status; Y90.9 Presence of alcohol in blood, level not specified
CPT/HCPCS: 36415; 70450; 71045; 80053; 81001; 82140; 82962; 83605; 83735; 84484; 85025; 87040; 87086; 87186; 87804; 93005; 96365; 96366; 99285; J3475

== ENCOUNTER 2019-09-07 02:07 | Emergency (ER) | payer OTHER, MEDICAID ==
[~2019-09-07] VITALS: Ht 180.3 cm; Wt 84.1 kg
[~2019-09-07 02:07] MED LIST changes: +CEPH-264 PO
--- NOTE | 2019-09-07 04:42 | RAD ---
INDICATION: Reason: Mechanical Fall / Spl. Instructions: / History: COMPARISON: May 2018 IMPRESSION: Right hip: 3 views obtained. No evidence of dislocation. Numerous calcifications are again seen in the bilateral hemipelvis and could be secondary to phleboliths. No evidence of acute fracture or dislocation. Unchanged lucency at the medial aspect of the right acetabulum. Degenerative changes of the partially visualized spine. Calcific atherosclerosis. Left hip: Single view obtained without a definite acute fracture. No evidence of dislocation. Electronically signed by: Ganesh Barrera MD (09/07/2019 4:40 AM) [id number]
--- NOTE | 2019-09-07 05:39 | PHYS DOC ---
Past Medical History Past Medical History: Alcoholism, CVA, Dementia, Diabetes-Type II, High C holesterol, Hypertension, Other Additional Past Medical Histor: lower ext edema, brain aneurysm Past Surgical History: Cholecystectomy Smoking Status: Former Smoker Alcohol Use: None Drug Use: Marijuana General Adult EDM: Chief Complaint: MECHANICAL FALL HPI: HPI: 73 yo M resident from [facility] presents to the ed with c/o left hip pain, s/p fall while going to the bathroom. Pt reports he tripped over towels on the floor, "my feet got caught," hitting left hip on his bed. Denies head injury/LOC, on no AC. Recently tested negative for covid. Review of Systems: Review of Systems: Constitutional: Denies fever or chills. [] Eyes: Denies change in visual acuity. [] HENT: Denies nasal congestion or sore throat. [] Respiratory: Denies cough or shortness of breath. [] Cardiovascular: Denies chest pain or edema. [] GI: Denies abdominal pain, nausea, vomiting, bloody stools or diarrhea. [] : Denies dysuria. [] Musculoskeletal: Denies back pain or joint pain. [] Integument: Denies rash. [] Neurologic: Denies headache, focal weakness or sensory changes. [] Endocrine: Denies polyuria or polydipsia. [] Lymphatic: Denies swollen glands. [] Psychiatric: Denies depression or anxiety. [] Heart Score: Risk Factors: Risk Factors: DM, Current or recent (<one month) smoker, HTN, HLP, family history of CAD, obesity. Risk Scores: Score 0 - 3: 2.5% MACE over next 6 weeks - Discharge Home Score 4 - 6: 20.3% MACE over next 6 weeks - Admit for Clinical Observation Score 7 - 10: 72.7% MACE over next 6 weeks - Early Invasive Strategies Allergies: Allergies: Allergies Coded Allergies Type Severity Reaction Last Updated Verified I S O L A T I O N *CONTACT* Allergy Unknown 10/11/18 Yes No Known Medication Allergies Allergy Unknown 10/11/18 Yes Physical Exam: PE: Constitutional: Well developed, well nourished, no acute distress, non-toxic appearance. [] HENT: Normocephalic, atraumatic, bilateral external ears normal, oropharynx moist, no oral exudates, nose normal. [] Eyes: PERRLA, EOMI, conjunctiva normal, no discharge. [] Neck: Normal range of motion, no tenderness, supple, no stridor. [] Cardiovascular:Heart rate regular rhythm, no murmur [] Lungs & Thorax: Bilateral breath sounds clear to auscultation [] Abdomen: Bowel sounds normal, soft, no tenderness, no masses, no pulsatile masses. [] Skin: Warm, dry, no erythema, no rash. [] Back: No tenderness, no CVA tenderness. [] Extremities: No tenderness, no cyanosis, no clubbing, ROM intact, no edema. [] list both legs off stretcher w/no pain, no reproducible hip ttp Neurologic: Alert and oriented X 3, normal motor function, normal sensory function, no focal deficits noted. [] Psychologic: Affect normal, judgement normal, mood normal. [] Current Patient Data: Vital Signs: Vital Signs Date Time Temp Pulse Resp B/P (MAP) Pulse Ox O2 Delivery O2 Flow Rate FiO2 09/07/19 02:19 98.2 95 18 192/86 (121) 95 Room Air 98.2 EKG: EKG: [] Radiology/Procedures: Radiology/Procedures: IMAGING REPORT Signed PATIENT: BEATRIS BROCK EACCOUNT: [id number] : 1945 LOCATION: ER AGE: 73 SEX: M EXAM STATUS: REG ER ORD. PHYSICIAN: ANDREA OCAMPO DO REASON: Mechanical Fall PROCEDURE: HIP RIGHT 2V WITH PELVIS INDICATION: Reason: Mechanical Fall / Spl. Instructions: / History: COMPARISON: May 2018 IMPRESSION: Right hip: 3 views obtained. No evidence of dislocation. Numerous calcifications are again seen in the bilateral hemipelvis and could be secondary to phleboliths. No evidence of acute fracture or dislocation. Unchanged lucency at the medial aspect of the right acetabulum. Degenerative changes of the partially visualized spine. Calcific atherosclerosis. Left hip: Single view obtained without a definite acute fracture. No evidence of dislocation. Electronically signed by: Nieves Mcnulty MD (09/07/2019 4:40 AM) [id number] DICTATED and SIGNED BY: NIEVES MCNULTY MD DATE: 09/07/19 0440 Impression: Traumatic left hip pain - pt in no distress with hip ROM appropriate. Likely OA. Pt had two small, brief episodes of asymptomatic bradycardia 43 and 51. Will dc to [place] for analesia and supportive care. Strict precautions given for symptomatic bradycardia. Course & Med Decision Making: Course & Med Decision Making Pertinent Labs and Imaging studies reviewed. (See chart for details) [] Dragon Disclaimer: Dragon Disclaimer: This electronic medical record was generated, in whole or in part, using a voice recognition dictation system. Departure Departure Impression: Primary Impression: Hip pain, left Disposition: 03 TRANSFER SNF Condition: STABLE Referrals: KELLY MCCARTHY MD (PCP) Patient Instructions: Hip Pain Justicifation of Admission Dx: Justifications for Admission: Justification of Admission Dx: N/A ANDREA OCAMPO DO Sep 07, 2019 05:39
[2019-09-07 06:29] VITALS: BP 185/77
== END 2019-09-07 07:16 ==
LOC: ER 02:07
DX: G89.11 Acute pain due to trauma (principal); M25.551 Pain in right hip; M25.552 Pain in left hip; E78.00 Pure hypercholesterolemia, unspecified; E11.9 Type 2 diabetes mellitus without complications; I10 Essential (primary) hypertension; F03.90 Unspecified dementia, unspecified severity, without behavioral disturbance, psychotic disturbance, mood disturbance, and anxiety; F12.90 Cannabis use, unspecified, uncomplicated; Z90.49 Acquired absence of other specified parts of digestive tract; Z98.890 Other specified postprocedural states; Z86.73 Personal history of transient ischemic attack (TIA), and cerebral infarction without residual deficits; Z88.8 Allergy status to other drugs, medicaments and biological substances; Z87.891 Personal history of nicotine dependence; W01.0XXA Fall on same level from slipping, tripping and stumbling without subsequent striking against object, initial encounter; Y93.89 Activity, other specified; Y92.89 Other specified places as the place of occurrence of the external cause; Y99.8 Other external cause status
CPT/HCPCS: 73501; 73502; 99284

== ENCOUNTER → 2020-01-30 | Outpatient (CLI) | payer OTHER, MEDICAID ==
[~2020-01-30] MED LIST changes: +CONTRAST GIVEN. MC PRN; +IOHEXOL 240 MG/ML 50ML VIAL. PO ONE; +IOHEXOL 300 MG/ML 100ML VIAL. IV ONE
--- NOTE | 2020-01-30 12:25 | RAD ---
EXAM: Abdomen and pelvis CT with and without intravenous contrast. HISTORY: Pain. Hematuria. TECHNIQUE: Computed tomographic images of the abdomen and pelvis were obtained prior to and following the administration of intravenous contrast. Multiplanar reformatting was performed. *One or more of the following individualized dose reduction techniques were utilized for this examination: 1. Automated exposure control. 2. Adjustment of the mA and/or kV according to patient size. 3. Use of iterative reconstruction technique. COMPARISON: 07/29/2018. FINDINGS: Evaluation of the lower thorax demonstrates atelectasis. There is no pleural effusion. There is no consolidation. The heart is normal in size. There is right gynecomastia. No hepatic lesion is seen. The gallbladder is surgically absent. The pancreas, spleen and adrenal glands are unremarkable. There is no evidence of nephroureterolithiasis or hydronephrosis. There is a tiny simple cortical cyst within the anterior left kidney. The suspicious solid renal lesion is seen. There is nonspecific symmetric perinephric stranding. The bladder is unremarkable. There is no appendicitis. There is no bowel obstruction. There is aortobiiliac atherosclerosis. There is a nonspecific prominent right iliac chain lymph node at the level of the proximal right common carotid artery measuring 3.2 cm in long axis. There are nonspecific bilateral inguinal lymph nodes. There is no suspicious osseous lesion. There are degenerative changes throughout the spine and hips. IMPRESSION: 1. Nonspecific bilateral perinephric stranding. There is no nephrolithiasis or hydronephrosis or suspicious intrinsic renal lesion. There is a tiny simple cyst within the left renal cortex. Follow-up is not routinely recommended for simple cysts. 2. Prominent right iliac chain lymph node measuring 3.2 cm in long axis. In the absence of known malignancy, this is likely physiologic or reactive in etiology. No additional lymphadenopathy is seen. Electronically signed by: Nell Beltre MD (01/30/2020 12:23 PM) [id number]
== END ==
LOC: CT 10:50
PROVIDERS: ATTEND Family Medicine
DX: N62 Hypertrophy of breast (principal); J98.11 Atelectasis; I70.0 Atherosclerosis of aorta; I25.10 Atherosclerotic heart disease of native coronary artery without angina pectoris; N28.1 Cyst of kidney, acquired; N28.9 Disorder of kidney and ureter, unspecified; M16.0 Bilateral primary osteoarthritis of hip; M47.819 Spondylosis without myelopathy or radiculopathy, site unspecified; R31.9 Hematuria, unspecified
CPT/HCPCS: 74178; Q9966; Q9967

== ENCOUNTER 2020-05-15 06:25 | Emergency (ER) | payer MEDICAID, MEDICARE, OTHER ==
[~2020-05-15] VITALS: Ht 180.3 cm; Wt 82.7 kg
[~2020-05-15 06:25] MED LIST changes: -CONTRAST GIVEN. MC PRN; -IOHEXOL 240 MG/ML 50ML VIAL. PO ONE; -IOHEXOL 300 MG/ML 100ML VIAL. IV ONE; +LISI10TA16 PO; -LISI10TA2 PO; +SERT-267 PO; -SERT50TA8 PO
--- NOTE | 2020-05-15 06:51 | PHYS DOC ---
Past Medical History Past Medical History: Alcoholism, CVA, Dementia, Diabetes-Type II, High C holesterol, Hypertension, Other Additional Past Medical Histor: lower ext edema, brain aneurysm Past Surgical History: Cholecystectomy Smoking Status: Former Smoker Alcohol Use: None Drug Use: Marijuana General Adult EDM: Chief Complaint: BLOOD IN URINE, RUQ ABDOMINAL PAIN HPI: HPI: Patient is a 74 year old male who was brought here by EMS from a group home due to right upper quadrant abdominal pain since yesterday, they noted he urinated some blood this morning. There is no fever, no cough, no chest pain. Patient had no history of kidney stone. Patient denies any injury. Patient had a history of diabetes, hypertension, CVA in the past. Patient also had COVID-19 infection in the past. Review of Systems: Review of Systems: Constitutional: Denies fever or chills. [] Eyes: Denies change in visual acuity. [] HENT: Denies nasal congestion or sore throat. [] Respiratory: Denies cough or shortness of breath. [] Cardiovascular: Denies chest pain or edema. [] GI: Positive for right upper quadrant abdominal pain, no nausea vomiting, no bloody stools or diarrhea. : Denies dysuria. Positive for blood in urine Musculoskeletal: Denies back pain or joint pain. [] Integument: Denies rash. [] Neurologic: Denies headache, focal weakness or sensory changes. [] Endocrine: Denies polyuria or polydipsia. [] Lymphatic: Denies swollen glands. [] Psychiatric: Denies depression or anxiety. [] Heart Score: Risk Factors: Risk Factors: DM, Current or recent (<one month) smoker, HTN, HLP, family history of CAD, obesity. Risk Scores: Score 0 - 3: 2.5% MACE over next 6 weeks - Discharge Home Score 4 - 6: 20.3% MACE over next 6 weeks - Admit for Clinical Observation Score 7 - 10: 72.7% MACE over next 6 weeks - Early Invasive Strategies Allergies: Allergies: Allergies Coded Allergies Type Severity Reaction Last Updated Verified I S O L A T I O N *CONTACT* Allergy Unknown 10/11/18 Yes No Known Medication Allergies Allergy Unknown 10/11/18 Yes Physical Exam: PE: Constitutional: Well developed, well nourished, no acute distress, non-toxic appearance. [] HENT: Normocephalic, atraumatic, bilateral external ears normal, oropharynx moist, no oral exudates, nose normal. [] Eyes: left enucleation, RIGHT conjunctiva normal, no discharge. [] Neck: Normal range of motion, no tenderness, supple, no stridor. [] Cardiovascular:Heart rate regular rhythm, no murmur [] Lungs & Thorax: Bilateral breath sounds clear to auscultation [] Abdomen: Bowel sounds normal, soft, no tenderness, no masses, no pulsatile masses. [] Skin: Warm, dry, no erythema, no rash. [] Back: No tenderness, no CVA tenderness. [] Extremities: No tenderness, no cyanosis, no clubbing, ROM intact, no edema. [] Neurologic: Alert and oriented X 3, normal motor function, normal sensory function, no focal deficits noted. [] Psychologic: Affect normal, judgement normal, mood normal. [] Current Patient Data: Labs: Laboratory Tests Test 05/15/20 07:25 05/15/20 08:38 White Blood Count 9.7 x10^3/uL Red Blood Count 4.63 x10^6/uL Hemoglobin 13.5 g/dL Hematocrit 40.4 % Mean Corpuscular Volume 87 fL Mean Corpuscular Hemoglobin 29 pg Mean Corpuscular Hemoglobin Concent 34 g/dL Red Cell Distribution Width 13.9 % Platelet Count 332 x10^3/uL Neutrophils (%) (Auto) 87 % Lymphocytes (%) (Auto) 10 % Monocytes (%) (Auto) 2 % Eosinophils (%) (Auto) 0 % Basophils (%) (Auto) 1 % Neutrophils # (Auto) 8.5 x10^3/uL Lymphocytes # (Auto) 1.0 x10^3/uL Monocytes # (Auto) 0.2 x10^3/uL Eosinophils # (Auto) 0.0 x10^3/uL Basophils # (Auto) 0.1 x10^3/uL Platelet Estimate Pending Sodium Level 140 mmol/L Potassium Level 4.9 mmol/L Chloride Level 105 mmol/L Carbon Dioxide Level 24 mmol/L Anion Gap 11 Blood Urea Nitrogen 28 mg/dL Creatinine 1.3 mg/dL Estimated GFR (Cockcroft-Gault) 65.5 BUN/Creatinine Ratio 22 Glucose Level 280 mg/dL Calcium Level 9.4 mg/dL Total Bilirubin 0.6 mg/dL Aspartate Amino Transf (AST/SGOT) 15 U/L Alanine Aminotransferase (ALT/SGPT) 22 U/L Alkaline Phosphatase 96 U/L Total Protein 7.9 g/dL Albumin 3.5 g/dL Albumin/Globulin Ratio 0.8 Lipase 40 U/L Urine Collection Type Void Urine Color Yellow Urine Clarity Cloudy Urine pH 5.0 Urine Specific [place] 1.025 Urine Protein 100 mg/dL Urine Glucose (UA) >=1000 mg/dL Urine Ketones (Stick) Negative mg/dL Urine Blood Large Urine Nitrite Negative Urine Bilirubin Negative Urine Urobilinogen Dipstick 0.2 mg/dL Urine Leukocyte Esterase Moderate Urine RBC 20-40 /HPF Urine WBC 20-40 /HPF Urine Squamous Epithelial Cells Few /LPF Urine Bacteria Moderate /HPF Current Medications Medications (Trade) Dose Ordered Sig/Sheri Route PRN Reason Start Time Stop Time Status Last Admin Dose Admin Ondansetron HCl (Zofran) 4 mg 1X ONCE IVP 05/15/20 08:45 05/15/20 08:46 DC 05/15/20 09:30 Levofloxacin/ Dextrose 150 ml @ 100 mls/hr 1X ONCE IV 05/15/20 09:45 05/15/20 11:14 EKG: EKG: [] Radiology/Procedures: Radiology/Procedures: [][facility] [address] [place] [address] IMAGING REPORT Signed PATIENT: BEATRIS BROCK EACCOUNT: [id number] : 1945 LOCATION: ER AGE: 74 SEX: M EXAM STATUS: REG ER ORD. PHYSICIAN: LEENA CARSON DO REASON: right side flank pain since yesterday PROCEDURE: CT ABDOMEN PELVIS WO CONTRAST EXAM: Abdomen and pelvis CT without intravenous contrast. HISTORY: Right flank pain. TECHNIQUE: Computed tomographic images of the abdomen and pelvis were obtained without contrast. Multiplanar reformatting was performed. *One or more of the following individualized dose reduction techniques were utilized for this examination: 1. Automated exposure control. 2. Adjustment of the mA and/or kV according to patient size. 3. Use of iterative reconstruction technique. COMPARISON: 01/30/2020. FINDINGS: Evaluation of the lower thorax demonstrates right greater than left posterior dependent and basilar atelectasis. There is trace right pleural fluid. There is emphysema. There is a patulous distal esophagus. No suspicious hepatic lesion is seen on this noncontrast exam. The gallbladder is absent. The stomach is unremarkable. There is stable left adrenal gland thickening without a discrete nodule. There is stable nonspecific bilateral perinephric stranding. There is no evidence of nephroureterolithiasis. There is bladder wall thickening. There is a prominent prostate. There is no appendicitis. There is no bowel obstruction. There are few distal colonic diverticula. There is aortic and biiliac atherosclerosis. No aortic aneurysm is seen. There is a stable enlarged right iliac chain lymph node, allowing for differences in slice position and measurement technique. There are degenerative changes throughout the spine and bony pelvis. There is no acute or suspicious osseous lesion. IMPRESSION: 1. Stable bilateral nonspecific perinephric stranding. There is no hydronephrosis or nephroureterolithiasis. 2. Few distal colonic diverticula. 3. Pulmonary emphysema. 4. Stable nonspecific enlarged right iliac chain lymph node. Electronically signed by: Nell Inman MD (05/15/2020 9:08 AM) [id number] DICTATED and SIGNED BY: NELL INMAN MD DATE: 05/15/20 [id number] 0 Course & Med Decision Making: Course & Med Decision Making Pertinent Labs and Imaging studies reviewed. (See chart for details) [] Dragon Disclaimer: Dragon Disclaimer: This electronic medical record was generated, in whole or in part, using a voice recognition dictation system. Departure Departure Impression: Primary Impression: Urinary tract infection Additional Impression: Hypertension Disposition: 03 DC/TRF TO SNF Condition: STABLE Referrals: KELLY MCCARTHY MD (PCP) follow up with your doctor this week Patient Instructions: Hypertension, Urinary Tract Infection Additional Instructions: Thank you for visiting our Emergency Department. We appreciate you trusting us with your care. If any additional problems come up don't hesitate to return to visit us. Please follow up with your primary care provider so they can plan additional care if needed and know about the problem that you had. If symptoms worsen come back to the Emergency Department. Any concerning symptoms that start such as chest pain, shortness of air, weakness or numbness on one side of the body, running high fevers or any other concerning symptoms return to the ER. Scripts Levofloxacin (LEVOFLOXACIN) 750 Mg Tablet 1 TAB PO DAILY for 10 Days, #10 TAB Prov: LEENA CARSON DO 05/15/20 LEENA CARSON DO May 15, 2020 06:51
[2020-05-15 07:52] LABS: CALCIUM 9.4 mg/dL (8.5-10.1); CREATININE 1.3 mg/dL (0.7-1.3); GFR 65.5; POTASSIUM 4.9 mmol/L (3.5-5.1)
[2020-05-15 07:58] LABS: ALBUMIN 3.5 g/dL (3.4-5.0); ALBUMIN/GLOBULIN RATIO 0.8 (1.0-1.7); TOTAL BILIRUBIN 0.6 mg/dL (0.2-1.0); TOTAL PROTEIN 7.9 g/dL (6.4-8.2)
[2020-05-15 07:59] LABS: BASO # 0.1 x10^3/uL (0.0-0.2); BASO % 1 % (0-3); EOS % 0 % (0-3); HEMATOCRIT 40.4 % (39.0-53.0); HEMOGLOBIN 13.5 g/dL (13.0-17.5); LYMPH % 10 % (24-48); MEAN CORPUSCULAR HEMOGLOBIN 29 pg (25-35); MEAN CORPUSCULAR HGB CONC 34 g/dL (31-37); MEAN CORPUSCULAR VOLUME 87 fL (79-100); MONO # 0.2 x10^3/uL (0.0-1.1); MONO % 2 % (0-9); NEUT # 8.5 x10^3/uL (1.8-7.7); NEUT % 87 % (31-73); PLATELET COUNT 332 x10^3/uL (140-400); RED BLOOD COUNT 4.63 x10^6/uL (4.30-5.70); RED CELL DISTRIBUTION WIDTH 13.9 % (11.5-14.5); WHITE BLOOD COUNT 9.7 x10^3/uL (4.0-11.0)
[2020-05-15] MEDS ORDERED: ONDANSETRON PF 4 MG/2 ML VIAL. IVP ONE (08:45)
[2020-05-15 08:49] LABS: BILIRUBIN,URINE NEGATIVE (NEG); CLARITY,URINE CLOUDY; COLOR,URINE YELLOW; NITRITE,URINE NEGATIVE (NEG); PROTEIN,URINE 100 mg/dL (NEG-TRACE); UROBILINOGEN,URINE 0.2 mg/dL (0.2 mg/dL)
--- NOTE | 2020-05-15 09:10 | RAD ---
EXAM: Abdomen and pelvis CT without intravenous contrast. HISTORY: Right flank pain. TECHNIQUE: Computed tomographic images of the abdomen and pelvis were obtained without contrast. Mult iplanar reformatting was performed. *One or more of the following individualized dose reduction techniques were utilized for this examina tion: 1. Automated exposure control. 2. Adjustment of the mA and/or kV according to patient size. 3. Use of iterative reconstruction technique. COMPARISON: 01/30/2020. FINDINGS: Evaluation of the lower thorax demonstrates right greater than left posterior dependent and basilar atelectasis. There is trace right pleural fluid. There is emphysema. There is a patulous dis anushka esophagus. No suspicious hepatic lesion is seen on this noncontrast exam. The gallbladder is abse nt. The stomach is unremarkable. There is stable left adrenal gland thickening without a discrete nodule. There is stable nonspecific bilateral perinephric stranding. There is no evidence of nephroureterolithiasis. There is bladder wal l thickening. There is a prominent prostate. There is no appendicitis. There is no bowel obstruction. There are few distal colonic diverticula. There is aortic and biiliac atherosclerosis. No aortic aneurysm is seen. There is a stable enlarged r ight iliac chain lymph node, allowing for differences in slice position and measurement technique. Th ere are degenerative changes throughout the spine and bony pelvis. There is no acute or suspicious os seous lesion. IMPRESSION: 1. Stable bilateral nonspecific perinephric stranding. There is no hydronephrosis or nephroureterolit hiasis. 2. Few distal colonic diverticula. 3. Pulmonary emphysema. 4. Stable nonspecific enlarged right iliac chain lymph node. Electronically signed by: Nell Beltre MD (05/15/2020 9:08 AM) [id number]
[2020-05-15 09:17] LABS: BACTERIA,URINE MODERATE /HPF (0-FEW); RBC,URINE 20-40 /HPF (0-2); WBC,URINE 20-40 /HPF (0-4)
[2020-05-15 09:51] LABS: % ATYL 3 % (0-0); % BASOS 1 % (0-3); % LYMPHS 13 % (24-48); % MONOS 3 % (0-10); % SEGS 80 % (35-66)
[2020-05-15 09:52] LABS: PLT ESTIMATE ADEQUATE (ADEQUATE)
[2020-05-15] MEDS ORDERED: LEVO750T5 PO (09:54)
[2020-05-15] MEDS ORDERED: cloNIDine HCL 0.1 MG TABLET PO ONE (10:00)
[2020-05-15 11:21] VITALS: BP 167/83
== END 2020-05-15 11:35 | disposition home or self-care (01) ==
LOC: ER 06:25
DX: N39.0 Urinary tract infection, site not specified (principal); I10 Essential (primary) hypertension; R10.11 Right upper quadrant pain; R31.9 Hematuria, unspecified; E11.9 Type 2 diabetes mellitus without complications; E78.00 Pure hypercholesterolemia, unspecified; F10.10 Alcohol abuse, uncomplicated; F12.90 Cannabis use, unspecified, uncomplicated; Z87.891 Personal history of nicotine dependence
CPT/HCPCS: 36415; 74176; 80053; 81001; 83690; 85007; 85025; 87086; 96361; 96374; 99285; J1956; J2405

== ENCOUNTER 2020-08-28 09:04 | Emergency (ER) | payer MEDICARE ==
[~2020-08-28] VITALS: Ht 172.7 cm; Wt 97.0 kg
[~2020-08-28 09:04] MED LIST changes: +LEVO750T5 PO; +MIRT-7 PO; -MIRT15TA3 PO; -POLY17PO28 PO; +POLY17PO52 PO
--- NOTE | 2020-08-28 09:26 | ED.ADGEN ---
Past Medical History Past Medical History: Alcoholism, Anemia, CVA, Dementia, Depression, Diabetes- Type II, High Cholesterol, Hypertension, TIA, Other Additional Past Medical Histor: lower ext edema, brain aneurysm, dysphagia, syncope, cog comms deficit Past Surgical History: Cholecystectomy Smoking Status: Unknown if ever smoked Alcohol Use: None Drug Use: Marijuana General Adult EDM: Chief Complaint: NAUSEA/VOMITING/DIARRHEA HPI: HPI: Patient is a 74-year-old male who arrives via EMS complaining of the acute onset of left-sided upper abdominal pain which began yesterday. Patient also reports he has had multiple episodes of nausea with vomiting during this time. Patient states he awoke with the same symptoms and decided to seek evaluation. Patient does report that he is passing gas. He denies any fevers or diarrhea. He further denies any flank pain. Additionally denies any shortness of air or chest pain. He is awake, alert and nontoxic-appearing. Review of Systems: Review of Systems: Constitutional: Denies fever or chills. [] Eyes: Denies change in visual acuity. [] HENT: Denies nasal congestion or sore throat. [] Respiratory: Denies cough or shortness of breath. [] Cardiovascular: Denies chest pain or edema. [] GI: Denies abdominal pain, nausea, vomiting, bloody stools or diarrhea. [] : Denies dysuria. [] Musculoskeletal: Denies back pain or joint pain. [] Integument: Denies rash. [] Neurologic: Denies headache, focal weakness or sensory changes. [] Endocrine: Denies polyuria or polydipsia. [] Lymphatic: Denies swollen glands. [] Psychiatric: Denies depression or anxiety. [] Current Medications: Current Medications Medications (Trade) Dose Ordered Sig/Sheri Start Time Stop Time Status Last Admin Dose Admin Info (CONTRAST GIVEN -- Rx MONITORING) 1 each PRN DAILY PRN 08/28/20 10:15 08/30/20 10:14 Iohexol (Omnipaque 300 Mg/ml) 75 ml 1X ONCE 08/28/20 10:15 08/28/20 10:16 DC Ondansetron HCl (Zofran) 4 mg 1X ONCE 08/28/20 10:30 08/28/20 10:31 DC 08/28/20 10:28 4 MG Allergies: Allergies: Allergies Coded Allergies Type Severity Reaction Last Updated Verified I S O L A T I O N *CONTACT* Allergy Unknown 10/11/18 Yes No Known Medication Allergies Allergy Unknown 10/11/18 Yes Physical Exam: PE: Constitutional: Well developed, well nourished, no acute distress, non-toxic appearance. [] HENT: Normocephalic, atraumatic, bilateral external ears normal, oropharynx moist, no oral exudates, nose normal. [] Eyes: PERRLA, EOMI, conjunctiva normal, no discharge. [] Neck: Normal range of motion, no tenderness, supple, no stridor. [] Cardiovascular:Heart rate regular rhythm, no murmur [] Lungs & Thorax: Bilateral breath sounds clear to auscultation [] Abdomen: Bowel sounds normal, soft, no tenderness, no masses, no pulsatile masses. [] Skin: Warm, dry, no erythema, no rash. [] Back: No tenderness, no CVA tenderness. [] Extremities: No tenderness, no cyanosis, no clubbing, ROM intact, no edema. [] Neurologic: Alert and oriented X 3, normal motor function, normal sensory function, no focal deficits noted. [] Psychologic: Affect normal, judgement normal, mood normal. [] Current Patient Data: Labs: Laboratory Tests Test 08/28/20 09:25 08/28/20 09:38 Sodium Level 142 mmol/L (136-145) Potassium Level 4.3 mmol/L (3.5-5.1) Chloride Level 105 mmol/L (98-107) Carbon Dioxide Level 27 mmol/L (21-32) Anion Gap 10 (6-14) Blood Urea Nitrogen 13 mg/dL (8-26) Creatinine 1.1 mg/dL (0.7-1.3) Estimated GFR (Cockcroft-Gault) 79.4 BUN/Creatinine Ratio 12 (6-20) Glucose Level 291 mg/dL (70-99) H Calcium Level 9.3 mg/dL (8.5-10.1) Total Bilirubin 0.8 mg/dL (0.2-1.0) Aspartate Amino Transferase (AST) 17 U/L (15-37) Alanine Aminotransferase (ALT) 22 U/L (16-63) Alkaline Phosphatase 98 U/L (46-116) Troponin I Quantitative < 0.017 ng/mL (0.000-0.055) Total Protein 7.4 g/dL (6.4-8.2) Albumin 4.0 g/dL (3.4-5.0) Albumin/Globulin Ratio 1.2 (1.0-1.7) Lipase 41 U/L (73-393) L White Blood Count 7.2 x10^3/uL (4.0-11.0) Red Blood Count 4.61 x10^6/uL (4.30-5.70) Hemoglobin 13.5 g/dL (13.0-17.5) Hematocrit 39.7 % (39.0-53.0) Mean Corpuscular Volume 86 fL (79-100) Mean Corpuscular Hemoglobin 29 pg (25-35) Mean Corpuscular Hemoglobin Concent 34 g/dL (31-37) Red Cell Distribution Width 13.4 % (11.5-14.5) Platelet Count 214 x10^3/uL (140-400) Neutrophils (%) (Auto) 80 % (31-73) H Lymphocytes (%) (Auto) 15 % (24-48) L Monocytes (%) (Auto) 3 % (0-9) Eosinophils (%) (Auto) 1 % (0-3) Basophils (%) (Auto) 1 % (0-3) Neutrophils # (Auto) 5.8 x10^3/uL (1.8-7.7) Lymphocytes # (Auto) 1.1 x10^3/uL (1.0-4.8) Monocytes # (Auto) 0.2 x10^3/uL (0.0-1.1) Eosinophils # (Auto) 0.1 x10^3/uL (0.0-0.7) Basophils # (Auto) 0.1 x10^3/uL (0.0-0.2) Laboratory Tests 08/28/20 09:38 Laboratory Tests 08/28/20 09:25 Vital Signs: Vital Signs Date Time Temp Pulse Resp B/P (MAP) Pulse Ox O2 Delivery O2 Flow Rate FiO2 08/28/20 09:05 98.1 78 18 190/100 (130) 96 Room Air 98.1 EKG: EKG: EKG was obtained at 9:11 AM and reveals a normal sinus rhythm with a ventricular rate of 85 bpm. There premature atrial complexes present with left axis deviation. There are no acute ST/T wave changes to denote ischemia. [] Heart Score: C/O Chest Pain: No Risk Factors: Risk Factors: DM, Current or recent (<one month) smoker, HTN, HLP, family history of CAD, obesity. Risk Scores: Score 0 - 3: 2.5% MACE over next 6 weeks - Discharge Home Score 4 - 6: 20.3% MACE over next 6 weeks - Admit for Clinical Observation Score 7 - 10: 72.7% MACE over next 6 weeks - Early Invasive Strategies Radiology/Procedures: Radiology/Procedures: [] Impression: [facility] [address] [place] [address] IMAGING REPORT Signed PATIENT: BEATRIS BROCK EACCOUNT: [id number] : 1945 LOCATION: ER AGE: 74 SEX: M EXAM STATUS: REG ER ORD. PHYSICIAN: DWAIN VALDES DO REASON: Nausea, vomiting, left-sided pain PROCEDURE: CT ABD PELV W/ IV CONTRST ONLY PQRS Compliance Statement: One or more of the following individualized dose reduction techniques were utilized for this examination: 1. Automated exposure control 2. Adjustment of the mA and/or kV according to patient size 3. Use of iterative reconstruction technique CT abdomen/pelvis with contrast 08/28/2020 10:07 AM INDICATION: Nausea, vomiting and left-sided pain COMPARISON: CT abdomen/pelvis 05/15/2020 TECHNIQUE: Multiple axial CT images of the abdomen and pelvis were obtained after the intravenous administration of 64 mL Isovue-370. Coronal and sagittal reformats are provided. FINDINGS: Stable 3 mm solid noncalcified pulmonary nodule identified within the left lower lobe (series 2, image 8). There is subsegmental atelectasis at the right lung base. Heart size within normal limits. Liver, spleen, right adrenal gland and pancreas are normal in appearance. Gallbladder surgically absent. There is fusiform thickening of the medial and lateral limbs the left adrenal gland, stable. There is ectasia of the infrarenal abdominal aorta measuring up to 2.6 cm with moderate calcified atheromatous plaque. No pathologically enlarged lymph nodes identified in abdomen and pelvis. There is no free fluid or intraperit frey air. The kidneys enhance symmetrically. There is no suspicious renal mass. There is no hydronephrosis. There are no suspected calculi within the kidneys, ureters or urinary bladder. Mild chronic perinephric edema. Urinary bladder is within normal limits given degree of distention. Prostate and seminal vesicles are normal in appearance. Small and large bowel are normal in caliber. There is no evidence for bowel obstruction. There are no pericolonic inflammatory changes. A normal, nondilated appendix is visualized without adjacent inflammatory changes. Mild wall thickening and mural edema involving the gastric antrum and proximal duodenum. Focal luminal narrowing identified at the distal sigmoid colon, favored to reflect underdistention. No suspicious osseous lesion. IMPRESSION: Mild wall thickening involving the gastric antrum and proximal duodenum with marrow edema suggestive of gastroduodenitis. Ectasia of infrarenal abdominal aorta. Electronically signed by: Christin Dorado MD (08/28/2020 11:25 AM) [id number] DICTATED and SIGNED BY: CHRISTIN DORADO MD DATE: 08/28/20 [id number] 0 Course & Med Decision Making: Course & Med Decision Making Pertinent Labs and Imaging studies reviewed. (See chart for details) The patient remains awake, alert and in no acute distress. Patient denies any further episodes of vomiting since his arrival and does reportedly appear better clinically. I have advised patient return to the hospital should he have any further episodes of vomiting or new fevers. I also advised him to return with any new or worsening pain. The patient understands and has agreed to do so. He is nontoxic-appearing and at his functional baseline. He is stable for dischar ge back to his residence. Dragon Disclaimer: Dragon Disclaimer: This electronic medical record was generated, in whole or in part, using a voice recognition dictation system. Departure Departure Impression: Primary Impression: Gastroduodenitis Additional Impressions: Abdominal pain Nausea vomiting and diarrhea Poorly-controlled hypertension Disposition: 01 HOME / SELF CARE / HOMELESS Condition: IMPROVED Referrals: KELLY MCCARTHY MD (PCP) Patient Instructions: Abdominal Pain, Gastritis, Adult, Nausea and Vomiting Scripts Dicyclomine Hcl (DICYCLOMINE HCL) 20 Mg Tablet 1 TAB PO QID for 3 Days, #12 TAB Prov: DWAIN VALDES DO 08/28/20 Ondansetron Hcl (ZOFRAN) 4 Mg Tablet 1 TAB PO PRN Q6-8HRS for nausea, #12 TAB Prov: DWAIN VALDES DO 08/28/20 Problem Qualifiers DWAIN VALDES DO Aug 28, 2020 09:26
[2020-08-28 09:50] LABS: CALCIUM 9.3 mg/dL (8.5-10.1); CREATININE 1.1 mg/dL (0.7-1.3); GFR 79.4; POTASSIUM 4.3 mmol/L (3.5-5.1)
[2020-08-28 09:55] LABS: BASO # 0.1 x10^3/uL (0.0-0.2); BASO % 1 % (0-3); EOS # 0.1 x10^3/uL (0.0-0.7); EOS % 1 % (0-3); HEMATOCRIT 39.7 % (39.0-53.0); HEMOGLOBIN 13.5 g/dL (13.0-17.5); LYMPH # 1.1 x10^3/uL (1.0-4.8); LYMPH % 15 % (24-48); MEAN CORPUSCULAR HEMOGLOBIN 29 pg (25-35); MEAN CORPUSCULAR HGB CONC 34 g/dL (31-37); MEAN CORPUSCULAR VOLUME 86 fL (79-100); MONO # 0.2 x10^3/uL (0.0-1.1); MONO % 3 % (0-9); NEUT # 5.8 x10^3/uL (1.8-7.7); NEUT % 80 % (31-73); PLATELET COUNT 214 x10^3/uL (140-400); RED BLOOD COUNT 4.61 x10^6/uL (4.30-5.70); RED CELL DISTRIBUTION WIDTH 13.4 % (11.5-14.5); WHITE BLOOD COUNT 7.2 x10^3/uL (4.0-11.0)
[2020-08-28 09:55] LABS: ALBUMIN/GLOBULIN RATIO 1.2 (1.0-1.7); TOTAL BILIRUBIN 0.8 mg/dL (0.2-1.0); TOTAL PROTEIN 7.4 g/dL (6.4-8.2)
[2020-08-28] MEDS ORDERED: IOHEXOL 300 MG/ML 100ML VIAL. IV ONE (10:15)
[2020-08-28] MEDS ORDERED: CONTRAST GIVEN. MC PRN (10:15)
[2020-08-28] MEDS ORDERED: ONDANSETRON PF 4 MG/2 ML VIAL. IVP ONE (10:30)
--- NOTE | 2020-08-28 11:28 | RAD ---
PQRS Compliance Statement: One or more of the following individualized dose reduction techniques were utilized for this examinat ion: 1. Automated exposure control 2. Adjustment of the mA and/or kV according to patient size 3. Use of iterative reconstruction technique CT abdomen/pelvis with contrast 08/28/2020 10:07 AM INDICATION: Nausea, vomiting and left-sided pain COMPARISON: CT abdomen/pelvis 05/15/2020 TECHNIQUE: Multiple axial CT images of the abdomen and pelvis were obtained after the intravenous adm inistration of 64 mL Isovue-370. Coronal and sagittal reformats are provided. FINDINGS: Stable 3 mm solid noncalcified pulmonary nodule identified within the left lower lobe (series 2, imag e 8). There is subsegmental atelectasis at the right lung base. Heart size within normal limits. Live r, spleen, right adrenal gland and pancreas are normal in appearance. Gallbladder surgically absent. There is fusiform thickening of the medial and lateral limbs the left adrenal gland, stable. There is ectasia of the infrarenal abdominal aorta measuring up to 2.6 cm with moderate calcified atheromatou s plaque. No pathologically enlarged lymph nodes identified in abdomen and pelvis. There is no free f luid or intraperitoneal air. The kidneys enhance symmetrically. There is no suspicious renal mass. There is no hydronephrosis. The re are no suspected calculi within the kidneys, ureters or urinary bladder. Mild chronic perinephric edema. Urinary bladder is within normal limits given degree of distention. Prostate and seminal vesic les are normal in appearance. Small and large bowel are normal in caliber. There is no evidence for b owel obstruction. There are no pericolonic inflammatory changes. A normal, nondilated appendix is vis ualized without adjacent inflammatory changes. Mild wall thickening and mural edema involving the gas tric antrum and proximal duodenum. Focal luminal narrowing identified at the distal sigmoid colon, fa vored to reflect underdistention. No suspicious osseous lesion. IMPRESSION: Mild wall thickening involving the gastric antrum and proximal duodenum with marrow edema suggestive of gastroduodenitis. Ectasia of infrarenal abdominal aorta. Electronically signed by: Yakelin Nuñez MD (08/28/2020 11:25 AM) [id number]
[2020-08-28] MEDS ORDERED: DICY20TA3 PO (11:37)
[2020-08-28] MEDS ORDERED: ONDA4TAB7 PO (11:37)
[2020-08-28 12:00] VITALS: BP 175/82
--- NOTE | 2020-08-28 18:09 | EKG ---
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
== END 2020-08-28 13:20 | disposition home or self-care (01) ==
LOC: ER 09:04
DX: K29.90 Gastroduodenitis, unspecified, without bleeding (principal); I10 Essential (primary) hypertension; F03.90 Unspecified dementia, unspecified severity, without behavioral disturbance, psychotic disturbance, mood disturbance, and anxiety; E11.9 Type 2 diabetes mellitus without complications; E78.00 Pure hypercholesterolemia, unspecified; Z86.73 Personal history of transient ischemic attack (TIA), and cerebral infarction without residual deficits; Z90.49 Acquired absence of other specified parts of digestive tract; Z91.041 Radiographic dye allergy status
CPT/HCPCS: 36415; 74177; 80053; 83690; 84484; 85025; 93005; 96374; 99285; J2405